=== PATIENT | male | born 1960 | race Caucasian/White ===

== ENCOUNTER 2016-07-15 23:09 | Emergency (ER) | payer MEDICAID, MEDICARE ==
[2016-07-16] MEDS ORDERED: KETOROLAC TROMETHAMINE INJ/PF 30 MG/1 ML SDV IM ONE (00:53)
--- NOTE | 2016-07-16 00:59 | ER Document Report ---
ED General - General Chief Complaint: Rib Pain Stated Complaint: RIB PAIN Time Seen by Provider: 07/16/16 00:42 Notes: Patient is a pleasant 56-year-old male who presents with complaints of having some lumps over his left rib cage for 2 years. Patient saw surgeon shortly after he developed. His blood to go back to a surgeon but his insurance changed from Medicaid to Medicare. He was told they would have to be referred from his primary care doctor. Patient says he is scheduled to go back to his primary care doctor on Sunday to get a repeat referral to the surgeon. He says the lumps are painful and therefore he has come to the ER. Patient has no other complaints at this time. He otherwise feels well. He admits that he has Percocet some half milligram tablets at home which he takes for his back pain. He wants to know if there is some different he can take for his chest wall pain. TRAVEL OUTSIDE OF THE [place] IN LAST 30 DAYS: No - Related Data Allergies/Adverse Reactions: naproxen [Naproxen] Allergy (Verified 09/17/15 13:16) morphine [Morphine] Adverse Reaction (Verified 09/17/15 13:16) Migraine Past Medical History - Social History Smoking Status: Unknown if Ever Smoked Frequency of alcohol use: None Drug Abuse: None Family History: Reviewed & Not Pertinent - Past Medical History Cardiac Medical History: Reports: Hx Coronary Artery Disease, Hx Heart Attack - x4, Hx Hypertension Endocrine Medical History: Reports: Hx Diabetes Mellitus Type 2 Renal/ Medical History: Reports: Hx Kidney Stones. Denies: Hx Peritoneal Dialysis Past Surgical History: Reports: Hx Abdominal Surgery - gastric bypass, Hx Cardiac Catheterization - stents x2, Hx Cholecystectomy, Hx Coronary Stent - x9 , Hx Gastric Bypass Surgery - Immunizations Hx Diphtheria, Pertussis, Tetanus Vaccination: Yes Hx Pneumococcal Vaccination: 11/19/12 Physical Exam - Vital signs Vitals: Temp Pulse Resp BP Pulse Ox 98.2 F 88 16 155/86 H 99 07/15/16 23:17 07/15/16 23:17 07/15/16 23:17 07/15/16 23:17 07/15/16 23:17 Course - Vital Signs Vital signs: Temp Pulse Resp BP Pulse Ox 98.2 F 81 20 142/80 H 100 07/15/16 23:17 07/16/16 01:55 07/16/16 01:55 07/16/16 01:55 07/16/16 01:55 - Transfer of Care Notes: 07/16/16 00:53 Patient has Naprosyn in his allergy list. Patient says many years ago he took naproxen for gout along with a few other medications. He developed a rash therefore was told him to take nap again. Patient says he actually takes Aleve on a regular basis as well as sometimes Motrin or ibuprofen. He actually gets no reaction or rash or itching after taking his medications. Patient agrees to try a shot of Toradol. Patient is already on Percocet 7.5 mg at home. He says he will call Dr. España's office to get the repeat referral to the general surgeon to have the areas reevaluated and potentially biopsy. Discharge - Discharge Clinical Impression: Lump in chest Condition: Good Disposition: HOME, SELF-CARE Additional Instructions: Please follow back up with the surgeon for reevaluation and potential biopsy of the lumps on your chest wall. Return to the ER if you have redness of the skin over your chest wall, fevers, difficulty breathing, or feel unwell. Take benadryl and have somebody drive you to the ER immediately if you develop rash or itching after tonight. Referrals: TAYLOR SUTTON MD [Primary Care Provider] - Follow up as needed
[2016-07-16 01:56] VITALS: BP 142/80
== END 2016-07-16 01:37 | disposition home or self-care (01) ==
LOC: ER 23:09
DX: R22.2 Localized swelling, mass and lump, trunk (principal); R07.81 Pleurodynia; I25.10 Atherosclerotic heart disease of native coronary artery without angina pectoris; I10 Essential (primary) hypertension; E11.9 Type 2 diabetes mellitus without complications; Z87.442 Personal history of urinary calculi; Z88.6 Allergy status to analgesic agent; Z98.84 Bariatric surgery status; Z90.49 Acquired absence of other specified parts of digestive tract; I25.2 Old myocardial infarction
CPT/HCPCS: 99283; 96372; J1885

== ENCOUNTER 2016-08-14 19:46 | Observation (INO) | payer MEDICARE ==
[2016-08-14] MEDS ORDERED: ASPIRIN 81 MG TABLET, CHEWABLE PO ONE (20:33)
--- NOTE | 2016-08-14 20:34 | ER Document Report ---
ED Medical Screen (RME) - General Chief Complaint: Chest Pain Stated Complaint: CHEST PAIN Time Seen by Provider: 08/14/16 20:32 Mode of Arrival: Wheelchair Information source: Patient TRAVEL OUTSIDE OF THE [place] 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 Denies: Hx Peritoneal Dialysis Past Surgical History: Reports: Hx Abdominal Surgery - gastric bypass, Hx Cardiac Catheterization - stents x2, Hx Cholecystectomy, Hx Coronary Stent - x9 , Hx Gastric Bypass Surgery - Immunizations Hx Diphtheria, Pertussis, Tetanus Vaccination: Yes
[2016-08-14] MEDS ORDERED: NITROGLYCERIN 0.4 MG/TAB 25 TAB/BOTTLE SL PRN (20:35)
[2016-08-14] MEDS ORDERED: ASPIRIN 81 MG TABLET, CHEWABLE ONE (20:40)
[2016-08-14 21:15] LABS: ABSOLUTE BASOPHILS # (AUTO) 0.1 10^3/uL (0.0-0.2); ABSOLUTE EOSINOPHILS # (AUTO) 0.2 10^3/uL (0.0-0.6); ABSOLUTE LYMPHOCYTES (AUTO) 1.4 10^3/uL (0.5-4.7); ABSOLUTE MONOCYTES (AUTO) 0.9 10^3/uL (0.1-1.4); ABSOLUTE NEUT (AUTO) 8.2 10^3/uL (1.7-8.2); EOSINOPHILS % (AUTO) 1.6 % (0-6); HEMATOCRIT 37.4 % (37.9-51.0); HEMOGLOBIN 11.7 g/dL (13.5-17.0); HGB HCT DIFFERENCE -2.3; LYMPHOCYTES % (AUTO) 13.1 % (13-45); MEAN CORPUSCULAR HEMOGLOBIN 23.5 pg (27.0-33.4); MEAN CORPUSCULAR HGB CONC 31.3 g/dL (32.0-36.0); MEAN CORPUSCULAR VOLUME 75 fl (80-97); MONOCYTES % (AUTO) 8.5 % (3-13); RED BLOOD COUNT 4.98 10^6/uL (4.35-5.55); RED CELL DISTRIBUTION WIDTH 15.4 % (11.5-14.0); SEGMENTED NEUTROPHILS % (AUTO) 75.8 % (42-78); WHITE BLOOD COUNT 10.8 10^3/uL (4.0-10.5)
--- NOTE | 2016-08-14 21:16 | RADIOLOGY REPORT (SQ) ---
EXAM DESCRIPTION: CHEST PA/LAT COMPLETED DATE/TIME: 08/14/2016 9:00 pm REASON FOR STUDY: cp COMPARISON: 04/19/2015. EXAM PARAMETERS: NUMBER OF VIEWS: two views TECHNIQUE: Digital Frontal and Lateral radiographic views of the chest acquired. RADIATION DOSE: NA LIMITATIONS: none FINDINGS: LUNGS AND PLEURA: No opacities, masses or pneumothorax. No pleural effusion. MEDIASTINUM AND HILAR STRUCTURES: No masses or contour abnormalities. HEART AND VASCULAR STRUCTURES: Heart normal size. No evidence for failure. BONES: No acute findings. HARDWARE: None in the chest. OTHER: No other significant finding. IMPRESSION: NO SIGNIFICANT RADIOGRAPHIC FINDING IN THE CHEST. TECHNICAL DOCUMENTATION: JOB ID: [id number] [employer]- All Rights Reserved
[2016-08-14 21:21] LABS: PARTIAL THROMBOPLASTIN TIME 31.5 SEC (23.5-35.8); PROTHROMBIN TIME 12.8 SEC (11.4-15.4)
[2016-08-14] MEDS ORDERED: NORMAL SALINE 1000 ML 1,000 ML IV PRN (21:26)
[2016-08-14 21:37] LABS: ALANINE AMINOTRANSFERASE 26 U/L (21-72); ALKALINE PHOSPHATASE 120 U/L (38-126); ANION GAP 13 (5-19); ASPARTATE AMINO TRANSFERASE 15 U/L (17-59); BILIRUBIN,DIRECT 0.4 mg/dL (0.0-0.4); BILIRUBIN,TOTAL 0.4 mg/dL (0.2-1.3); BLOOD UREA NITROGEN 20 mg/dL (7-20); CALCIUM 9.3 mg/dL (8.4-10.2); CARBON DIOXIDE 21 mmol/L (22-30); CHLORIDE 102 mmol/L (98-107); CREATINE KINASE 63 U/L (55-170); SODIUM 136.3 mmol/L (137-145); TOTAL PROTEIN 7.2 g/dL (6.3-8.2)
[2016-08-14 21:49] LABS: CREATINE KINASE MB < 0.22 ng/mL (<4.55); GLUCOSE 452 mg/dL (75-110); TROPONIN I < 0.012 ng/mL
--- NOTE | 2016-08-14 22:40 | EKG REPORT ---
SEVERITY:- OTHERWISE NORMAL ECG - SINUS TACHYCARDIA : Confirmed by: Khushboo Peres 14-Aug-2016 22:39:11
[2016-08-14] MEDS ORDERED: INSULIN REG, HUMAN 100 UNIT/ML 3 ML VIAL (PYX) SUBCUT ONE (22:52)
[2016-08-15] MEDS ORDERED: NITROGLYCERIN 2% OINTMENT 1 GM PACKET TP ONE (00:05)
--- NOTE | 2016-08-15 00:09 | ER Document Report ---
ED General - General Chief Complaint: Chest Pain Stated Complaint: CHEST PAIN Time Seen by Provider: 08/14/16 20:32 Mode of Arrival: Wheelchair Notes: Patient is a 56-year-old male with a history of coronary disease who presents with complaint of pressure in his chest. Into the left arm and shoulder. Some shortness of breath. He did take nitro. Pain is now improved. He has had aspirin. No fevers. No vomiting. No diarrhea. No other complaints at this time. He does have history of coronary disease. His last cardiac cath was April of last year. At that time he had 3 stents placed. TRAVEL OUTSIDE OF THE [place] IN LAST 30 DAYS: No - Related Data Allergies/Adverse Reactions: morphine [Morphine] Adverse Reaction (Verified 08/14/16 20:10) Migraine Past Medical History - General Information source: Patient - Social History Smoking Status: Never Smoker Frequency of alcohol use: None Drug Abuse: None Lives with: Spouse/Significant other Family History: Reviewed & Not Pertinent - Past Medical History Cardiac Medical History: Reports: Hx Coronary Artery Disease, Hx Heart Attack - x4, Hx Hypertension Endocrine Medical History: Reports: Hx Diabetes Mellitus Type 2 Renal/ Medical History: Reports: Hx Kidney Stones. Denies: Hx Peritoneal Dialysis Past Surgical History: Reports: Hx Abdominal Surgery - gastric bypass, Hx Cardiac Catheterization - stents x2, Hx Cholecystectomy, Hx Coronary Stent - x9 , Hx Gastric Bypass Surgery - Immunizations Hx Diphtheria, Pertussis, Tetanus Vaccination: Yes Hx Pneumococcal Vaccination: 11/19/12 Review of Systems - Review of Systems Notes: My Normal Review Basic REVIEW OF SYSTEMS: CONSTITUTIONAL : Denies fever, chills, or sweats. Denies recent illness. EENT: Denies eye, ear, throat, or mouth pain or symptoms. Denies nasal or sinus congestion. CARDIOVASCULAR: Chest Pain RESPIRATORY: Denies cough, cold, or chest congestion. Denies shortness of breath, difficulty breathing, or wheezing. GASTROINTESTINAL: Denies abdominal pain. Denies nausea, vomiting, or diarrhea. Denies constipation. Last BM: MUSCULOSKELETAL: Denies neck or back pain or joint pain or swelling. SKIN: Denies rash or skin lesions. NEUROLOGICAL: Denies altered mental status or loss of consciousness. Denies headache. Denies weakness or paralysis or loss of use of either side. Denies problems with gait or speech. Denies sensory or motor loss. ALL OTHER SYSTEMS REVIEWED AND NEGATIVE. Physical Exam - Vital signs Vitals: Temp Pulse Resp BP Pulse Ox 98.3 F 118 H 20 128/78 H 98 08/14/16 20:12 08/14/16 20:12 08/14/16 20:12 08/14/16 20:12 08/14/16 20:12 - Notes Notes: General Appearance: Well nourished, alert, cooperative, no acute distress, no obvious discomfort. Pain. Vitals: reviewed, See vital signs table. Head: no swelling or tenderness to the head Eyes: PERRL, EOMI, Conjuctiva clear Mouth: No decreasd moisture Neck: Supple, no neck tenderness, Lungs: No wheezing, No rales, No rhonci, No accessory muscle use, good air exchange bilaterally. Heart: Normal rate, Regular rythm, No murmur, no rub Chest Wall: No reproducible pain to palpation of anterior chest wall. Abdomen: Normal BS, soft, No rigidity, No abdominal tenderness, No guarding, no rebound, no abdominal masses, no organomegaly Extremities: strength 5/5 in all extremities, good pulses in all extremities, no swelling or tenderness in the extremities, no edema. Skin: warm, dry, appropriate color, no rash Neuro: speech clear, oriented x 3, normal affect, responds appropriately to questions. Course - Vital Signs Vital signs: Temp Pulse Resp BP Pulse Ox 97.4 F 74 18 131/91 H 100 08/15/16 03:33 08/15/16 03:33 08/15/16 03:33 08/15/16 03:33 08/15/16 03:33 - Laboratory Result Diagrams: 08/14/16 21:04 08/14/16 21:04 Laboratory results interpreted by me: 08/14/16 08/14/16 21:04 21:04 WBC 10.8 H Hgb 11.7 L Hct 37.4 L MCV 75 L MCH 23.5 L MCHC 31.3 L RDW 15.4 H Sodium 136.3 L Carbon Dioxide 21 L Creatinine 1.50 H Est GFR ( Amer) 59 L Est GFR (Non-Af Amer) 49 L Glucose 452 H* AST 15 L - EKG Interpretation by Me Additional EKG results interpreted by me: 08/15/16 00:08 EKG is reviewed and interpreted by me. EKG shows sinus tachycardia with a rate of [address] segment elevation or depression. No ischemic T-wave inversions. WV interval, QRS duration, QTc intervals are within normal range. No old EKG available for comparison. - Transfer of Care Notes: 08/15/16 06:28 Patient did have some elevated blood sugar. I did give him a dose of insulin. Patient was initially tachycardic but that has since resolved. Patient's chest pain is gone. His initial cardiac enzymes are negative. His initial EKG is negative. I did speak with the hospitalist who agrees to admit the patient for further workup of his chest pain. Dictation of this chart was performed using voice recognition software; therefore, there may be some unintended grammatical errors. Discharge - Discharge Clinical Impression: Chest pain Qualifiers: Chest pain type: unspecified Qualified Code(s): R07.9 - Chest pain, unspecified Disposition: ADMITTED OBSERVATION Admitting Provider: Hospitalist Unit Admitted: Telemetry
[2016-08-15] MEDS ORDERED: METOPROLOL TARTRATE 50 MG TABLET PO ONE (00:30)
[2016-08-15] MEDS ORDERED: LACTULOSE SYRUP 20 GM/30 ML UDCUP PO ONE (00:30)
--- NOTE | 2016-08-15 01:03 | RADIOLOGY REPORT (SQ) ---
EXAM DESCRIPTION: ABDOMEN 2 VIEWS COMPLETED DATE/TIME: 08/15/2016 12:35 am REASON FOR STUDY: aabd pain COMPARISON: 09/17/2015. NUMBER OF VIEWS: Two views. 3 images. TECHNIQUE: Supine and erect/decubitus radiographic images of the abdomen acquired. LIMITATIONS: None. FINDINGS: FREE AIR: None. No abnormal gas collections. LUNG BASES: Clear. BOWEL GAS PATTERN: Nonobstructive pattern. No dilated loops or air fluid levels. Minimal gaseous dis tension of a nonspecific jejunal loop measures 3.0 cm in diameter in the left paracentral abdomen. CALCIFICATIONS: No suspicious calcifications. SOFT TISSUES: No gross mass or suggestion of organomegaly. HARDWARE: None in the abdomen. BONES: No acute fracture. No worrisome bone lesions. OTHER: No other significant finding. IMPRESSION: NO RADIOGRAPHIC EVIDENCE FOR ACUTE ABDOMINAL DISEASE. TECHNICAL DOCUMENTATION: JOB ID: [id number] [employer]- All Rights Reserved
[2016-08-15] MEDS: OXYCODONE-ACETAMINOPHEN 5-325 MG TABLET PO PRN ×2 (03:28→09:27)
[2016-08-15 03:40] LABS: CREATINE KINASE MB < 0.22 ng/mL (<4.55); TROPONIN I < 0.012 ng/mL
[2016-08-15] MEDS ORDERED: GABAPENTIN 300 MG CAPSULE PO ONE (03:45)
[2016-08-15] MEDS ORDERED: CYCLOBENZAPRINE HCL 10 MG TABLET PO ONE (03:45)
--- NOTE | 2016-08-15 04:04 | PDOC H&P ---
History of Present Illness Admission Date/PCP: 08/15/16 00:21 TAYLOR SUTTON MD Patient complains of: Chest pain History of Present Illness: STEPHANIE MONTEMAYOR is a 56 year old male with a past medical history of coronary artery disease status post stents 3, diabetes, hypertension and dyslipidemia who had been in his usual state of health until approximately 8 hours prior to presentation with left-sided aching 3 out of 5 intensity chest pain which radiated to the left jaw associated with shortness of breath and numbness of the left arm. This occurred while at rest pain was somewhat alleviated by sublingual nitro no clear exacerbating factors. He denies recent changes in medication. He states having a negative cardiac stress test 6 months ago. He also states this is identical to the pain he had with prior myocardial infarct. In the emergency room he has an unremarkable workup is referred to the hospital for admission Past Medical History Cardiac Medical History: Reports: Coronary Artery Disease, Myocardial Infarction - x4, Hypertension Endocrine Medical History: Reports: Diabetes Mellitus Type 2, Obesity Past Surgical History Past Surgical History: Reports: Cardiac Catheterization - stents x9, Cholecystectomy, Coronary Stent - x9, Gastric Bypass Surgery Social History Information Source: Patient Smoking Status: Never Smoker Frequency of Alcohol Use: None Drugs: None - Advance Directive Resuscitation Status: Full Code Family History Family History: CAD, DM Parental Family History Reviewed: Yes Children Family History Reviewed: Yes Sibling(s) Family History Reviewed.: Yes Medication/Allergy Home Medications: Lisinopril [Prinivil 30 mg Tablet] 30 mg PO DAILY 07/31/13 Metoprolol Tartrate [Lopressor 50 mg Tablet] 50 mg PO Q12H 07/31/13 Oxycodone HCl/Acetaminophen [Percocet 5-325 mg Tablet] 1 - 2 tab PO ASDIR PRN # 15 tablet 08/05/13 Amlodipine Besylate 5 mg PO DAILY 04/20/15 Cyclobenzaprine HCl [Flexeril 5 mg Tablet] 10 mg PO BID 04/20/15 Gabapentin 300 mg PO BID 04/20/15 Metformin HCl 500 mg PO BID 04/20/15 Ticagrelor [Brilinta 90 mg Tablet] 1 tab PO BID 04/20/15 Ondansetron [Zofran Odt 4 mg Tablet] 1 - 2 tab PO Q4H PRN #15 tab.rapdis Oxycodone HCl/Acetaminophen [Percocet 7.5-325 Mg Tablet] 1 each PO QID #16 tablet 09/17/15 Allergies/Adverse Reactions: morphine [Morphine] Adverse Reaction (Verified 08/14/16 20:10) Migraine Review of Systems Constitutional: ABSENT: chills, fever(s), headache(s), weight gain, weight loss Eyes: ABSENT: visual disturbances Ears: ABSENT: hearing changes Cardiovascular: ABSENT: chest pain, dyspnea on exertion, edema, orthropnea, palpitations Respiratory: ABSENT: cough, hemoptysis Gastrointestinal: ABSENT: abdominal pain, constipation, diarrhea, hematemesis, hematochezia, nausea, vomiting Genitourinary: ABSENT: dysuria, hematuria Musculoskeletal: ABSENT: joint swelling Integumentary: ABSENT: rash, wounds Neurological: ABSENT: abnormal gait, abnormal speech, confusion, dizziness, focal weakness, syncope Psychiatric: ABSENT: anxiety, depression, homidical ideation, suicidal ideation Endocrine: ABSENT: cold intolerance, heat intolerance, polydipsia, polyuria Hematologic/Lymphatic: ABSENT: easy bleeding, easy bruising Physical Exam Vital Signs: Temp Pulse Resp BP Pulse Ox 97.4 F 74 18 131/91 H 100 08/15/16 03:33 08/15/16 03:33 08/15/16 03:33 08/15/16 03:33 08/15/16 03:33 Intake & Output 08/13/16 08/14/16 08/15/16 11:59 11:59 11:59 Weight 113.5 kg General appearance: PRESENT: no acute distress, well-developed, well-nourished Head exam: PRESENT: atraumatic, normocephalic Eye exam: PRESENT: conjunctiva pink, EOMI, PERRLA. ABSENT: scleral icterus Ear exam: PRESENT: normal external ear exam Mouth exam: PRESENT: moist, tongue midline Neck exam: ABSENT: carotid bruit, JVD, lymphadenopathy, thyromegaly Respiratory exam: PRESENT: clear to auscultation rashmi. ABSENT: rales, rhonchi, wheezes Cardiovascular exam: PRESENT: RRR. ABSENT: diastolic murmur, rubs, systolic murmur Pulses: PRESENT: normal dorsalis pedis pul Vascular exam: PRESENT: normal capillary refill GI/Abdominal exam: PRESENT: normal bowel sounds, soft. ABSENT: distended, guarding, mass, organolmegaly, rebound, tenderness Rectal exam: PRESENT: deferred Extremities exam: PRESENT: full ROM. ABSENT: calf tenderness, clubbing, pedal edema Neurological exam: PRESENT: alert, awake, oriented to person, oriented to place , oriented to time, oriented to situation, CN II-XII grossly intact. ABSENT: motor sensory deficit Psychiatric exam: PRESENT: appropriate affect, normal mood. ABSENT: homicidal ideation, suicidal ideation Skin exam: PRESENT: dry, intact, warm. ABSENT: cyanosis, rash Results Laboratory Results: 08/15/16 03:05 CK-MB (CK-2) < 0.22 Troponin I < 0.012 Impressions: Chest X-Ray 08/14/16 20:33 IMPRESSION: NO SIGNIFICANT RADIOGRAPHIC FINDING IN THE CHEST. Abdomen X-Ray 08/15/16 00:09 IMPRESSION: NO RADIOGRAPHIC EVIDENCE FOR ACUTE ABDOMINAL DISEASE. Assessment & Plan - Diagnosis (1) Coronary artery disease Is this a current diagnosis for this admission?: YesPlan: Atypical chest pain though the patient's pain is atypical there are multiple risk factors for coronary artery disease and subsequently will observe and evaluation of acute coronary syndrome versus coronary artery disease with anginal equivalents. Cardiac monitoring blood pressure Q6 hours ,TSH, lipid profile, serial cardiac enzymes and transfer to tertiary care for cardiac catheterization if cardiac enzymes positive. (2) Diabetes Is this a current diagnosis for this admission?: YesPlan: Hold metformin, check A1c and sliding insulin (3) Chest pain Qualifiers: Chest pain type: unspecified Qualified Code(s): R07.9 - Chest pain, unspecified Is this a current diagnosis for this admission?: YesPlan: Please see #1 in addition to symptomatic management - Time Time Spent: 30 to 50 Minutes - Inpatient Certification Medical Necessity: Need Close Monitoring Due to Risk of Patient Decompensation
[2016-08-15] MEDS ORDERED: HEPARIN SOD (PORCINE) 5,000 UNIT/ML 1 ML SYRINGE SUBCUT SCH (06:00)
[2016-08-15 09:49] LABS: CREATINE KINASE MB < 0.22 ng/mL (<4.55); TROPONIN I < 0.012 ng/mL
[2016-08-15] MEDS ORDERED: AMLODIPINE BESYLATE 5 MG TABLET PO SCH (10:00)
[2016-08-15] MEDS ORDERED: GABAPENTIN 300 MG CAPSULE PO SCH (10:00)
[2016-08-15] MEDS ORDERED: METOPROLOL TARTRATE 50 MG TABLET PO SCH (10:00)
[2016-08-15] MEDS ORDERED: CYCLOBENZAPRINE HCL 10 MG TABLET PO SCH (10:00)
[2016-08-15] MEDS ORDERED: TICAGRELOR 90 MG TABLET PO SCH (10:00)
--- NOTE | 2016-08-15 11:36 | PDOC DISCHARGE SUMMARY ---
General - Admit/Disc Date/PCP Admission Date/Primary Care Provider: 08/15/16 02:33 TAYLOR SUTTON MD Discharge Date: 08/15/16 - Discharge Diagnosis (1) Chest pain Is this a current diagnosis for this admission?: Yes (2) Coronary artery disease Is this a current diagnosis for this admission?: Yes (3) Diabetes Is this a current diagnosis for this admission?: Yes - Additional Information Resuscitation Status: Full Code Discharge Diet: Cardiac, Diabetic Discharge Activity: Activity As Tolerated Home Medications: Amlodipine Besylate [Norvasc 5 mg Tablet] 5 mg PO DAILY 08/15/16 Atorvastatin Calcium [Lipitor 40 mg Tablet] 40 mg PO QHS 08/15/16 Cyclobenzaprine HCl [Flexeril 10 mg Tablet] 10 mg PO BID 08/15/16 Gabapentin [Neurontin 300 mg Capsule] 300 mg PO Q8 08/15/16 Insulin Aspart [Novolog Flexpen] 0 unit SUBCUT .SLD SCALE 08/15/16 Insulin Detemir [Levemir Flextouch] 20 unit SQ QHS 08/15/16 Isosorbide Mononitrate [Imdur 30 mg Tablet.er] 30 mg PO DAILY 08/15/16 Lisinopril [Prinivil 30 mg Tablet] 30 mg PO DAILY 08/15/16 Metoprolol Tartrate [Lopressor 25 mg Tablet] 25 mg PO Q12 08/15/16 Nitroglycerin [Nitrostat 0.4 mg (1/150 Gr) Tabs 25/Bottle] 1 tab SL Q5MP PRN Ondansetron HCl [Zofran] 4 mg PO Q4HP PRN 08/15/16 Oxycodone HCl/Acetaminophen [Percocet 7.5-325 mg Tablet] 1 each PO Q6HP PRN Tamsulosin HCl [Flomax 0.4 mg Cap.sr] 0.4 mg PO DAILY 08/15/16 Ticagrelor [Brilinta 90 mg Tablet] 1 tab PO BID 08/15/16 History of Present Illness Patient complains of: Chest pain History of Present Illness: STEPHANIE MONTEMAYOR is a 56 year old male with a past medical history of coronary artery disease status post stents 3, diabetes, hypertension and dyslipidemia who had been in his usual state of health until approximately 8 hours prior to presentation with left-sided aching 3 out of 5 intensity chest pain which radiated to the left jaw associated with shortness of breath and numbness of the left arm. This occurred while at rest pain was somewhat alleviated by sublingual nitro no clear exacerbating factors. He denies recent changes in medication. He states having a negative cardiac stress test 6 months ago. He also states this is identical to the pain he had with prior myocardial infarct. In the emergency room he has an unremarkable workup is referred to the hospital for admission. Hospital Course Hospital Course: Patient was placed in observation status for chest pain and known coronary artery disease. Serial cardiac enzymes were negative for FL. He had a stress test in March 2016 was negative for ischemia per his report. He is followed by Dr. Singh of [facility]. He is advised to continue all current cardiac medications and follow-up with Dr. Singh as soon as possible. Patient was clinically stable and chest pain-free at time of discharge. Physical Exam Vital Signs: Temp Pulse Resp BP Pulse Ox 97.8 F 71 18 125/76 100 08/15/16 07:23 08/15/16 07:23 08/15/16 07:23 08/15/16 07:23 08/15/16 07:23 Intake & Output 08/14/16 08/15/16 08/16/16 06:59 06:59 06:59 Intake Total 150 Balance 150 Weight 113.5 kg GENERAL: No acute distress HEENT: Conjunctiva clear, nonicteric, moist mucous membranes, no JVD, midline trachea RESPIRATORY: Clear to auscultation bilaterally, no wheezes, no rhonchi CARDIAC: Regular rate and rhythm, no murmurs/gallops/rubs ABDOMEN: Soft, nondistended, nontender, positive bowel sounds, no rebound, no guarding EXTREMETIES: No edema, cyanosis, clubbing NEUROLOGIC: Alert, oriented to person/place/time, CN's grossly intact, no focal deficits SKIN: No rash, wounds PSYCH: Normal mood, normal affect Results Laboratory Results: 08/15/16 08/15/16 03:05 08:52 CK-MB (CK-2) < 0.22 < 0.22 Troponin I < 0.012 < 0.012 Labs- All tests 24 hr 08/14/16 08/14/16 08/14/16 21:04 21:04 21:04 WBC 10.8 H RBC 4.98 Hgb 11.7 L Hct 37.4 L MCV 75 L MCH 23.5 L MCHC 31.3 L RDW 15.4 H Plt Count 423 Seg Neutrophils % 75.8 Lymphocytes % 13.1 Monocytes % 8.5 Eosinophils % 1.6 Basophils % 1.0 Absolute Neutrophils 8.2 Absolute Lymphocytes 1.4 Absolute Monocytes 0.9 Absolute Eosinophils 0.2 Absolute Basophils 0.1 PT INR APTT Sodium 136.3 L Potassium 5.0 Chloride 102 Carbon Dioxide 21 L Anion Gap 13 BUN 20 Creatinine 1.50 H Est GFR ( Amer) 59 L Est GFR (Non-Af Amer) 49 L Glucose 452 H* POC Glucose Calcium 9.3 Total Bilirubin 0.4 Direct Bilirubin 0.4 Indirect Bilirubin Not Reportable Neonat Total Bilirubin Not Reportable AST 15 L ALT 26 Alkaline Phosphatase 120 Creatine Kinase 63 CK-MB (CK-2) < 0.22 Troponin I < 0.012 Total Protein 7.2 Albumin 4.0 08/14/16 08/15/16 08/15/16 21:04 03:05 06:12 WBC RBC Hgb Hct MCV MCH MCHC RDW Plt Count Seg Neutrophils % Lymphocytes % Monocytes % Eosinophils % Basophils % Absolute Neutrophils Absolute Lymphocytes Absolute Monocytes Absolute Eosinophils Absolute Basophils PT 12.8 INR 0.90 APTT 31.5 Sodium Potassium Chloride Carbon Dioxide Anion Gap BUN Creatinine Est GFR ( Amer) Est GFR (Non-Af Amer) Glucose POC Glucose 151 H Calcium Total Bilirubin Direct Bilirubin Indirect Bilirubin Neonat Total Bilirubin AST ALT Alkaline Phosphatase Creatine Kinase CK-MB (CK-2) < 0.22 Troponin I < 0.012 Total Protein Albumin 08/15/16 08:52 WBC RBC Hgb Hct MCV MCH MCHC RDW Plt Count Seg Neutrophils % Lymphocytes % Monocytes % Eosinophils % Basophils % Absolute Neutrophils Absolute Lymphocytes Absolute Monocytes Absolute Eosinophils Absolute Basophils PT INR APTT Sodium Potassium Chloride Carbon Dioxide Anion Gap BUN Creatinine Est GFR ( Amer) Est GFR (Non-Af Amer) Glucose POC Glucose Calcium Total Bilirubin Direct Bilirubin Indirect Bilirubin Neonat Total Bilirubin AST ALT Alkaline Phosphatase Creatine Kinase CK-MB (CK-2) < 0.22 Troponin I < 0.012 Total Protein Albumin EKG Comments: Sinus tachycardia Impressions: Chest X-Ray 08/14/16 20:33 IMPRESSION: NO SIGNIFICANT RADIOGRAPHIC FINDING IN THE CHEST. Abdomen X-Ray 08/15/16 00:09 IMPRESSION: NO RADIOGRAPHIC EVIDENCE FOR ACUTE ABDOMINAL DISEASE. Qualifiers PATEINT BEING DISCHARGED WITH ANY OF THE FOLLOWING DIAGNOSIS?: No Plan Time Spent: Less than 30 Minutes
[2016-08-15 12:28] VITALS: BP 131/91
[2016-08-15] MEDS ORDERED: INSULIN LISPRO 100 UNIT/ML 3 ML VIAL SUBCUT ONE (12:30)
== END 2016-08-15 13:38 | disposition home or self-care (01) ==
LOC: ER 19:46 → EH 08-15 00:21 → UNDOADMOB 08-15 00:21 → 4W 08-15 02:33 → EH 08-15 03:15
PROVIDERS: ADMIT Internal Medicine; ATTEND Internal Medicine
DX: R07.9 Chest pain, unspecified (principal); I25.10 Atherosclerotic heart disease of native coronary artery without angina pectoris; E11.9 Type 2 diabetes mellitus without complications; I10 Essential (primary) hypertension; R06.02 Shortness of breath; R20.0 Anesthesia of skin; R00.0 Tachycardia, unspecified; R51 Headache; Z79.4 Long term (current) use of insulin; Z79.899 Other long term (current) drug therapy; Z79.02 Long term (current) use of antithrombotics/antiplatelets; Z95.5 Presence of coronary angioplasty implant and graft; I25.2 Old myocardial infarction; Z98.84 Bariatric surgery status; Z90.49 Acquired absence of other specified parts of digestive tract; Z82.49 Family history of ischemic heart disease and other diseases of the circulatory system
CPT/HCPCS: 93005; 99285; 96360; 36415 ×2; 82553 ×2; 82962; 82550; 85025; 85610; 85730; 80053; 84484 ×2; 74020; 71020; 93010; G0378; A9270 ×10; J1644; J3490; J7030; J1815

== ENCOUNTER 2016-11-02 21:21 | Emergency (ER) | payer MEDICARE ==
[2016-11-02 21:41] VITALS: BP 98/72
[2016-11-02 23:04] LABS: APPEARANCE,URINE CLEAR; BILIRUBIN,URINE NEGATIVE (NEGATIVE); GLUCOSE, URINE >=500 mg/dL (NEGATIVE); KETONES,URINE NEGATIVE (NEGATIVE); LEUKOCYTE ESTERASE,URINE NEGATIVE (NEGATIVE); NITRITE,URINE NEGATIVE (NEGATIVE); PROTEIN,URINE NEGATIVE (NEGATIVE); URINE SPECIFIC GRAVITY 1.023; UROBILINOGEN,URINE NEGATIVE mg/dL (<2.0)
== END 2016-11-03 00:37 | disposition left against medical advice (07) ==
LOC: ER 21:21
DX: Z53.21 Procedure and treatment not carried out due to patient leaving prior to being seen by health care provider (principal)
CPT/HCPCS: 81001; 82962

== ENCOUNTER 2016-11-04 21:15 | Emergency (ER) | payer MEDICARE ==
[2016-11-04 21:24] VITALS: BP 149/110
[2016-11-04 22:49] LABS: APPEARANCE,URINE CLEAR; BILIRUBIN,URINE NEGATIVE (NEGATIVE); GLUCOSE, URINE >=500 mg/dL (NEGATIVE); KETONES,URINE NEGATIVE (NEGATIVE); LEUKOCYTE ESTERASE,URINE NEGATIVE (NEGATIVE); NITRITE,URINE NEGATIVE (NEGATIVE); PROTEIN,URINE NEGATIVE (NEGATIVE); UROBILINOGEN,URINE NEGATIVE mg/dL (<2.0)
--- NOTE | 2016-11-04 22:50 | ER Document Report ---
ED GI/ - General Mode of Arrival: Ambulatory Information source: Patient TRAVEL OUTSIDE OF THE [place] IN LAST 30 DAYS: No - HPI Similar symptoms previously: Yes Recently seen / treated by doctor: No <BENNIE MURRAY - Last Filed: 11/05/16 00:26> <ANABEL ZHOU - Last Filed: 11/05/16 00:44> - General Chief Complaint: Urinary Retention Stated Complaint: PELVIC PAIN Time Seen by Provider: 11/04/16 22:44 Notes: Patient is a 56 year old male presenting to the emergency department for urinary retention. Patient states he has been out of Flowmax since Sunday. Patient states he feels like he is unable to fully empty his bladder. Patient states he has lots of pressure and he has a very slow flow. Patient states he has been on Flowmax for an enlarged prostate for about 14 months. Patient states this has only happened 1 other time about 8 months ago and he had similar symptoms. Patient also states he had some flank pain and thought he may have a kidney stone. Patient does not have a urologist but does have a PCP, Dr. Sutton. Patient has a history of type II diabetes mellitus, CAD, hypertension, FL x5, stents x9, stroke x1, kidney stones, gastric bypass surgery, and a cholecystectomy. Patient is allergic to morphine. (BENNIE MURRAY) A review of the [place] controlled substance reporting system shows the patient receives #90 Percocet 10 mg tablets on a monthly basis. (ANABEL ZHOU) - Related Data Allergies/Adverse Reactions: morphine [Morphine] Adverse Reaction (Verified 11/04/16 21:20) Migraine Past Medical History - General Information source: Patient - Social History Smoking Status: Never Smoker Cigarette use (# per day): No Chew tobacco use (# tins/day): No Smoking Education Provided: No Frequency of alcohol use: None Drug Abuse: None Family History: None Patient has suicidal ideation: No Patient has homicidal ideation: No - Past Medical History Cardiac Medical History: Reports: Hx Coronary Artery Disease, Hx Heart Attack - x5, Hx Hypertension Neurological Medical History: Reports: Hx Cerebrovascular Accident - x1 Endocrine Medical History: Reports: Hx Diabetes Mellitus Type 2 Renal/ Medical History: Reports: Hx Kidney Stones Past Surgical History: Reports: Hx Cardiac Catheterization - stents x9, Hx Cholecystectomy, Hx Gastric Bypass Surgery - Immunizations Hx Diphtheria, Pertussis, Tetanus Vaccination: Yes Hx Pneumococcal Vaccination: 11/19/12 <BENNIE MURRAY - Last Filed: 11/05/16 00:26> Review of Systems - Review of Systems Constitutional: No symptoms reported EENT: No symptoms reported Cardiovascular: No symptoms reported Respiratory: No symptoms reported Gastrointestinal: See HPI, Abdominal pain Genitourinary: See HPI, Flank pain, Retention Male Genitourinary: No symptoms reported Musculoskeletal: No symptoms reported Skin: No symptoms reported Hematologic/Lymphatic: No symptoms reported Neurological/Psychological: No symptoms reported -: Yes All other systems reviewed and negative <BENNIE MURRAY - Last Filed: 11/05/16 00:26> Physical Exam - Vital signs Interpretation: Normal <BENNIE MURRAY - Last Filed: 11/05/16 00:26> <ANABEL ZHOU - Last Filed: 11/05/16 00:44> - Vital signs Vitals: Temp Pulse Resp BP Pulse Ox 97.5 F 91 20 149/110 H 98 11/04/16 21:22 11/04/16 21:22 11/04/16 21:22 11/04/16 21:22 11/04/16 21:22 - Notes Notes: GENERAL: Alert, interacts well. No acute distress. HEAD: Normocephalic, atraumatic. EYES: Appear normal. Pupils equal, round, and reactive to light. ENT: Moist mucus membranes, tongue midline. NECK: Full range of motion. Supple. Trachea midline. LUNGS: Clear to auscultation bilaterally, no wheezes, rales, or rhonchi. No respiratory distress. HEART: Regular rate and rhythm. No murmurs, gallops, or rubs. ABDOMEN: Obese. Soft, lower abdominal tenderness with palpation. Non-distended. Normal bowel sounds. EXTREMITIES: Moves all 4 extremities spontaneously. Normal strength. No edema. NEUROLOGICAL: Alert and oriented x3. Normal speech. No focal neurological deficits. GCS 15. PSYCH: Normal affect, normal mood. SKIN: Warm, dry, normal turgor. No rashes or lesions noted. (BENNIE MURRAY) Course - Laboratory Result Diagrams: 11/04/16 23:03 11/04/16 23:03 <BENNIE MURRAY - Last Filed: 11/05/16 00:26> - Laboratory Result Diagrams: 11/04/16 23:03 11/04/16 23:03 <ANABEL ZHOU - Last Filed: 11/05/16 00:44> - Re-evaluation Re-evalutation: 11/05/16 00:04 Sadler catheter was placed in about 250 mL's of clear yellow urine came out. Patient describes the continuing sensation of some pressure despite being drained. 11/05/16 00:43 Patient's blood pressure was recorded as elevated when he checked in. Review of recent and distant visits shows his blood pressure has been normal before. I suspect elevated pressure was due to his discomfort from the urine retention. (ANABEL ZHOU) - Vital Signs Vital signs: Temp Pulse Resp BP Pulse Ox 97.5 F 91 20 149/110 H 98 11/04/16 21:22 11/04/16 21:22 11/04/16 21:22 11/04/16 21:22 11/04/16 21:22 - Laboratory Laboratory results interpreted by me: 11/04/16 11/04/16 11/04/16 22:32 23:03 23:03 Hgb 12.0 L Hct 36.0 L MCV 72 L MCH 24.2 L RDW 16.6 H Sodium 136.0 L Glucose 330 H Urine Glucose (UA) >=500 H Discharge <BENNIE MURRAY - Last Filed: 11/05/16 00:26> <ANABEL ZHOU - Last Filed: 11/05/16 00:44> - Discharge Clinical Impression: Urinary retention due to benign prostatic hyperplasia, Has run out of medications Hyperglycemia due to type 2 diabetes mellitus Qualifiers: Diabetes mellitus mcfp insulin use: unspecified mcfp insulin use status Qualified Code(s): E11.65 - Type 2 diabetes mellitus with hyperglycemia Condition: Stable Disposition: HOME, SELF-CARE Additional Instructions: Your blood sugar was 330 this evening. The urine did not show signs of infection. Start taking the Flomax tomorrow. Take your regular pain medications when you return home. Drink plenty of fluids. Follow-up with your urologist this week. Follow-up with your primary care provider to review your diabetes management. RETURN TO THE EMERGENCY ROOM IF ANY NEW OR WORSENING SYMPTOMS. Prescriptions: Tamsulosin HCl [Flomax 0.4 mg Cap.sr] 0.4 mg PO DAILY #15 cap.sr.24h Referrals: TAYLOR SUTTON MD [Primary Care Provider] - Follow up in 1 week Scribe Attestation: 11/05/16 00:41 I personally performed the services described in the documentation, reviewed and edited the documentation which was dictated to the scribe in my presence, and it accurately records my words and actions. (ANABEL ZHOU) Scribe Documentation - Scribe Written by Jerardo:: Jerardo Rivera 11/05/2016 00:17 acting as scribe for :: Cherie <BENNIE MURRAY - Last Filed: 11/05/16 00:26>
[2016-11-04] MEDS ORDERED: LIDOCAINE 2% URO-JET 5 ML KIT MM ONE (22:59)
[2016-11-04 23:39] LABS: ALANINE AMINOTRANSFERASE 35 U/L (21-72); ALBUMIN 4.1 g/dL (3.5-5.0); ALKALINE PHOSPHATASE 108 U/L (38-126); ANION GAP 11 (5-19); ASPARTATE AMINO TRANSFERASE 17 U/L (17-59); BILIRUBIN,DIRECT 0.4 mg/dL (0.0-0.4); BILIRUBIN,TOTAL 0.4 mg/dL (0.2-1.3); BLOOD UREA NITROGEN 13 mg/dL (7-20); CALCIUM 9.9 mg/dL (8.4-10.2); CARBON DIOXIDE 22 mmol/L (22-30); CHLORIDE 103 mmol/L (98-107); CREATININE RESULT 1.12 mg/dL (0.52-1.25); GLUCOSE 330 mg/dL (75-110); LIPASE 147.1 U/L (23-300)
[2016-11-04 23:43] LABS: ABSOLUTE BASOPHILS # (AUTO) 0.1 10^3/uL (0.0-0.2); ABSOLUTE EOSINOPHILS # (AUTO) 0.2 10^3/uL (0.0-0.6); ABSOLUTE LYMPHOCYTES (AUTO) 1.9 10^3/uL (0.5-4.7); ABSOLUTE MONOCYTES (AUTO) 0.8 10^3/uL (0.1-1.4); BASOPHILS % (AUTO) 1.1 % (0-2); EOSINOPHILS % (AUTO) 2.3 % (0-6); MEAN CORPUSCULAR HEMOGLOBIN 24.2 pg (27.0-33.4); MEAN CORPUSCULAR HGB CONC 33.4 g/dL (32.0-36.0); MEAN CORPUSCULAR VOLUME 72 fl (80-97); RED BLOOD COUNT 4.98 10^6/uL (4.35-5.55); RED CELL DISTRIBUTION WIDTH 16.6 % (11.5-14.0); SEGMENTED NEUTROPHILS % (AUTO) 62.6 % (42-78); WHITE BLOOD COUNT 8.1 10^3/uL (4.0-10.5)
[2016-11-05] MEDS ORDERED: TAMSULOSIN HCL 0.4 MG CAP.SR.24H PO ONE (00:44)
== END 2016-11-05 01:08 | disposition home or self-care (01) ==
LOC: ER 21:15
DX: N40.1 Benign prostatic hyperplasia with lower urinary tract symptoms (principal); R33.8 Other retention of urine; E11.65 Type 2 diabetes mellitus with hyperglycemia; E66.9 Obesity, unspecified; I25.10 Atherosclerotic heart disease of native coronary artery without angina pectoris; I10 Essential (primary) hypertension; Z86.73 Personal history of transient ischemic attack (TIA), and cerebral infarction without residual deficits; Z87.442 Personal history of urinary calculi; Z90.49 Acquired absence of other specified parts of digestive tract; Z98.84 Bariatric surgery status; I25.2 Old myocardial infarction
CPT/HCPCS: 99283; 51702; 36415; 83690; 85025; 80053; 81001; A9270 ×2; J3490

== ENCOUNTER 2016-11-07 14:15 | Emergency (ER) | payer MEDICARE ==
[2016-11-07 14:45] VITALS: BP 107/76
--- NOTE | 2016-11-07 15:07 | ER Document Report ---
ED GI/ - General Chief Complaint: Problem with Urinary Catheter Stated Complaint: CATHETER REMOVAL Time Seen by Provider: 11/07/16 14:54 TRAVEL OUTSIDE OF THE [place] IN LAST 30 DAYS: No - HPI Notes: 11/07/16 15:05 56-year-old with prostate enlargement presents for Sadler removal as staff at the PCP were not comfortable doing this. He has no complications. Initially had it placed as he had run out of his Flomax. He is having no difficulties at all, no fever and wishes to have the Sadler removed. - Related Data Allergies/Adverse Reactions: morphine [Morphine] Adverse Reaction (Verified 11/07/16 14:40) Migraine Past Medical History - Social History Smoking Status: Never Smoker Family History: None Patient has suicidal ideation: No Patient has homicidal ideation: No - Past Medical History Cardiac Medical History: Reports: Hx Coronary Artery Disease, Hx Heart Attack - x5, Hx Hypertension Neurological Medical History: Reports: Hx Cerebrovascular Accident - x1 Endocrine Medical History: Reports: Hx Diabetes Mellitus Type 2 Renal/ Medical History: Reports: Hx Kidney Stones. Denies: Hx Peritoneal Dialysis Past Surgical History: Reports: Hx Abdominal Surgery - gastric bypass, Hx Cardiac Catheterization - stents x9, Hx Cholecystectomy, Hx Coronary Stent - x9 , Hx Gastric Bypass Surgery - Immunizations Hx Diphtheria, Pertussis, Tetanus Vaccination: Yes Hx Pneumococcal Vaccination: 11/19/12 Review of Systems - Review of Systems Constitutional: denies: Fever Gastrointestinal: denies: Abdominal pain, Vomiting Genitourinary: See HPI. denies: Flank pain Male Genitourinary: denies: Penile discharge Hematologic/Lymphatic: denies: Blood clots Physical Exam - Vital signs Vitals: Temp Pulse Resp BP Pulse Ox 98.3 F 106 H 14 107/76 98 11/07/16 14:40 11/07/16 14:40 11/07/16 14:40 11/07/16 14:40 11/07/16 14:40 - Notes Notes: PHYSICAL EXAMINATION: GENERAL: VS as per nursing doc. Well-appearing, well-nourished no acute distress. HEAD: Atraumatic, normocephalic. EYES: Anicteric without conjunctival injection. ENT: Normal to inspection, moist mucous membranes. NECK: Supple with grossly normal range of motion. LUNGS: Normal respiratory excursion without distress. HEART: Cap refill < 3 seconds. ABDOMEN: Normal to inspection. : Sadler in place draining clear yellow urine. No discharge or blood at the meatus. EXTREMITIES: No edema. NEUROLOGICAL: Grossly normal with symmetrical movements. PSYCH: Normal mood, normal affect. SKIN: Warm, dry. Course - Re-evaluation Re-evalutation: 11/07/16 15:07 I personally removed Sadler. Syringe was used to withdrawal all the saline and Sadler was easily removed. There were no complications or bleeding noted. - Vital Signs Vital signs: Temp Pulse Resp BP Pulse Ox 98.3 F 106 H 14 107/76 98 11/07/16 14:40 11/07/16 14:40 11/07/16 14:40 11/07/16 14:40 11/07/16 14:40 Discharge - Discharge Clinical Impression: Encounter for Sadler catheter removal Condition: Good Disposition: HOME, SELF-CARE Additional Instructions: Follow-up with your doctor. Return for any worsening concern or recurrence of urinary retention.
== END 2016-11-07 15:05 | disposition home or self-care (01) ==
LOC: ER 14:15
DX: Z46.6 Encounter for fitting and adjustment of urinary device (principal)
CPT/HCPCS: 99283

== ENCOUNTER 2017-06-01 19:02 | Observation (INO) | payer MEDICARE ==
[2017-06-01] MEDS ORDERED: NORMAL SALINE 1000 ML 1,000 ML IV ONE (19:49)
[2017-06-01] MEDS ORDERED: ASPIRIN 81 MG TABLET, CHEWABLE PO ONE (19:50)
--- NOTE | 2017-06-01 19:53 | ER Document Report ---
ED Cardiac - General Chief Complaint: Chest Pain Stated Complaint: CHEST PAIN Time Seen by Provider: 06/01/17 19:36 Mode of Arrival: Wheelchair Information source: Patient Notes: Patient states that he was watching TV around 6 PM today and developed midsternal chest pain that he describes as a pressure. Patient states that he took nitro and it resolved his pain. Patient states that around 630 the pain returned and he took a second nitro and decided to come to the hospital. Patient presently describes his pain as a 4-1/2 out of 5 scale. Patient denies any shortness of breath, cough, nausea or vomiting. Patient does report a previous history of FL 5 with cardiac stents 9. Patient's last cardiac cath was in April 2015 and last stress test was March 2016. TRAVEL OUTSIDE OF THE [place] IN LAST 30 DAYS: No - HPI Patient complains to provider of: Chest pain. denies: Shortness of breath Was the onset of pain: Sudden Chest pain location: Substernal Quality of pain: Pressure Pain level currently: 4 Chest pain precipitating factors: At Rest Cardiac risk factors: Diabetes, Hypertension, Dyslipidemia, Hx FL Positive cardiac history: Yes Associated symptoms: denies: Abdominal pain, Anxiety, Back pain, Dizziness, Headache, Nausea/vomiting, Neck pain, Shortness of breath Exacerbated by: Denies Relieved by: NTG Similar symptoms previously: Yes Recently seen / treated by doctor: No - Related Data Allergies/Adverse Reactions: morphine [Morphine] Adverse Reaction (Verified 11/07/16 14:40) Migraine Past Medical History - General Information source: Patient - Social History Smoking Status: Never Smoker Frequency of alcohol use: None Drug Abuse: None Occupation: none Family History: None - Past Medical History Cardiac Medical History: Reports: Hx Coronary Artery Disease, Hx Heart Attack - x5, Hx Hypertension Neurological Medical History: Reports: Hx Cerebrovascular Accident - x1 Endocrine Medical History: Reports: Hx Diabetes Mellitus Type 2 Renal/ Medical History: Reports: Hx Kidney Stones. Denies: Hx Peritoneal Dialysis Past Surgical History: Reports: Hx Abdominal Surgery - gastric bypass, Hx Cardiac Catheterization - stents x9, Hx Cholecystectomy, Hx Coronary Stent - x9 , Hx Gastric Bypass Surgery - Immunizations Hx Diphtheria, Pertussis, Tetanus Vaccination: Yes Hx Pneumococcal Vaccination: 11/19/12 Review of Systems - Review of Systems Constitutional: No symptoms reported. denies: Fever, Recent illness EENT: No symptoms reported Cardiovascular: Chest pain Respiratory: No symptoms reported. denies: Cough, Short of breath Gastrointestinal: No symptoms reported. denies: Abdominal pain, Nausea, Vomiting Genitourinary: No symptoms reported Male Genitourinary: No symptoms reported Musculoskeletal: No symptoms reported. denies: Back pain Skin: No symptoms reported Hematologic/Lymphatic: No symptoms reported Neurological/Psychological: No symptoms reported. denies: Headaches Physical Exam - Vital signs Vitals: Temp Pulse Resp BP Pulse Ox 98.7 F 116 H 16 155/89 H 98 06/01/17 19:02 06/01/17 19:02 06/01/17 19:02 06/01/17 19:02 06/01/17 19:02 - General General appearance: Appears well, Alert In distress: None - HEENT Head: Normocephalic, Atraumatic Eyes: Normal Conjunctiva: Normal Nasal: Normal Mouth/Lips: Normal Pharynx: Normal Neck: Normal, Supple. No: Lymphadenopathy - Respiratory Respiratory status: No respiratory distress Chest status: Nontender Breath sounds: Normal Chest palpation: Normal - Cardiovascular Rhythm: Tachycardia Heart sounds: S1 appreciated, S2 appreciated Murmur: No - Abdominal Inspection: Obese Distension: No distension Bowel sounds: Normal Tenderness: Nontender Organomegaly: No organomegaly - Back Back: Normal, Nontender. No: CVA tenderness - Extremities General upper extremity: Normal inspection, Normal ROM General lower extremity: Normal inspection, Normal ROM - Neurological Neuro grossly intact: Yes Cognition: Normal [place] Coma Scale Eye Opening: Spontaneous [place] Coma Scale Verbal: Oriented [place] Coma Scale Motor: Obeys Commands Gamal Coma Scale Total: 15 - Psychological Associated symptoms: Normal affect, Normal mood - Skin Skin Temperature: Warm Skin Moisture: Dry Skin Color: Normal Course - Re-evaluation Re-evalutation: 06/01/17 21:09 Patient reports that chest pain has come down to 2 out of 5 scale after his second nitroglycerin. Patient's tachycardia improved at this time. Consulted with Dr. Mills regarding patient presentation, recommends adding on d-dimer and if positive will need a CTA and recycling his troponin. 06/01/17 21:59 Patient denies any chest pain at this time, patient no longer tachycardic. Order for Nitropaste initiated. Patient updated regarding plan of care. D- dimer test elevated, CTA test will be ordered at this time. 06/02/17 00:29 Patient continues to be pain-free. Vital signs stable. Discussed plan of care with patient, patient is agreeable with admission at this time. Consulted with Dr. Ross who agrees to accept patient as a telemetry observation admission. - Vital Signs Vital signs: Temp Pulse Resp BP Pulse Ox 97.9 F 87 15 122/92 H 99 06/02/17 02:47 06/02/17 07:00 06/02/17 02:47 06/02/17 02:47 06/02/17 02:47 - Laboratory Result Diagrams: 06/01/17 20:09 06/02/17 07:04 Laboratory results interpreted by me: 06/01/17 06/01/17 06/01/17 20:09 20:09 20:09 Hgb 10.8 L Hct 34.4 L MCV 71 L MCH 22.3 L MCHC 31.5 L RDW 15.7 H Plt Count 459 H D-Dimer 0.59 H Sodium 136.4 L Glucose 367 H Alkaline Phosphatase 128 H Creatine Kinase 36 L Labs- Entire Visit 06/01/17 06/01/17 06/01/17 20:09 20:09 20:09 WBC 7.1 RBC 4.85 Hgb 10.8 L Hct 34.4 L MCV 71 L MCH 22.3 L MCHC 31.5 L RDW 15.7 H Plt Count 459 H Seg Neutrophils % 68.5 Lymphocytes % 19.3 Monocytes % 8.5 Eosinophils % 2.5 Basophils % 1.2 Absolute Neutrophils 4.9 Absolute Lymphocytes 1.4 Absolute Monocytes 0.6 Absolute Eosinophils 0.2 Absolute Basophils 0.1 PT 13.0 INR 0.94 APTT 33.2 D-Dimer Sodium 136.4 L Potassium 4.9 Chloride 101 Carbon Dioxide 25 Anion Gap 10 BUN 12 Creatinine 1.06 Est GFR ( Amer) > 60 Est GFR (Non-Af Amer) > 60 Glucose 367 H Calcium 9.2 Magnesium 1.7 Total Bilirubin 0.2 Direct Bilirubin 0.2 Neonat Total Bilirubin Not Reportable Neonat Direct Bilirubin Not Reportable Neonat Indirect Bili Not Reportable AST 17 ALT 25 Alkaline Phosphatase 128 H Creatine Kinase 36 L CK-MB (CK-2) Troponin I NT-Pro-B Natriuret Pep Total Protein 6.6 Albumin 3.7 06/01/17 06/01/17 06/01/17 20:09 20:09 23:02 WBC RBC Hgb Hct MCV MCH MCHC RDW Plt Count Seg Neutrophils % Lymphocytes % Monocytes % Eosinophils % Basophils % Absolute Neutrophils Absolute Lymphocytes Absolute Monocytes Absolute Eosinophils Absolute Basophils PT INR APTT D-Dimer 0.59 H Sodium Potassium Chloride Carbon Dioxide Anion Gap BUN Creatinine Est GFR ( Amer) Est GFR (Non-Af Amer) Glucose Calcium Magnesium Total Bilirubin Direct Bilirubin Neonat Total Bilirubin Neonat Direct Bilirubin Neonat Indirect Bili AST ALT Alkaline Phosphatase Creatine Kinase CK-MB (CK-2) < 0.22 Troponin I < 0.012 0.016 NT-Pro-B Natriuret Pep 74 Total Protein Albumin - Diagnostic Test Radiology reviewed: Reports reviewed Discharge - Discharge Clinical Impression: Chest pain Qualifiers: Chest pain type: unspecified Qualified Code(s): R07.9 - Chest pain, unspecified Diabetes Qualifiers: Diabetes mellitus type: type 1 Diabetes mellitus complication status: with hyperglycemia Qualified Code(s): E10.65 - Type 1 diabetes mellitus with hyperglycemia Condition: Fair Disposition: ADMITTED OBSERVATION Admitting Provider: Hospitalist Unit Admitted: Telemetry
[2017-06-01] MEDS: NITROGLYCERIN 0.4 MG/TAB 25 TAB/BOTTLE SL PRN ×3 (20:01→21:25)
[2017-06-01 20:22] LABS: ABSOLUTE BASOPHILS # (AUTO) 0.1 10^3/uL (0.0-0.2); ABSOLUTE EOSINOPHILS # (AUTO) 0.2 10^3/uL (0.0-0.6); ABSOLUTE LYMPHOCYTES (AUTO) 1.4 10^3/uL (0.5-4.7); ABSOLUTE MONOCYTES (AUTO) 0.6 10^3/uL (0.1-1.4); ABSOLUTE NEUT (AUTO) 4.9 10^3/uL (1.7-8.2); BASOPHILS % (AUTO) 1.2 % (0-2); EOSINOPHILS % (AUTO) 2.5 % (0-6); HEMATOCRIT 34.4 % (37.9-51.0); HEMOGLOBIN 10.8 g/dL (13.5-17.0); LYMPHOCYTES % (AUTO) 19.3 % (13-45); MEAN CORPUSCULAR HEMOGLOBIN 22.3 pg (27.0-33.4); MEAN CORPUSCULAR HGB CONC 31.5 g/dL (32.0-36.0); MEAN CORPUSCULAR VOLUME 71 fl (80-97); MONOCYTES % (AUTO) 8.5 % (3-13); PLATELET COUNT 459 10^3/uL (150-450); RED BLOOD COUNT 4.85 10^6/uL (4.35-5.55); RED CELL DISTRIBUTION WIDTH 15.7 % (11.5-14.0); SEGMENTED NEUTROPHILS % (AUTO) 68.5 % (42-78); TOTAL CELLS COUNTED % (AUTO) 100 %; WHITE BLOOD COUNT 7.1 10^3/uL (4.0-10.5)
[2017-06-01 20:30] LABS: INTERNATIONAL RATION (INR) 0.94; PARTIAL THROMBOPLASTIN TIME 33.2 SEC (23.5-35.8)
--- NOTE | 2017-06-01 20:37 | RADIOLOGY REPORT (SQ) ---
EXAM DESCRIPTION: CHEST 2 VIEWS COMPLETED DATE/TIME: 06/01/2017 8:28 pm REASON FOR STUDY: cp COMPARISON: 08/14/2016 EXAM PARAMETERS: NUMBER OF VIEWS: two views TECHNIQUE: Digital Frontal and Lateral radiographic views of the chest acquired. RADIATION DOSE: NA LIMITATIONS: none FINDINGS: LUNGS AND PLEURA: No opacities, masses or pneumothorax. No pleural effusion. MEDIASTINUM AND HILAR STRUCTURES: No masses or contour abnormalities. HEART AND VASCULAR STRUCTURES: Heart normal size. No evidence for failure. BONES: No acute findings. HARDWARE: None in the chest. OTHER: No other significant finding. IMPRESSION: NO ACUTE RADIOGRAPHIC FINDING IN THE CHEST. TECHNICAL DOCUMENTATION: JOB ID: [id number] [employer]- All Rights Reserved Reading location - IP/workstation name: [email or web address]
[2017-06-01 20:40] LABS: ALANINE AMINOTRANSFERASE 25 U/L (21-72); ALBUMIN 3.7 g/dL (3.5-5.0); ALKALINE PHOSPHATASE 128 U/L (38-126); ANION GAP 10 (5-19); ASPARTATE AMINO TRANSFERASE 17 U/L (17-59); BILIRUBIN,DIRECT 0.2 mg/dL (0.0-0.4); BILIRUBIN,TOTAL 0.2 mg/dL (0.2-1.3); BLOOD UREA NITROGEN 12 mg/dL (7-20); CALCIUM 9.2 mg/dL (8.4-10.2); CARBON DIOXIDE 25 mmol/L (22-30); CHLORIDE 101 mmol/L (98-107); CREATINE KINASE 36 U/L (55-170); GLUCOSE 367 mg/dL (75-110); POTASSIUM 4.9 mmol/L (3.6-5.0); SODIUM 136.4 mmol/L (137-145); TOTAL PROTEIN 6.6 g/dL (6.3-8.2)
[2017-06-01 20:52] LABS: NT PRO BNP 74 pg/mL (5-900)
[2017-06-01] MEDS ORDERED: INSULIN REG, HUMAN 100 UNIT/ML 3 ML VIAL (PYX) SUBCUT ONE (20:58)
[2017-06-01 20:59] LABS: CREATINE KINASE MB < 0.22 ng/mL (<4.55); TROPONIN I < 0.012 ng/mL
[2017-06-01] MEDS ORDERED: NITROGLYCERIN 2% OINTMENT 1 GM PACKET TP ONE (21:59)
--- NOTE | 2017-06-01 23:43 | RADIOLOGY REPORT (SQ) ---
EXAM DESCRIPTION: CTA CHEST CLINICAL HISTORY: 57 years Male, cp, tachycardia COMPARISON: None. TECHNIQUE: IV contrast. Multiplanar reformat. This exam was performed according to our departmental dose-optimization program, which includes automated exposure control, adjustment of the mA and/or kV according to patient size and/or use of iterative reconstruction technique. FINDINGS: No pulmonary embolus. No right ventricular strain. Small hiatal hernia. Moderate coronary artery calcification-stenting. 1.5 cm likely benign left renal cyst not definitively characterized. Suture material at the gastroesophageal junction. Inferior neck, axillae, mediastinum, lungs, airway, lymphatics, heart, vasculature, upper abdomen, and musculoskeleton appear otherwise unremarkable. Impression: No acute cardiopulmonary findings. No pulmonary embolus. Small hiatal hernia.
[2017-06-02] MEDS ORDERED: GLUCAGON,HUMAN RECOMB 1 MG INJ SUBCUT PRN (01:39)
[2017-06-02] MEDS ORDERED: DEXTROSE 50%-WATER 25 GM/50 ML DISP.SYRIN IV PRN ×4 (01:39→01:44)
[2017-06-02] MEDS ORDERED: MAG HYDROX/AL HYDROX/SIMETH SUSP 30 ML UDCUP PO PRN (01:39)
[2017-06-02] MEDS ORDERED: LACTULOSE SYRUP 20 GM/30 ML UDCUP PO ONE (01:39)
[2017-06-02] MEDS ORDERED: NITROGLYCERIN 0.4 MG/TAB 25 TAB/BOTTLE SL PRN (01:39)
[2017-06-02] MEDS ORDERED: DEXTROSE 40% GEL 15 GM TUBE PO PRN ×4 (01:39→01:44)
[2017-06-02] MEDS ORDERED: GLUCAGON,HUMAN RECOMB 1 MG INJ IM PRN (01:44)
[2017-06-02] MEDS ORDERED: INSULIN DETEMIR 100 UNIT/ML 3 ML PEN SUBCUT ONE ×2 (02:15→02:50)
--- NOTE | 2017-06-02 05:11 | PDOC H&P ---
History of Present Illness Admission Date/PCP: 06/02/17 01:17 TAYLOR SUTTON MD Patient complains of: Chest pain History of Present Illness: STEPHANIE MONTEMAYOR is a 57 year old male with a past medical history of coronary artery disease status post stent placement 3, diabetes, hypertension, dyslipidemia and obesity. Patient presents with 90 minutes of aching, 3 out of 5 retrosternal chest pain alleviated by nitroglycerin, not associated with nausea vomiting palpitations or diaphoresis. Patient is unable to identify exacerbating factors. He this pain reminds him of his last heart attack. Patient denies recent change in medications, abdominal pain or constipation. In the emergency room he has an unremarkable workup including CTA chest. He is referred to the hospitalist for observation despite having a negative Cardiolite stress test only 2 months ago. Past Medical History Cardiac Medical History: Reports: Coronary Artery Disease, Myocardial Infarction - x5, Hypertension Pulmonary Medical History: Reports: None EENT Medical History: Reports: None Neurological Medical History: Reports: None Endocrine Medical History: Reports: Diabetes Mellitus Type 2 Renal/ Medical History: Reports: None Malignancy Medical History: Reports: None GI Medical History: Reports: None Musculoskeltal Medical History: Reports: None Skin Medical History: Reports: None Psychiatric Medical History: Denies: Depression Past Surgical History Past Surgical History: Reports: Cardiac Catheterization - stents x9, Cholecystectomy, Coronary Stent - x9, Gastric Bypass Surgery Social History Information Source: Patient Smoking Status: Never Smoker Frequency of Alcohol Use: Rare Hx Recreational Drug Use: No Drugs: None Hx Prescription Drug Abuse: No - Advance Directive Resuscitation Status: Full Code Family History Family History: DM Parental Family History Reviewed: Yes Children Family History Reviewed: Yes Sibling(s) Family History Reviewed.: Yes Medication/Allergy Home Medications: Amlodipine Besylate [Norvasc 5 mg Tablet] 5 mg PO DAILY 08/15/16 Atorvastatin Calcium [Lipitor 40 mg Tablet] 40 mg PO QHS 08/15/16 Cyclobenzaprine HCl [Flexeril 10 mg Tablet] 10 mg PO BID 08/15/16 Gabapentin [Neurontin 300 mg Capsule] 300 mg PO Q8 08/15/16 Insulin Aspart [Novolog Flexpen] 0 unit SUBCUT .SLD SCALE 08/15/16 Insulin Detemir [Levemir Flextouch] 20 unit SQ QHS 08/15/16 Isosorbide Mononitrate [Imdur 30 mg Tablet.er] 30 mg PO DAILY 08/15/16 Lisinopril [Prinivil 30 mg Tablet] 30 mg PO DAILY 08/15/16 Metoprolol Tartrate [Lopressor 25 mg Tablet] 25 mg PO Q12 08/15/16 Nitroglycerin [Nitrostat 0.4 mg (1/150 Gr) Tabs 25/Bottle] 1 tab SL Q5MP PRN Ondansetron HCl [Zofran] 4 mg PO Q4HP PRN 08/15/16 Oxycodone HCl/Acetaminophen [Percocet 7.5-325 mg Tablet] 1 each PO Q6HP PRN Tamsulosin HCl [Flomax 0.4 mg Cap.sr] 0.4 mg PO DAILY 08/15/16 Ticagrelor [Brilinta 90 mg Tablet] 1 tab PO BID 08/15/16 Tamsulosin HCl [Flomax 0.4 mg Cap.sr] 0.4 mg PO DAILY #15 cap.sr.24h 11/05/16 Allergies/Adverse Reactions: morphine [Morphine] Adverse Reaction (Verified 11/07/16 14:40) Migraine Review of Systems Constitutional: ABSENT: chills, fever(s), headache(s), weight gain, weight loss Eyes: ABSENT: visual disturbances Ears: ABSENT: hearing changes Cardiovascular: ABSENT: chest pain, dyspnea on exertion, edema, orthropnea, palpitations Respiratory: ABSENT: cough, hemoptysis Gastrointestinal: ABSENT: abdominal pain, constipation, diarrhea, hematemesis, hematochezia, nausea, vomiting Genitourinary: ABSENT: dysuria, hematuria Musculoskeletal: ABSENT: joint swelling Integumentary: ABSENT: rash, wounds Neurological: ABSENT: abnormal gait, abnormal speech, confusion, dizziness, focal weakness, syncope Psychiatric: ABSENT: anxiety, depression, homidical ideation, suicidal ideation Endocrine: ABSENT: cold intolerance, heat intolerance, polydipsia, polyuria Hematologic/Lymphatic: ABSENT: easy bleeding, easy bruising Physical Exam Vital Signs: Temp Pulse Resp BP Pulse Ox 97.9 F 75 15 122/92 H 99 06/02/17 02:47 06/02/17 02:47 06/02/17 02:47 06/02/17 02:47 06/02/17 02:47 Intake & Output 05/31/17 06/01/17 06/02/17 11:59 11:59 11:59 Weight 101.9 kg General appearance: PRESENT: no acute distress, well-developed, well-nourished Head exam: PRESENT: atraumatic, normocephalic Eye exam: PRESENT: conjunctiva pink, EOMI, PERRLA. ABSENT: scleral icterus Ear exam: PRESENT: normal external ear exam Mouth exam: PRESENT: moist, tongue midline Neck exam: ABSENT: carotid bruit, JVD, lymphadenopathy, thyromegaly Respiratory exam: PRESENT: clear to auscultation rashmi. ABSENT: rales, rhonchi, wheezes Cardiovascular exam: PRESENT: RRR. ABSENT: diastolic murmur, rubs, systolic murmur Pulses: PRESENT: normal dorsalis pedis pul Vascular exam: PRESENT: normal capillary refill GI/Abdominal exam: PRESENT: normal bowel sounds, soft. ABSENT: distended, guarding, mass, organolmegaly, rebound, tenderness Rectal exam: PRESENT: deferred Extremities exam: PRESENT: full ROM. ABSENT: calf tenderness, clubbing, pedal edema Neurological exam: PRESENT: alert, awake, oriented to person, oriented to place , oriented to time, oriented to situation, CN II-XII grossly intact. ABSENT: motor sensory deficit Psychiatric exam: PRESENT: appropriate affect, normal mood. ABSENT: homicidal ideation, suicidal ideation Skin exam: PRESENT: dry, intact, warm. ABSENT: cyanosis, rash Results Impressions: Chest X-Ray 06/01/17 19:49 IMPRESSION: NO ACUTE RADIOGRAPHIC FINDING IN THE CHEST. Assessment & Plan - Diagnosis (1) Chest pain Qualifiers: Chest pain type: unspecified Qualified Code(s): R07.9 - Chest pain, unspecified Is this a current diagnosis for this admission?: Yes Plan: Atypical chest pain though the patient's pain is atypical he has known coronary disease and diabetes, differential diagnosis of angina. There are multiple risk factors for coronary artery disease and subsequently will observe and evaluation of acute coronary syndrome versus coronary artery disease with anginal equivalents. Cardiac monitoring blood pressure Q6 hours ,TSH, lipid profile, serial cardiac enzymes and cardiology consult and consideration of catheterization given recent cardiac stress test (2) Diabetes Qualifiers: Diabetes mellitus type: type 1 Diabetes mellitus complication status: with hyperglycemia Qualified Code(s): E10.65 - Type 1 diabetes mellitus with hyperglycemia Is this a current diagnosis for this admission?: Yes Plan: Patient describes random blood sugars in the 250s. Obtain A1c, optimize regiment as needed. (3) Coronary artery disease Is this a current diagnosis for this admission?: Yes Plan: Cardiology consult - Time Time Spent: 30 to 50 Minutes
[2017-06-02] MEDS: GABAPENTIN 300 MG CAPSULE PO SCH ×3 (05:51→22:13)
[2017-06-02 07:26] LABS: ANION GAP 9 (5-19); BLOOD UREA NITROGEN 10 mg/dL (7-20); CALCIUM 9.1 mg/dL (8.4-10.2); CARBON DIOXIDE 24 mmol/L (22-30); CHLORIDE 109 mmol/L (98-107); GLUCOSE 185 mg/dL (75-110); POTASSIUM 4.1 mmol/L (3.6-5.0); SODIUM 141.6 mmol/L (137-145)
--- NOTE | 2017-06-02 09:43 | EKG REPORT ---
SEVERITY:- OTHERWISE NORMAL ECG - SINUS TACHYCARDIA : Confirmed by: Karson Kingsley MD 02-Jun-2017 09:42:48
[2017-06-02 10:06] LABS: CHOLESTEROL 153.49 mg/dL (0-200); TRIGLYCERIDES 191 mg/dL (<150)
[2017-06-02 10:17] LABS: DIRECT LDL 86 mg/dL (<100); VLDL CHOLESTEROL 38.2 mg/dL (10-31)
[2017-06-02] MEDS: LISINOPRIL 10 MG TABLET PO SCH (11:50)
[2017-06-02] MEDS: ISOSORBIDE MONONITRATE 30 MG TAB.ER.24H PO SCH (11:51)
[2017-06-02] MEDS: TICAGRELOR 90 MG TABLET PO SCH ×2 (11:51→17:21)
[2017-06-02] MEDS: AMLODIPINE BESYLATE 5 MG TABLET PO SCH (11:51)
[2017-06-02] MEDS: METOPROLOL TARTRATE 25 MG TABLET PO SCH ×2 (11:51→22:14)
[2017-06-02] MEDS: TAMSULOSIN HCL 0.4 MG CAP.SR.24H PO SCH (11:52)
[2017-06-02] MEDS: INSULIN LISPRO 100 UNIT/ML 3 ML VIAL SUBCUT PRN ×3 (14:09→22:22)
[2017-06-02] MEDS ORDERED: (PENDING PHARMACY ID) (Oxycodone Hcl/Acetaminophen [Percocet 10-325 Mg Tablet] 1 TAB) PO PRN (14:23)
[2017-06-02] MEDS ORDERED: AMITRIPTYLINE HCL 25 MG TABLET PO PRN (14:23)
[2017-06-02] MEDS: OXYCODONE-ACETAMINOPHEN 5-325 MG TABLET PO PRN ×2 (14:55→23:22)
[2017-06-02] MEDS: OXYCODONE HCL IR 5 MG TABLET PO PRN ×2 (14:59→23:22)
--- NOTE | 2017-06-02 15:04 | PDOC PROGRESS REPORT ---
Subjective Progress Note for:: 06/02/17 Subjective:: The patient is a 57-year-old male with past medical history of coronary artery disease status post stent placement 3, diabetes, hypertension, hyperlipidemia and obesity who was admitted last night for chest pain relieved by SL nitrostat. The patient is seen on morning rounds. He is found resting in bed comfortably on room air. He is sleeping when I enter the room, but wakes easily. He denies chest pain overnight. He further denies orthopnea, dyspnea, palpitations , abdominal pain, nausea and vomiting. He reports that he had both a cardiac stress test and echocardiogram completed at [facility], affiliate of [facility] [place], approximately 2 months ago. The patient believes that both tests were reassuring. He requests to eat, but otherwise has no questions or concerns. Reason For Visit: CHEST PAIN Physical Exam Vital Signs: Temp Pulse Resp BP Pulse Ox 98.1 F 78 20 124/76 100 06/02/17 12:56 06/02/17 12:56 06/02/17 12:56 06/02/17 12:56 06/02/17 12:56 Intake & Output 06/01/17 06/02/17 06/03/17 06:59 06:59 06:59 Intake Total 0 Balance 0 Weight 101.9 kg General appearance: PRESENT: no acute distress, well-developed, well-nourished, other - Overweight Head exam: PRESENT: atraumatic, normocephalic Eye exam: PRESENT: conjunctiva pink, EOMI, PERRLA. ABSENT: scleral icterus Ear exam: PRESENT: normal external ear exam Mouth exam: PRESENT: moist, tongue midline Neck exam: ABSENT: carotid bruit, JVD, lymphadenopathy, thyromegaly Respiratory exam: PRESENT: clear to auscultation rashmi, symmetrical, unlabored. ABSENT: rales, rhonchi, wheezes Cardiovascular exam: PRESENT: RRR, +S1, +S2. ABSENT: diastolic murmur, rubs, systolic murmur Pulses: PRESENT: normal dorsalis pedis pul Vascular exam: PRESENT: normal capillary refill GI/Abdominal exam: PRESENT: normal bowel sounds, soft. ABSENT: distended, guarding, mass, organolmegaly, rebound, tenderness Rectal exam: PRESENT: deferred Extremities exam: PRESENT: full ROM. ABSENT: calf tenderness, clubbing, pedal edema Neurological exam: PRESENT: alert, awake, oriented to person, oriented to place , oriented to time, oriented to situation, CN II-XII grossly intact. ABSENT: motor sensory deficit Psychiatric exam: PRESENT: appropriate affect, normal mood. ABSENT: homicidal ideation, suicidal ideation Skin exam: PRESENT: dry, intact, warm. ABSENT: cyanosis, rash Results Laboratory Results: 06/02/17 07:04 06/02/17 06/02/17 06/02/17 05:18 07:04 07:04 Sodium Cancelled 141.6 Potassium Cancelled 4.1 Chloride Cancelled 109 H Carbon Dioxide Cancelled 24 Anion Gap Cancelled 9 BUN Cancelled 10 Creatinine Cancelled 0.92 Est GFR ( Amer) Cancelled > 60 Est GFR (Non-Af Amer) Cancelled > 60 Glucose Cancelled 185 H Calcium Cancelled 9.1 Triglycerides 191 H Cholesterol 153.49 LDL Cholesterol Direct 86 VLDL Cholesterol 38.2 H HDL Cholesterol 35 L 06/02/17 06/02/17 05:18 10:46 Troponin I 0.014 < 0.012 Impressions: Chest X-Ray 06/01/17 19:49 IMPRESSION: NO ACUTE RADIOGRAPHIC FINDING IN THE CHEST. Assessment & Plan - Diagnosis (1) Chest pain Qualifiers: Chest pain type: unspecified Qualified Code(s): R07.9 - Chest pain, unspecified Is this a current diagnosis for this admission?: Yes Plan: The patient was admitted to the medical floor on continuous cardiac telemetry. EKG shows normal sinus rhythm; no evidence of ST segment elevation or depression. Serial troponins are negative. Lipid panel reviewed: LDL 86, HDL 35, Trig 191, TChol 153 A1c 13.1% The patients home medications are continued: Brilinta, Atorvastatin, Imdur. Cardiology has been consulted. Will attempt to obtain outpatient records to verify recent echo/stress testing (as patient alternatively told forestry engineer that these were done greater than 6 months ago). Anticipate echo and stress testing this admission. (2) Diabetes Qualifiers: Diabetes mellitus type: type 1 Diabetes mellitus complication status: with hyperglycemia Qualified Code(s): E10.65 - Type 1 diabetes mellitus with hyperglycemia Is this a current diagnosis for this admission?: Yes Plan: The patient is placed on a consistent carb diet. Accu-Cheks before meals and at bedtime with Humalog for sliding scale coverage. Levemir 20 units nightly. A1c is 13.1%; will ask the drop hammer setter up to meet with the patient. (3) Hypertension Is this a current diagnosis for this admission?: Yes Plan: Adequate blood pressure control with continuation of the patient's medication regimen: Amlodipine, isosorbide, lisinopril, metoprolol (4) Dyslipidemia Is this a current diagnosis for this admission?: Yes Plan: continue statin therapy. (5) Coronary artery disease Is this a current diagnosis for this admission?: Yes Plan: Plan as above. (6) Chronic pain Is this a current diagnosis for this admission?: Yes Plan: We will resume the patient's home dose medications: Amitriptyline and oxycodone - Time Time Spent with patient: 15-24 minutes Medications reviewed and adjusted accordingly: Yes Anticipated discharge: Home Within: within 24 hours
--- NOTE | 2017-06-02 15:35 | PDOC CONSULTATION ---
Consultation Consult Date: 06/02/17 Attending physician:: TALIA BONILLA Consult reason:: Chest pain History of Present Illness Admission Date/PCP: 06/02/17 01:17 TAYLOR SUTTON MD Patient complains of: Chest pain History of Present Illness: STEPHANIE MONTEMAYOR is a 57 year old male with a past medical history of coronary artery disease status post stent placement 3, diabetes, hypertension, dyslipidemia and obesity. Patient presents with 90 minutes of aching, 3 out of 5 retrosternal chest pain alleviated by nitroglycerin, not associated with nausea vomiting palpitations or diaphoresis. Patient is unable to identify exacerbating factors. He this pain reminds him of his last heart attack. Patient denies recent change in medications, abdominal pain or constipation. In the emergency room he has an unremarkable workup including CTA chest. He is referred to the hospitalist for observation despite having a negative Cardiolite stress test only 2 months ago. However when they are asked him when his last stress test was, he claims it was more like over 6 months ago. 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 Currently he is chest pain-free. Patient however has not exerted much. Patient does have problem with sleep. He has difficulty falling asleep and staying asleep. He describes history of insomnia. He denied ever being checked for sleep apnea syndrome. Past Medical History Cardiac Medical History: Reports: Coronary Artery Disease, Myocardial Infarction - x5, Hypertension Pulmonary Medical History: Reports: None EENT Medical History: Reports: None Neurological Medical History: Reports: None Endocrine Medical History: Reports: Diabetes Mellitus Type 2 Renal/ Medical History: Reports: None Malignancy Medical History: Reports: None GI Medical History: Reports: None Musculoskeltal Medical History: Reports: None Skin Medical History: Reports: None Psychiatric Medical History: Denies: Depression Past Surgical History Past Surgical History: Reports: Cardiac Catheterization - stents x9, Cholecystectomy, Coronary Stent - x9, Gastric Bypass Surgery Social History Information Source: Patient Smoking Status: Never Smoker Frequency of Alcohol Use: Rare Hx Recreational Drug Use: No Drugs: None Hx Prescription Drug Abuse: No - Advance Directive Resuscitation Status: Full Code Surrogate healthcare decision maker:: Patient's is the surrogate decision-maker Family History Family History: CAD Parental Family History Reviewed: Yes Children Family History Reviewed: Yes Sibling(s) Family History Reviewed.: Yes Medication/Allergy Home Medications: Amitriptyline HCl [Elavil 25 mg Tablet] 25 mg PO HSP PRN 06/02/17 Amlodipine Besylate [Norvasc 5 mg Tablet] 5 mg PO DAILY 06/02/17 Atorvastatin Calcium [Lipitor 40 mg Tablet] 40 mg PO QPM 06/02/17 Cyclobenzaprine HCl [Flexeril 10 mg Tablet] 10 mg PO TIDP PRN 06/02/17 Gabapentin [Neurontin 300 mg Capsule] 300 mg PO Q8 06/02/17 Isosorbide Mononitrate [Imdur 30 mg Tablet.er] 30 mg PO DAILY 06/02/17 Metoprolol Tartrate [Lopressor 25 mg Tablet] 25 mg PO BID 06/02/17 Oxycodone HCl/Acetaminophen [Percocet 10-325 mg Tablet] 1 tab PO TIDP PRN Tamsulosin HCl [Flomax 0.4 mg Cap.sr] 0.4 mg PO DAILY 06/02/17 Ticagrelor [Brilinta 90 mg Tablet] 90 mg PO BID 06/02/17 Allergies/Adverse Reactions: morphine [Morphine] Adverse Reaction (Verified 11/07/16 14:40) Migraine Review of Systems Review of Systems: Please see history of present illness and past medical history as wall. Constitutional: No fever or chills reported. Head : No recent chronic headaches, recent head injury. Eyes: No recent eye pain, diplopia, redness, discharge, acute visual changes. Ears: No recent chronic ear pain, acute hearing loss, ear discharge. Oral cavity: No recent ulcerations, bleeding, oral cavity discomfort. Neck: No recent acute neck pain reported. Hematologic: No recent easy bruising or bleeding or hematologic malignancy reported. Lymphatic: No recent lymphatic malignancy, chronic lymphadenopathy reported yet Cardiovascular system review: See history of present illness. Chest pain as noted above. Patient denied any sustained palpitations, syncope, near syncope. Respiratory system review: No recent chronic cough, hemoptysis, blood clots in the lungs reported. Mild Shortness of breath on exertion Gastrointestinal system review: Negative for any recent acute or chronic abdominal pain, hematemesis, melena, recent change in bowel habits. Genitourinary system review: No recent acute or chronic hematuria, flank pain, UTI etc. reported. Skin system review: Negative for any recent abnormal bruising, no rash, no pruritus reported. Neurologic: No prior history of strokes, mini strokes, seizure disorder. Psychologic: No history of major psychosis or major depression reported. Musculoskeletal: Minor aches and pains reported. No acute joint swelling reported. Endocrine: No recent polyuria, polydipsia, recent heat or cold intolerance. Physical Exam Vital Signs: Temp Pulse Resp BP Pulse Ox 98.1 F 78 20 124/76 100 06/02/17 12:56 06/02/17 12:56 06/02/17 12:56 06/02/17 12:56 06/02/17 12:56 Intake & Output 06/01/17 06/02/17 06/03/17 06:59 06:59 06:59 Intake Total 0 Balance 0 Weight 101.9 kg Exam: GENERAL: well-nourished and in no acute distress. Alert and oriented x3 HEAD: Atraumatic, normocephalic. EYES: Pupils equal round and reactive to light, extraocular movements intact, sclera anicteric, conjunctiva are normal. ENT: TMs normal, nares patent, oropharynx clear without exudates. Moist mucous membranes. No oral ulcerations or bleeding gums noted NECK: supple without lymphadenopathy. Trachea is central. No cervical or axillary lymphadenopathy noted. Carotids are 2+, JVD WNL LUNGS: Respiration seems nonlabored, no significant accessory muscle action noted. Breath sounds clear to auscultation bilaterally and equal noted. No wheezes rales or rhonchi noted. No significant dullness noted on percussion. CHEST: Palpation of the chest wall shows no significant chest wall tenderness. No other significant abnormalities noted. HEART: Ramona APPLICATIONS CONSULTANT, No PSH, 1/6 TERESA aortic area, 1/6 le systolic murmur mitral area, no rubs, no gallops. ABDOMEN: Soft, no significant tenderness appreciated, normoactive bowel sounds. No guarding, no rebound. No rigidity noted . No masses appreciated. EXTREMITIES: Pedal pulses are 1-2+, no calf tenderness noted. No clubbing or cyanosis. negative pedal edema noted NEUROLOGICAL: Focused neurological exam showed no significant neurologic deficit. Normal speech, no focal weakness appreciated. PSYCH: Normal mood, normal affect. Judgment and insight within normal limits. SKIN: No significant ecchymosis, skin is noted to be warm. MUSCULOSKELETAL EXAM: No significant acute joint swelling noted. Results Laboratory Results: 06/02/17 07:04 06/02/17 06/02/17 06/02/17 05:18 07:04 07:04 Sodium Cancelled 141.6 Potassium Cancelled 4.1 Chloride Cancelled 109 H Carbon Dioxide Cancelled 24 Anion Gap Cancelled 9 BUN Cancelled 10 Creatinine Cancelled 0.92 Est GFR ( Amer) Cancelled > 60 Est GFR (Non-Af Amer) Cancelled > 60 Glucose Cancelled 185 H Calcium Cancelled 9.1 Triglycerides 191 H Cholesterol 153.49 LDL Cholesterol Direct 86 VLDL Cholesterol 38.2 H HDL Cholesterol 35 L 06/02/17 06/02/17 05:18 10:46 Troponin I 0.014 < 0.012 EKG Comments: Twelve-lead EKG shows sinus tachycardia without any significant ST-T wave changes. Impressions: Chest X-Ray 06/01/17 19:49 IMPRESSION: NO ACUTE RADIOGRAPHIC FINDING IN THE CHEST. Assessment & Plan - Diagnosis (1) Chest pain Qualifiers: Chest pain type: unspecified Qualified Code(s): R07.9 - Chest pain, unspecified Is this a current diagnosis for this admission?: Yes (2) Diabetes Qualifiers: Diabetes mellitus type: type 1 Diabetes mellitus complication status: with hyperglycemia Qualified Code(s): E10.65 - Type 1 diabetes mellitus with hyperglycemia Is this a current diagnosis for this admission?: Yes (3) Dyslipidemia Is this a current diagnosis for this admission?: Yes (4) Hypertension Qualifiers: Hypertension type: essential hypertension Qualified Code(s): I10 - Essential (primary) hypertension Is this a current diagnosis for this admission?: Yes (5) Coronary artery disease Qualifiers: Coronary Disease-Associated Artery/Lesion type: [place] artery [place] vs. transplanted heart: [place] heart Associated angina: angina presence unspecified Qualified Code(s): I25.10 - Atherosclerotic heart disease of [place] coronary artery without angina pectoris Is this a current diagnosis for this admission?: Yes (6) Obesity Qualifiers: Obesity type: unspecified obesity type Obesity classification: unspecified obesity classification Is this a current diagnosis for this admission?: Yes (7) Sleep disorder Is this a current diagnosis for this admission?: Yes - Notes Notes: Chest pain: Patient has known coronary artery disease with history of multiple stents being placed. At this point best option would be to schedule patient for a nuclear stress test. Agree with the NC rule out protocol. CTA chest was negative for any other acute causes of chest pain. Diabetes: Recommend good control of hyperglycemia but avoid any hypoglycemia. Dyslipidemia recommend high potency statin therapy. Coronary artery disease: Medical management will be optimized. Obesity: Patient is status post gastric bypass surgery. Patient has been encouraged in weight loss. Sleep disorder: Patient has symptoms indicative of underlying sleep apnea syndrome or other sleep disorder. Patient has been advised to undergo a sleep study. Have scheduled patient for a 2D echocardiogram and a nuclear stress test pending review of his prior study at this point. Whether able to get the same time is another question - Time Time Spent: 30 to 50 Minutes - CODE STATUS was discussed, patient remains full code. Surrogate decision-maker unchanged. Multiple medical problems were addressed. More than 50% of the time spent coordinating care, discussing management plans with involved caregivers. Management plans discussed with involved personnels. Medical decision making was of moderate to high complexity , patient's has multiple comorbidities. Medications reviewed and adjusted accordingly: Yes
[2017-06-02] MEDS ORDERED: LANSOPRAZOLE 30 MG TAB.RAP.DR PO ONE (17:00)
[2017-06-02] MEDS ORDERED: GABAPENTIN 300 MG CAPSULE PO SCH (22:00)
[2017-06-02] MEDS ORDERED: INSULIN DETEMIR 100 UNIT/ML 3 ML PEN SUBCUT SCH (22:00)
[2017-06-02] MEDS ORDERED: ATORVASTATIN CALCIUM 40 MG TABLET PO SCH (22:00)
[2017-06-02] MEDS: RANOLAZINE 500 MG TAB.SR.12H PO SCH (22:13)
[2017-06-03] MEDS ORDERED: LANSOPRAZOLE 30 MG TAB.RAP.DR PO SCH (06:00)
[2017-06-03] MEDS: GABAPENTIN 300 MG CAPSULE PO SCH ×2 (06:19→14:05)
[2017-06-03] MEDS: OXYCODONE-ACETAMINOPHEN 5-325 MG TABLET PO PRN ×2 (06:19→14:05)
[2017-06-03] MEDS: OXYCODONE HCL IR 5 MG TABLET PO PRN ×2 (06:19→14:06)
[2017-06-03 07:31] LABS: ANION GAP 11 (5-19); BLOOD UREA NITROGEN 13 mg/dL (7-20); CALCIUM 9.1 mg/dL (8.4-10.2); CARBON DIOXIDE 25 mmol/L (22-30); CHLORIDE 104 mmol/L (98-107); CREATINE KINASE 35 U/L (55-170); GLUCOSE 154 mg/dL (75-110); POTASSIUM 4.6 mmol/L (3.6-5.0)
[2017-06-03] MEDS: METOPROLOL TARTRATE 25 MG TABLET PO SCH (11:25)
[2017-06-03] MEDS: LISINOPRIL 10 MG TABLET PO SCH (11:25)
[2017-06-03] MEDS: TAMSULOSIN HCL 0.4 MG CAP.SR.24H PO SCH (11:26)
[2017-06-03] MEDS: TICAGRELOR 90 MG TABLET PO SCH (11:26)
[2017-06-03] MEDS: AMLODIPINE BESYLATE 5 MG TABLET PO SCH (11:26)
[2017-06-03] MEDS: ISOSORBIDE MONONITRATE 30 MG TAB.ER.24H PO SCH (11:26)
[2017-06-03] MEDS: RANOLAZINE 500 MG TAB.SR.12H PO SCH (11:26)
[2017-06-03] MEDS: INSULIN LISPRO 100 UNIT/ML 3 ML VIAL SUBCUT PRN (11:30)
[2017-06-03] MEDS ORDERED: REGADENOSON INJ 0.4 MG/5 ML DISP.SYRIN IV ONE (11:46)
[2017-06-03] MEDS ORDERED: AMINOPHYLLINE INJ/PF 250 MG/10 ML SDV IV ONE (11:46)
--- NOTE | 2017-06-03 13:45 | DRAGON STRESS TEST REPORT ---
INTRAVENOUS LEXISCAN CARDIOLITE STRESS TEST USING SINGLE PHOTON EMMISION COMPUTERIZED TOMOGRAPHIC. DATE OF PROCEDURE: June 03, 2017, INDICATION : Chest pain CARDIAC RISK FACTORS: Diabetes, hypertension, dyslipidemia, history of coronary stent placement RESTING EKG: Sinus rhythm, no baseline ST-T wave changes noted STRESS EKG: No significant ST segment changes noted with LexiScan bolus REASON FOR TERMINATION: Protocol. PROCEDURE REPORT: Baseline heart rate 85 beats per minute with blood pressure of 107/62. Patient had no significant complaints. Patient was bolused with Lexiscan 0.4 mg intravenously followed by saline bolus. Heart rate at 2 minutes post bolus 100 with a blood pressure of 110/66. 3 minutes post bolus heart rate 91 with blood pressure of 106/65. No significant EKG changes were noted. Patient had no significant complaints during the procedure or postprocedure. Patient injected with Aminophyllin 75 mg at 3 minutes or later after Lexiscan bolus. CONCLUSIONS: Normal EKG and hemodynamic response to IV LexiScan. NUCLEAR DATA: At rest the patient was given 14.76 millicuries of technetium 99 sestamibi injected intravenously. As per protocol rest gated SPECT images were obtained. On day of stress test, the patient was given intravenous LexiScan at a dose of 0.4 mg in 5 mL intravenously, followed by flush with normal saline. Subsequently the stress dose of 45.3 millicuries of technetium 99 sestamibi was injected intravenously. As per protocol stress gated images were obtained. NUCLEAR INTERPRETATION: Both raw and processed data were used for interpretation. Visual, qualitative, computer-generated quantitative data was used. There was good myocardial uptake of technetium compound. Motion artifact and soft tissue attenuations were noted. Increased visceral uptake was noted. No definitive areas of transient perfusion defect noted, No definitive areas of fixed perfusion defect or scars noted. EKG gated imaging showed LV EF at 50 %, rest and stress gated EF similar visually. T. I D. ratio was 1.49. Lung heart ratio noted to be within normal limits 0.36. No significant extracardiac and abnormal radiotracer activities were noted. RV free wall uptake was noted to be WNL. LV wall thickness seems increased. IMPRESSION: Also refer to comments under nuclear interpretation. Also test results needs to be interpreted in the context of pretest probability. 1. No definitive areas of transient perfusion defect noted. 2. There is no definitive scintigraphic evidence of myocardial infarction/scar. 3. EKG gated imaging shows left ventricular ejection fraction of approx. 50 %. 4. Transient ischemic dilatation noted however could be related to LVH. Most recent literature review, journal of nuclear medicine May 2013 shows that it does not necessarily indicate increased cardiovascular event risk. Clinical correlation requested as occasionally single vessel disease or balanced ischemia could be missed. In approximately 10% of the cases Lexiscan may not cause adequate vasodilatory stress. RECOMMENDATIONS: Aggressive risk factor modification and medical management. Further evaluation may be needed if continued symptoms or other high risk indicators are noted on clinical evaluation. Close cardiology follow-up is also recommended. Clinical correlation with echocardiogram derived ejection fraction. Inability to exercise by itself can lead to increased cardiovascular event risks. Consider cardiology consultation and or follow-up if clinically indicated. I am available for cardiology evaluation and consultation if requested by the industrial technician, unless patient already has a irrigator. MORALES
[2017-06-03 14:20] VITALS: BP 121/75
--- NOTE | 2017-06-03 16:00 | PDOC PROGRESS REPORT ---
Subjective Progress Note for:: 06/03/17 Subjective:: Patient seems to be doing better. Patient seen multiple times today. Pt is denying any chest arm or neck discomfort. Patient denying any PND, orthopnea. Patient denied any sustained palpitations, dizziness, syncope, near syncope. Patient denying any fever chills. Patient denying any other significant discomfort. Patient is maintaining sinus rhythm. Nuclear stress test procedure, risk benefits were discussed with the patient in detail. Informed consent was obtained. Review of systems: Rest review of systems negative. Medications: Medications have been reviewed. Reason For Visit: CHEST PAIN Physical Exam Vital Signs: Temp Pulse Resp BP Pulse Ox 98.1 F 74 21 H 121/75 99 06/03/17 14:18 06/03/17 14:18 06/03/17 14:18 06/03/17 14:18 06/03/17 14:18 Intake & Output 06/02/17 06/03/17 06/04/17 06:59 06:59 06:59 Intake Total 250 Output Total 350 Balance -100 Weight 101.9 kg 101.9 kg Exam: GENERAL: well-nourished and in no acute distress. Alert and oriented x3 HEAD: Atraumatic, normocephalic. EYES: Pupils equal round and reactive to light, extraocular movements intact, sclera anicteric, conjunctiva are normal. ENT: TMs normal, nares patent, oropharynx clear without exudates. Moist mucous membranes. No oral ulcerations or bleeding gums noted NECK: supple without lymphadenopathy. Trachea is central. No cervical or axillary lymphadenopathy noted. Carotids are 2+, JVD WNL LUNGS: Respiration seems nonlabored, no significant accessory muscle action noted. Breath sounds clear to auscultation bilaterally and equal noted. No wheezes rales or rhonchi noted. No significant dullness noted on percussion. CHEST: Palpation of the chest wall shows no significant chest wall tenderness. No other significant abnormalities noted. 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 ABDOMEN: Soft, no significant tenderness appreciated, normoactive bowel sounds. No guarding, no rebound. No rigidity noted . No masses appreciated. EXTREMITIES: Pedal pulses are 1-2+, no calf tenderness noted. No clubbing or cyanosis. negative pedal edema noted NEUROLOGICAL: Focused neurological exam showed no significant neurologic deficit. Normal speech, no focal weakness appreciated. PSYCH: Normal mood, normal affect. Judgment and insight within normal limits. SKIN: No significant ecchymosis, skin is noted to be warm. MUSCULOSKELETAL EXAM: No significant acute joint swelling noted. Results Laboratory Results: 06/03/17 06:30 06/03/17 06:30 Sodium 140.0 Potassium 4.6 Chloride 104 Carbon Dioxide 25 Anion Gap 11 BUN 13 Creatinine 1.18 Est GFR ( Amer) > 60 Est GFR (Non-Af Amer) > 60 Glucose 154 H Calcium 9.1 06/02/17 06/02/17 06/02/17 05:18 10:46 16:50 Creatine Kinase CK-MB (CK-2) Troponin I 0.014 < 0.012 < 0.012 06/03/17 06/03/17 06:30 06:30 Creatine Kinase 35 L CK-MB (CK-2) < 0.22 Troponin I EKG Comments: Telemetry strips shows sinus rhythm. No sustained tachycardia or bradycardia was noted. Impressions: Chest X-Ray 06/01/17 19:49 IMPRESSION: NO ACUTE RADIOGRAPHIC FINDING IN THE CHEST. Assessment & Plan - Diagnosis (1) Chest pain Qualifiers: Chest pain type: unspecified Qualified Code(s): R07.9 - Chest pain, unspecified Is this a current diagnosis for this admission?: Yes (2) Diabetes Qualifiers: Diabetes mellitus type: type 1 Diabetes mellitus complication status: with hyperglycemia Qualified Code(s): E10.65 - Type 1 diabetes mellitus with hyperglycemia Is this a current diagnosis for this admission?: Yes (3) Dyslipidemia Is this a current diagnosis for this admission?: Yes (4) Hypertension Qualifiers: Hypertension type: essential hypertension Qualified Code(s): I10 - Essential (primary) hypertension Is this a current diagnosis for this admission?: Yes (5) Coronary artery disease Qualifiers: Coronary Disease-Associated Artery/Lesion type: [place] artery [place] vs. transplanted heart: [place] heart Associated angina: angina presence unspecified Qualified Code(s): I25.10 - Atherosclerotic heart disease of [place] coronary artery without angina pectoris Is this a current diagnosis for this admission?: Yes (6) Obesity Qualifiers: Obesity type: unspecified obesity type Obesity classification: unspecified obesity classification Is this a current diagnosis for this admission?: Yes (7) Sleep disorder Is this a current diagnosis for this admission?: Yes - Notes Notes: Chest pain: Patient has known coronary artery disease with history of multiple stents being placed. This was evaluated with a nuclear stress test which did not show definitive areas of transient or fixed perfusion defect noted. Results were discussed with the patient. Limitations of the nuclear stress test discussed. Patient was encouraged to ambulate. He did well on ambulation , he could be discharged with aggressive risk factor modification and medical management. Diabetes: Recommend good control of hyperglycemia but avoid any hypoglycemia. Dyslipidemia recommend high potency statin therapy. Coronary artery disease: Medical management will be optimized. Obesity: Patient is status post gastric bypass surgery. Patient has been encouraged in weight loss. Sleep disorder: Patient has symptoms indicative of underlying sleep apnea syndrome or other sleep disorder. Patient has been advised to undergo a sleep study. Recommend patient for a 2D echocardiogram. This can be done as an outpatient - Time Time with patient: Greater than 35 minutes - Patient was seen multiple times. Total time exceeds 40 minutes. In the morning nuclear stress test procedure, risks benefits, alternatives were discussed. Patient seen during the stress test. Patient also seen after stress test when results were discussed with the patient in detail. Patient's questions were answered. Nuclear stress test results were discussed with the patient. Patient was informed that no definitive evidence of pharmacologic stress-induced ischemia noted. No definite fixed defects were noted. Patient informed that occasionally significant single vessel disease or balanced ischemia could be missed. However based on the current study results, would recommend aggressive risk factor modification and medical therapy. It may also be worthwhile to consider evaluation or empiric management of other causes of chest pain. Should no other cause be found and if persistent in having chest pain, then cardiac catheterization should be considered. Right now, recommendations are for aggressive risk factor modification and medical management. More than 50% of the time spent coordinating care, discussing management plans with involved caregivers. Management plans discussed with involved personnels. Medical decision making was of moderate to high complexity, patient's has multiple comorbidities. Medications reviewed and adjusted accordingly: Yes
--- NOTE | 2017-06-03 16:46 | PDOC DISCHARGE SUMMARY ---
General - Admit/Disc Date/PCP Admission Date/Primary Care Provider: 06/02/17 01:17 TAYLOR SUTTON MD Discharge Date: 06/03/17 - Discharge Diagnosis (1) Chest pain Is this a current diagnosis for this admission?: Yes Summary: The patient was admitted for chest pain rule out secondary to report of chest pain that resolved following 2 sublingual nitroglycerin tabs. EKG demonstrated normal sinus rhythm without evidence of ST segment elevation or depression. Serial troponins were negative. Lipid panel was acceptable. A1c was found to be 13.1%. The patient's home medications Brilinta, atorvastatin, Imdur were all continued. Cardiology was consulted. The patient completed nuclear stress testing today. Stress test did not reveal definitive areas of transient perfusion defects. There was no evidence of myocardial infarction/scar. LVEF is estimated to be 50 %. Transient ischemic dilatation was noted and could be related to LVH. The patient remained asymptomatic throughout his admission. (2) Diabetes Is this a current diagnosis for this admission?: Yes Summary: The patient's hemoglobin A1c was found to be 13.1%. He declined need for refill of his prescriptions, glucometer, test strips, lancets. In any case, he was provided prescriptions for Lantus and Humalog. He is encouraged to resume a consistent carb diet and to pay special attention to portion size. He is encouraged to follow-up with his primary care provider to discuss this result at his follow-up appointment. (3) Hypertension Is this a current diagnosis for this admission?: Yes Summary: The patient's blood pressure was adequately controlled with his home medication regiment of amlodipine, isosorbide, lisinopril, and metoprolol. (4) Dyslipidemia Is this a current diagnosis for this admission?: Yes Summary: The patient's lipid panel was reviewed: LDL 86, HDL 35, triglycerides 191, total cholesterol 153. He is recommended to continue statin therapy. (5) Coronary artery disease Is this a current diagnosis for this admission?: Yes Summary: Recommended the patient continue daily aspirin and statin therapy. Follow-up with his primary care provider within the next week and with his process safety engineer as scheduled. (6) Chronic pain Is this a current diagnosis for this admission?: Yes - Additional Information Resuscitation Status: Full Code Discharge Diet: Diabetic Discharge Activity: Activity As Tolerated, Balance Activity w/Rest Prescriptions: Insulin Detemir [Levemir Insulin 100 units/mL] 20 unit SUBCUT QHS #2 insuln.pen Insulin Lispro [Humalog Kwikpen U-100] 100 unit SQ ACP PRN #1 insuln.pen PRN Reason: Home Medications: Amitriptyline HCl [Elavil 25 mg Tablet] 25 mg PO HSP PRN 06/02/17 Amlodipine Besylate [Norvasc 5 mg Tablet] 5 mg PO DAILY 06/02/17 Atorvastatin Calcium [Lipitor 40 mg Tablet] 40 mg PO QPM 06/02/17 Cyclobenzaprine HCl [Flexeril 10 mg Tablet] 10 mg PO TIDP PRN 06/02/17 Gabapentin [Neurontin 300 mg Capsule] 300 mg PO Q8 06/02/17 Isosorbide Mononitrate [Imdur 30 mg Tablet.er] 30 mg PO DAILY 06/02/17 Metoprolol Tartrate [Lopressor 25 mg Tablet] 25 mg PO BID 06/02/17 Oxycodone HCl/Acetaminophen [Percocet 10-325 mg Tablet] 1 tab PO TIDP PRN Tamsulosin HCl [Flomax 0.4 mg Cap.sr] 0.4 mg PO DAILY 06/02/17 Ticagrelor [Brilinta 90 mg Tablet] 90 mg PO BID 06/02/17 Insulin Detemir [Levemir Insulin 100 units/mL] 20 unit SUBCUT QHS #2 insuln.pen 06/03/17 Insulin Lispro [Humalog Kwikpen U-100] 100 unit SQ ACP PRN #1 insuln.pen History of Present Illness History of Present Illness: Per H&P by Dr. Ross: STEPHANIE MONTEMAYOR is a 57 year old male with a past medical history of coronary artery disease status post stent placement 3, diabetes, hypertension, dyslipidemia and obesity. Patient presents with 90 minutes of aching, 3 out of 5 retrosternal chest pain alleviated by nitroglycerin, not associated with nausea vomiting palpitations or diaphoresis. Patient is unable to identify exacerbating factors. He this pain reminds him of his last heart attack. Patient denies recent change in medications, abdominal pain or constipation. In the emergency room he has an unremarkable workup including CTA chest. He is referred to the hospitalist for observation despite having a negative Cardiolite stress test only 2 months ago. Physical Exam Vital Signs: Temp Pulse Resp BP Pulse Ox 98.1 F 74 21 H 121/75 99 06/03/17 14:18 06/03/17 14:18 06/03/17 14:18 06/03/17 14:18 06/03/17 14:18 Intake & Output 06/02/17 06/03/17 06/04/17 06:59 06:59 06:59 Intake Total 250 Output Total 350 Balance -100 Weight 101.9 kg 101.9 kg General appearance: PRESENT: no acute distress, obese, well-developed, well- nourished Head exam: PRESENT: atraumatic, normocephalic Eye exam: PRESENT: conjunctiva pink, EOMI, PERRLA. ABSENT: scleral icterus Ear exam: PRESENT: normal external ear exam Mouth exam: PRESENT: moist, tongue midline Neck exam: ABSENT: carotid bruit, JVD, lymphadenopathy, thyromegaly Respiratory exam: PRESENT: clear to auscultation rashmi, symmetrical, unlabored. ABSENT: rales, rhonchi, wheezes Cardiovascular exam: PRESENT: RRR, +S1, +S2. ABSENT: diastolic murmur, rubs, systolic murmur Pulses: PRESENT: normal dorsalis pedis pul Vascular exam: PRESENT: normal capillary refill GI/Abdominal exam: PRESENT: normal bowel sounds, soft. ABSENT: distended, guarding, mass, organolmegaly, rebound, tenderness Rectal exam: PRESENT: deferred Extremities exam: PRESENT: full ROM. ABSENT: calf tenderness, clubbing, pedal edema Neurological exam: PRESENT: alert, awake, oriented to person, oriented to place , oriented to time, oriented to situation, CN II-XII grossly intact. ABSENT: motor sensory deficit Psychiatric exam: PRESENT: appropriate affect, normal mood. ABSENT: homicidal ideation, suicidal ideation Skin exam: PRESENT: dry, intact, warm. ABSENT: cyanosis, rash Results Laboratory Results: 06/03/17 06:30 06/03/17 06:30 Sodium 140.0 Potassium 4.6 Chloride 104 Carbon Dioxide 25 Anion Gap 11 BUN 13 Creatinine 1.18 Est GFR ( Amer) > 60 Est GFR (Non-Af Amer) > 60 Glucose 154 H Calcium 9.1 06/02/17 06/02/17 06/02/17 05:18 10:46 16:50 Creatine Kinase CK-MB (CK-2) Troponin I 0.014 < 0.012 < 0.012 06/03/17 06/03/17 06:30 06:30 Creatine Kinase 35 L CK-MB (CK-2) < 0.22 Troponin I Impressions: Chest X-Ray 06/01/17 19:49 IMPRESSION: NO ACUTE RADIOGRAPHIC FINDING IN THE CHEST. Qualifiers - * PATEINT BEING DISCHARGED WITH ANY OF THE FOLLOWING DIAGNOSIS?: No Plan Discharge Plan: Discharge to home with self-care. Follow-up with your primary care provider within 1 week. Follow-up with your process safety engineer as scheduled. Time Spent: Less than 30 Minutes
== END 2017-06-03 15:30 | disposition home or self-care (01) ==
LOC: ER 19:02 → EH 06-02 01:17 → 4N 06-02 02:15
PROVIDERS: ADMIT Internal Medicine; ATTEND Internal Medicine
DX: R07.89 Other chest pain (principal); E10.65 Type 1 diabetes mellitus with hyperglycemia; I10 Essential (primary) hypertension; E78.5 Hyperlipidemia, unspecified; I25.10 Atherosclerotic heart disease of native coronary artery without angina pectoris; G89.29 Other chronic pain; G47.00 Insomnia, unspecified; E66.9 Obesity, unspecified; G47.9 Sleep disorder, unspecified; Z68.30 Body mass index [BMI] 30.0-30.9, adult; I25.2 Old myocardial infarction; Z79.899 Other long term (current) drug therapy; Z95.5 Presence of coronary angioplasty implant and graft; Z98.84 Bariatric surgery status; Z82.49 Family history of ischemic heart disease and other diseases of the circulatory system; Z83.3 Family history of diabetes mellitus; Z79.4 Long term (current) use of insulin; Z79.891 Long term (current) use of opiate analgesic; Z86.73 Personal history of transient ischemic attack (TIA), and cerebral infarction without residual deficits; Z90.49 Acquired absence of other specified parts of digestive tract; R00.0 Tachycardia, unspecified
CPT/HCPCS: 93005; 99285; 96360; 36415 ×3; 82553 ×2; 82962 ×2; 82550 ×2; 83735; 85025; 85610; 85730; 80048 ×2; 80053; 84484 ×2; 83036; 85379; 80061; 83880; 93017; 71046; 78452; 71275; 93010; G0378 ×2; A9500; J2785; A9270 ×26; J3490 ×2; J7030; J0280; Q9969; J1815

== ENCOUNTER 2017-07-26 21:17 | Emergency (ER) | payer MEDICARE ==
--- NOTE | 2017-07-26 22:59 | EKG REPORT ---
SEVERITY:- NORMAL ECG - SINUS RHYTHM : Confirmed by: Nguyen Dougherty MD 26-Jul-2017 22:59:14
[2017-07-26] MEDS ORDERED: FAMOTIDINE INJ/PF 20 MG/2 ML SDV IV ONE (23:27)
[2017-07-26] MEDS ORDERED: METOCLOPRAMIDE HCL ORAL SOLN 10 MG/10 ML UDCUP PO ONE (23:27)
[2017-07-26] MEDS ORDERED: LIDOCAINE 2% VISCOUS SOLN 20 ML UDCUP PO ONE (23:27)
[2017-07-26] MEDS ORDERED: MAG HYDROX/AL HYDROX/SIMETH SUSP 30 ML UDCUP PO ONE (23:27)
--- NOTE | 2017-07-26 23:39 | ER Document Report ---
ED General - General Chief Complaint: Abdominal Pain Stated Complaint: CHEST PAIN Time Seen by Provider: 07/26/17 23:16 Mode of Arrival: Ambulatory Information source: Patient Notes: Patient presents to the ED with complaints of epigastric abdominal pain. Symptoms started 3 hours prior to arrival. Pain is located in the epigastric area. Aching sensation. No radiation of the pain. No alleviating or exacerbating factors. Patient did not take medication prior to arrival. Hx of hiatal hernia. Patient thinks that is what is causing the pain. Patient does have a history of CAD, DM, hyperlipidemia, HTN. Had a stress test done 06/03/17 that did not show a fixed deficit. Dr. Peres recommended medical management and risk factor modification. TRAVEL OUTSIDE OF THE [place] IN LAST 30 DAYS: No - HPI Patient complains to provider of: epigastric abdomina pain Onset: Other - 3 hours prior to arrival Onset/Duration: Sudden Quality of pain: Achy Severity: Mild Associated symptoms: None Exacerbated by: Denies Relieved by: Denies Similar symptoms previously: Yes Recently seen / treated by doctor: No - Related Data Allergies/Adverse Reactions: morphine [Morphine] Adverse Reaction (Verified 11/07/16 14:40) Migraine Past Medical History - General Information source: Patient - Social History Smoking Status: Never Smoker Family History: CAD, DM, Hyperlipidemia, Hypertension - Past Medical History Cardiac Medical History: Reports: Hx Coronary Artery Disease, Hx Heart Attack - x5, Hx Hypertension Neurological Medical History: Reports: Hx Cerebrovascular Accident - x1 Endocrine Medical History: Reports: Hx Diabetes Mellitus Type 2 Renal/ Medical History: Reports: Hx Kidney Stones. Denies: Hx Peritoneal Dialysis Psychiatric Medical History: Denies: Hx Depression Past Surgical History: Reports: Hx Abdominal Surgery - gastric bypass, Hx Cardiac Catheterization - stents x9, Hx Cholecystectomy, Hx Coronary Stent - x9 , Hx Gastric Bypass Surgery - Immunizations Hx Diphtheria, Pertussis, Tetanus Vaccination: Yes Hx Pneumococcal Vaccination: 11/19/12 Review of Systems - Review of Systems Constitutional: No symptoms reported EENT: No symptoms reported Cardiovascular: No symptoms reported Respiratory: No symptoms reported Gastrointestinal: Abdominal pain Genitourinary: No symptoms reported Musculoskeletal: No symptoms reported Skin: No symptoms reported Hematologic/Lymphatic: No symptoms reported Neurological/Psychological: No symptoms reported -: Yes All other systems reviewed and negative Physical Exam - Vital signs Vitals: Temp Pulse Resp BP Pulse Ox 98.8 F 80 18 148/86 H 99 07/26/17 22:00 07/26/17 22:00 07/26/17 22:00 07/26/17 22:00 07/26/17 22:00 Interpretation: Normal - Notes Notes: PHYSICAL EXAMINATION: GENERAL: Well-appearing, well-nourished and in no acute distress. HEAD: Atraumatic, normocephalic. EYES: Pupils equal round and reactive to light, extraocular movements intact, sclera anicteric, conjunctiva are normal. ENT: Nares patent, oropharynx clear without exudates. Moist mucous membranes. NECK: Normal range of motion, supple without lymphadenopathy LUNGS: Breath sounds clear to auscultation bilaterally and equal. No wheezes rales or rhonchi. HEART: Regular rate and rhythm without murmurs ABDOMEN: Soft, epigastric tenderness to palpation, nondistended abdomen. No guarding, no rebound. No masses appreciated. Musculoskeletal: Normal range of motion, no pitting or edema. No cyanosis. NEUROLOGICAL: Cranial nerves grossly intact. Normal speech, normal gait. Normal sensory, motor exams PSYCH: Normal mood, normal affect. SKIN: Warm, Dry, normal turgor, no rashes or lesions noted. Course - Re-evaluation Re-evalutation: On re-evaluation, patient says his pain has completely resolved. Patient was given a GI cocktail and pepcid in the ED. Labs and imaging obtained. Labs are WNL. Troponin is negative. EKG does not show ischemic changes. Abd XR is WNL. I will repeat troponin and EKG. 07/27/17 01:32 07/27/17 03:20 Patient's second troponin and EKG are WNL. Patient continues to be asymptomatic. I will discharge the patient home. Patient instructed to follow up with his PCP this week, to take OTC medication as needed for symptom relief, and to return to the ED for worsening symptoms. Patient is agreeable with the plan of care. - Vital Signs Vital signs: Temp Pulse Resp BP Pulse Ox 98.8 F 80 18 148/86 H 99 07/26/17 22:00 07/26/17 22:00 07/26/17 22:00 07/26/17 22:00 07/26/17 22:00 - Laboratory Result Diagrams: 07/27/17 00:30 07/27/17 00:30 Laboratory results interpreted by me: 07/27/17 07/27/17 00:30 00:30 Hgb 10.5 L Hct 33.8 L MCV 68 L MCH 21.3 L MCHC 31.2 L RDW 16.6 H Potassium 5.1 H Glucose 163 H AST 16 L - EKG Interpretation by Me EKG shows normal: Sinus rhythm Rate: Normal Rhythm: NSR When compared to previous EKG there are: No significant change Additional EKG results interpreted by me: 07/27/17 02:18 Second EKG done at 02: 13 Rate 74, NE interval 148, QRS 76, QTc 400, normal sinus rhythm, no ischemic changes. Discharge - Discharge Clinical Impression: Epigastric abdominal pain Condition: Stable Disposition: HOME, SELF-CARE Instructions: Abdominal Pain ([facility]) Additional Instructions: Take medication as directed. Follow up with your primary care physician this week. Return to the emergency department for worsening symptoms. Referrals: TAYLOR SUTTON MD [Primary Care Provider] - Follow up as needed
--- NOTE | 2017-07-27 00:29 | RADIOLOGY REPORT (SQ) ---
EXAM DESCRIPTION: US ABDOMEN ANEURYSM SCREENING COMPLETED DATE/TME: 07/26/2017 23:26 CLINICAL HISTORY: 57 years Male, abdominal pain COMPARISON: None. NUMBER OF VIEWS/TECHNIQUE: 3 LIMITATIONS: None. FINDINGS: Intestinal gas pattern is within normal limits. Suture of the left upper abdominal quadrant. No suspicious calcification. Likely bone island of the right acetabulum. Grossly intact skeletal structures. No acute cardiopulmonary findings. IMPRESSION: No acute findings.
[2017-07-27 00:42] LABS: ABSOLUTE BASOPHILS # (AUTO) 0.1 10^3/uL (0.0-0.2); ABSOLUTE EOSINOPHILS # (AUTO) 0.2 10^3/uL (0.0-0.6); ABSOLUTE LYMPHOCYTES (AUTO) 2.1 10^3/uL (0.5-4.7); ABSOLUTE MONOCYTES (AUTO) 0.9 10^3/uL (0.1-1.4); ABSOLUTE NEUT (AUTO) 5.4 10^3/uL (1.7-8.2); BASOPHILS % (AUTO) 1.1 % (0-2); EOSINOPHILS % (AUTO) 2.4 % (0-6); HEMATOCRIT 33.8 % (37.9-51.0); HEMOGLOBIN 10.5 g/dL (13.5-17.0); LYMPHOCYTES % (AUTO) 24.2 % (13-45); MEAN CORPUSCULAR HEMOGLOBIN 21.3 pg (27.0-33.4); MEAN CORPUSCULAR HGB CONC 31.2 g/dL (32.0-36.0); MEAN CORPUSCULAR VOLUME 68 fl (80-97); MONOCYTES % (AUTO) 10.6 % (3-13); PLATELET COUNT 423 10^3/uL (150-450); RED BLOOD COUNT 4.94 10^6/uL (4.35-5.55); RED CELL DISTRIBUTION WIDTH 16.6 % (11.5-14.0); SEGMENTED NEUTROPHILS % (AUTO) 61.7 % (42-78); TOTAL CELLS COUNTED % (AUTO) 100 %; WHITE BLOOD COUNT 8.7 10^3/uL (4.0-10.5)
[2017-07-27 00:59] LABS: ALANINE AMINOTRANSFERASE 21 U/L (21-72); ALKALINE PHOSPHATASE 102 U/L (38-126); ANION GAP 12 (5-19); ASPARTATE AMINO TRANSFERASE 16 U/L (17-59); BILIRUBIN,DIRECT 0.3 mg/dL (0.0-0.4); BILIRUBIN,TOTAL 0.3 mg/dL (0.2-1.3); BLOOD UREA NITROGEN 10 mg/dL (7-20); CALCIUM 9.7 mg/dL (8.4-10.2); CARBON DIOXIDE 27 mmol/L (22-30); CHLORIDE 105 mmol/L (98-107); GLUCOSE 163 mg/dL (75-110); LIPASE 84.6 U/L (23-300); POTASSIUM 5.1 mmol/L (3.6-5.0); SODIUM 144.1 mmol/L (137-145)
[2017-07-27 04:31] VITALS: BP 137/100
--- NOTE | 2017-07-27 21:51 | EKG REPORT ---
SEVERITY:- NORMAL ECG - SINUS RHYTHM : Confirmed by: Nguyen Dougherty MD 27-Jul-2017 21:49:51
== END 2017-07-27 04:34 | disposition home or self-care (01) ==
LOC: ER 21:17
DX: R10.13 Epigastric pain (principal); I25.10 Atherosclerotic heart disease of native coronary artery without angina pectoris; E11.9 Type 2 diabetes mellitus without complications; E78.5 Hyperlipidemia, unspecified; I10 Essential (primary) hypertension
CPT/HCPCS: 93005 ×2; 99285; 96374; 36415; 83690; 85025; 80053; 84484; 74022; 93010 ×2; A9270; J3490; S0028

== ENCOUNTER 2017-08-08 18:03 | Emergency (ER) | payer MEDICARE ==
[2017-08-08] MEDS ORDERED: MAG HYDROX/AL HYDROX/SIMETH SUSP 30 ML UDCUP PO ONE (18:23)
[2017-08-08] MEDS ORDERED: METOCLOPRAMIDE HCL ORAL SOLN 10 MG/10 ML UDCUP PO ONE (18:23)
[2017-08-08] MEDS ORDERED: LIDOCAINE 2% VISCOUS SOLN 20 ML UDCUP PO ONE (18:23)
--- NOTE | 2017-08-08 18:27 | ER Document Report ---
ED GI/ - General Chief Complaint: Epigastric Pain Stated Complaint: EPIGASTRIC PAIN Time Seen by Provider: 08/08/17 18:13 Notes: The patient is a 57-year-old male, past medical history gastric bypass surgery, small hiatal hernia, gastritis, CAD, presents with epigastric pain over the past few days that worsened after he had soup tonight. His surgeon that completed his cholecystectomy is on vacation returning in 4 days, which is when he will follow-up for pain. He was seen in the ER last week for chest pain and had a negative workup. He said that a GI cocktail helped him for about 3 days. Usually 2 Tums will help his pain. He denies fevers, chest pain, shortness of breath, back pain, nausea, vomiting, diarrhea, constipation or headache. TRAVEL OUTSIDE OF THE [place] IN LAST 30 DAYS: No - Related Data Allergies/Adverse Reactions: morphine [Morphine] Adverse Reaction (Verified 08/08/17 18:22) Migraine Past Medical History - General Information source: Patient - Social History Smoking Status: Never Smoker Chew tobacco use (# tins/day): No Frequency of alcohol use: None Drug Abuse: None Family History: CAD, DM, Hyperlipidemia, Hypertension Patient has suicidal ideation: No Patient has homicidal ideation: No - Past Medical History Cardiac Medical History: Reports: Hx Coronary Artery Disease, Hx Heart Attack - x5, Hx Hypertension Neurological Medical History: Reports: Hx Cerebrovascular Accident - x1 Endocrine Medical History: Reports: Hx Diabetes Mellitus Type 2 Renal/ Medical History: Reports: Hx Kidney Stones. Denies: Hx Peritoneal Dialysis Psychiatric Medical History: Denies: Hx Depression Past Surgical History: Reports: Hx Abdominal Surgery - gastric bypass, Hx Cardiac Catheterization - stents x9, Hx Cholecystectomy, Hx Coronary Stent - x9 , Hx Gastric Bypass Surgery - Immunizations Hx Diphtheria, Pertussis, Tetanus Vaccination: Yes Hx Pneumococcal Vaccination: 11/19/12 Review of Systems - Review of Systems Notes: REVIEW OF SYSTEMS: CONSTITUTIONAL: -fevers, -chills EENT: -eye pain, -difficulty swallowing, -nasal congestion CARDIOVASCULAR: -chest pain, -syncope. RESPIRATORY: -cough, -SOB GASTROINTESTINAL: +epigastric abdominal pain, -nausea, -vomiting, -diarrhea GENITOURINARY: -dysuria, -hematuria MUSCULOSKELETAL: -back pain, -neck pain SKIN: -rash or skin lesions. HEMATOLOGIC: -easy bruising or bleeding. LYMPHATIC: -swollen, enlarged glands. NEUROLOGICAL: -altered mental status or loss of consciousness, -headache, - neurologic symptoms PSYCHIATRIC: -anxiety, -depression. ALL OTHER SYSTEMS REVIEWED AND NEGATIVE. Physical Exam - Vital signs Vitals: Temp Pulse Resp BP Pulse Ox 98.5 F 108 H 16 133/96 H 97 08/08/17 18:08 18 18:08 08/08/17 18:08 08/08/17 18:08 08/08/17 18:08 - Notes Notes: PHYSICAL EXAMINATION: GENERAL: Mildly uncomfortable. HEAD: Atraumatic, normocephalic. EYES: Pupils equal round and reactive to light, extraocular movements intact, sclera anicteric, conjunctiva are normal. ENT: nares patent, oropharynx clear without exudates. Moist mucous membranes. NECK: Normal range of motion, supple without lymphadenopathy LUNGS: Breath sounds clear to auscultation bilaterally and equal. No wheezes rales or rhonchi. HEART: Mild tachycardia ABDOMEN: Soft, moderate epigastric tenderness, normoactive bowel sounds. No guarding, no rebound. No masses appreciated. EXTREMITIES: Normal range of motion, no pitting or edema. No cyanosis. NEUROLOGICAL: Cranial nerves grossly intact. Normal speech, normal gait. Normal sensory and motor exams. PSYCH: Normal mood, normal affect. SKIN: Warm, Dry, normal turgor, no rashes or lesions noted. Course - Re-evaluation Re-evalutation: Patient appears well. Blood work is unremarkable, other than slight hyperglycemia. Lipase is normal troponin is also normal. After GI cocktail, he feels much better. He has had this pain multiple times in the past and instructed him to follow-up with his bariatric surgeon and GI doctor for suspected gastritis. Given strict return precautions and he understands - Vital Signs Vital signs: Temp Pulse Resp BP Pulse Ox 98.5 F 108 H 16 133/96 H 97 08/08/17 18:08 08/08/17 18:08 08/08/17 18:08 08/08/17 18:08 08/08/17 18:08 - Laboratory Result Diagrams: 08/08/17 18:45 08/08/17 18:45 Laboratory results interpreted by me: 08/08/17 08/08/17 18:45 18:45 Hgb 10.3 L Hct 32.6 L MCV 69 L MCH 21.7 L MCHC 31.7 L RDW 16.4 H Plt Count 482 H Seg Neutrophils % 79.5 H Lymphocytes % 11.8 L Absolute Neutrophils 8.3 H Chloride 111 H Glucose 245 H AST 12 L ALT 13 L Discharge - Discharge Clinical Impression: Epigastric abdominal pain Condition: Stable Disposition: HOME, SELF-CARE Additional Instructions: You may take 2 Tums to help with any of your symptoms. Follow-up with your surgeon and GI doctor. Gastritis You have an inflammation of the stomach called gastritis. This commonly causes upper abdominal pain, nausea, and vomiting. In severe cases, bleeding of the stomach lining can occur. Gastritis can be caused by bacteria or viruses , alcohol, or stomach-irritating drugs. Begin with sips of clear liquids. Take increasing amounts of fluid over the first 24 hours. Then start small amounts of bland foods (such as dry toast , applesauce, mashed potato). Gradually resume your usual diet. You should take antacids every two hours until the pain has subsided. Acid -suppressing drugs may be prescribed as well. Avoid aspirin, caffeine, tobacco , and alcohol. If the abdominal pain worsens, or there is evidence of major bleeding in the stomach (such as black, tarry stool, bloody or black vomit, or lightheadedness), you should return immediately. Call the doctor if you aren't improved in 24 to 36 hours. Forms: Elevated Blood Pressure Referrals: TAYLOR SUTTON MD [Primary Care Provider] - Follow up as needed ERIKA FINLEY MD [ACTIVE STAFF] - Follow up as needed
[2017-08-08 18:57] LABS: ABSOLUTE BASOPHILS # (AUTO) 0.1 10^3/uL (0.0-0.2); ABSOLUTE EOSINOPHILS # (AUTO) 0.2 10^3/uL (0.0-0.6); ABSOLUTE LYMPHOCYTES (AUTO) 1.2 10^3/uL (0.5-4.7); ABSOLUTE MONOCYTES (AUTO) 0.6 10^3/uL (0.1-1.4); ABSOLUTE NEUT (AUTO) 8.3 10^3/uL (1.7-8.2); EOSINOPHILS % (AUTO) 1.6 % (0-6); HEMATOCRIT 32.6 % (37.9-51.0); HEMOGLOBIN 10.3 g/dL (13.5-17.0); LYMPHOCYTES % (AUTO) 11.8 % (13-45); MEAN CORPUSCULAR HEMOGLOBIN 21.7 pg (27.0-33.4); MEAN CORPUSCULAR HGB CONC 31.7 g/dL (32.0-36.0); MEAN CORPUSCULAR VOLUME 69 fl (80-97); MONOCYTES % (AUTO) 6.1 % (3-13); PLATELET COUNT 482 10^3/uL (150-450); RED BLOOD COUNT 4.75 10^6/uL (4.35-5.55); RED CELL DISTRIBUTION WIDTH 16.4 % (11.5-14.0); SEGMENTED NEUTROPHILS % (AUTO) 79.5 % (42-78); TOTAL CELLS COUNTED % (AUTO) 100 %; WHITE BLOOD COUNT 10.5 10^3/uL (4.0-10.5)
[2017-08-08 19:13] LABS: ALANINE AMINOTRANSFERASE 13 U/L (21-72); ALBUMIN 3.8 g/dL (3.5-5.0); ALKALINE PHOSPHATASE 103 U/L (38-126); ANION GAP 12 (5-19); ASPARTATE AMINO TRANSFERASE 12 U/L (17-59); BILIRUBIN,DIRECT 0.3 mg/dL (0.0-0.4); BILIRUBIN,TOTAL 0.3 mg/dL (0.2-1.3); BLOOD UREA NITROGEN 13 mg/dL (7-20); CARBON DIOXIDE 22 mmol/L (22-30); CHLORIDE 111 mmol/L (98-107); GLUCOSE 245 mg/dL (75-110); LIPASE 78.2 U/L (23-300); POTASSIUM 4.3 mmol/L (3.6-5.0); SODIUM 144.5 mmol/L (137-145); TOTAL PROTEIN 6.5 g/dL (6.3-8.2)
[2017-08-08 19:37] VITALS: BP 139/88
== END 2017-08-08 19:40 | disposition home or self-care (01) ==
LOC: ER 18:03
DX: R10.13 Epigastric pain (principal); Z98.84 Bariatric surgery status; E11.65 Type 2 diabetes mellitus with hyperglycemia; I10 Essential (primary) hypertension; I25.10 Atherosclerotic heart disease of native coronary artery without angina pectoris; I25.2 Old myocardial infarction; Z87.19 Personal history of other diseases of the digestive system; Z90.49 Acquired absence of other specified parts of digestive tract; Z95.5 Presence of coronary angioplasty implant and graft; Z87.442 Personal history of urinary calculi
CPT/HCPCS: 99284; 36415; 83690; 85025; 80053; 84484; J3490; A9270

== ENCOUNTER 2017-09-26 15:07 | Emergency (ER) | payer MEDICARE ==
[2017-09-26 15:17] VITALS: BP 143/92
[2017-09-26] MEDS ORDERED: ONDANSETRON ODT 4 MG TAB (6 TAB/ER DISP) PO PRN (16:06)
[2017-09-26] MEDS ORDERED: KETOROLAC TROMETHAMINE 60 MG/2 ML SDV IM ONE (16:06)
--- NOTE | 2017-09-26 16:10 | ER Document Report ---
ED General - General Chief Complaint: Chest Pain Stated Complaint: CHEST PAIN Time Seen by Provider: 09/26/17 16:06 Mode of Arrival: Ambulatory Information source: Patient Notes: Chief complaint: Ran out of pain medications History of complain:( obtained from----patient) 57 years old male chronically taking oxycodone for chronic pain syndrome, claims that he ran out of his oxycodone yesterday. Therefore presented to the ED. When asked upon how he ran out of his medication before time he claims that somebody stealing his medication. He has not called the pain clinic for refill. Knowing that they will not refill it. Feeling nauseous. Otherwise no constitutional symptoms Onset: As above Duration: As above Severity: As above Quality: Sharp Context: Chronic pain Exacerbating factor and relieving factors: Change of both REVIEW OF SYSTEMS: CONSTITUTIONAL : Denies fever, chills, or sweats. Denies recent illness. EENT: Denies eye, ear, throat, or mouth pain or symptoms. Denies nasal or sinus congestion or discharge. Denies throat, tongue, or mouth swelling or difficulty swallowing. CARDIOVASCULAR: Denies chest pain. Denies palpitations or racing or irregular heart beat. Denies ankle edema. RESPIRATORY: Denies cough, cold, or chest congestion. Denies shortness of breath, difficulty breathing, or wheezing. GASTROINTESTINAL: Denies distention. Denies nausea, vomiting, or diarrhea. Denies blood in vomitus, stools, or per rectum. Denies black, tarry stools. Denies constipation. GENITOURINARY: Denies difficulty urinating, painful urination, burning, frequency, blood in urine, or discharge. FEMALE GENITOURINARY: Denies vaginal bleeding, heavy or abnormal periods, irregular periods. Denies vaginal discharge or odor. MUSCULOSKELETAL: Denies back or neck pain or stiffness. Denies joint pain or swelling. SKIN: Denies rash, lesions or sores. HEMATOLOGIC : Denies easy bruising or bleeding. LYMPHATIC: Denies swollen, enlarged glands. NEUROLOGICAL: Denies confusion or altered mental status. Denies passing out or loss of consciousness. Denies dizziness or lightheadedness. Denies headache. Denies weakness or paralysis or loss of use of either side. Denies problems with gait or speech. Denies sensory loss, numbness, or tingling. Denies seizures. PSYCHIATRIC: Denies anxiety or stress. Denies depression, suicidal ideation, or homicidal ideation. ALL OTHER SYSTEMS REVIEWED AND NEGATIVE. PHYSICAL EXAMINATION: GENERAL: Well-appearing, well-nourished and in no acute distress. Not appear to be in any distress HEAD: Atraumatic, normocephalic. EYES: Pupils equal round and reactive to light, extraocular movements intact, conjunctiva are normal. ENT: Nares patent, oropharynx clear without exudates. Moist mucous membranes. NECK: Normal range of motion, supple without lymphadenopathy LUNGS: Breath sounds clear to auscultation bilaterally and equal. No wheezes rales or rhonchi. HEART: Regular rate and rhythm without murmurs ABDOMEN: Soft, nontender, nondistended abdomen. No guarding, no rebound. No masses appreciated. Examination of genitals-deferred Musculoskeletal: Normal range of motion, no pitting or edema. No cyanosis. NEUROLOGICAL: Cranial nerves grossly intact. Normal speech, normal gait. Normal sensory, motor exams PSYCH: Normal mood, normal affect. SKIN: Warm, Dry, normal turgor, no rashes or lesions noted. Dictation was performed using [employer] voice recognition software TRAVEL OUTSIDE OF THE [place] IN LAST 30 DAYS: No - HPI Notes: Dictated - Related Data Allergies/Adverse Reactions: morphine [Morphine] Adverse Reaction (Verified 09/26/17 15:07) Migraine Past Medical History - Social History Smoking Status: Never Smoker Chew tobacco use (# tins/day): No Frequency of alcohol use: None Drug Abuse: None Family History: Reviewed & Not Pertinent, CAD, DM, Hyperlipidemia, Hypertension Patient has suicidal ideation: No Patient has homicidal ideation: No - Past Medical History Cardiac Medical History: Reports: Hx Coronary Artery Disease, Hx Heart Attack - x5, Hx Hypertension Neurological Medical History: Reports: Hx Cerebrovascular Accident - x1 Endocrine Medical History: Reports: Hx Diabetes Mellitus Type 2 Renal/ Medical History: Reports: Hx Kidney Stones. Denies: Hx Peritoneal Dialysis Psychiatric Medical History: Denies: Hx Depression Past Surgical History: Reports: Hx Abdominal Surgery - gastric bypass, Hx Cardiac Catheterization - stents x9, Hx Cholecystectomy, Hx Coronary Stent - x9 , Hx Gastric Bypass Surgery - Immunizations Hx Diphtheria, Pertussis, Tetanus Vaccination: Yes Hx Pneumococcal Vaccination: 11/19/12 Review of Systems - Review of Systems Notes: Dictated Physical Exam - Vital signs Vitals: Temp Pulse Resp BP Pulse Ox 99 F 100 18 143/92 H 99 09/26/17 15:16 09/26/17 15:16 09/26/17 15:16 09/26/17 15:16 09/26/17 15:16 - Notes Notes: Dictated Course - Re-evaluation Re-evalutation: 09/26/17 16:09 He was told very clearly that if somebody stealing his medication that is his problem, we are not the solution for that. He has to deal with it and protect his medications. And asked to follow-up with pain clinic. - Vital Signs Vital signs: Temp Pulse Resp BP Pulse Ox 99 F 100 18 143/92 H 99 09/26/17 15:16 09/26/17 15:16 09/26/17 15:16 09/26/17 15:16 09/26/17 15:16 Discharge - Discharge Clinical Impression: Chronic pain syndrome Condition: Fair Disposition: HOME, SELF-CARE Instructions: [facility] ([facility]) Referrals: TAYLOR SUTTON MD [Primary Care Provider] - Follow up as needed
--- NOTE | 2017-09-26 21:29 | EKG REPORT ---
SEVERITY:- NORMAL ECG - SINUS RHYTHM : Confirmed by: Nguyen Dougherty MD 26-Sep-2017 21:29:12
== END 2017-09-26 16:29 | disposition home or self-care (01) ==
LOC: ER 15:07
DX: G89.4 Chronic pain syndrome (principal); Z79.891 Long term (current) use of opiate analgesic; I25.10 Atherosclerotic heart disease of native coronary artery without angina pectoris; I10 Essential (primary) hypertension; I25.2 Old myocardial infarction; E11.9 Type 2 diabetes mellitus without complications; Z98.84 Bariatric surgery status; Z95.5 Presence of coronary angioplasty implant and graft
CPT/HCPCS: 93005; 99285; 96372; 93010; J1885; A9270

== ENCOUNTER 2017-10-27 22:54 | Emergency (ER) | payer MEDICARE ==
[2017-10-27 23:59] LABS: ABSOLUTE BASOPHILS # (AUTO) 0.1 10^3/uL (0.0-0.2); ABSOLUTE EOSINOPHILS # (AUTO) 0.2 10^3/uL (0.0-0.6); ABSOLUTE LYMPHOCYTES (AUTO) 1.5 10^3/uL (0.5-4.7); ABSOLUTE MONOCYTES (AUTO) 0.6 10^3/uL (0.1-1.4); ABSOLUTE NEUT (AUTO) 4.2 10^3/uL (1.7-8.2); BASOPHILS % (AUTO) 1.3 % (0-2); EOSINOPHILS % (AUTO) 2.4 % (0-6); HEMATOCRIT 34.3 % (37.9-51.0); HEMOGLOBIN 10.8 g/dL (13.5-17.0); LYMPHOCYTES % (AUTO) 23.5 % (13-45); MEAN CORPUSCULAR HEMOGLOBIN 21.5 pg (27.0-33.4); MEAN CORPUSCULAR HGB CONC 31.5 g/dL (32.0-36.0); MEAN CORPUSCULAR VOLUME 68 fl (80-97); MONOCYTES % (AUTO) 8.6 % (3-13); PLATELET COUNT 415 10^3/uL (150-450); RED BLOOD COUNT 5.03 10^6/uL (4.35-5.55); RED CELL DISTRIBUTION WIDTH 18.6 % (11.5-14.0); SEGMENTED NEUTROPHILS % (AUTO) 64.2 % (42-78); TOTAL CELLS COUNTED % (AUTO) 100 %; WHITE BLOOD COUNT 6.6 10^3/uL (4.0-10.5)
--- NOTE | 2017-10-28 | ER Document Report ---
ED General - General Information source: Patient TRAVEL OUTSIDE OF THE [place] IN LAST 30 DAYS: No <JASON MIRANDA - Last Filed: 10/28/17 00:04> <ANABEL ZHOU - Last Filed: 10/29/17 03:03> - General Chief Complaint: Chest Pain Stated Complaint: CHEST PAIN Time Seen by Provider: 10/27/17 23:36 Notes: 57-year-old male who presents to the emergency department today with complaints of chest pain and upper abdominal pain that began this morning at 1000 this morning. Patient states that he has been having these symptoms "for a while" but today they started 10:00 this morning. Patient has a hiatal hernia which he saw a surgeon for yesterday who plans on performing surgery to repair it according to the patient. Patient states the surgeon prescribed him Nexium which has done "nothing". Patient states his pain has been relieved with GI cocktails in the past but it only works "for a little while". Patient takes 10 mg Percocets 4 times a day and he states it "does not help". Patient is nauseated but denies any vomiting. (JASON MIRANDA) Further history from the patient shows that he stopped taking Brilinta 2 months ago due to the cost of the medication. He last saw his ice rink attendant in [place], [place] one year ago. The patient did receive a GI cocktail here, he states that helped his pain about 10 minutes. When I went back to see him he stated the pain had returned was worse and now he is indicating it is substernal. His heart rate had increased to just over 130 and he is quite anxious. His troponin came back at 0.73, so a non-STEMI treatment approach was started with aspirin, Plavix, heparin bolus and drip, Lopressor IV. He was given Dilaudid for pain, and Protonix IV. (ANABEL ZHOU) - Related Data Allergies/Adverse Reactions: morphine [Morphine] Adverse Reaction (Verified 09/26/17 15:07) Migraine Past Medical History - General Information source: Patient, [facility] Records - Social History Smoking Status: Never Smoker Cigarette use (# per day): No Chew tobacco use (# tins/day): No Frequency of alcohol use: None Drug Abuse: None Lives with: Family Family History: Reviewed & Not Pertinent, CAD, DM, Hyperlipidemia, Hypertension Patient has suicidal ideation: No Patient has homicidal ideation: No - Past Medical History Cardiac Medical History: Reports: Hx Coronary Artery Disease, Hx Heart Attack - x5, Hx Hypertension Neurological Medical History: Reports: Hx Cerebrovascular Accident - x1 Endocrine Medical History: Reports: Hx Diabetes Mellitus Type 2 Renal/ Medical History: Reports: Hx Benign Prostatic Hyperplasia, Hx Kidney Stones GI Medical History: Reports: Hx Gastroesophageal Reflux Disease Past Surgical History: Reports: Hx Abdominal Surgery - gastric bypass, Hx Cardiac Catheterization, Hx Cholecystectomy, Hx Coronary Stent - x9, Hx Gastric Bypass Surgery - Immunizations Hx Diphtheria, Pertussis, Tetanus Vaccination: Yes Hx Pneumococcal Vaccination: 11/19/12 <JASON MIRANDA - Last Filed: 10/28/17 00:04> Review of Systems - Review of Systems Constitutional: No symptoms reported EENT: No symptoms reported Cardiovascular: See HPI, Chest pain Respiratory: No symptoms reported Gastrointestinal: See HPI, Abdominal pain, Nausea. denies: Vomiting Genitourinary: No symptoms reported Male Genitourinary: No symptoms reported Musculoskeletal: No symptoms reported Skin: No symptoms reported Hematologic/Lymphatic: No symptoms reported Neurological/Psychological: No symptoms reported -: Yes All other systems reviewed and negative <JASON MIRANDA - Last Filed: 10/28/17 00:04> Physical Exam <JASON MIRANDA - Last Filed: 10/28/17 00:04> <ANABEL ZHOU - Last Filed: 10/29/17 03:03> - Vital signs Vitals: Temp Pulse Resp BP Pulse Ox 98.4 F 144 H 20 150/92 H 100 10/27/17 23:16 10/27/17 23:16 10/27/17 23:16 10/27/17 23:16 10/27/17 23:16 - Notes Notes: Physical Exam: General: Alert, appears well. HEENT: Normocephalic. Atraumatic. PERRL. Extraocular movements intact. Oropharynx clear. Neck: Supple. Non-tender. Respiratory: No respiratory distress. Clear and equal breath sounds bilaterally. Right sided chest wall tenderness with palpation. Cardiovascular: Tachycardic, regular rhythm. Abdominal: Epigastric tenderness with palpation. No distension. Normal Bowel Sounds. Back: Non-tender. No deformity or step off. Extremities: Moves all four extremities. Upper extremities: Normal inspection. Normal ROM. Lower extremities: Normal inspection. No edema. Normal ROM. Neurological: Normal cognition. AAOx4. Normal speech. Psychological: Normal affect. Normal Mood. Skin: Warm. Dry. Normal color. (JASON MIRANDA) Course - Laboratory Result Diagrams: 10/27/17 23:37 10/27/17 23:37 <JASON MIRANDA - Last Filed: 10/28/17 00:04> - Laboratory Result Diagrams: 10/27/17 23:37 10/27/17 23:37 - Diagnostic Test Radiology reviewed: Image reviewed - Chest x-ray is unremarkable. - EKG Interpretation by Me EKG shows normal: Sinus rhythm, Scroggins, Intervals, QRS Complexes. abnormal: ST-T Waves - Diffuse ST depression, with ST elevation in aVR Rate: Tachycardia - 144 When compared to previous EKG there are: Changes noted - Transfer of Care Care transferred to following provider: DR. Ryan <ANABEL ZHOU - Last Filed: 10/29/17 03:03> - Re-evaluation Re-evalutation: 10/28/17 01:15 The patient reports a GI cocktail helped his pain for about 10 minutes and then it came back. He is now indicating his pain is in the substernal region, on initial exam he indicated it was in the right anterior chest where he was tender to palpate. He continues to be hypertensive and tachycardic. I gave him one sublingual nitroglycerin at 0110 and ordered Lopressor 5 mg IV and notified the nurse. His initial troponin is 0.72, review of multiple previous emergency room visits shows his troponins are generally undetectable, and have never been above the 0.12 cut off. 10/28/17 02:03 The patient was discussed with ice rink attendant at [facility] who concurred with the current treatment, except he recommended holding the Plavix and checking a urine drug screen to be sure cocaine was not involved. Stop order was put on the Plavix, however when I went to discuss with the nurse , he has just been given the Plavix. At this time the patient is much more comfortable and relaxed, which she attributes to the Dilaudid he received. [facility] is full and patient is placed on a waiting list at this time. 10/28/17 06:14 The patient states he is pain-free at this time. He appears to be quite comfortable. His most recent Accu-Chek is 101. 10/28/17 06:29 I spoke with the cardiac connection again, and the patient is first on the list when beds become available this morning after discharges. They expect that he will have a bed sometime this morning. 10/29/17 02:[address] Peres about 1:30 in the morning to ask what he thought about the EKG. He told me that Dr. Kingsley was reading EKGs. Dr. Peres was spa consultant for cardiology patients in the emergency room, so I described the patient's history , clinical findings, response to treatment, the EKG and laboratory studies up to that point. He told me the patient should be transferred and was not a candidate to stay at this facility. For this reason I did not call the hospitalist about admitting this non-STEMI patient. (ANABEL ZHOU) - Vital Signs Vital signs: Temp Pulse Resp BP Pulse Ox 97.9 F 144 H 19 135/109 H 100 10/28/17 17:18 10/27/17 23:16 10/28/17 17:18 10/28/17 17:18 10/28/17 17:18 - Laboratory Laboratory results interpreted by me: 10/27/17 10/27/17 10/28/17 23:37 23:37 00:25 Hgb 10.8 L Hct 34.3 L MCV 68 L MCH 21.5 L MCHC 31.5 L RDW 18.6 H APTT Sodium 135.7 L Glucose 434 H* POC Glucose ALT 18 L Creatine Kinase 52 L Urine Glucose (UA) >=500 H Ur Leukocyte Esterase TRACE H 10/28/17 10/28/17 10/28/17 06:44 08:25 13:36 Hgb Hct MCV MCH MCHC RDW APTT 54.5 H Sodium Glucose POC Glucose 167 H 145 H ALT Creatine Kinase Urine Glucose (UA) Ur Leukocyte Esterase 10/28/17 10/28/17 15:05 17:22 Hgb Hct MCV MCH MCHC RDW APTT 63.9 H Sodium Glucose POC Glucose 123 H ALT Creatine Kinase Urine Glucose (UA) Ur Leukocyte Esterase - Transfer of Care Notes: 10/28/17 07:08 Patient is pending transfer to [facility]. He is presently pain-free with stable vital signs. (ANABEL ZHOU) Critical Care Note - Critical Care Note Total time excluding time spent on procedures (mins): 50 <ANABEL ZHOU - Last Filed: 10/29/17 03:03> Discharge <JASON MIRANDA - Last Filed: 10/28/17 00:04> <ANABEL ZHOU - Last Filed: 10/29/17 03:03> - Discharge Clinical Impression: Non-ST elevation myocardial infarction (NSTEMI) Gastroesophageal reflux disease Qualifiers: Esophagitis presence: esophagitis presence not specified Qualified Code(s): K21.9 - Gastro-esophageal reflux disease without esophagitis Condition: Stable Disposition: [facility] Referrals: TAYLOR SUTTON MD [Primary Care Provider] - Follow up as needed Scribe Attestation: 10/28/17 00:02 I personally performed the services described in the documentation, reviewed and edited the documentation which was dictated to the scribe in my presence, and it accurately records my words and actions. (ANABEL ZHOU) Scribe Documentation - Scribe Written by Jerardo:: Jerardo Baez, 10/28/2017 [id number] acting as scribe for :: Cherie <JASON MIRANDA - Last Filed: 10/28/17 00:04>
[2017-10-28] MEDS ORDERED: LIDOCAINE 2% VISCOUS SOLN 20 ML UDCUP PO ONE (00:01)
[2017-10-28] MEDS ORDERED: MAG HYDROX/AL HYDROX/SIMETH SUSP 30 ML UDCUP PO ONE (00:01)
[2017-10-28 00:42] LABS: ALANINE AMINOTRANSFERASE 18 U/L (21-72); ALBUMIN 3.7 g/dL (3.5-5.0); ALKALINE PHOSPHATASE 105 U/L (38-126); ANION GAP 12 (5-19); ASPARTATE AMINO TRANSFERASE 18 U/L (17-59); BILIRUBIN,DIRECT 0.3 mg/dL (0.0-0.4); BILIRUBIN,TOTAL 0.3 mg/dL (0.2-1.3); BLOOD UREA NITROGEN 11 mg/dL (7-20); CALCIUM 9.8 mg/dL (8.4-10.2); CARBON DIOXIDE 22 mmol/L (22-30); CHLORIDE 102 mmol/L (98-107); CREATINE KINASE 52 U/L (55-170); POTASSIUM 4.6 mmol/L (3.6-5.0); SODIUM 135.7 mmol/L (137-145); TOTAL PROTEIN 6.8 g/dL (6.3-8.2)
[2017-10-28 00:51] LABS: CREATINE KINASE MB 1.59 ng/mL (<4.55)
[2017-10-28 00:55] LABS: GLUCOSE 434 mg/dL (75-110)
[2017-10-28 01:00] LABS: TROPONIN I 0.73 ng/mL
[2017-10-28] MEDS ORDERED: METOPROLOL TARTRATE PF/INJ 5 MG/5 ML SDV IV ONE ×3 (01:12→02:54)
[2017-10-28 01:17] LABS: APPEARANCE,URINE CLEAR; BILIRUBIN,URINE NEGATIVE (NEGATIVE); COLOR,URINE YELLOW; GLUCOSE, URINE >=500 mg/dL (NEGATIVE); KETONES,URINE NEGATIVE (NEGATIVE); LEUKOCYTE ESTERASE,URINE TRACE (NEGATIVE); NITRITE,URINE NEGATIVE (NEGATIVE); PROTEIN,URINE NEGATIVE (NEGATIVE); URINE SPECIFIC GRAVITY 1.015; UROBILINOGEN,URINE NEGATIVE mg/dL (<2.0)
[2017-10-28] MEDS ORDERED: ASPIRIN 81 MG TABLET, CHEWABLE PO ONE (01:26)
[2017-10-28] MEDS ORDERED: ONDANSETRON HCL INJ/PF 4 MG/2 ML SDV IV ONE (01:28)
[2017-10-28] MEDS ORDERED: HYDROMORPHONE HCL INJ/PF 2 MG/ML AMPULE IV ONE (01:28)
[2017-10-28] MEDS ORDERED: HEPARIN SOD (PORCINE) 1,000 UNIT/ML 10 ML VIAL IV ONE (01:29)
[2017-10-28] MEDS ORDERED: HEPARIN SODIUM,PORCINE/D5W 25,000 UNIT/250 ML RTUINJ IV PRN (01:29)
[2017-10-28] MEDS ORDERED: INSULIN REG, HUMAN 100 UNIT/ML 3 ML VIAL (PYX) IV ONE (01:32)
[2017-10-28] MEDS ORDERED: PANTOPRAZOLE SODIUM 40 MG VIAL IV ONE (01:33)
[2017-10-28] MEDS ORDERED: CLOPIDOGREL BISULFATE 300 MG TABLET PO ONE (01:44)
[2017-10-28 01:51] LABS: INTERNATIONAL RATION (INR) 0.91; PARTIAL THROMBOPLASTIN TIME 30.7 SEC (23.5-35.8); PROTHROMBIN TIME 12.7 SEC (11.4-15.4)
[2017-10-28 02:49] LABS: URINE AMPHETAMINES SCREEN NEGATIVE; URINE BARBITURATES SCREEN NEGATIVE; URINE BENZODIAZEPINES SCREEN NEGATIVE; URINE COCAINE SCREEN NEGATIVE; URINE MARIJUANA (THC) SCREEN NEGATIVE; URINE METHADONE SCREEN NEGATIVE; URINE PHENCYCLIDINE SCREEN NEGATIVE
[2017-10-28] MEDS ORDERED: NORMAL SALINE 1000 ML 1,000 ML IV ONE (02:54)
[2017-10-28] MEDS ORDERED: NORMAL SALINE 1000 ML 500 ML IV ONE (02:56)
[2017-10-28 03:00] LABS: CREATINE KINASE MB 2.08 ng/mL (<4.55)
[2017-10-28 03:02] LABS: TROPONIN I 0.74 ng/mL
--- NOTE | 2017-10-28 03:02 | RADIOLOGY REPORT (SQ) ---
EXAM DESCRIPTION: X-ray single view chest CLINICAL HISTORY: 57 years Male, Chest pain COMPARISON: Prior chest x-ray performed on 06/01/2017. TECHNIQUE: Single portable view of the chest performed on 10/28/2017 at 2:50 AM. FINDINGS: The lungs are well expanded and are clear. There is no evidence of a pneumothorax. The cardiac silhouette is normal in size and configuration. The mediastinal contours are normal. No acute osseous abnormality is identified. No focal soft tissue abnormalities are seen. IMPRESSION: No evidence of acute intrathoracic disease. No significant change when compared to the prior study.
[2017-10-28] MEDS ORDERED: METOPROLOL TARTRATE 25 MG TABLET PO ONE (03:44)
[2017-10-28] MEDS ORDERED: NITROGLYCERIN 2% OINTMENT 1 GM PACKET TP ONE (03:45)
[2017-10-28] MEDS ORDERED: HEPARIN SOD (PORCINE) 1,000 UNIT/ML 10 ML VIAL IV PRN (04:30)
--- NOTE | 2017-10-28 08:32 | EKG REPORT ---
SEVERITY:- OTHERWISE NORMAL ECG - SINUS TACHYCARDIA : Confirmed by: Karson Kingsley MD 28-Oct-2017 08:31:28
--- NOTE | 2017-10-28 08:34 | EKG REPORT ---
SEVERITY:- ABNORMAL ECG - SINUS TACHYCARDIA NEW ST CHANGES IN ANTEROLATERAL LEADS COMPARED TO 07/27/17 AND 09/26/18EKGS. CLINICAL CORRELATION IS RISSA ATORY. PROBABLE POSTERIOR INFARCT : Confirmed by: Karson Kingsley MD 28-Oct-2017 08:33:39
[2017-10-28 16:04] LABS: INTERNATIONAL RATION (INR) 0.94
[2017-10-28 17:32] VITALS: BP 135/109
--- NOTE | 2017-10-28 17:36 | ER Document Report ---
Doctor's Note Notes: 10/28/17 17:27 Patient seen and examined just prior to transfer [facility], he was in stable condition, agreeable to transfer, transfer care made to the EMS team.
== END 2017-10-28 17:32 | disposition short-term general hospital (02) ==
LOC: ER 22:54
DX: I21.4 Non-ST elevation (NSTEMI) myocardial infarction (principal); K44.9 Diaphragmatic hernia without obstruction or gangrene; T45.526A Underdosing of antithrombotic drugs, initial encounter; Z91.120 Patient's intentional underdosing of medication regimen due to financial hardship; Z91.14 Patient's other noncompliance with medication regimen; I25.10 Atherosclerotic heart disease of native coronary artery without angina pectoris; K21.9 Gastro-esophageal reflux disease without esophagitis; R11.0 Nausea; I25.2 Old myocardial infarction; I10 Essential (primary) hypertension; E11.9 Type 2 diabetes mellitus without complications; Z98.84 Bariatric surgery status; Z95.5 Presence of coronary angioplasty implant and graft; Z79.891 Long term (current) use of opiate analgesic
CPT/HCPCS: 93005 ×2; 96376; 99291; 96375; 96365; 96366; 36415; 82553; 82962; 82550; 85025; 85610; 85730; 80053; 81001; 84484; 80307; 71045; 93010 ×2; A9270 ×5; J1644 ×2; J3490 ×2; J1170; C9113; J2405; J7030; J1815; S0164

== ENCOUNTER 2017-11-17 08:35 | Emergency (ER) | payer MEDICARE ==
[2017-11-17 08:55] LABS: ABSOLUTE BASOPHILS # (AUTO) 0.1 10^3/uL (0.0-0.2); ABSOLUTE EOSINOPHILS # (AUTO) 0.1 10^3/uL (0.0-0.6); ABSOLUTE LYMPHOCYTES (AUTO) 1.7 10^3/uL (0.5-4.7); ABSOLUTE MONOCYTES (AUTO) 0.7 10^3/uL (0.1-1.4); BASOPHILS % (AUTO) 1.3 % (0-2); EOSINOPHILS % (AUTO) 0.6 % (0-6); HEMATOCRIT 35.5 % (37.9-51.0); HEMOGLOBIN 11.1 g/dL (13.5-17.0); LYMPHOCYTES % (AUTO) 17.9 % (13-45); MEAN CORPUSCULAR HEMOGLOBIN 22.9 pg (27.0-33.4); MEAN CORPUSCULAR HGB CONC 31.3 g/dL (32.0-36.0); MONOCYTES % (AUTO) 7.4 % (3-13); PLATELET COUNT 895 10^3/uL (150-450); RED BLOOD COUNT 4.85 10^6/uL (4.35-5.55); RED CELL DISTRIBUTION WIDTH 21.8 % (11.5-14.0); SEGMENTED NEUTROPHILS % (AUTO) 72.8 % (42-78); TOTAL CELLS COUNTED % (AUTO) 100 %; WHITE BLOOD COUNT 9.6 10^3/uL (4.0-10.5)
[2017-11-17 09:02] LABS: MEAN CORPUSCULAR VOLUME 73 fl (80-97)
[2017-11-17] MEDS ORDERED: NITROGLYCERIN/D5W 50 MG/250 ML RTUINJ IV PRN (09:03)
[2017-11-17] MEDS ORDERED: FENTANYL CITRATE INJ/PF 100 MCG/2 ML AMPUL IV ONE ×2 (09:07→10:26)
[2017-11-17 09:09] LABS: ALANINE AMINOTRANSFERASE 19 U/L (21-72); ALBUMIN 3.9 g/dL (3.5-5.0); ALKALINE PHOSPHATASE 135 U/L (38-126); ANION GAP 13 (5-19); ASPARTATE AMINO TRANSFERASE 19 U/L (17-59); BILIRUBIN,DIRECT 0.5 mg/dL (0.0-0.4); BILIRUBIN,TOTAL 0.6 mg/dL (0.2-1.3); BLOOD UREA NITROGEN 11 mg/dL (7-20); CALCIUM 9.5 mg/dL (8.4-10.2); CARBON DIOXIDE 23 mmol/L (22-30); CHLORIDE 102 mmol/L (98-107); CREATINE KINASE 22 U/L (55-170); GLUCOSE 212 mg/dL (75-110); POTASSIUM 5.2 mmol/L (3.6-5.0); SODIUM 137.5 mmol/L (137-145); TOTAL PROTEIN 6.8 g/dL (6.3-8.2)
--- NOTE | 2017-11-17 09:13 | ER Document Report ---
ED Cardiac - General Chief Complaint: Chest Pain Stated Complaint: CHEST PAIN Time Seen by Provider: 11/17/17 08:51 TRAVEL OUTSIDE OF THE [place] IN LAST 30 DAYS: No - HPI Notes: Patient is a 57-year-old male that presents to the emergency department for chief complaint of chest pain. Patient has history of severe cardiac disease including 9 stents and triple bypass surgery performed on 10/30/17 at [facility] by Dr. Lee. Patient states he started having substernal and left parasternal chest heaviness yesterday evening. The pain has been constant since around 11 PM. It has gotten worse this morning. He received 4 sublingual nitro by EMS and 4 baby aspirin which has improved his pain. He states he had no associated nausea but did feel sweaty. He denies any current shortness of breath. The pain is nonradiating. There is no aggravating factors to his pain. He does state this feels similar to his previous heart attacks Past Medical History: Diabetes, CAD, hypertension, hyperlipidemia Past Surgical History: Cardiac stent x9, cardiac bypass x3 Social History: Denies drugs alcohol and tobacco Family History: Reviewed and noncontributory for presenting illness Allergies: Reviewed, see documented allergy list. REVIEW OF SYSTEMS: CONSTITUTIONAL : No fever No chills No diaphoresis No recent illness EENT: No vision changes No congestion No sore throat CARDIOVASCULAR: chest pain No palpitations RESPIRATORY: No shortness of breath No cough No difficulty breathing GASTROINTESTINAL: No abdominal pain No nausea No vomiting No diarrhea GENITOURINARY: No dysuria No hematuria No difficulty urinating MUSCULOSKELETAL: No back pain No leg pain No arm pain SKIN: No rashes No lesions LYMPHATIC: No swollen, enlarged glands. NEUROLOGICAL: No lightheadedness No headache No weakness No paresthesias PSYCHIATRIC: No anxiety No depression PHYSICAL EXAMINATION: Vital signs reviewed, nursing noted reviewed. GENERAL: Well-appearing, well-nourished and in no acute distress. HEAD: Atraumatic, normocephalic. EYES: Eyes appear normal, extraocular movements intact, sclera anicteric, conjunctiva are normal. ENT: nares patent, oropharynx clear without exudates. Moist mucous membranes. NECK: Normal range of motion, supple without lymphadenopathy LUNGS: Breath sounds clear to auscultation bilaterally and equal. No wheezes rales or rhonchi. HEART: Regular rate and rhythm without murmurs. +2/4 right radial pulse. Left radial pulse difficult to palpate because of overlying scar tissue and scab. ABDOMEN: Soft, nontender, normoactive bowel sounds. No rebound, guarding, or rigidity. No masses appreciated. EXTREMITIES: Nontender, good range of motion, no pitting or edema. Normal capillary refill in bilateral extremities. Left hand is warm NEUROLOGICAL: No focal neurological deficits. Moves all extremities spontaneously Motor and sensory grossly intact on exam. PSYCH: Normal mood, normal affect. SKIN: Warm, Dry, normal turgor, no rashes or lesions noted on exposed skin - Related Data Allergies/Adverse Reactions: morphine [Morphine] Adverse Reaction (Verified 09/26/17 15:07) Migraine Past Medical History - Social History Smoking Status: Never Smoker Chew tobacco use (# tins/day): No Frequency of alcohol use: Rare Drug Abuse: None Family History: Reviewed & Not Pertinent, CAD, DM, Hyperlipidemia, Hypertension Patient has suicidal ideation: No Patient has homicidal ideation: No - Past Medical History Cardiac Medical History: Reports: Hx Coronary Artery Disease, Hx Heart Attack - x6, Hx Hypertension Neurological Medical History: Reports: Hx Cerebrovascular Accident - x1 Endocrine Medical History: Reports: Hx Diabetes Mellitus Type 2 Renal/ Medical History: Reports: Hx Benign Prostatic Hyperplasia, Hx Kidney Stones. Denies: Hx Peritoneal Dialysis GI Medical History: Reports: Hx Gastroesophageal Reflux Disease Psychiatric Medical History: Denies: Hx Depression Past Surgical History: Reports: Hx Abdominal Surgery - gastric bypass, Hx Cardiac Catheterization, Hx Cardiac Surgery, Hx Cholecystectomy, Hx Coronary Stent - x9, Hx Gastric Bypass Surgery - Immunizations Hx Diphtheria, Pertussis, Tetanus Vaccination: Yes Hx Pneumococcal Vaccination: 11/19/12 Review of Systems - Review of Systems Notes: Dictated Physical Exam - Vital signs Vitals: Pulse Ox 99 11/17/17 08:38 - Notes Notes: Dictated Course - Re-evaluation Re-evalutation: 11/17/17 09:10 Vitals reviewed. Nursing notes reviewed. Patient has severe CAD. His pain was improved after 4 sublingual nitro and he was placed on nitroglycerin infusion. Patient received aspirin prior to arrival in the ER. He was given fentanyl for further pain control. EKG shows T wave flattening and small biphasic T waves in precordial and lateral leads. This is new compared to prior EKG however my previous EKG was before his recent bypass. Because of patient's severe cardiac history and recent surgery he will be transferred to [facility] for admission and further cardiac care. 11/17/17 09:42 Patient reevaluated and is having improvement of chest pain but is not pain- free. Nitroglycerin drip was titrated up from 5 to 40. Repeat EKG shows improving T wave morphology. Patient's lab work is unremarkable. Case discussed with [facility] who has accepted transfer. Emitting physician Dr. Claus Horn. Laboratory 11/17/17 11/17/17 11/17/17 08:15 08:15 08:15 WBC 9.6 RBC 4.85 Hgb 11.1 L Hct 35.5 L MCV 73 L D MCH 22.9 L MCHC 31.3 L RDW 21.8 H Plt Count 895 H Seg Neutrophils % 72.8 Lymphocytes % 17.9 Monocytes % 7.4 Eosinophils % 0.6 Basophils % 1.3 Absolute Neutrophils 7.0 Absolute Lymphocytes 1.7 Absolute Monocytes 0.7 Absolute Eosinophils 0.1 Absolute Basophils 0.1 Sodium 137.5 Potassium 5.2 H Chloride 102 Carbon Dioxide 23 Anion Gap 13 BUN 11 Creatinine 1.20 Est GFR ( Amer) > 60 Est GFR (Non-Af Amer) > 60 Glucose 212 H Calcium 9.5 Total Bilirubin 0.6 Direct Bilirubin 0.5 H Neonat Total Bilirubin Not Reportable Neonat Direct Bilirubin Not Reportable Neonat Indirect Bili Not Reportable AST 19 ALT 19 L Alkaline Phosphatase 135 H Creatine Kinase 22 L CK-MB (CK-2) 0.54 Troponin I 0.030 Total Protein 6.8 Albumin 3.9 Chest X-Ray 11/17/17 08:38 IMPRESSION: Other than inter current surgery, stable chest. No acute cardiopulmonary disease. - Vital Signs Vital signs: Temp Pulse Resp BP Pulse Ox 98.9 F 18 138/88 H 99 11/17/17 08:43 11/17/17 08:43 11/17/17 08:43 11/17/17 08:43 - Laboratory Result Diagrams: 11/17/17 08:15 11/17/17 08:15 Laboratory results interpreted by me: 11/17/17 11/17/17 08:15 08:15 Hgb 11.1 L Hct 35.5 L MCV 73 L D MCH 22.9 L MCHC 31.3 L RDW 21.8 H Plt Count 895 H Potassium 5.2 H Glucose 212 H Direct Bilirubin 0.5 H ALT 19 L Alkaline Phosphatase 135 H Creatine Kinase 22 L - EKG Interpretation by Me Additional EKG results interpreted by me: 11/17/17 09:11 0838: Normal sinus rhythm, rate 89, no ectopy, normal axis, diffuse T wave flattening with low voltage biphasic T waves V3 through V6. No ST elevation 11/17/17 09:41 0926: Normal sinus rhythm, rate 81, normal axis, no ectopy, improvement of T wave morphology V3 through V6, no ST elevation Discharge - Discharge Clinical Impression: Abnormal EKG Chest pain Qualifiers: Chest pain type: other chest pain Qualified Code(s): R07.89 - Other chest pain Condition: Stable Disposition: [facility]
[2017-11-17 09:21] LABS: CREATINE KINASE MB 0.54 ng/mL (<4.55); TROPONIN I 0.03 ng/mL
--- NOTE | 2017-11-17 09:23 | RADIOLOGY REPORT (SQ) ---
EXAM DESCRIPTION: CHEST SINGLE VIEW COMPLETED DATE/TIME: 11/17/2017 9:10 am REASON FOR STUDY: cp COMPARISON: 09/27/2017. NUMBER OF VIEWS: One view. TECHNIQUE: Single frontal radiographic view of the chest acquired. LIMITATIONS: None. FINDINGS: LUNGS AND PLEURA: Relatively low lung volumes but no opacities. No congestive failure or pneumonia. No pneumothorax. MEDIASTINUM AND HILAR STRUCTURES: Postoperative changes now noted. Sternal wires look intact. No tucker spicious contour abnormalities. HEART AND VASCULAR STRUCTURES: Heart normal in size. Normal vasculature. BONES: No acute findings. HARDWARE: None in the chest. OTHER: No other significant finding. IMPRESSION: Other than inter current surgery, stable chest. No acute cardiopulmonary disease. TECHNICAL DOCUMENTATION: JOB ID: [id number] [employer]- All Rights Reserved Reading location - IP/workstation name: [email or web address]
[2017-11-17] MEDS ORDERED: LORAZEPAM INJ 2 MG/1 ML VIAL IV ONE (11:10)
[2017-11-17 11:13] VITALS: BP 133/70
--- NOTE | 2017-11-17 20:22 | EKG REPORT ---
SEVERITY:- ABNORMAL ECG - SINUS RHYTHM NONSPECIFIC T ABNORMALITIES, ANT-LAT LEADS : Confirmed by: Nguyen Dougherty MD 17-Nov-2017 20:21:58
--- NOTE | 2017-11-17 20:22 | EKG REPORT ---
SEVERITY:- ABNORMAL ECG - SINUS RHYTHM NONSPECIFIC T ABNORMALITIES, LATERAL LEADS BORDERLINE PROLONGED QT INTERVAL : Confirmed by: Nguyen Dougherty MD 17-Nov-2017 20:22:02
== END 2017-11-17 11:33 | disposition short-term general hospital (02) ==
LOC: ER 08:35
DX: R07.9 Chest pain, unspecified (principal); R94.31 Abnormal electrocardiogram [ECG] [EKG]; R61 Generalized hyperhidrosis; I25.10 Atherosclerotic heart disease of native coronary artery without angina pectoris; I10 Essential (primary) hypertension; I25.2 Old myocardial infarction; E11.9 Type 2 diabetes mellitus without complications; Z95.1 Presence of aortocoronary bypass graft; Z95.5 Presence of coronary angioplasty implant and graft; Z82.49 Family history of ischemic heart disease and other diseases of the circulatory system; Z98.84 Bariatric surgery status
CPT/HCPCS: 93005; 96376; 99285; 96375; 96365; 96366; 36415; 82553; 82550; 85025; 80053; 84484; 71045; 93010; J3010; J2060; J3490

== ENCOUNTER 2017-11-30 16:08 | Emergency (ER) | payer MEDICARE ==
--- NOTE | 2017-11-30 17:20 | ER Document Report ---
ED Medical Screen (RME) - General Chief Complaint: Incision Problem Stated Complaint: OPEN WOUND ON CHEST Time Seen by Provider: 11/30/17 17:18 Mode of Arrival: Ambulatory Information source: Patient TRAVEL OUTSIDE OF THE [place] IN LAST 30 DAYS: No - HPI Patient complains to provider of: open chest wound Onset: This morning - pt had CABG last month at [facility]. -- home health nurse came to his house to check on open wound in chest. Told to go to ED for further evaluation - Related Data Allergies/Adverse Reactions: morphine [Morphine] Adverse Reaction (Verified 09/26/17 15:07) Migraine Past Medical History - Social History Chew tobacco use (# tins/day): No Frequency of alcohol use: Rare Drug Abuse: None - Past Medical History Cardiac Medical History: Reports: Hx Coronary Artery Disease, Hx Heart Attack - x6, Hx Hypertension Neurological Medical History: Reports: Hx Cerebrovascular Accident - x1 Endocrine Medical History: Reports: Hx Diabetes Mellitus Type 2 Renal/ Medical History: Reports: Hx Benign Prostatic Hyperplasia, Hx Kidney Stones. Denies: Hx Peritoneal Dialysis GI Medical History: Reports: Hx Gastroesophageal Reflux Disease Psychiatric Medical History: Denies: Hx Depression Past Surgical History: Reports: Hx Abdominal Surgery - gastric bypass, Hx Cardiac Catheterization, Hx Cardiac Surgery - triple bipass, Hx Cholecystectomy , Hx Coronary Stent - x9, Hx Gastric Bypass Surgery - Immunizations Hx Diphtheria, Pertussis, Tetanus Vaccination: Yes Physical Exam - Vital signs Vitals: Temp Pulse Resp BP Pulse Ox 98.6 F 97 20 85/60 L 98 11/30/17 16:28 11/30/17 16:28 11/30/17 16:28 11/30/17 16:28 11/30/17 16:28 Course - Vital Signs Vital signs: Temp Pulse Resp BP Pulse Ox 98.6 F 97 20 85/60 L 98 11/30/17 16:28 11/30/17 16:28 11/30/17 16:28 11/30/17 16:28 11/30/17 16:28 Doctor's Discharge - Discharge Referrals: TAYLOR SUTTON MD [Primary Care Provider] - Follow up as needed
[2017-11-30 17:32] LABS: ABSOLUTE BASOPHILS # (AUTO) 0.1 10^3/uL (0.0-0.2); ABSOLUTE EOSINOPHILS # (AUTO) 0.3 10^3/uL (0.0-0.6); ABSOLUTE MONOCYTES (AUTO) 0.8 10^3/uL (0.1-1.4); ABSOLUTE NEUT (AUTO) 3.1 10^3/uL (1.7-8.2); BASOPHILS % (AUTO) 1.4 % (0-2); EOSINOPHILS % (AUTO) 4.8 % (0-6); HEMATOCRIT 29.3 % (37.9-51.0); HEMOGLOBIN 9.2 g/dL (13.5-17.0); LYMPHOCYTES % (AUTO) 31.8 % (13-45); MEAN CORPUSCULAR HEMOGLOBIN 22.8 pg (27.0-33.4); MEAN CORPUSCULAR HGB CONC 31.4 g/dL (32.0-36.0); MEAN CORPUSCULAR VOLUME 73 fl (80-97); MONOCYTES % (AUTO) 12.1 % (3-13); PLATELET COUNT 490 10^3/uL (150-450); RED BLOOD COUNT 4.04 10^6/uL (4.35-5.55); RED CELL DISTRIBUTION WIDTH 20.4 % (11.5-14.0); SEGMENTED NEUTROPHILS % (AUTO) 49.9 % (42-78); TOTAL CELLS COUNTED % (AUTO) 100 %; WHITE BLOOD COUNT 6.2 10^3/uL (4.0-10.5)
[2017-11-30 17:46] LABS: ALANINE AMINOTRANSFERASE 21 U/L (21-72); ALBUMIN 3.2 g/dL (3.5-5.0); ALKALINE PHOSPHATASE 114 U/L (38-126); ANION GAP 7 (5-19); ASPARTATE AMINO TRANSFERASE 22 U/L (17-59); BILIRUBIN,DIRECT 0.2 mg/dL (0.0-0.4); BILIRUBIN,TOTAL 0.4 mg/dL (0.2-1.3); BLOOD UREA NITROGEN 9 mg/dL (7-20); CALCIUM 9.1 mg/dL (8.4-10.2); CARBON DIOXIDE 26 mmol/L (22-30); CHLORIDE 108 mmol/L (98-107); GLUCOSE 88 mg/dL (75-110); POTASSIUM 4.6 mmol/L (3.6-5.0); SODIUM 141.1 mmol/L (137-145)
[2017-11-30] MEDS ORDERED: CEPHALEXIN 500 MG CAPSULE PO ONE (19:11)
--- NOTE | 2017-11-30 19:11 | ER Document Report ---
ED Wound - General Chief Complaint: Incision Problem Stated Complaint: OPEN WOUND ON CHEST Time Seen by Provider: 11/30/17 19:05 Mode of Arrival: Ambulatory Notes: 57-year-old male presented to ED for complaint of open wounds to the chest from CABG about a month ago at [facility]. His home health nurse came today to check out his wounds and told him to come to the emergency room for further evaluation. Patient is alert and oriented respirations regular and unlabored no signs or symptoms of any infection. There is a surgical skin incision that has scabs with a small amount of drainage to 1 of the wounds. There are no signs or symptoms of any infection at this time. There is no signs or symptoms of a imminent dehiscence. TRAVEL OUTSIDE OF THE [place] IN LAST 30 DAYS: No - HPI Patient complains to provider of: Post surgical problem Occurred: Other - Patient states the wound has looked like this for several days but the home health nurse sent him to the emergency room because she was concerned Onset/Duration: Gradual Severity: Mild Pain Level: 1 Context: Other - Declines cessation from a CABG Skin Color: Normal Associated Symptoms: Other - Scabs to his chest incision - Related Data Allergies/Adverse Reactions: morphine [Morphine] Adverse Reaction (Verified 09/26/17 15:07) Migraine Past Medical History - General Information source: Patient - Social History Smoking Status: Never Smoker Cigarette use (# per day): No Chew tobacco use (# tins/day): No Smoking Education Provided: No Frequency of alcohol use: Rare Drug Abuse: None Lives with: Family Family History: Reviewed & Not Pertinent, CAD, DM, Hyperlipidemia, Hypertension Patient has suicidal ideation: No Patient has homicidal ideation: No - Past Medical History Cardiac Medical History: Reports: Hx Coronary Artery Disease, Hx Heart Attack - x6, Hx Hypertension Pulmonary Medical History: Reports: None EENT Medical History: Reports: None Neurological Medical History: Reports: Hx Cerebrovascular Accident - x1 Endocrine Medical History: Reports: Hx Diabetes Mellitus Type 2 Renal/ Medical History: Reports: Hx Benign Prostatic Hyperplasia, Hx Kidney Stones Malignancy Medical History: Reports None GI Medical History: Reports: Hx Gastroesophageal Reflux Disease Musculoskeletal Medical History: Reports None Skin Medical History: Reports None Psychiatric Medical History: Reports: None Traumatic Medical History: Reports: None Infectious Medical History: Reports: None Past Surgical History: Reports: Hx Abdominal Surgery - gastric bypass, Hx Cardiac Catheterization, Hx Cardiac Surgery - triple bipass, Hx Cholecystectomy , Hx Coronary Stent - x9, Hx Gastric Bypass Surgery - Immunizations Hx Diphtheria, Pertussis, Tetanus Vaccination: Yes Hx Pneumococcal Vaccination: 11/19/12 Review of Systems - Review of Systems Constitutional: No symptoms reported EENT: No symptoms reported Cardiovascular: No symptoms reported Respiratory: No symptoms reported Gastrointestinal: No symptoms reported Genitourinary: No symptoms reported Male Genitourinary: No symptoms reported Musculoskeletal: No symptoms reported Skin: Other - Scabbed areas to his chest incision. No signs or symptoms of infection no redness minimal drainage to one area the rest of them are clean and dry Hematologic/Lymphatic: No symptoms reported Neurological/Psychological: No symptoms reported Physical Exam - Vital signs Vitals: Temp Pulse Resp BP Pulse Ox 98.6 F 97 20 85/60 L 98 11/30/17 16:28 11/30/17 16:28 11/30/17 16:28 11/30/17 16:28 11/30/17 16:28 Interpretation: Normal - General General appearance: Appears well, Alert - HEENT Head: Normocephalic, Atraumatic Eyes: Normal Pupils: PERRL - Respiratory Respiratory status: No respiratory distress Chest status: Nontender Breath sounds: Normal Chest palpation: Normal - Cardiovascular Rhythm: Regular Heart sounds: Normal auscultation Murmur: No - Abdominal Inspection: Normal Distension: No distension Bowel sounds: Normal Tenderness: Nontender Organomegaly: No organomegaly - Back Back: Normal, Nontender - Extremities General upper extremity: Normal inspection, Nontender, Normal color, Normal ROM , Normal temperature General lower extremity: Normal inspection, Nontender, Normal color, Normal ROM , Normal temperature, Normal weight bearing. No: Porfirio's sign - Neurological Neuro grossly intact: Yes Cognition: Normal Orientation: AAOx4 [place] Coma Scale Eye Opening: Spontaneous [place] Coma Scale Verbal: Oriented [place] Coma Scale Motor: Obeys Commands [place] Coma Scale Total: 15 Speech: Normal Motor strength normal: LUE, RUE, LLE, RLE Sensory: Normal - Psychological Associated symptoms: Normal affect, Normal mood - Skin Skin Temperature: Warm Skin Moisture: Dry Skin Color: Normal Location of irregularity: Chest - Scabbed incision to his chest from his previous CABG about a month ago. One small area is a little opened and is not a dehiscence but a scabbed area that is healing. There is no redness no inflammation no signs or symptoms of infection. Irregularity with: Tenderness - Minimal tenderness to the chest incision Course - Re-evaluation Re-evalutation: 12/01/17 00:58 Chest was cleaned well with surgical scrub rinsed with saline and bacitracin applied. Patient was started on Keflex to ensure that there is no infection developing. Patient was instructed to follow-up with his primary care doctor as instructed. Patient instructed to clean the area and redressed the area until he follows up with his primary care doctor and his cardiac surgeon. Patient verbalized understanding and agreement with treatment plan. - Vital Signs Vital signs: Temp Pulse Resp BP Pulse Ox 97.6 F 76 18 123/74 98 11/30/17 19:14 11/30/17 19:14 11/30/17 19:14 11/30/17 19:14 11/30/17 19:14 - Laboratory Result Diagrams: 11/30/17 17:20 11/30/17 17:20 Laboratory results interpreted by me: 11/30/17 11/30/17 17:20 17:20 RBC 4.04 L Hgb 9.2 L Hct 29.3 L MCV 73 L MCH 22.8 L MCHC 31.4 L RDW 20.4 H Plt Count 490 H Chloride 108 H Creatinine 1.46 H Est GFR (Non-Af Amer) 50 L Total Protein 6.0 L Albumin 3.2 L Discharge - Discharge Clinical Impression: open wound to chest incision Condition: Stable Disposition: HOME, SELF-CARE Additional Instructions: He was seen today for small open area to your chest incision. No signs of infection at this time. Your wound has been cleaned with soap and gated with saline bacitracin was applied as well as a clean sterile dressing. Please clean this wound 2-3 times a day in the shower and then clean with the soap and saline that I provided you with. Place a clean dressing and tape until you follow-up with your primary doctor and your surgeon. Soap Cleansing Gently wash the wound daily using a mild soap (like Ivory, Phisoderm, Neutrogena). Use warm water, rubbing gently until all debris, ooze, and crusting have been washed from the wound. Allow to dry briefly (about 10 minutes) after cleaning. Repeat this cleansing at least three times a day for the first two days and then once or twice a day. Cephalexin The antibiotic you've been prescribed is a member of the cephalosporin class. This type of antibiotic covers a wide variety of infections, including those of the skin, lungs, and urinary tract. It's useful for staph infections. This antibiotic is slightly similar to the penicillin family. In rare cases , a person who is allergic to penicillin will also be allergic to this medication. If you have had a severe allergic reaction to penicillin, and have not taken this antibiotic since that time, notify your doctor. Antibiotics which cover many germs ("broad spectrum" antibiotics) are more likely to cause diarrhea or "yeast" infections. Women prone to vaginal yeast problems may suffer an attack after taking this antibiotic. In infants, oral thrush (white spots "stuck" on the cheek) or yeast diaper rash may result. See your doctor if these problems occur. Call at once if you develop itching, hives , shortness of breath, or lightheadedness. FOLLOW-UP CARE: If you have been referred to a physician for follow-up care, call the physician s office for an appointment as you were instructed or within the next two days. If you experience worsening or a significant change in your symptoms, notify the physician immediately or return to the Emergency Department at any time for re-evaluation. Prescriptions: Cephalexin Monohydrate [Keflex 500 mg Capsule] 500 mg PO Q6H 5 Days capsule Referrals: TAYLOR SUTTON MD [Primary Care Provider] - Follow up as needed
[2017-11-30 19:16] VITALS: BP 123/74
== END 2017-11-30 19:22 | disposition home or self-care (01) ==
LOC: ER 16:08
DX: S21.109A Unspecified open wound of unspecified front wall of thorax without penetration into thoracic cavity, initial encounter (principal); X58.XXXA Exposure to other specified factors, initial encounter; Z95.1 Presence of aortocoronary bypass graft; I25.10 Atherosclerotic heart disease of native coronary artery without angina pectoris; I10 Essential (primary) hypertension; I25.2 Old myocardial infarction; E11.9 Type 2 diabetes mellitus without complications; Z98.84 Bariatric surgery status; Z95.5 Presence of coronary angioplasty implant and graft
CPT/HCPCS: 99283; 36415; 85025; 80053; A9270

== ENCOUNTER 2018-03-04 21:50 | Inpatient (IN) | payer MEDICARE ==
[2018-03-04] MEDS ORDERED: ONDANSETRON HCL INJ/PF 4 MG/2 ML SDV IV ONE (23:17)
[2018-03-04] MEDS ORDERED: NORMAL SALINE 1000 ML 1,000 ML IV ONE (23:17)
[2018-03-04] MEDS ORDERED: METOCLOPRAMIDE HCL INJ/PF 10 MG/2 ML SDV IV ONE (23:30)
[2018-03-04 23:33] LABS: ALANINE AMINOTRANSFERASE 26 U/L (21-72); ALBUMIN 4.1 g/dL (3.5-5.0); ALKALINE PHOSPHATASE 84 U/L (38-126); ANION GAP 8 (5-19); ASPARTATE AMINO TRANSFERASE 15 U/L (17-59); BILIRUBIN,DIRECT 0.2 mg/dL (0.0-0.4); BILIRUBIN,TOTAL 0.4 mg/dL (0.2-1.3); BLOOD UREA NITROGEN 21 mg/dL (7-20); CALCIUM 9.3 mg/dL (8.4-10.2); CARBON DIOXIDE 23 mmol/L (22-30); CHLORIDE 108 mmol/L (98-107); GLUCOSE 108 mg/dL (75-110); LIPASE 85.5 U/L (23-300); POTASSIUM 5.4 mmol/L (3.6-5.0); SODIUM 139.3 mmol/L (137-145); TOTAL PROTEIN 6.9 g/dL (6.3-8.2)
--- NOTE | 2018-03-04 23:43 | ER Document Report ---
ED General - General Chief Complaint: Headache Stated Complaint: HEADACHE Time Seen by Provider: 03/04/18 23:16 Notes: Patient is a 58-year-old male with a past medical history of hypertension, hyperlipidemia, insulin-dependent type 2 diabetes, gastric bypass, presents with complaints of 4 days of nausea, vomiting, diarrhea, as well as positional lightheadedness, and episode of syncope approximately 24 hours ago secondary to positional change with associated lightheadedness. Patient comes to the emergency department tonight stating that his symptoms are not getting better and he is worried that he is getting increasingly ill. Denies a history of similar symptoms in the past. No known sick contacts. Nothing improves or worsens his symptoms. Denies any associated abdominal pain. No chest pain, shortness of breath, focal weakness or numbness. He has not seen his primary care doctor regarding today's concerns. TRAVEL OUTSIDE OF THE [place] IN LAST 30 DAYS: No - Related Data Allergies/Adverse Reactions: morphine [Morphine] Adverse Reaction (Verified 09/26/17 15:07) Migraine Past Medical History - General Information source: Patient - Social History Smoking Status: Never Smoker Frequency of alcohol use: None Drug Abuse: None Lives with: Alone Family History: Reviewed & Not Pertinent, CAD, DM, Hyperlipidemia, Hypertension Patient has suicidal ideation: No Patient has homicidal ideation: No - Past Medical History Cardiac Medical History: Reports: Hx Coronary Artery Disease, Hx Heart Attack - x6, Hx Hypertension Neurological Medical History: Reports: Hx Cerebrovascular Accident - x1 Endocrine Medical History: Reports: Hx Diabetes Mellitus Type 2 Renal/ Medical History: Reports: Hx Benign Prostatic Hyperplasia, Hx Kidney Stones. Denies: Hx Peritoneal Dialysis GI Medical History: Reports: Hx Gastroesophageal Reflux Disease Psychiatric Medical History: Denies: Hx Depression Past Surgical History: Reports: Hx Abdominal Surgery - gastric bypass, Hx Cardiac Catheterization, Hx Cardiac Surgery - triple bipass, Hx Cholecystectomy, Hx Coronary Stent - x9, Hx Gastric Bypass Surgery - Immunizations Hx Diphtheria, Pertussis, Tetanus Vaccination: Yes Hx Pneumococcal Vaccination: 11/19/12 Review of Systems - Review of Systems Notes: Constitutional: Negative for fever. HENT: Negative for sore throat. Eyes: Negative for visual changes. Cardiovascular: Negative for chest pain. Positive for lightheadedness, episode of syncope yesterday Respiratory: Negative for shortness of breath. Gastrointestinal: Positive for vomiting and diarrhea Genitourinary: Negative for dysuria. Musculoskeletal: Negative for back pain. Skin: Negative for rash. Neurological: Negative for headaches, weakness or numbness. 10 point ROS negative except as marked above and in HPI. Physical Exam - Vital signs Vitals: Temp Pulse Resp BP Pulse Ox 98.0 F 74 16 115/64 100 03/04/18 21:56 03/04/18 21:56 03/04/18 21:56 03/04/18 21:56 03/04/18 21:56 Interpretation: Normal Notes: PHYSICAL EXAMINATION: GENERAL: Appears moderately unwell, in no acute distress HEAD: Atraumatic, normocephalic. EYES: Pupils equal round and reactive to light, extraocular movements intact, sclera anicteric, conjunctiva are normal. ENT: nares patent, oropharynx clear without exudates. Dry mucous membranes. NECK: Normal range of motion, supple without lymphadenopathy LUNGS: Breath sounds clear to auscultation bilaterally and equal. No wheezes rales or rhonchi. HEART: Regular rate and rhythm without murmurs ABDOMEN: Soft, nontender, normoactive bowel sounds. No guarding, no rebound. No masses appreciated. EXTREMITIES: Normal range of motion, no pitting or edema. No cyanosis. NEUROLOGICAL: No focal neurological deficits. Moves all extremities spontaneo usly and on command. PSYCH: Normal mood, normal affect. SKIN: Warm, Dry, normal turgor, no rashes or lesions noted. Course - Re-evaluation Re-evalutation: 03/04/18 23:42 Patient presents with 4 days of diarrhea, 9 days of nausea and vomiting, orthostatic positional lightheadedness and near syncope. Patient appears somewhat pale, was noted to be mildly hypotensive in the field per EMS in the 90 systolic. The patient also also complaining of a global, throbbing, diffuse headache similar to headaches that he has had in the past in the context of being ill. Headache was not maximal in onset, patient has no focal neurologic deficits, no nuchal rigidity, vital signs within normal limits, no papilledema. Based on clinical history and examination I do not suspect an acute subarachnoid hemorrhage, dural venous sinus thrombosis, acute meningitis, or intercranial mass. Given my low clinical suspicion for any acute life-threatening etiology, I do not feel advanced neuro imaging is indicated. Will obtain labs, provide metoclopramide IV, IV fluids, reassess. Suspect probable infectious etiology of the patient's vomiting and diarrhea. He has no focal abdominal tenderness on exam. Low clinical suspicion for an acute surgical pathology. 03/05/18 03:16 Patient has been able to tolerate ice chips, has not had any further diarrhea. His labs are however notable for a kidney injury, creatinine of 2.05 when he had normal renal function back in October 2017. Given these abnormal findings in the context of persistent vomiting, diarrhea and difficulty tolerating oral intake I discussed the patient with the hospitalist who has accepted the patient for admission. - Vital Signs Vital signs: Temp Pulse Resp BP Pulse Ox 98.0 F 74 16 115/64 100 03/04/18 21:56 03/04/18 21:56 03/04/18 21:56 03/04/18 21:56 03/04/18 21:56 - Laboratory Result Diagrams: 03/05/18 00:12 03/04/18 22:44 Laboratory results interpreted by me: 03/04/18 03/05/18 22:44 00:12 Hgb 9.3 L Hct 31.5 L MCV 63 L MCH 18.8 L MCHC 29.7 L RDW 17.1 H Potassium 5.4 H Chloride 108 H BUN 21 H Creatinine 2.05 H Est GFR ( Amer) 41 L Est GFR (Non-Af Amer) 34 L AST 15 L - EKG Interpretation by Me Additional EKG results interpreted by me: 03/05/18 03:17 Sinus rhythm, rate 78. No ST elevations or depressions. QTC is 456. Discharge - Discharge Clinical Impression: Acute kidney injury, Vomiting and diarrhea Headache Qualifiers: Headache type: unspecified Headache chronicity pattern: acute headache Intractability: not intractable Qualified Code(s): R51 - Headache Condition: Fair Disposition: ADMITTED INPATIENT Referrals: TAYLOR SUTTON MD [NO LOCAL MD] - Follow up as needed
--- NOTE | 2018-03-05 00:15 | EKG REPORT ---
SEVERITY:- BORDERLINE ECG - SINUS RHYTHM BORDERLINE T WAVE ABNORMALITIES : Confirmed by: Khushboo Peres 05-Mar-2018 00:14:28
[2018-03-05 00:33] LABS: HEMATOCRIT 31.5 % (37.9-51.0); HEMOGLOBIN 9.3 g/dL (13.5-17.0); MEAN CORPUSCULAR HEMOGLOBIN 18.8 pg (27.0-33.4); MEAN CORPUSCULAR HGB CONC 29.7 g/dL (32.0-36.0); PLATELET COUNT 403 10^3/uL (150-450); RED BLOOD COUNT 4.97 10^6/uL (4.35-5.55); RED CELL DISTRIBUTION WIDTH 17.1 % (11.5-14.0); WHITE BLOOD COUNT 7.7 10^3/uL (4.0-10.5)
[2018-03-05 00:36] LABS: MEAN CORPUSCULAR VOLUME 63 fl (80-97)
[2018-03-05 00:57] LABS: ABSOLUTE MONOCYTES # (MANUAL) 0.7 10^3/uL (0.1-1.4); ABSOLUTE NEUTROPHILS# (MANUAL) 4.8 10^3/uL (1.7-8.2); BASOPHILS % (MANUAL) 1 % (0-2); EOSINOPHILS % (MANUAL) 2 % (0-6); LYMPHOCYTES % (MANUAL) 26 % (13-45); MONOCYTES % (MANUAL) 9 % (3-13); SEGMENTED NEUTROPHILS % (MAN) 62 % (42-78); TOTAL CELLS COUNTED 100
[2018-03-05 00:58] LABS: ANISOCYTOSIS 2+; BURR CELLS 1+; OVALOCYTES 1+; POIKILOCYTOSIS 1+; SCHISTOCYTES 2+; TOXIC GRANULATION 1+
[2018-03-05 00:59] LABS: PLATELET CLUMPS PRESENT; PLATELET COMMENT ADEQUATE; PLATELET GIANT PRESENT; PLATELET LARGE PRESENT
[2018-03-05] MEDS ORDERED: MAG HYDROX/AL HYDROX/SIMETH SUSP 30 ML UDCUP PO PRN (03:06)
[2018-03-05] MEDS ORDERED: ONDANSETRON HCL INJ/PF 4 MG/2 ML SDV IV PRN (03:06)
[2018-03-05] MEDS ORDERED: MAGNESIUM HYDROXIDE SUSP 30 ML UDCUP PO PRN (03:06)
[2018-03-05] MEDS ORDERED: ONDANSETRON 4 MG TAB.RAPDIS PO PRN (03:06)
[2018-03-05] MEDS ORDERED: NICOTINE 21 MG/24 HR PATCH.TD24 TD PRN (03:14)
[2018-03-05] MEDS ORDERED: ACETAMINOPHEN 650 MG SUPP.RECT PR PRN (03:14)
[2018-03-05] MEDS ORDERED: GLUCAGON,HUMAN RECOMB 1 MG INJ IM PRN (03:19)
[2018-03-05] MEDS ORDERED: INSULIN LISPRO 100 UNIT/ML 3 ML VIAL SUBCUT PRN (03:19)
[2018-03-05] MEDS ORDERED: DEXTROSE 50%-WATER 25 GM/50 ML DISP.SYRIN IV PRN ×2 (03:19)
[2018-03-05] MEDS ORDERED: DEXTROSE 40% GEL 15 GM TUBE PO PRN ×2 (03:19)
[2018-03-05] MEDS: NORMAL SALINE 1000 ML 1,000 ML IV PRN ×4 (03:46→13:12)
[2018-03-05] MEDS: ACETAMINOPHEN 325 MG TABLET PO PRN (03:53)
[2018-03-05 04:35] LABS: APPEARANCE,URINE SLIGHTLY-CLOUDY; BILIRUBIN,URINE NEGATIVE (NEGATIVE); COLOR,URINE YELLOW; GLUCOSE, URINE NEGATIVE (NEGATIVE); KETONES,URINE NEGATIVE (NEGATIVE); LEUKOCYTE ESTERASE,URINE TRACE (NEGATIVE); NITRITE,URINE NEGATIVE (NEGATIVE); PROTEIN,URINE NEGATIVE (NEGATIVE); URINE SPECIFIC GRAVITY 1.015; UROBILINOGEN,URINE NEGATIVE mg/dL (<2.0)
[2018-03-05 04:40] LABS: URINE AMPHETAMINES SCREEN NEGATIVE; URINE BARBITURATES SCREEN NEGATIVE; URINE BENZODIAZEPINES SCREEN UNCONFIRMED POSITIVE; URINE COCAINE SCREEN NEGATIVE; URINE MARIJUANA (THC) SCREEN UNCONFIRMED POSITIVE; URINE METHADONE SCREEN NEGATIVE; URINE PHENCYCLIDINE SCREEN NEGATIVE
[2018-03-05 05:20] LABS: CREATINE KINASE MB 0.48 ng/mL (<4.55)
[2018-03-05 05:23] LABS: TROPONIN I < 0.012 ng/mL
[2018-03-05] MEDS: HEPARIN SOD (PORCINE) 5,000 UNIT/ML 1 ML SYRINGE SUBCUT SCH ×3 (06:27→22:04)
--- NOTE | 2018-03-05 06:38 | PDOC H&P ---
History of Present Illness Admission Date/PCP: 03/05/2018 Patient complains of: Nausea vomiting and diarrhea History of Present Illness: STEPHANIE TELLEZ is a 58 year old male who presents the emergency room with a 4-day history of nausea vomiting and diarrhea. He admits to having severe watery d iarrhea and nausea with multiple episodes of severe vomiting over the last 4 days. His gastrointestinal symptoms of been associated with developing postural lightheadedness and an episode of syncope (with postural change) occurring one day prior to his emergency room visit. Other lesser related symptoms are also admitted including fatigue, generalized weakness, and malaise. He further admitted that his symptoms have not been improving and he has been unable to keep fluids or solids on his stomach for the last 4 days. He has had similar symptoms in the past but never of this severity or duration. He has not identified any aggravating or ameliorating factors for his gastrointestinal distress. In the emergency room he was noted to have postural hypotension that improved with IV fluid boluses. Additionally he was found to have a microcytic anemia, elevation of his renal function studies and hyperkalemia. He is noted to have a history of gastric bypass and insulin-dependent type 2 diabetes mellitus. With these risk factors it was felt the patient should be hospitalized for further evaluation and treatment. Past Medical History Cardiac Medical History: Reports: Coronary Artery Disease, Myocardial Infarction - x6, Hyperlipidema, Hypertension Pulmonary Medical History: Denies: Asthma, Chronic Obstructive Pulmonary Disease (COPD), Respiratory Failure EENT Medical History: Reports: None Neurological Medical History: Denies: Hemorrhagic CVA, Ischemic CVA, Seizures Endocrine Medical History: Reports: Diabetes Mellitus Type 2 Denies: Diabetes Mellitus Type 1, Hyperthyroidism, Hypothyroidism Renal/ Medical History: Denies: Chronic Kidney Disease, Nephrolithiasis Malignancy Medical History: Reports: None GI Medical History: Reports: Gastroesophageal Reflux Disease Denies: Cirrhosis, Hepatitis Musculoskeltal Medical History: Denies: Arthritis, Gout Skin Medical History: Denies: Eczema, Psoriasis Psychiatric Medical History: Denies: Alcohol Dependency, Substance Abuse, Tobacco Dependency Traumatic Medical History: Reports: None Hematology: Denies: Anemia, Bleeding Tendencies Infectious Medical History: Reports: None Past Surgical History Past Surgical History: Reports: Cardiac Catheterization, Cholecystectomy, Coronary Stent - x9, Gastric Bypass Surgery Social History Information Source: Patient Lives with: Alone Smoking Status: Never Smoker Frequency of Alcohol Use: Rare Hx Recreational Drug Use: No Drugs: None Hx Prescription Drug Abuse: No - Advance Directive Resuscitation Status: Full Code Surrogate healthcare decision maker:: Brenda Tellez Family History Family History: CAD, DM, Hyperlipidemia, Hypertension Parental Family History Reviewed: Yes Children Family History Reviewed: No Sibling(s) Family History Reviewed.: Yes Medication/Allergy Home Medications: Amitriptyline HCl [Elavil 25 mg Tablet] 1 - 2 tab PO QHS PRN 06/02/17 Atorvastatin Calcium [Lipitor 40 mg Tablet] 40 mg PO QPM 06/02/17 Cyclobenzaprine HCl [Flexeril 10 mg Tablet] 10 mg PO TIDP PRN 06/02/17 Gabapentin [Neurontin 300 mg Capsule] 300 mg PO Q8 06/02/17 Metoprolol Tartrate [Lopressor 25 mg Tablet] 25 mg PO BID 06/02/17 Oxycodone HCl/Acetaminophen [Percocet 10-325 mg Tablet] 1 tab PO TIDP PRN 06/02/17 Tamsulosin HCl [Flomax 0.4 mg Cap.sr] 0.4 mg PO DAILY 06/02/17 Aspirin [Aspirin 81 mg Chewable Tablet] 81 mg PO DAILY 08/08/17 Insulin Detemir [Levemir Insulin 100 units/mL] 35 unit SUBCUT QAM 08/08/17 Insulin Aspart Protam & Aspart [Novolog Mix 70-30 Vial] 1 dose SQ ACHS 10/28/17 Lisinopril 1 tab PO BID 10/28/17 Cephalexin Monohydrate [Keflex 500 mg Capsule] 500 mg PO Q6H 5 Days capsule 11/30/17 Allergies/Adverse Reactions: morphine [Morphine] Adverse Reaction (Verified 09/26/17 15:07) Migraine Review of Systems Constitutional: PRESENT: as per HPI, fatigue, headache(s), weakness. ABSENT: chills, fever(s) Eyes: ABSENT: visual disturbances, other - Ocular pain Ears: ABSENT: hearing changes, other - Ear pain Nose, Mouth, and Throat: ABSENT: mouth pain, sore throat Cardiovascular: PRESENT: other - Lightheadedness with change of position. ABSEN T: chest pain, dyspnea on exertion, edema, orthropnea, palpitations Respiratory: ABSENT: cough, dyspnea Gastrointestinal: PRESENT: diarrhea, nausea, vomiting. ABSENT: abdominal pain, constipation Genitourinary: ABSENT: dysuria, hematuria Musculoskeletal: ABSENT: back pain, joint swelling Integumentary: ABSENT: pruritus, rash Neurological: PRESENT: syncope. ABSENT: confusion, convulsions, memory loss Physical Exam Vital Signs: Temp Pulse Resp BP Pulse Ox 98.0 F 74 16 115/64 100 03/04/18 21:56 03/04/18 21:56 03/04/18 21:56 03/04/18 21:56 03/04/18 21:56 Intake & Output 03/03/18 03/04/18 03/05/18 23:59 23:59 23:59 Intake Total 1000 Balance 1000 Weight 103.419 kg General appearance: PRESENT: no acute distress, cooperative Head exam: PRESENT: atraumatic, normocephalic Eye exam: PRESENT: conjunctiva pink, EOMI. ABSENT: scleral icterus Ear exam: PRESENT: normal external ear exam. ABSENT: bleeding, drainage Mouth exam: PRESENT: dry mucosa, neck supple Neck exam: ABSENT: thyromegaly, tracheal deviation Respiratory exam: PRESENT: clear to auscultation rashmi, symmetrical, unlabored Cardiovascular exam: PRESENT: RRR. ABSENT: clicks, gallop, rubs Pulses: PRESENT: normal radial pulses, normal dorsalis pedis pul Vascular exam: ABSENT: normal capillary refill - Sluggish capillary refill 2-3 seconds, pallor GI/Abdominal exam: ABSENT: normal bowel sounds, soft, tenderness Rectal exam: PRESENT: deferred Extremities exam: ABSENT: joint swelling, pedal edema Musculoskeletal exam: ABSENT: deformity, dislocation Neurological exam: PRESENT: alert, oriented to person, oriented to place, oriented to time, oriented to situation, CN II-XII grossly intact. ABSENT: motor sensory deficit Psychiatric exam: PRESENT: appropriate affect, normal mood Skin exam: PRESENT: dry, intact, warm. ABSENT: jaundice, rash, urticaria Results Laboratory Results: 03/05/18 00:12 03/04/18 22:44 03/04/18 03/04/18 03/05/18 22:44 22:44 00:12 WBC Cancelled 7.7 RBC Cancelled 4.97 Hgb Cancelled 9.3 L Hct Cancelled 31.5 L MCV Cancelled 63 L MCH Cancelled 18.8 L MCHC Cancelled 29.7 L RDW Cancelled 17.1 H Plt Count Cancelled 403 Seg Neutrophils % Cancelled Not Reportable Lymphocytes % Cancelled Not Reportable Monocytes % Cancelled Not Reportable Eosinophils % Cancelled Not Reportable Basophils % Cancelled Not Reportable Absolute Neutrophils Cancelled Not Reportable Absolute Lymphocytes Cancelled Not Reportable Absolute Monocytes Cancelled Not Reportable Absolute Eosinophils Cancelled Not Reportable Absolute Basophils Cancelled Not Reportable Sodium 139.3 Potassium 5.4 H Chloride 108 H Carbon Dioxide 23 Anion Gap 8 BUN 21 H Creatinine 2.05 H Est GFR ( Amer) 41 L Est GFR (Non-Af Amer) 34 L Glucose 108 Calcium 9.3 Total Bilirubin 0.4 AST 15 L ALT 26 Alkaline Phosphatase 84 Total Protein 6.9 Albumin 4.1 Lipase 85.5 03/04/18 22:44 Troponin I < 0.012 Assessment & Plan - Diagnosis (1) Syncope due to orthostatic hypotension Is this a current diagnosis for this admission?: Yes Plan: Patient will be treated with IV fluids and monitor closely for improvement and r esolution of his orthostatic symptoms. (2) Hypovolemia associated with vomiting Is this a current diagnosis for this admission?: Yes Plan: Patient be treated with high volume IV fluids to replace his intravascular volume. His nausea will be controlled with Zofran. (3) Acute gastroenteritis Is this a current diagnosis for this admission?: Yes Plan: Patient will be given symptomatic cares utilizing Zofran for nausea. He will also receive supportive care with IV fluids and initiation of a diet when he is able to tolerate oral intake. (4) Elevated serum creatinine Is this a current diagnosis for this admission?: Yes Plan: Patient will be hydrated to replace intravascular volume and his creatinine will be followed. Due to the BUN/creatinine ratio of 10 it is more likely that this is a chronic problem related to medications such as nonsteroidal anti- inflammatory agents, lisinopril and metformin. He will be taken off all medications of a nephrotoxic nature. (5) Chronic pain Qualifiers: Chronic pain type: other chronic pain Qualified Code(s): G89.29 - Other chronic pain Is this a current diagnosis for this admission?: Yes Plan: Patient will be continued on his chronic pain medication as soon as he is able to tolerate it as prescribed. On an interim basis the patient will use Nubain 10 mg IV every 3 hours as needed pain. (6) Headache Qualifiers: Headache type: unspecified Headache chronicity pattern: acute headache Intractability: not intractable Qualified Code(s): R51 - Headache Is this a current diagnosis for this admission?: Yes Plan: Patient's headache as most likely related to his hypovolemia and acute gastroenteritis. This will be treated symptomatically with Tylenol and if required IV Nubain. - Time Time Spent: 30 to 50 Minutes Critical Time spent with patient: Less than 15 minutes Medications reviewed and adjusted accordingly: Yes Anticipated discharge: Home - Inpatient Certification Based on my medical assessment, after consideration of the patient's comorbidities, presenting symptoms, or acuity I expect that the services needed warrant INPATIENT care.: Yes I certify that my determination is in accordance with my understanding of Medicare's requirements for reasonable and necessary INPATIENT services [42 CFR 412.3e].: Yes Medical Necessity: Significant Comorbidiites Make Outpatient Treatment Too Risky, Need Close Monitoring Due to Risk of Patient Decompensation, Need For IV Fluids, Risk of Complication if Not Cared For in Hospital
[2018-03-05] MEDS ORDERED: INSULIN DETEMIR 100 UNIT/ML 3 ML PEN SUBCUT SCH (08:00)
[2018-03-05] MEDS: INSULIN DETEMIR 100 UNIT/ML 3 ML PEN SUBCUT SCH (08:24)
[2018-03-05] MEDS: ASPIRIN 81 MG TABLET, CHEWABLE PO SCH (09:54)
[2018-03-05] MEDS: TAMSULOSIN HCL 0.4 MG CAP.SR.24H PO SCH (09:54)
[2018-03-05] MEDS: DOCUSATE SODIUM 100 MG CAPSULE PO SCH ×3 (09:54→18:26)
[2018-03-05] MEDS: PANTOPRAZOLE SODIUM 40 MG VIAL IV SCH ×2 (09:54→22:01)
[2018-03-05] MEDS ORDERED: FAMOTIDINE 20 MG TABLET PO SCH (10:00)
[2018-03-05] MEDS: NALBUPHINE HCL INJ 10 MG/1 ML AMPULE IV PRN ×5 (10:12→23:34)
[2018-03-05 11:45] LABS: CREATINE KINASE MB 0.48 ng/mL (<4.55)
[2018-03-05 11:59] LABS: TROPONIN I < 0.012 ng/mL
[2018-03-05 16:16] LABS: PATH REVIEW PATHOLOGIST REVIEWED
[2018-03-05 17:29] LABS: CREATINE KINASE MB 0.67 ng/mL (<4.55)
[2018-03-05 17:31] LABS: TROPONIN I < 0.012 ng/mL
[2018-03-05] MEDS: ATORVASTATIN CALCIUM 40 MG TABLET PO SCH (18:25)
[2018-03-06] MEDS: NALBUPHINE HCL INJ 10 MG/1 ML AMPULE IV PRN ×6 (03:21→22:29)
[2018-03-06] MEDS: HEPARIN SOD (PORCINE) 5,000 UNIT/ML 1 ML SYRINGE SUBCUT SCH ×3 (06:21→22:29)
[2018-03-06 06:49] LABS: ABSOLUTE EOSINOPHILS # (AUTO) 0.2 10^3/uL (0.0-0.6); ABSOLUTE LYMPHOCYTES (AUTO) 2.3 10^3/uL (0.5-4.7); ABSOLUTE MONOCYTES (AUTO) 0.7 10^3/uL (0.1-1.4); ABSOLUTE NEUT (AUTO) 3.1 10^3/uL (1.7-8.2); BASOPHILS % (AUTO) 0.5 % (0-2); EOSINOPHILS % (AUTO) 3.6 % (0-6); HEMATOCRIT 29.1 % (37.9-51.0); HEMOGLOBIN 8.8 g/dL (13.5-17.0); LYMPHOCYTES % (AUTO) 35.7 % (13-45); MEAN CORPUSCULAR HEMOGLOBIN 19.4 pg (27.0-33.4); MEAN CORPUSCULAR HGB CONC 30.4 g/dL (32.0-36.0); MEAN CORPUSCULAR VOLUME 64 fl (80-97); MONOCYTES % (AUTO) 11.4 % (3-13); PLATELET COUNT 307 10^3/uL (150-450); RED BLOOD COUNT 4.57 10^6/uL (4.35-5.55); RED CELL DISTRIBUTION WIDTH 17.4 % (11.5-14.0); SEGMENTED NEUTROPHILS % (AUTO) 48.8 % (42-78); TOTAL CELLS COUNTED % (AUTO) 100 %; WHITE BLOOD COUNT 6.4 10^3/uL (4.0-10.5)
[2018-03-06 07:08] LABS: ANION GAP 6 (5-19); BLOOD UREA NITROGEN 14 mg/dL (7-20); CALCIUM 9.2 mg/dL (8.4-10.2); CARBON DIOXIDE 25 mmol/L (22-30); CHLORIDE 109 mmol/L (98-107); CHOLESTEROL 174.04 mg/dL (0-200); GLUCOSE 123 mg/dL (75-110); POTASSIUM 5.2 mmol/L (3.6-5.0); SODIUM 140.1 mmol/L (137-145); TRIGLYCERIDES 140 mg/dL (<150)
[2018-03-06 07:11] LABS: OVALOCYTES 1+
[2018-03-06 07:12] LABS: ANISOCYTOSIS 1+; BURR CELLS 1+; HYPOCHROMASIA SLIGHT; PLATELET COMMENT ADEQUATE; POIKILOCYTOSIS 1+; SCHISTOCYTES SLIGHT; TEAR DROP CELLS SLIGHT
[2018-03-06 07:19] LABS: DIRECT LDL 112 mg/dL (<100)
[2018-03-06 07:23] LABS: FREE T3 3.07 pg/mL (2.77-5.27); FREE T4 (FREE THYROXINE) 1.38 ng/dL (0.78-2.19)
[2018-03-06 07:37] LABS: THYROID STIMULATING HORMONE 2.69 uIU/mL (0.47-4.68)
[2018-03-06] MEDS: ACETAMINOPHEN 325 MG TABLET PO PRN (08:43)
[2018-03-06] MEDS: INSULIN DETEMIR 100 UNIT/ML 3 ML PEN SUBCUT SCH (08:44)
[2018-03-06] MEDS: DOCUSATE SODIUM 100 MG CAPSULE PO SCH ×2 (10:21→18:35)
[2018-03-06] MEDS: PANTOPRAZOLE SODIUM 40 MG VIAL IV SCH ×2 (10:24→22:29)
[2018-03-06] MEDS: TAMSULOSIN HCL 0.4 MG CAP.SR.24H PO SCH (10:24)
[2018-03-06] MEDS: ASPIRIN 81 MG TABLET, CHEWABLE PO SCH (10:24)
[2018-03-06] MEDS: OXYCODONE-ACETAMINOPHEN 5-325 MG TABLET PO PRN ×2 (15:15→19:57)
--- NOTE | 2018-03-06 16:34 | PDOC PROGRESS REPORT ---
Subjective Progress Note for:: 03/06/18 Subjective:: Mr. Tellez is a very pleasant 58 years old male patient with multiple medical comorbidities including coronary artery disease status post stent 9 times and coronary artery bypass graft, hypertension, diabetes mellitus, hyperlipidemia and history of CVA presents with 4-day history of nausea, vomiting and diarrhea. At admission patient also found to have acute kidney injury due to dehydration and hyperkalemia. I seen patient resting in bed. He is awake alert oriented. He is not in pain or distress. He reports this is diarrhea and nausea and vomiting her improving. Reason For Visit: ACUTE GASTROENTERITIS WITH VOLUME DEPLETION Physical Exam Vital Signs: Temp Pulse Resp BP Pulse Ox 97.3 F 74 15 120/67 100 03/06/18 11:45 03/06/18 11:45 03/06/18 11:45 03/06/18 11:45 03/06/18 11:45 Intake & Output 03/05/18 03/06/18 03/07/18 06:59 06:59 06:59 Intake Total 2240 3436 354 Output Total 225 1450 Balance 2014 Weight 103.419 kg 101.6 kg General appearance: PRESENT: no acute distress Eye exam: PRESENT: conjunctiva pink Mouth exam: PRESENT: moist Neck exam: ABSENT: carotid bruit, JVD, lymphadenopathy, thyromegaly Respiratory exam: PRESENT: clear to auscultation rashmi. ABSENT: rales, rhonchi, wheezes Cardiovascular exam: PRESENT: RRR. ABSENT: diastolic murmur, rubs, systolic murmur Neurological exam: PRESENT: alert, awake, oriented to time, oriented to situation Results Laboratory Results: 03/06/18 06:18 03/06/18 06:18 03/06/18 03/06/18 03/06/18 06:18 06:18 06:18 WBC 6.4 RBC 4.57 Hgb 8.8 L Hct 29.1 L MCV 64 L MCH 19.4 L MCHC 30.4 L RDW 17.4 H Plt Count 307 Seg Neutrophils % 48.8 Lymphocytes % 35.7 Monocytes % 11.4 Eosinophils % 3.6 Basophils % 0.5 Absolute Neutrophils 3.1 Absolute Lymphocytes 2.3 Absolute Monocytes 0.7 Absolute Eosinophils 0.2 Absolute Basophils 0.0 Sodium 140.1 Potassium 5.2 H Chloride 109 H Carbon Dioxide 25 Anion Gap 6 BUN 14 Creatinine 1.37 H Est GFR ( Amer) > 60 Est GFR (Non-Af Amer) 54 L Glucose 123 H Calcium 9.2 Magnesium 1.7 Triglycerides 140 Cholesterol 174.04 LDL Cholesterol Direct 112 H VLDL Cholesterol 28.0 HDL Cholesterol 42 TSH 2.69 Free T4 1.38 Free T3 pg/mL 3.07 03/04/18 03/05/18 03/05/18 22:44 04:35 04:35 Creatine Kinase 40 L CK-MB (CK-2) 0.48 Troponin I < 0.012 < 0.012 03/05/18 03/05/18 03/05/18 10:26 10:26 16:45 Creatine Kinase 42 L 49 L CK-MB (CK-2) 0.48 Troponin I < 0.012 03/05/18 16:45 Creatine Kinase CK-MB (CK-2) 0.67 Troponin I < 0.012 Assessment & Plan - Diagnosis (1) Acute kidney injury Is this a current diagnosis for this admission?: Yes Plan: Patient has been hydrated adequately and his creatinine is trending down from 2.05-1.37. (2) Hyperkalemia Is this a current diagnosis for this admission?: Yes Plan: Improving (3) Intractable N,V and diarrhea Is this a current diagnosis for this admission?: Yes Plan: Subsiding. (4) Coronary disease sp stenting CABG Is this a current diagnosis for this admission?: Yes Plan: Stable no angina. (5) Hypertension Qualifiers: Hypertension type: essential hypertension Qualified Code(s): I10 - Essential (primary) hypertension Is this a current diagnosis for this admission?: Yes Plan: Continue home medication (6) Type 2 diabetes mellitus Is this a current diagnosis for this admission?: Yes Plan: Continue metformin (7) Hyperlipidemia Is this a current diagnosis for this admission?: Yes Plan: Continue home medication
[2018-03-06] MEDS: ATORVASTATIN CALCIUM 40 MG TABLET PO SCH (18:29)
[2018-03-07] MEDS: OXYCODONE-ACETAMINOPHEN 5-325 MG TABLET PO PRN ×4 (00:19→14:48)
[2018-03-07] MEDS: NALBUPHINE HCL INJ 10 MG/1 ML AMPULE IV PRN ×3 (04:10→15:19)
[2018-03-07 04:35] LABS: HEMATOCRIT 31.1 % (37.9-51.0); HEMOGLOBIN 9.2 g/dL (13.5-17.0); MEAN CORPUSCULAR HGB CONC 29.8 g/dL (32.0-36.0); MEAN CORPUSCULAR VOLUME 64 fl (80-97); PLATELET COUNT 332 10^3/uL (150-450); RED BLOOD COUNT 4.88 10^6/uL (4.35-5.55); RED CELL DISTRIBUTION WIDTH 17.2 % (11.5-14.0); WHITE BLOOD COUNT 5.9 10^3/uL (4.0-10.5)
[2018-03-07 05:00] LABS: ANION GAP 9 (5-19); BLOOD UREA NITROGEN 10 mg/dL (7-20); CALCIUM 9.5 mg/dL (8.4-10.2); CARBON DIOXIDE 23 mmol/L (22-30); CHLORIDE 106 mmol/L (98-107); GLUCOSE 107 mg/dL (75-110); POTASSIUM 5.4 mmol/L (3.6-5.0)
[2018-03-07 05:18] LABS: ABSOLUTE LYMPHOCYTES# (MANUAL) 2.1 10^3/uL (0.5-4.7); ABSOLUTE MONOCYTES # (MANUAL) 0.7 10^3/uL (0.1-1.4); ABSOLUTE NEUTROPHILS# (MANUAL) 2.7 10^3/uL (1.7-8.2); BASOPHILS % (MANUAL) 2 % (0-2); EOSINOPHILS % (MANUAL) 5 % (0-6); LYMPHOCYTES % (MANUAL) 36 % (13-45); MONOCYTES % (MANUAL) 12 % (3-13); SEGMENTED NEUTROPHILS % (MAN) 45 % (42-78); TOTAL CELLS COUNTED 100
[2018-03-07 05:19] LABS: ANISOCYTOSIS 1+; BURR CELLS 1+; OVALOCYTES 1+; PLATELET CLUMPS PRESENT; PLATELET COMMENT ADEQUATE; PLATELET LARGE PRESENT; POIKILOCYTOSIS 1+; SCHISTOCYTES SLIGHT
[2018-03-07] MEDS: HEPARIN SOD (PORCINE) 5,000 UNIT/ML 1 ML SYRINGE SUBCUT SCH ×2 (05:39→15:19)
[2018-03-07] MEDS: INSULIN DETEMIR 100 UNIT/ML 3 ML PEN SUBCUT SCH (08:46)
[2018-03-07] MEDS: TAMSULOSIN HCL 0.4 MG CAP.SR.24H PO SCH (10:03)
[2018-03-07] MEDS: ASPIRIN 81 MG TABLET, CHEWABLE PO SCH (10:03)
[2018-03-07] MEDS: DOCUSATE SODIUM 100 MG CAPSULE PO SCH ×2 (10:05→17:51)
[2018-03-07] MEDS: PANTOPRAZOLE SODIUM 40 MG VIAL IV SCH (10:24)
--- NOTE | 2018-03-07 13:33 | PDOC DISCHARGE SUMMARY ---
General - Admit/Disc Date/PCP Admission Date/Primary Care Provider: 03/05/18 03:57 Discharge Date: 03/07/18 - Discharge Diagnosis (1) Acute kidney injury Is this a current diagnosis for this admission?: Yes (2) Hyperkalemia Is this a current diagnosis for this admission?: Yes (3) Intractable N,V and diarrhea Is this a current diagnosis for this admission?: Yes (4) Coronary disease sp stenting CABG Is this a current diagnosis for this admission?: Yes (5) Hypertension Is this a current diagnosis for this admission?: Yes (6) Type 2 diabetes mellitus Is this a current diagnosis for this admission?: Yes (7) Hyperlipidemia Is this a current diagnosis for this admission?: Yes - Additional Information Resuscitation Status: Full Code Home Medications: Aspirin [Ecotrin 81 mg EC Tablet] 81 mg PO DAILY 03/05/18 Cholecalciferol (Vitamin D3) [Vitamin D3 1000 Unit Tablet] 1,000 unit PO DAILY 03/05/18 Clopidogrel Bisulfate [Plavix 75 mg Tablet] 75 mg PO DAILY 03/05/18 Cyclobenzaprine HCl [Flexeril 10 mg Tablet] 10 mg PO DAILYP PRN 03/05/18 Famotidine [Pepcid 20 mg Tablet] 20 mg PO DAILY 03/05/18 Gabapentin [Neurontin 300 mg Capsule] 300 mg PO Q8 03/05/18 Metformin HCl [Glucophage] 1,000 mg PO BID 03/05/18 Metoprolol Tartrate [Lopressor 25 mg Tablet] 12.5 mg PO Q12 03/05/18 Oxycodone HCl/Acetaminophen [Percocet 10-325 mg Tablet] 1 tab PO Q6HP PRN 03/05/18 Tamsulosin HCl [Flomax 0.4 mg Cap.sr] 0.4 mg PO DAILY 03/05/18 Vitamin A 10,000 unit PO DAILY 03/05/18 History of Present Illness History of Present Illness: STEPHANIE TELLEZ is a 58 year old male who presents the emergency room with a 4-day history of nausea vomiting and diarrhea. He admits to having severe watery diarrhea and nausea with multiple episodes of severe vomiting over the last 4 days. His gastrointestinal symptoms of been associated with developing postural lightheadedness and an episode of syncope (with postural change) occurring one day prior to his emergency room visit. Other lesser related symptoms are also admitted including fatigue, generalized weakness, and malaise. He further admitted that his symptoms have not been improving and he has been unable to keep fluids or solids on his stomach for the last 4 days. He has had similar symptoms in the past but never of this severity or duration. He has not identified any aggravating or ameliorating factors for his gastrointestinal distress. In the emergency room he was noted to have postural hypotension that improved with IV fluid boluses. Additionally he was found to have a microcytic anemia, elevation of his renal function studies and hyperkalemia. He is noted to have a history of gastric bypass and insulin-dependent type 2 diabetes mellitus. With these risk factors it was felt the patient should be hospitalized for further evaluation and treatment. Hospital Course Hospital Course: Mr. Tellez is a very pleasant 58 years old male patient with multiple medical comorbidities including coronary artery disease status post stent 9 times and coronary artery bypass graft, hypertension, diabetes mellitus, hyperlipidemia and history of CVA presents with 4-day history of nausea, vomiting and diarrhea. At admission patient also found to have acute kidney injury due to dehydration and hyperkalemia. I seen patient resting in bed. He is awake alert oriented. He is not in pain or distress. He reports his diarrhea and vomiting has subsided. He eats well and tolerates well. Vital signs and blood works are within normal limits and patient stable enough to be discharged today. Physical Exam Vital Signs: Temp Pulse Resp BP Pulse Ox 98.0 F 62 18 125/88 H 100 03/07/18 11:00 03/07/18 11:00 03/07/18 11:00 03/07/18 11:00 03/07/18 11:00 Intake & Output 03/06/18 03/07/18 03/08/18 06:59 06:59 06:59 Intake Total 3436 1449 Output Total 1450 Balance 1986 1449 Weight 101.6 kg 101.6 kg General appearance: PRESENT: no acute distress, well-developed, well-nourished Head exam: PRESENT: atraumatic, normocephalic Eye exam: PRESENT: conjunctiva pink, EOMI, PERRLA. ABSENT: scleral icterus Ear exam: PRESENT: normal external ear exam Mouth exam: PRESENT: moist, tongue midline Neck exam: ABSENT: carotid bruit, JVD, lymphadenopathy, thyromegaly Respiratory exam: PRESENT: clear to auscultation rashmi. ABSENT: rales, rhonchi, wheezes Cardiovascular exam: PRESENT: RRR. ABSENT: diastolic murmur, rubs, systolic murmur Pulses: PRESENT: normal dorsalis pedis pul Vascular exam: PRESENT: normal capillary refill GI/Abdominal exam: PRESENT: normal bowel sounds, soft. ABSENT: distended, guarding, mass, organolmegaly, rebound, tenderness Rectal exam: PRESENT: deferred Extremities exam: PRESENT: full ROM. ABSENT: calf tenderness, clubbing, pedal edema Neurological exam: PRESENT: alert, awake, oriented to person, oriented to place, oriented to time, oriented to situation, CN II-XII grossly intact. ABSENT: motor sensory deficit Psychiatric exam: PRESENT: appropriate affect, normal mood. ABSENT: homicidal ideation, suicidal ideation Skin exam: PRESENT: dry, intact, warm. ABSENT: cyanosis, rash Results Laboratory Results: 03/07/18 03:56 03/07/18 03:56 03/07/18 03/07/18 03:56 03:56 WBC 5.9 RBC 4.88 Hgb 9.2 L Hct 31.1 L MCV 64 L MCH 19.0 L MCHC 29.8 L RDW 17.2 H Plt Count 332 Seg Neutrophils % Not Reportable Lymphocytes % Not Reportable Monocytes % Not Reportable Eosinophils % Not Reportable Basophils % Not Reportable Absolute Neutrophils Not Reportable Absolute Lymphocytes Not Reportable Absolute Monocytes Not Reportable Absolute Eosinophils Not Reportable Absolute Basophils Not Reportable Sodium 138.0 Potassium 5.4 H Chloride 106 Carbon Dioxide 23 Anion Gap 9 BUN 10 Creatinine 1.32 H Est GFR ( Amer) > 60 Est GFR (Non-Af Amer) 56 L Glucose 107 Calcium 9.5 Magnesium 1.4 L 03/04/18 03/05/18 03/05/18 22:44 04:35 04:35 Creatine Kinase 40 L CK-MB (CK-2) 0.48 Troponin I < 0.012 < 0.012 03/05/18 03/05/18 03/05/18 10:26 10:26 16:45 Creatine Kinase 42 L 49 L CK-MB (CK-2) 0.48 Troponin I < 0.012 03/05/18 16:45 Creatine Kinase CK-MB (CK-2) 0.67 Troponin I < 0.012 Qualifiers - * PATIENT BEING DISCHARGED WITH ANY OF THE FOLLOWING DIAGNOSIS: No
[2018-03-07] MEDS ORDERED: ONDANSETRON 4 MG TAB.RAPDIS PO PRN (14:00)
[2018-03-07] MEDS ORDERED: ONDANSETRON HCL INJ/PF 4 MG/2 ML SDV IV PRN (14:00)
[2018-03-07] MEDS: MAGNESIUM SULFATE/D5W 1 GM/100 ML RTUPB IV SCH ×2 (14:48→16:25)
[2018-03-07 16:00] VITALS: BP 119/58
[2018-03-07] MEDS ORDERED: LANSOPRAZOLE 30 MG TAB.RAP.DR PO SCH (16:00)
[2018-03-07] MEDS ORDERED: PATIROMER 8.4 GM SUSP PACKET PO SCH (17:00)
[2018-03-07] MEDS: ATORVASTATIN CALCIUM 40 MG TABLET PO SCH (17:53)
== END 2018-03-07 18:38 | disposition home or self-care (01) | DRG 392 ==
LOC: ER 21:50 → EH 03-05 03:57 → 5 03-05 17:10
PROVIDERS: ADMIT Emergency Medicine; ATTEND Emergency Medicine
DX: K52.9 Noninfective gastroenteritis and colitis, unspecified (principal); N17.9 Acute kidney failure, unspecified; E87.5 Hyperkalemia; I25.10 Atherosclerotic heart disease of native coronary artery without angina pectoris; I10 Essential (primary) hypertension; E11.9 Type 2 diabetes mellitus without complications; E78.00 Pure hypercholesterolemia, unspecified; E86.0 Dehydration; K21.9 Gastro-esophageal reflux disease without esophagitis; I95.1 Orthostatic hypotension; E86.1 Hypovolemia; G89.29 Other chronic pain; D50.9 Iron deficiency anemia, unspecified; Z60.2 Problems related to living alone; I25.2 Old myocardial infarction; Z23 Encounter for immunization; Z95.1 Presence of aortocoronary bypass graft; Z95.5 Presence of coronary angioplasty implant and graft; Z79.899 Other long term (current) drug therapy; Z79.4 Long term (current) use of insulin; Z98.84 Bariatric surgery status; Z86.73 Personal history of transient ischemic attack (TIA), and cerebral infarction without residual deficits; Z90.49 Acquired absence of other specified parts of digestive tract; Z83.3 Family history of diabetes mellitus; Z82.49 Family history of ischemic heart disease and other diseases of the circulatory system; Z79.82 Long term (current) use of aspirin; Z88.6 Allergy status to analgesic agent
CPT/HCPCS: 36415; 80048; 80053; 80061; 80307; 81001; 82550; 82553; 82962; 83036; 83690; 83735; 84439; 84443; 84481; 84484; 85025; 90471; 90686; 93005; 93010; 96361; 96374; 96375; 99285; G0008; J1644; J1815; J2300; J2405; J2765; J3475; J3490; J7030; S0119; S0164

== ENCOUNTER 2018-04-17 13:10 | Observation (INO) | payer MEDICARE ==
[2018-04-17] MEDS ORDERED: ASPIRIN 81 MG TABLET, CHEWABLE PO ONE (13:56)
[2018-04-17 14:06] LABS: ABSOLUTE BASOPHILS # (AUTO) 0.1 10^3/uL (0.0-0.2); ABSOLUTE EOSINOPHILS # (AUTO) 0.1 10^3/uL (0.0-0.6); ABSOLUTE LYMPHOCYTES (AUTO) 1.5 10^3/uL (0.5-4.7); ABSOLUTE MONOCYTES (AUTO) 0.7 10^3/uL (0.1-1.4); ABSOLUTE NEUT (AUTO) 4.2 10^3/uL (1.7-8.2); BASOPHILS % (AUTO) 1.6 % (0-2); EOSINOPHILS % (AUTO) 1.8 % (0-6); HEMATOCRIT 29.7 % (37.9-51.0); LYMPHOCYTES % (AUTO) 22.2 % (13-45); MEAN CORPUSCULAR HEMOGLOBIN 19.8 pg (27.0-33.4); MEAN CORPUSCULAR HGB CONC 30.4 g/dL (32.0-36.0); MEAN CORPUSCULAR VOLUME 65 fl (80-97); MONOCYTES % (AUTO) 11.3 % (3-13); PLATELET COUNT 400 10^3/uL (150-450); RED BLOOD COUNT 4.58 10^6/uL (4.35-5.55); RED CELL DISTRIBUTION WIDTH 19.4 % (11.5-14.0); SEGMENTED NEUTROPHILS % (AUTO) 63.1 % (42-78); TOTAL CELLS COUNTED % (AUTO) 100 %; WHITE BLOOD COUNT 6.6 10^3/uL (4.0-10.5)
[2018-04-17 14:24] LABS: ALANINE AMINOTRANSFERASE 19 U/L (21-72); ALKALINE PHOSPHATASE 100 U/L (38-126); ANION GAP 11 (5-19); ASPARTATE AMINO TRANSFERASE 14 U/L (17-59); BILIRUBIN,DIRECT 0.1 mg/dL (0.0-0.4); BILIRUBIN,TOTAL 0.5 mg/dL (0.2-1.3); BLOOD UREA NITROGEN 10 mg/dL (7-20); CALCIUM 9.3 mg/dL (8.4-10.2); CARBON DIOXIDE 23 mmol/L (22-30); CHLORIDE 107 mmol/L (98-107); CREATINE KINASE 64 U/L (55-170); GLUCOSE 124 mg/dL (75-110); POTASSIUM 4.6 mmol/L (3.6-5.0); SODIUM 141.1 mmol/L (137-145); TOTAL PROTEIN 6.8 g/dL (6.3-8.2)
--- NOTE | 2018-04-17 14:25 | RADIOLOGY REPORT (SQ) ---
EXAM DESCRIPTION: CHEST SINGLE VIEW COMPLETED DATE/TIME: 04/17/2018 2:12 pm REASON FOR STUDY: chest pain with history COMPARISON: 06/01/2017 EXAM PARAMETERS: NUMBER OF VIEWS: One view. TECHNIQUE: Single frontal radiographic view of the chest acquired. RADIATION DOSE: NA LIMITATIONS: None. FINDINGS: LUNGS AND PLEURA: No opacities, masses or pneumothorax. No pleural effusion. MEDIASTINUM AND HILAR STRUCTURES: No masses. Contour normal. HEART AND VASCULAR STRUCTURES: Heart normal in size. Normal vasculature. BONES: No acute findings. HARDWARE: Median sternotomy changes with evidence of prior CABG. OTHER: No other significant finding. IMPRESSION: No evidence of acute cardiopulmonary process. TECHNICAL DOCUMENTATION: JOB ID: [id number] [employer] website- All Rights Reserved Reading location - IP/workstation name: [email or web address]
[2018-04-17 14:33] LABS: CREATINE KINASE MB 0.46 ng/mL (<4.55); TROPONIN I < 0.012 ng/mL
[2018-04-17] MEDS ORDERED: PANTOPRAZOLE SODIUM 40 MG VIAL IV ONE (15:01)
[2018-04-17] MEDS ORDERED: SUCRALFATE 1 GM TABLET PO ONE (15:01)
[2018-04-17] MEDS ORDERED: DICYCLOMINE HCL 20 MG TABLET PO ONE (15:01)
[2018-04-17] MEDS ORDERED: MAG HYDROX/AL HYDROX/SIMETH SUSP 30 ML UDCUP PO PRN (20:39)
[2018-04-17] MEDS ORDERED: NITROGLYCERIN 0.4 MG/TAB 25 TAB/BOTTLE SL PRN (20:39)
[2018-04-17] MEDS ORDERED: DEXTROSE 40% GEL 15 GM TUBE PO PRN ×2 (20:39)
[2018-04-17] MEDS ORDERED: GLUCAGON,HUMAN RECOMB 1 MG INJ IM PRN (20:39)
[2018-04-17] MEDS ORDERED: DEXTROSE 50%-WATER 25 GM/50 ML DISP.SYRIN IV PRN ×2 (20:39)
[2018-04-17 21:42] LABS: ABSOLUTE RETICS # 0.055 10^6/uL (0.028-0.122)
[2018-04-17] MEDS: ATORVASTATIN CALCIUM 80 MG TABLET PO SCH (21:44)
[2018-04-17] MEDS: METOPROLOL TARTRATE 25 MG TABLET PO SCH (21:44)
[2018-04-17] MEDS: GABAPENTIN 300 MG CAPSULE PO SCH (21:45)
[2018-04-17] MEDS ORDERED: IRON SUCROSE COMPLEX INJ/PF 100 MG/5 ML SDV IV ONE (21:59)
[2018-04-17 22:00] LABS: IRON(TIBC) 15.4 ug/dL (49-181)
[2018-04-17 22:39] LABS: CREATINE KINASE MB 0.43 ng/mL (<4.55)
[2018-04-17 22:39] LABS: FERRITIN 5.37 ng/mL (17.9-464.0)
[2018-04-17 22:40] LABS: TROPONIN I < 0.012 ng/mL
--- NOTE | 2018-04-17 23:05 | ER Document Report ---
Entered by JASON MIRANDA SCRIBE 04/17/18 1538 Acting as scribe for:DONNA ALMANZA DO ED General - General Chief Complaint: Chest Pain Stated Complaint: CHEST PAIN Time Seen by Provider: 04/17/18 14:29 Mode of Arrival: Ambulatory Information source: Patient Notes: 58-year-old male who presents to the emergency department today with complaints of chest pain. Patient has a history of multiple MIs with previous CABG. Patient states that his chest pain today is the same as it has been with his previous MIs but that today it is "not as severe". Patient states he has not had this pain before when he was not having an ND. Patient states he has been having this pain for x3 days but he does also have a history of a hiatal hernia so he is unsure if it could be this. Patient states when he was trying to walk today his pain became worse. Patient denies abdominal pain, nausea, vomiting, diarrhea, fevers, or cough. TRAVEL OUTSIDE OF THE [place] IN LAST 30 DAYS: No - Related Data Allergies/Adverse Reactions: morphine [Morphine] Adverse Reaction (Verified 04/17/18 13:12) Migraine Past Medical History - General Information source: Patient, [facility] Records - Social History Smoking Status: Never Smoker Cigarette use (# per day): No Chew tobacco use (# tins/day): No Frequency of alcohol use: None Drug Abuse: None Lives with: Family Family History: Reviewed & Not Pertinent, CAD, DM, Hyperlipidemia, Hypertension Patient has suicidal ideation: No Patient has homicidal ideation: No - Past Medical History Cardiac Medical History: Reports: Hx Coronary Artery Disease, Hx Heart Attack - x6, Hx Hypercholesterolemia, Hx Hypertension Neurological Medical History: Reports: Hx Cerebrovascular Accident - x1 Endocrine Medical History: Reports: Hx Diabetes Mellitus Type 2 Renal/ Medical History: Reports: Hx Benign Prostatic Hyperplasia, Hx Kidney Stones GI Medical History: Reports: Hx Gastroesophageal Reflux Disease Past Surgical History: Reports: Hx Abdominal Surgery, Hx Cardiac Catheterization, Hx Cholecystectomy, Hx Coronary Stent - x9, Hx Gastric Bypass Surgery - Immunizations Hx Diphtheria, Pertussis, Tetanus Vaccination: Yes Hx Pneumococcal Vaccination: 11/19/14 Review of Systems - Review of Systems Constitutional: denies: Fever EENT: No symptoms reported Cardiovascular: See HPI, Chest pain Respiratory: denies: Cough Gastrointestinal: denies: Abdominal pain, Diarrhea, Nausea, Vomiting Genitourinary: No symptoms reported Male Genitourinary: No symptoms reported Musculoskeletal: No symptoms reported Skin: No symptoms reported Hematologic/Lymphatic: No symptoms reported Neurological/Psychological: No symptoms reported -: Yes All other systems reviewed and negative Physical Exam - Vital signs Vitals: Temp Pulse Resp BP Pulse Ox 98.7 F 70 18 170/82 H 100 04/17/18 13:20 04/17/18 13:20 04/17/18 13:20 04/17/18 13:20 04/17/18 13:20 Interpretation: Normal - General General appearance: Appears well, Alert - HEENT Head: Normocephalic, Atraumatic Eyes: Normal Pupils: PERRL - Respiratory Respiratory status: No respiratory distress Chest status: Nontender Breath sounds: Normal Chest palpation: Normal - Cardiovascular Rhythm: Regular Heart sounds: Normal auscultation Murmur: No Notes: Midsternal chest scar consistent with history of CABG - Abdominal Inspection: Normal Distension: No distension Bowel sounds: Normal Tenderness: Nontender Organomegaly: No organomegaly - Back Back: Normal, Nontender - Extremities General upper extremity: Normal inspection, Nontender, Normal color, Normal ROM, Normal temperature General lower extremity: Normal inspection, Nontender, Normal color, Normal ROM, Normal temperature, Normal weight bearing. No: Porfirio's sign - Neurological Neuro grossly intact: Yes Cognition: Normal Orientation: AAOx4 Gamal Coma Scale Eye Opening: Spontaneous Gamal Coma Scale Verbal: Oriented Newberry Coma Scale Motor: Obeys Commands Newberry Coma Scale Total: 15 Speech: Normal Motor strength normal: LUE, RUE, LLE, RLE Sensory: Normal - Psychological Associated symptoms: Normal affect, Normal mood - Skin Skin Temperature: Warm Skin Moisture: Dry Skin Color: Normal Course - Re-evaluation Re-evalutation: 04/17/18 23:04 Patient with significant coronary artery history including CABG last October who presents with intermittent chest pain. EKG with no acute changes. Troponin negative x2. Discussed with cardiology at [facility] [place]. Patient will be kept for telemetry observation. He is agreeable to this plan. Chest pain-free in the emergency department. Hospitalist will admit the patient to telemetry. - Vital Signs Vital signs: Temp Pulse Resp BP Pulse Ox 98.7 F 70 14 160/95 H 100 04/17/18 13:20 04/17/18 13:20 04/17/18 22:00 04/17/18 21:48 04/17/18 22:00 - Laboratory Result Diagrams: 04/17/18 13:50 04/17/18 13:50 Laboratory results interpreted by me: 04/17/18 04/17/18 13:50 13:50 Hgb 9.0 L Hct 29.7 L MCV 65 L MCH 19.8 L MCHC 30.4 L RDW 19.4 H Creatinine 1.27 H Est GFR (Non-Af Amer) 59 L Glucose 124 H AST 14 L ALT 19 L - Diagnostic Test Radiology reviewed: Reports reviewed - EKG Interpretation by Me EKG shows normal: Sinus rhythm Discharge - Discharge Clinical Impression: Chest pain Qualifiers: Chest pain type: unspecified Qualified Code(s): R07.9 - Chest pain, unspecified Condition: Stable Disposition: ADMITTED OBSERVATION Admitting Provider: [place] [facility] Admitted: Telemetry Scribe Attestation: 04/17/18 23:05 I personally performed the services described in the documentation, reviewed and edited the documentation which was dictated to the scribe in my presence, and it accurately records my words and actions. I personally performed the services described in the documentation, reviewed and edited the documentation which was dictated to the scribe in my presence, and it accurately records my words and actions.
[2018-04-18] MEDS ORDERED: IRON SUCROSE COMPLEX INJ/PF 100 MG/5 ML SDV IV ONE (00:16)
[2018-04-18] MEDS: OXYCODONE HCL IR 5 MG TABLET PO PRN ×4 (00:23→20:11)
[2018-04-18] MEDS: OXYCODONE-ACETAMINOPHEN 5-325 MG TABLET PO PRN ×4 (00:23→20:12)
[2018-04-18] MEDS: INSULIN LISPRO 100 UNIT/ML 3 ML VIAL SUBCUT SCH ×5 (00:24→23:06)
--- NOTE | 2018-04-18 00:59 | RADIOLOGY REPORT (SQ) ---
EXAM DESCRIPTION: XR ABDOMEN 2 VIEWS SUPINE ERECT COMPLETED DATE/TME: 04/17/2018 23:09 CLINICAL HISTORY: 58 years, Male, pain COMPARISON: None. FINDINGS: Scattered gas-filled loops of bowel, nonspecific. Postsurgical changes are noted in the left hemiabdomen. No abnormal air-fluid levels. No abnormal calcifications. No acute osseous abnormality. IMPRESSION: Nonspecific bowel gas pattern.
[2018-04-18] MEDS: CYCLOBENZAPRINE HCL 10 MG TABLET PO PRN ×2 (01:28→13:10)
[2018-04-18] MEDS ORDERED: CYANOCOBALAMIN (VITAMIN B-12) INJ 1000 MCG/1 ML VIAL IM ONE (01:45)
--- NOTE | 2018-04-18 05:06 | PDOC H&P ---
History of Present Illness Admission Date/PCP: 04/17/18 20:52 Patient complains of: Chest pain History of Present Illness: STEPHANIE MONTEMAYOR is a 58 year old male with a past medical history of insulin- dependent diabetes, morbid obesity status post gastric bypass, coronary artery disease status post myocardial infarction x6, stenting and coronary artery bypass graft October 2017 at [facility] [place], opiate dependent chronic pain and hiatal hernia. He presents with 8 hours of intermittent chest pain occurring while walking for cardiac rehab. His pain is 3 out of 5 radiating to left shoulder associated with shortness of breath nausea without vomiting. He denies subsequent cardiac stress testing following bypass graft. In the emergency department his workup was notable for a microcytic anemia, cardiac enzymes and EKG are unchanged from baseline he is referred to the hospitalist for admission. He denies recent change in medications and otherwise feels fatigued. Past Medical History Cardiac Medical History: Reports: Coronary Artery Disease, Myocardial Infarction - x6, Hyperlipidema, Hypertension Denies: Congestive Heart Failure Pulmonary Medical History: Denies: Asthma, Bronchitis, Chronic Obstructive Pulmonary Disease (COPD), Pneumonia, Respiratory Failure, Tuberculosis Neurological Medical History: Denies: Seizures Endocrine Medical History: Reports: Diabetes Mellitus Type 2, Obesity Denies: Diabetes Mellitus Type 1, Hyperthyroidism, Hypothyroidism Renal/ Medical History: Denies: End Stage Renal Disease GI Medical History: Reports: Gastroesophageal Reflux Disease Denies: Cirrhosis, Hepatitis Musculoskeltal Medical History: Denies: Arthritis, Gout Skin Medical History: Denies: Eczema, Psoriasis Psychiatric Medical History: Denies: Bipolar Disorder, Depression Hematology: Denies: Anemia, Bleeding Tendencies Past Surgical History Past Surgical History: Reports: Cardiac Catheterization, Cholecystectomy, Coronary Stent - x9, Gastric Bypass Surgery Social History Information Source: Patient Lives with: Family Smoking Status: Never Smoker Frequency of Alcohol Use: Rare Hx Recreational Drug Use: No Drugs: None Hx Prescription Drug Abuse: No - Advance Directive Resuscitation Status: Full Code Family History Family History: CAD, DM, Hyperlipidemia, Hypertension Parental Family History Reviewed: Yes Children Family History Reviewed: Yes Sibling(s) Family History Reviewed.: Yes Medication/Allergy Home Medications: Aspirin [Ecotrin 81 mg EC Tablet] 81 mg PO DAILY 03/05/18 Cholecalciferol (Vitamin D3) [Vitamin D3 1000 Unit Tablet] 1,000 unit PO DAILY 03/05/18 Clopidogrel Bisulfate [Plavix 75 mg Tablet] 75 mg PO DAILY 03/05/18 Cyclobenzaprine HCl [Flexeril 10 mg Tablet] 10 mg PO DAILYP PRN 03/05/18 Famotidine [Pepcid 20 mg Tablet] 20 mg PO DAILY 03/05/18 Gabapentin [Neurontin 300 mg Capsule] 300 mg PO Q8 03/05/18 Metformin HCl [Glucophage] 1,000 mg PO BID 03/05/18 Metoprolol Tartrate [Lopressor 25 mg Tablet] 12.5 mg PO Q12 03/05/18 Oxycodone HCl/Acetaminophen [Percocet 10-325 mg Tablet] 1 tab PO Q6HP PRN 03/05/18 Tamsulosin HCl [Flomax 0.4 mg Cap.sr] 0.4 mg PO DAILY 03/05/18 Vitamin A 10,000 unit PO DAILY 03/05/18 Allergies/Adverse Reactions: morphine [Morphine] Adverse Reaction (Verified 04/17/18 13:12) Migraine Review of Systems Constitutional: PRESENT: fatigue, other - Denies vomiting, black stools, hemorrhoids or discolored urine. ABSENT: chills, fever(s), headache(s), weight gain, weight loss Eyes: ABSENT: visual disturbances Ears: ABSENT: hearing changes Cardiovascular: ABSENT: chest pain, dyspnea on exertion, edema, orthropnea, palpitations Respiratory: ABSENT: cough, hemoptysis Gastrointestinal: ABSENT: abdominal pain, constipation, diarrhea, hematemesis, hematochezia, nausea, vomiting Genitourinary: ABSENT: dysuria, hematuria Musculoskeletal: ABSENT: joint swelling Integumentary: ABSENT: rash, wounds Neurological: ABSENT: abnormal gait, abnormal speech, confusion, dizziness, focal weakness, syncope Psychiatric: ABSENT: anxiety, depression, homidical ideation, suicidal ideation Endocrine: ABSENT: cold intolerance, heat intolerance, polydipsia, polyuria Hematologic/Lymphatic: ABSENT: easy bleeding, easy bruising Physical Exam Vital Signs: Temp Pulse Resp BP Pulse Ox 98.0 F 55 L 16 146/90 H 97 04/17/18 22:57 04/18/18 02:00 04/17/18 22:57 04/17/18 22:57 04/17/18 22:57 Intake & Output 04/16/18 04/17/18 04/18/18 11:59 11:59 11:59 Weight 97.4 kg General appearance: PRESENT: no acute distress, cooperative, morbidly obese, well-developed, well-nourished Head exam: PRESENT: atraumatic, normocephalic Eye exam: PRESENT: conjunctiva pink, EOMI, PERRLA. ABSENT: scleral icterus Ear exam: PRESENT: normal external ear exam Mouth exam: PRESENT: moist, tongue midline Neck exam: ABSENT: carotid bruit, JVD, lymphadenopathy, thyromegaly Respiratory exam: PRESENT: clear to auscultation rashmi. ABSENT: rales, rhonchi, wheezes Cardiovascular exam: PRESENT: RRR. ABSENT: diastolic murmur, rubs, systolic murmur Pulses: PRESENT: normal dorsalis pedis pul Vascular exam: PRESENT: normal capillary refill GI/Abdominal exam: PRESENT: normal bowel sounds, soft. ABSENT: distended, guarding, mass, organolmegaly, rebound, tenderness Rectal exam: PRESENT: deferred Extremities exam: PRESENT: full ROM. ABSENT: calf tenderness, clubbing, pedal edema Neurological exam: PRESENT: alert, awake, oriented to person, oriented to place, oriented to time, oriented to situation, CN II-XII grossly intact. ABSENT: motor sensory deficit Psychiatric exam: PRESENT: appropriate affect, normal mood. ABSENT: homicidal ideation, suicidal ideation Skin exam: PRESENT: dry, intact, warm. ABSENT: cyanosis, rash Results Laboratory Results: 04/17/18 13:50 04/17/18 13:50 04/17/18 04/17/18 04/17/18 13:50 13:50 13:50 WBC 6.6 RBC 4.58 Hgb 9.0 L Hct 29.7 L MCV 65 L MCH 19.8 L MCHC 30.4 L RDW 19.4 H Plt Count 400 Seg Neutrophils % 63.1 Lymphocytes % 22.2 Monocytes % 11.3 Eosinophils % 1.8 Basophils % 1.6 Absolute Neutrophils 4.2 Absolute Lymphocytes 1.5 Absolute Monocytes 0.7 Absolute Eosinophils 0.1 Absolute Basophils 0.1 Retic Count (auto) 1.20 Absolute Retic 0.055 Sodium 141.1 Potassium 4.6 Chloride 107 Carbon Dioxide 23 Anion Gap 11 BUN 10 Creatinine 1.27 H Est GFR ( Amer) > 60 Est GFR (Non-Af Amer) 59 L Glucose 124 H Calcium 9.3 Iron TIBC % Saturation Ferritin Total Bilirubin 0.5 AST 14 L ALT 19 L Alkaline Phosphatase 100 Total Protein 6.8 Albumin 4.0 Vitamin B12 Folate 04/17/18 13:50 WBC RBC Hgb Hct MCV MCH MCHC RDW Plt Count Seg Neutrophils % Lymphocytes % Monocytes % Eosinophils % Basophils % Absolute Neutrophils Absolute Lymphocytes Absolute Monocytes Absolute Eosinophils Absolute Basophils Retic Count (auto) Absolute Retic Sodium Potassium Chloride Carbon Dioxide Anion Gap BUN Creatinine Est GFR ( Amer) Est GFR (Non-Af Amer) Glucose Calcium Iron 15.4 L TIBC 472 H % Saturation 3 Ferritin 5.37 L Total Bilirubin AST ALT Alkaline Phosphatase Total Protein Albumin Vitamin B12 174.0 L Folate 16.40 04/17/18 04/17/18 04/17/18 13:50 13:50 17:42 Creatine Kinase 64 CK-MB (CK-2) 0.46 Troponin I < 0.012 < 0.012 04/17/18 21:56 Creatine Kinase CK-MB (CK-2) 0.43 Troponin I < 0.012 Impressions: Chest X-Ray 04/17/18 13:56 IMPRESSION: No evidence of acute cardiopulmonary process. Abdomen X-Ray 04/17/18 23:09 IMPRESSION: Nonspecific bowel gas pattern. Assessment & Plan - Diagnosis (1) Chest pain Qualifiers: Chest pain type: unspecified Qualified Code(s): R07.9 - Chest pain, unspecified Is this a current diagnosis for this admission?: Yes Plan: Telemetry observation, follow-up TSH, A1c, lipid profile, cardiac enzymes, Cardiolite stress test. (2) Chronic pain Qualifiers: Chronic pain type: other chronic pain Qualified Code(s): G89.29 - Other chronic pain Is this a current diagnosis for this admission?: Yes Plan: Patient of pain management Dr. Hamzah Denton. Continue outpatient regiment of Percocet 10 every 6 hours as needed (3) Coronary disease sp stenting CABG Is this a current diagnosis for this admission?: Yes Plan: Outpatient regiment, Cardiolite stress test, may require cardiac catheterization. (4) Diabetes Qualifiers: Diabetes mellitus type: type 1 Diabetes mellitus complication status: with hyperglycemia Qualified Code(s): E10.65 - Type 1 diabetes mellitus with hyperglycemia Is this a current diagnosis for this admission?: Yes Plan: Hold metformin, insulin sliding scale ordered, follow-up A1c - Time Time Spent: 50 to 70 Minutes
[2018-04-18 05:23] LABS: ABSOLUTE BASOPHILS # (AUTO) 0.1 10^3/uL (0.0-0.2); ABSOLUTE EOSINOPHILS # (AUTO) 0.2 10^3/uL (0.0-0.6); ABSOLUTE LYMPHOCYTES (AUTO) 1.5 10^3/uL (0.5-4.7); ABSOLUTE MONOCYTES (AUTO) 0.9 10^3/uL (0.1-1.4); ABSOLUTE NEUT (AUTO) 4.2 10^3/uL (1.7-8.2); BASOPHILS % (AUTO) 1.3 % (0-2); HEMATOCRIT 26.5 % (37.9-51.0); HEMOGLOBIN 8.1 g/dL (13.5-17.0); MEAN CORPUSCULAR HEMOGLOBIN 19.9 pg (27.0-33.4); MEAN CORPUSCULAR HGB CONC 30.7 g/dL (32.0-36.0); MEAN CORPUSCULAR VOLUME 65 fl (80-97); MONOCYTES % (AUTO) 13.1 % (3-13); PLATELET COUNT 335 10^3/uL (150-450); RED BLOOD COUNT 4.09 10^6/uL (4.35-5.55); RED CELL DISTRIBUTION WIDTH 19.5 % (11.5-14.0); SEGMENTED NEUTROPHILS % (AUTO) 60.6 % (42-78); TOTAL CELLS COUNTED % (AUTO) 100 %; WHITE BLOOD COUNT 6.9 10^3/uL (4.0-10.5)
[2018-04-18 05:43] LABS: CHOLESTEROL 160.85 mg/dL (0-200); CREATINE KINASE 47 U/L (55-170); TRIGLYCERIDES 114 mg/dL (<150)
[2018-04-18 05:54] LABS: DIRECT LDL 115 mg/dL (<100)
[2018-04-18 05:55] LABS: TROPONIN I < 0.012 ng/mL
[2018-04-18 06:01] LABS: ANISOCYTOSIS 2+; HYPOCHROMASIA SLIGHT; POIKILOCYTOSIS 2+; POLYCHROMASIA 1+
[2018-04-18 06:02] LABS: PLATELET COMMENT ADEQUATE; SPHEROCYTES 1+; TARGET CELLS 1+
[2018-04-18] MEDS: GABAPENTIN 300 MG CAPSULE PO SCH ×3 (06:31→21:39)
[2018-04-18] MEDS: LANSOPRAZOLE 30 MG TAB.RAP.DR PO SCH ×2 (06:32→18:39)
[2018-04-18 11:09] LABS: CREATINE KINASE MB 0.41 ng/mL (<4.55)
[2018-04-18 11:14] LABS: TROPONIN I < 0.012 ng/mL
[2018-04-18] MEDS: CYANOCOBALAMIN (VITAMIN B-12) 1,000 MCG TABLET PO SCH (11:18)
[2018-04-18] MEDS: CLOPIDOGREL BISULFATE 75 MG TABLET PO SCH (11:20)
[2018-04-18] MEDS: ASPIRIN 81 MG TABLET, ENT COATED PO SCH (11:20)
[2018-04-18] MEDS: DOCUSATE SODIUM 100 MG CAPSULE PO SCH ×2 (11:21→18:39)
[2018-04-18] MEDS: METOPROLOL TARTRATE 25 MG TABLET PO SCH ×2 (11:21→21:39)
[2018-04-18] MEDS: TAMSULOSIN HCL 0.4 MG CAP.SR.24H PO SCH (11:21)
[2018-04-18] MEDS ORDERED: REGADENOSON INJ 0.4 MG/5 ML DISP.SYRIN IV ONE (14:59)
--- NOTE | 2018-04-18 16:22 | PDOC PROGRESS REPORT ---
Subjective Progress Note for:: 04/18/18 Subjective:: This is a 58 year old male with a past medical history of insulin-dependent diabetes, morbid obesity status post gastric bypass, coronary artery disease status post myocardial infarction x6, stenting and coronary artery bypass graft October 2017 at [facility] [place], GERD, opiate dependent chronic pain and hiatal hernia. He presents with 8 hours of intermittent chest pain occurring while walking for cardiac rehab. No acute event overnight. This morning, he appears comfortable. He has been chest pain-free. Denies SOB. He does complain of chronic low back pain. He just got back from stress test. Reason For Visit: CP, CAD, MORBID, ANEMIA Physical Exam Vital Signs: Temp Pulse Resp BP Pulse Ox 97.4 F 61 20 124/82 100 04/18/18 11:31 04/18/18 11:31 04/18/18 11:31 04/18/18 11:31 04/18/18 11:31 Intake & Output 04/17/18 04/18/18 04/19/18 06:59 06:59 06:59 Intake Total 425 Balance 425 Weight 214 lb 11.684 oz General appearance: PRESENT: no acute distress, well-developed, well-nourished Head exam: PRESENT: atraumatic, normocephalic Eye exam: PRESENT: conjunctiva pink, EOMI, PERRLA. ABSENT: scleral icterus Ear exam: PRESENT: normal external ear exam Mouth exam: PRESENT: moist, tongue midline Neck exam: ABSENT: carotid bruit, JVD, lymphadenopathy, thyromegaly Respiratory exam: PRESENT: clear to auscultation rashmi. ABSENT: rales, rhonchi, wheezes Cardiovascular exam: PRESENT: RRR. ABSENT: diastolic murmur, rubs, systolic murmur Pulses: PRESENT: normal dorsalis pedis pul GI/Abdominal exam: PRESENT: normal bowel sounds, soft. ABSENT: distended, guarding, mass, organolmegaly, rebound, tenderness Rectal exam: PRESENT: deferred Neurological exam: PRESENT: alert, awake, oriented to person, oriented to place, oriented to time, oriented to situation, CN II-XII grossly intact. ABSENT: motor sensory deficit Results Laboratory Results: 04/18/18 04:00 04/17/18 13:50 04/17/18 04/17/18 04/18/18 13:50 13:50 04:00 WBC 6.9 RBC 4.09 L Hgb 8.1 L Hct 26.5 L MCV 65 L MCH 19.9 L MCHC 30.7 L RDW 19.5 H Plt Count 335 Seg Neutrophils % 60.6 Lymphocytes % 22.0 Monocytes % 13.1 H Eosinophils % 3.0 Basophils % 1.3 Absolute Neutrophils 4.2 Absolute Lymphocytes 1.5 Absolute Monocytes 0.9 Absolute Eosinophils 0.2 Absolute Basophils 0.1 Retic Count (auto) 1.20 Absolute Retic 0.055 Iron 15.4 L TIBC 472 H % Saturation 3 Ferritin 5.37 L Triglycerides Cholesterol LDL Cholesterol Direct VLDL Cholesterol HDL Cholesterol Vitamin B12 174.0 L Folate 16.40 04/18/18 04:00 WBC RBC Hgb Hct MCV MCH MCHC RDW Plt Count Seg Neutrophils % Lymphocytes % Monocytes % Eosinophils % Basophils % Absolute Neutrophils Absolute Lymphocytes Absolute Monocytes Absolute Eosinophils Absolute Basophils Retic Count (auto) Absolute Retic Iron TIBC % Saturation Ferritin Triglycerides 114 Cholesterol 160.85 LDL Cholesterol Direct 115 H VLDL Cholesterol 23.0 HDL Cholesterol 37 L Vitamin B12 Folate 04/17/18 04/17/18 04/17/18 13:50 13:50 17:42 Creatine Kinase 64 CK-MB (CK-2) 0.46 Troponin I < 0.012 < 0.012 04/17/18 04/18/18 04/18/18 21:56 04:00 04:00 Creatine Kinase 47 L CK-MB (CK-2) 0.43 0.30 Troponin I < 0.012 < 0.012 04/18/18 10:17 Creatine Kinase CK-MB (CK-2) 0.41 Troponin I < 0.012 Impressions: Chest X-Ray 04/17/18 13:56 IMPRESSION: No evidence of acute cardiopulmonary process. Abdomen X-Ray 04/17/18 23:09 IMPRESSION: Nonspecific bowel gas pattern. Assessment & Plan - Diagnosis (1) Chest pain Qualifiers: Chest pain type: unspecified Qualified Code(s): R07.9 - Chest pain, unspecified Is this a current diagnosis for this admission?: Yes Plan: Troponins have all bee negative. No acute EKG changes. He does have a very significant cardiac history with multiple stenting and recent CABG. He just got back from stress test. (2) Coronary artery disease Qualifiers: Coronary Disease-Associated Artery/Lesion type: [place] artery [place] vs. transplanted heart: [place] heart Associated angina: angina presence unspecif ied Qualified Code(s): I25.10 - Atherosclerotic heart disease of [place] c oronary artery without angina pectoris Is this a current diagnosis for this admission?: Yes Plan: Continue aspirin, statin and clopidogrel. - Time Time Spent with patient: 15-24 minutes
[2018-04-18] MEDS: ATORVASTATIN CALCIUM 80 MG TABLET PO SCH (21:39)
--- NOTE | 2018-04-18 22:18 | EKG REPORT ---
SEVERITY:- NORMAL ECG - SINUS RHYTHM : Confirmed by: Khushboo Peres 18-Apr-2018 22:16:47
[2018-04-19] MEDS: OXYCODONE-ACETAMINOPHEN 5-325 MG TABLET PO PRN ×3 (03:47→16:40)
[2018-04-19] MEDS: CYCLOBENZAPRINE HCL 10 MG TABLET PO PRN (03:48)
[2018-04-19] MEDS: OXYCODONE HCL IR 5 MG TABLET PO PRN ×2 (03:48→16:41)
[2018-04-19] MEDS: INSULIN LISPRO 100 UNIT/ML 3 ML VIAL SUBCUT SCH ×2 (05:09→14:04)
[2018-04-19] MEDS: LANSOPRAZOLE 30 MG TAB.RAP.DR PO SCH (05:12)
[2018-04-19] MEDS: GABAPENTIN 300 MG CAPSULE PO SCH ×2 (05:12→15:47)
[2018-04-19] MEDS ORDERED: CYANOCOBALAMIN (VITAMIN B-12) INJ 1000 MCG/1 ML VIAL IM SCH (10:00)
[2018-04-19] MEDS: DOCUSATE SODIUM 100 MG CAPSULE PO SCH (10:16)
[2018-04-19] MEDS: TAMSULOSIN HCL 0.4 MG CAP.SR.24H PO SCH (10:17)
[2018-04-19] MEDS: CYANOCOBALAMIN (VITAMIN B-12) 1,000 MCG TABLET PO SCH (10:17)
[2018-04-19] MEDS: CLOPIDOGREL BISULFATE 75 MG TABLET PO SCH (10:17)
[2018-04-19] MEDS: ASPIRIN 81 MG TABLET, ENT COATED PO SCH (10:17)
[2018-04-19] MEDS: METOPROLOL TARTRATE 25 MG TABLET PO SCH (10:18)
--- NOTE | 2018-04-19 10:52 | PDOC DISCHARGE SUMMARY ---
General - Admit/Disc Date/PCP Admission Date/Primary Care Provider: 04/17/18 20:52 Discharge Date: 04/19/18 - Discharge Diagnosis (1) Chest pain Is this a current diagnosis for this admission?: Yes (2) Coronary artery disease Is this a current diagnosis for this admission?: Yes - Additional Information Resuscitation Status: Full Code Prescriptions: Atorvastatin Calcium [Lipitor 40 mg Tablet] 40 mg PO QHS #30 tablet Pantoprazole Sodium [Protonix] 40 mg PO QAM #30 tablet. Home Medications: Aspirin [Ecotrin 81 mg EC Tablet] 81 mg PO DAILY 03/05/18 Cholecalciferol (Vitamin D3) [Vitamin D3 1000 Unit Tablet] 1,000 unit PO DAILY 03/05/18 Clopidogrel Bisulfate [Plavix 75 mg Tablet] 75 mg PO DAILY 03/05/18 Cyclobenzaprine HCl [Flexeril 10 mg Tablet] 10 mg PO DAILYP PRN 03/05/18 Gabapentin [Neurontin 300 mg Capsule] 300 mg PO Q8 03/05/18 Metformin HCl [Glucophage] 1,000 mg PO BID 03/05/18 Metoprolol Tartrate [Lopressor 25 mg Tablet] 12.5 mg PO Q12 03/05/18 Oxycodone HCl/Acetaminophen [Percocet 10-325 mg Tablet] 1 tab PO Q6HP PRN 03/05/18 Tamsulosin HCl [Flomax 0.4 mg Cap.sr] 0.4 mg PO DAILY 03/05/18 Vitamin A 10,000 unit PO DAILY 03/05/18 Atorvastatin Calcium [Lipitor 40 mg Tablet] 40 mg PO QHS #30 tablet 04/19/18 Pantoprazole Sodium [Protonix] 40 mg PO QAM #30 tablet. 04/19/18 History of Present Illness History of Present Illness: Admitting hospitalist's H&P: STEPHANIE MONTEMAYOR is a 58 year old male with a past medical history of insulin- dependent diabetes, morbid obesity status post gastric bypass, coronary artery disease status post myocardial infarction x6, stenting and coronary artery bypass graft October 2017 at [facility], opiate dependent chronic pain and hiatal hernia. He presents with 8 hours of intermittent chest pain occurring while walking for cardiac rehab. His pain is 3 out of 5 radiating to left shoulder associated with shortness of breath nausea without vomiting. He denies subsequent cardiac stress testing following bypass graft. In the emergency department his workup was notable for a microcytic anemia, cardiac enzymes and EKG are unchanged from baseline he is referred to the hospitalist for admission. He denies recent change in medications and otherwise feels fatigued. Hospital Course Hospital Course: This is a 58 year old male with a past medical history of insulin-dependent diabetes, morbid obesity status post gastric bypass, coronary artery disease status post myocardial infarction x6, stenting and coronary artery bypass graft October 2017 at [facility], GERD, opiate dependent chronic pain and hiatal hernia. He presents with 8 hours of intermittent chest pain occurring while walking for cardiac rehab. He has been chest pain-free since admission. Troponins have all been negative. No acute EKG changes. He underwent stress testing. Discussed results with cardiology that stress test was unremarkable. He does have GERD and says he takes Nexium from time to time but that it's expensive. This was switched to Protonix on discharge. He was given a ff-up appt with PCP and cardiology Physical Exam Vital Signs: Temp Pulse Resp BP Pulse Ox 97.8 F 56 L 16 109/77 95 04/19/18 03:50 04/19/18 03:50 04/19/18 03:50 04/19/18 03:50 04/19/18 03:50 Intake & Output 04/18/18 04/19/18 04/20/18 06:59 06:59 06:59 Intake Total 425 1587 Balance 425 1587 Weight 214 lb 11.684 oz 214 lb 8.156 oz General appearance: PRESENT: no acute distress, well-developed, well-nourished Head exam: PRESENT: atraumatic, normocephalic Eye exam: PRESENT: conjunctiva pink, EOMI, PERRLA. ABSENT: scleral icterus Ear exam: PRESENT: normal external ear exam Mouth exam: PRESENT: moist, tongue midline Neck exam: ABSENT: carotid bruit, JVD, lymphadenopathy, thyromegaly Respiratory exam: PRESENT: clear to auscultation rashmi. ABSENT: rales, rhonchi, wheezes Cardiovascular exam: PRESENT: RRR. ABSENT: diastolic murmur, rubs, systolic murmur Pulses: PRESENT: normal dorsalis pedis pul GI/Abdominal exam: PRESENT: normal bowel sounds, soft. ABSENT: distended, guarding, mass, organolmegaly, rebound, tenderness Rectal exam: PRESENT: deferred Neurological exam: PRESENT: alert, awake, oriented to person, oriented to place, oriented to time, oriented to situation, CN II-XII grossly intact. ABSENT: motor sensory deficit Results Laboratory Results: 04/18/18 04:00 04/17/18 13:50 04/17/18 04/17/18 04/17/18 13:50 13:50 17:42 Creatine Kinase 64 CK-MB (CK-2) 0.46 Troponin I < 0.012 < 0.012 04/17/18 04/18/18 04/18/18 21:56 04:00 04:00 Creatine Kinase 47 L CK-MB (CK-2) 0.43 0.30 Troponin I < 0.012 < 0.012 04/18/18 10:17 Creatine Kinase CK-MB (CK-2) 0.41 Troponin I < 0.012 Impressions: Chest X-Ray 04/17/18 13:56 IMPRESSION: No evidence of acute cardiopulmonary process. Abdomen X-Ray 04/17/18 23:09 IMPRESSION: Nonspecific bowel gas pattern. Qualifiers - * PATIENT BEING DISCHARGED WITH ANY OF THE FOLLOWING DIAGNOSIS: No
[2018-04-19 13:37] VITALS: BP 118/64
--- NOTE | 2018-04-21 14:11 | DRAGON STRESS TEST REPORT ---
Intravenous Lexiscan Cardiolite stress test using single photon emmision computerized tomography. Date of procedure: 04/18/2018.Ordering Provider: Dr. Bindu Ross. Patient's status: In Patient. Indication: Chest pain. Coronary risk factors: Age, hypertension, dyslipidemia, and family history of coronary artery disease. Resting EKG: Sinus Rhythm. Diffuse nonspecific T T wave changes. Stress EKG::No changes of ischemia. The patient had no chest pain or discomfort, and there were no arrhythmias seen. Reason for termination: Protocol. Conclusions: Normal EKG and hemodynamic response to IV Lexiscan. Nuclear data: At rest the patient was given 14.66 millicuries of technetium 99m sestamibi injected intravenously. As per protocol rest non gated SPECT images were obtained. Subsequently the patient was given intravenous Lexiscan at a dose of 0.4 mg in 5 mL intravenously, followed by flush with normal saline. Subsequently the stress dose of 44.7 millicuries of technetium 99m sestamibi was injected intravenously. As per protocol stress gated images were obtained. Nuclear interpretation: Review of images showed that this is a poor quality study with liver and bowel contamination artifact of the inferior wall compounded by significant motion artifact. Hence difficult study to interpret. In spite of this probably all segments of the myocardium had normal perfusion at rest, and normal perfusion post stress with IV Lexiscan. All segments of the myocardium had normal motion, contraction, and thickening by gated study. T. I D. ratio was normal at 1.09. There is no transient ischemic dilatation of the left ventricle. Computer read rest, and stress left ventricular ejection fraction were 57 %, and 49 %, respectively. Visually both the stress and rest ejection fractions were normal, and greater than 55%. Conclusion: 1. There is probably no scintigraphic evidence of Lexiscan induced myocardial ischemia. 2. There is no scintigraphic evidence of myocardial infarction/scar. Recommendations: 1. Correlate clinically. 2.Aggressive risk factor modification, and treating the underlying co- morbidities. MTDD
== END 2018-04-19 18:05 | disposition home or self-care (01) ==
LOC: ER 13:10 → EH 20:52 → 5 22:46
PROVIDERS: ADMIT Internal Medicine; ATTEND Internal Medicine
DX: R07.89 Other chest pain (principal); I25.10 Atherosclerotic heart disease of native coronary artery without angina pectoris; E10.65 Type 1 diabetes mellitus with hyperglycemia; I25.2 Old myocardial infarction; R06.02 Shortness of breath; D50.9 Iron deficiency anemia, unspecified; K21.9 Gastro-esophageal reflux disease without esophagitis; G89.29 Other chronic pain; M54.5 Low back pain; F11.20 Opioid dependence, uncomplicated; Z79.82 Long term (current) use of aspirin; Z79.899 Other long term (current) drug therapy; Z79.02 Long term (current) use of antithrombotics/antiplatelets; Z98.84 Bariatric surgery status; Z95.1 Presence of aortocoronary bypass graft; Z95.5 Presence of coronary angioplasty implant and graft; Z90.49 Acquired absence of other specified parts of digestive tract; Z82.49 Family history of ischemic heart disease and other diseases of the circulatory system; Z79.4 Long term (current) use of insulin; Z86.73 Personal history of transient ischemic attack (TIA), and cerebral infarction without residual deficits; Z87.19 Personal history of other diseases of the digestive system
CPT/HCPCS: 93005; 99285; 96374; 36415 ×2; 82553 ×2; 82962 ×3; 82607; 82550 ×2; 82728; 82746; 83540; 83550; 85025 ×2; 85045; 80053; 84484 ×2; 80061; 93017; 74019; 71045; 78452; 93010; A9500; J2785; A9270 ×29; J1756; J3420; C9113; J3490 ×2; Q9969; G0378; S0164

== ENCOUNTER 2018-04-26 19:28 | Observation (INO) | payer MEDICARE ==
[2018-04-26] MEDS ORDERED: ASPIRIN 81 MG TABLET, CHEWABLE PO ONE (20:15)
[2018-04-26 20:40] LABS: ABSOLUTE BASOPHILS # (AUTO) 0.1 10^3/uL (0.0-0.2); ABSOLUTE EOSINOPHILS # (AUTO) 0.2 10^3/uL (0.0-0.6); ABSOLUTE LYMPHOCYTES (AUTO) 1.3 10^3/uL (0.5-4.7); ABSOLUTE MONOCYTES (AUTO) 0.8 10^3/uL (0.1-1.4); BASOPHILS % (AUTO) 1.5 % (0-2); EOSINOPHILS % (AUTO) 2.3 % (0-6); HEMATOCRIT 31.5 % (37.9-51.0); HEMOGLOBIN 9.7 g/dL (13.5-17.0); LYMPHOCYTES % (AUTO) 15.7 % (13-45); MEAN CORPUSCULAR HEMOGLOBIN 20.8 pg (27.0-33.4); MEAN CORPUSCULAR HGB CONC 30.7 g/dL (32.0-36.0); MEAN CORPUSCULAR VOLUME 68 fl (80-97); PLATELET COUNT 415 10^3/uL (150-450); RED BLOOD COUNT 4.66 10^6/uL (4.35-5.55); RED CELL DISTRIBUTION WIDTH 20.7 % (11.5-14.0); SEGMENTED NEUTROPHILS % (AUTO) 71.5 % (42-78); TOTAL CELLS COUNTED % (AUTO) 100 %; WHITE BLOOD COUNT 8.4 10^3/uL (4.0-10.5)
--- NOTE | 2018-04-26 20:53 | EKG REPORT ---
SEVERITY:- OTHERWISE NORMAL ECG - SINUS RHYTHM MINIMAL ST DEPRESSION, LATERAL LEADS : Confirmed by: Nguyen Dougherty MD 26-Apr-2018 20:53:02
[2018-04-26 20:54] LABS: ALANINE AMINOTRANSFERASE < 6 U/L (21-72); ALBUMIN 3.9 g/dL (3.5-5.0); ALKALINE PHOSPHATASE 68 U/L (38-126); ANION GAP 9 (5-19); ASPARTATE AMINO TRANSFERASE 15 U/L (17-59); BILIRUBIN,DIRECT 0.2 mg/dL (0.0-0.4); BILIRUBIN,TOTAL 0.3 mg/dL (0.2-1.3); BLOOD UREA NITROGEN 15 mg/dL (7-20); CALCIUM 9.4 mg/dL (8.4-10.2); CARBON DIOXIDE 23 mmol/L (22-30); CHLORIDE 108 mmol/L (98-107); CREATINE KINASE 42 U/L (55-170); GLUCOSE 196 mg/dL (75-110); POTASSIUM 4.6 mmol/L (3.6-5.0); SODIUM 139.6 mmol/L (137-145); TOTAL PROTEIN 6.1 g/dL (6.3-8.2)
[2018-04-26 21:04] LABS: CREATINE KINASE MB 0.26 ng/mL (<4.55)
[2018-04-26 21:06] LABS: TROPONIN I < 0.012 ng/mL
--- NOTE | 2018-04-26 21:27 | RADIOLOGY REPORT (SQ) ---
EXAM DESCRIPTION: XR CHEST 1 VIEW COMPLETED DATE/TME: 04/26/2018 20:16 CLINICAL HISTORY: 58 years, Male, chest pain COMPARISON: None. NUMBER OF VIEWS: TECHNIQUE: LIMITATIONS: Somewhat limited examination due to overexposure of the x-ray. FINDINGS: There is questionable emphysema. There is evidence of prior thoracic surgery. There is evidence of coronary artery disease. No evidence of pulmonary infiltrate or pleural effusion. No evidence of heart failure. IMPRESSION: Questionable emphysema. Coronary artery disease. copyright 2010 [employer]- All Rights Reserved
--- NOTE | 2018-04-26 23:06 | ER Document Report ---
ED General - General Chief Complaint: Chest Pain Stated Complaint: CHEST PAIN Time Seen by Provider: 04/26/18 20:24 Primary Care Provider: JAMES DAWKINS MD [Primary Care Provider] - Follow up as needed Notes: Patient is a 58-year-old male with a past medical history of coronary artery disease history of stenting, recent catheterization approximately 5 months ago, presents complaining of chest pain with associated neck pain and nausea. Symptoms started after he got some bad news from his daughter. States that he thought he was having anxiety but the chest pain persisted prompting him to come the emergency room for assessment. States this feels similar to when he has had issues with his heart in the past. Nothing seems to improve his pain although he notes that the chest pain is resolved at the time of my evaluation. Nothing has worsened the pain since onset. Denies any current nausea, vomiting or shortness of breath. TRAVEL OUTSIDE OF THE [place] IN LAST 30 DAYS: No - Related Data Allergies/Adverse Reactions: morphine [Morphine] Adverse Reaction (Verified 04/17/18 13:12) Migraine Past Medical History - General Information source: Patient - Social History Smoking Status: Never Smoker Chew tobacco use (# tins/day): No Frequency of alcohol use: Occasional Drug Abuse: None Lives with: Family Family History: CAD, DM, Hyperlipidemia, Hypertension Patient has suicidal ideation: No Patient has homicidal ideation: No - Past Medical History Cardiac Medical History: Reports: Hx Coronary Artery Disease, Hx Heart Attack - x6, Hx Hypercholesterolemia, Hx Hypertension Denies: Hx Congestive Heart Failure Pulmonary Medical History: Denies: Hx Asthma, Hx Bronchitis, Hx COPD, Hx Pneumonia, Hx Respiratory Failure, Hx Tuberculosis Neurological Medical History: Reports: Hx Cerebrovascular Accident - x1. Denies: Hx Seizures Endocrine Medical History: Reports: Hx Diabetes Mellitus Type 2. Denies: Hx Diabetes Mellitus Type 1, Hx Hyperthyroidism, Hx Hypothyroidism Renal/ Medical History: Reports: Hx Benign Prostatic Hyperplasia, Hx Kidney Stones. Denies: Hx End Stage Renal Disease, Hx Peritoneal Dialysis GI Medical History: Reports: Hx Gastroesophageal Reflux Disease. Denies: Hx Cirrhosis, Hx Hepatitis, Hx Ulcer Musculoskeletal Medical History: Denies Hx Arthritis, Denies Hx Gout, Denies Hx Multiple Sclerosis Skin Medical History: Denies Hx Eczema, Denies Hx Psoriasis Psychiatric Medical History: Denies: Hx Bipolar Disorder, Hx Depression, Hx Schizophrenia Infectious Medical History: Denies: Hx Hepatitis Past Surgical History: Reports: Hx Abdominal Surgery, Hx Cardiac Catheterization, Hx Cardiac Surgery - triple bipass, Hx Cholecystectomy, Hx Coronary Stent - x9, Hx Gastric Bypass Surgery - Immunizations Hx Diphtheria, Pertussis, Tetanus Vaccination: Yes Hx Pneumococcal Vaccination: 11/19/14 Review of Systems - Review of Systems Notes: Constitutional: Negative for fever. HENT: Negative for sore throat. Eyes: Negative for visual changes. Cardiovascular: Positive for chest pain. Respiratory: Negative for shortness of breath. Gastrointestinal: Negative for abdominal pain, vomiting or diarrhea. Genitourinary: Negative for dysuria. Musculoskeletal: Negative for back pain. Skin: Negative for rash. Neurological: Negative for headaches, weakness or numbness. 10 point ROS negative except as marked above and in HPI. Physical Exam - Vital signs Vitals: Temp Pulse Resp BP Pulse Ox 97.7 F 98 17 146/91 H 100 04/26/18 19:48 04/26/18 19:48 04/26/18 19:48 04/26/18 19:48 04/26/18 19:48 Interpretation: Hypertensive Notes: PHYSICAL EXAMINATION: GENERAL: Well-appearing, well-nourished and in no acute distress. HEAD: Atraumatic, normocephalic. EYES: Pupils equal round and reactive to light, extraocular movements intact, sclera anicteric, conjunctiva are normal. ENT: nares patent, oropharynx clear without exudates. Moist mucous membranes. NECK: Normal range of motion, supple without lymphadenopathy LUNGS: Breath sounds clear to auscultation bilaterally and equal. No wheezes rales or rhonchi. HEART: Regular rate and rhythm without murmurs ABDOMEN: Soft, nontender, normoactive bowel sounds. No guarding, no rebound. No masses appreciated. EXTREMITIES: Normal range of motion, no pitting or edema. No cyanosis. NEUROLOGICAL: No focal neurological deficits. Moves all extremities spontaneously and on command. PSYCH: Normal mood, normal affect. SKIN: Warm, Dry, normal turgor, no rashes or lesions noted. Course - Re-evaluation Re-evalutation: 04/26/18 23:05 Presentation of chest pain in an otherwise well appearing patient. Low clinical suspicion for ACS given clinical history, exam, EKG without ST elevations or depressions, and negative initial troponin. PE also seems unlikely given clinical history, absence of tachycardia or dyspnea. Wells score 0. CXR without evidence of pneumothorax or pneumonia. No widened mediastinum. Aortic dissection also seems unlikely given history, symmetric pulses, CXR, and vitals. Patient had stress test 10 days ago which was noted to be normal. Repeat troponin pending 4 hours after initial. 04/27/18 01:28 Repeat troponin does elevate into the interminate range at 0.037. Patient remains cp free. I discussed with the hospitalist to accept the patient for observation - Vital Signs Vital signs: Temp Pulse Resp BP Pulse Ox 97.7 F 98 17 146/91 H 100 04/26/18 19:48 04/26/18 19:48 04/26/18 19:48 04/26/18 19:48 04/26/18 20:30 - Laboratory Result Diagrams: 04/26/18 20:23 04/26/18 20:23 Laboratory results interpreted by me: 04/26/18 04/26/18 20:23 20:23 Hgb 9.7 L Hct 31.5 L MCV 68 L MCH 20.8 L MCHC 30.7 L RDW 20.7 H Chloride 108 H Creatinine 1.48 H Est GFR ( Amer) 59 L Est GFR (Non-Af Amer) 49 L Glucose 196 H AST 15 L ALT < 6 L Creatine Kinase 42 L Total Protein 6.1 L - Diagnostic Test Radiology reviewed: Image reviewed, Reports reviewed Radiology results interpreted by me: 04/27/18 01:42 Chest x-ray: No acute infiltrate or pneumothorax - EKG Interpretation by Me Additional EKG results interpreted by me: 04/27/18 01:43 Sinus rhythm, rate 93. No ST elevations or depressions. QTC is 458. Discharge - Discharge Clinical Impression: Elevated troponin Chest pain Qualifiers: Chest pain type: unspecified Qualified Code(s): R07.9 - Chest pain, unspecified Condition: Fair Disposition: ADMITTED OBSERVATION Admitting Provider: Hospitalist Unit Admitted: IMCU Referrals: JAMES DAWKINS MD [Primary Care Provider] - Follow up as needed
[2018-04-27] MEDS ORDERED: NITROGLYCERIN 0.4 MG/TAB 25 TAB/BOTTLE SL PRN ×2 (01:28→01:41)
[2018-04-27] MEDS ORDERED: DIAZEPAM 5 MG TABLET PO PRN (01:41)
[2018-04-27] MEDS ORDERED: ACETAMINOPHEN 325 MG TABLET PO PRN (01:51)
[2018-04-27] MEDS ORDERED: NALBUPHINE HCL INJ 10 MG/1 ML AMPULE IV PRN (01:52)
--- NOTE | 2018-04-27 04:14 | PDOC H&P ---
History of Present Illness Admission Date/PCP: 04/27/2018 JAMES DAWKINS MD Patient complains of: Chest pain History of Present Illness: STEPHANIE MONTEMAYOR is a 58 year old male who presented to the emergency room with an acute onset of chest pain. He admits that he was at [employer] when he got a call from his daughter who related some news that was extremely anxiety provoking for him. Shortly after her initial announcement of bad news he began having constant, severe crushing pressure, substernal chest pain with radiation to his left neck as a intense throbbing lasting for 15 minutes and then subsiding while his severe chest pain persisted for more than an hour including pain while in the emergency room. The pain was also associated with a brief period of nausea which resolved spontaneously. He denies other associated symptoms and has not identified any aggravating or ameliorating factors for his chest pain. He acknowledges prior similar episodes with his heart attacks and other severe angina flareups. In the emergency room he was found to have an initial normal troponin but his second troponin increased to 0.037 and though he had no changes on his EKG it was felt that he should be admitted to inpatient observation status for further evaluation and treatment as an acute coronary syndrome protocol patient. Past Medical History Cardiac Medical History: Reports: Coronary Artery Disease, Myocardial Infarction - x6, Hyperlipidema, Hypertension Denies: Congestive Heart Failure Pulmonary Medical History: Denies: Asthma, Bronchitis, Chronic Obstructive Pulmonary Disease (COPD), Pneumonia, Respiratory Failure, Tuberculosis EENT Medical History: Denies: Cataracts Neurological Medical History: Denies: Hemorrhagic CVA, Ischemic CVA, Seizures Endocrine Medical History: Reports: Diabetes Mellitus Type 2, Obesity Denies: Diabetes Mellitus Type 1, Hyperthyroidism, Hypothyroidism Renal/ Medical History: Denies: Chronic Kidney Disease, Nephrolithiasis Malignancy Medical History: Reports: None GI Medical History: Reports: Gastroesophageal Reflux Disease Denies: Cirrhosis, Hepatitis Musculoskeltal Medical History: Denies: Arthritis, Gout Skin Medical History: Denies: Eczema, Psoriasis Psychiatric Medical History: Denies: Alcohol Dependency, Substance Abuse, Tobacco Dependency Traumatic Medical History: Reports: None Hematology: Denies: Anemia, Bleeding Tendencies Infectious Medical History: Reports: None Past Surgical History Past Surgical History: Reports: Cardiac Catheterization, Cholecystectomy, Coronary Artery Bypass Graft, Coronary Stent - x9, Gastric Bypass Surgery Social History Information Source: Patient Lives with: Spouse/Significant other Smoking Status: Never Smoker Frequency of Alcohol Use: Rare Hx Recreational Drug Use: No Drugs: None Hx Prescription Drug Abuse: No - Advance Directive Resuscitation Status: Full Code Surrogate healthcare decision maker:: Brenda, significant other Family History Family History: CAD, DM, Hyperlipidemia, Hypertension Parental Family History Reviewed: Yes Children Family History Reviewed: No Sibling(s) Family History Reviewed.: Yes Medication/Allergy Home Medications: Aspirin [Ecotrin 81 mg EC Tablet] 81 mg PO DAILY 03/05/18 Cholecalciferol (Vitamin D3) [Vitamin D3 1000 Unit Tablet] 1,000 unit PO DAILY 03/05/18 Clopidogrel Bisulfate [Plavix 75 mg Tablet] 75 mg PO DAILY 03/05/18 Cyclobenzaprine HCl [Flexeril 10 mg Tablet] 10 mg PO DAILYP PRN 03/05/18 Gabapentin [Neurontin 300 mg Capsule] 300 mg PO Q8 03/05/18 Metformin HCl [Glucophage] 1,000 mg PO BID 03/05/18 Metoprolol Tartrate [Lopressor 25 mg Tablet] 12.5 mg PO Q12 03/05/18 Oxycodone HCl/Acetaminophen [Percocet 10-325 mg Tablet] 1 tab PO Q6HP PRN 03/05/18 Tamsulosin HCl [Flomax 0.4 mg Cap.sr] 0.4 mg PO DAILY 03/05/18 Vitamin A 10,000 unit PO DAILY 03/05/18 Atorvastatin Calcium [Lipitor 40 mg Tablet] 40 mg PO QHS #30 tablet 04/19/18 Pantoprazole Sodium [Protonix] 40 mg PO QAM #30 tablet. 04/19/18 Allergies/Adverse Reactions: morphine [Morphine] Adverse Reaction (Verified 04/17/18 13:12) Migraine Review of Systems Constitutional: ABSENT: chills, fever(s) Eyes: ABSENT: visual disturbances, other - Ocular pain Ears: ABSENT: hearing changes, other - Ear pain Nose, Mouth, and Throat: PRESENT: as per HPI, other - Pain. ABSENT: mouth pain, sore throat Cardiovascular: PRESENT: as per HPI, chest pain. ABSENT: dyspnea on exertion, edema, orthropnea, palpitations Respiratory: ABSENT: cough, dyspnea Gastrointestinal: PRESENT: nausea. ABSENT: abdominal pain, constipation, diarrhea, vomiting Genitourinary: ABSENT: dysuria, hematuria Musculoskeletal: ABSENT: deformity, joint swelling Integumentary: ABSENT: pruritus, rash Neurological: ABSENT: confusion, convulsions, focal weakness, memory loss Psychiatric: ABSENT: anxiety, depression Endocrine: ABSENT: cold intolerance, heat intolerance Hematologic/Lymphatic: ABSENT: easy bleeding, easy bruising Physical Exam Vital Signs: Temp Pulse Resp BP Pulse Ox 97.7 F 98 17 146/91 H 100 04/26/18 19:48 04/26/18 19:48 04/26/18 19:48 04/26/18 19:48 04/26/18 20:30 Intake & Output 04/25/18 04/26/18 04/27/18 23:59 23:59 23:59 Weight 100.9 kg General appearance: PRESENT: no acute distress, cooperative, obese Head exam: PRESENT: atraumatic, normocephalic Eye exam: ABSENT: conjunctiva pink, scleral icterus Ear exam: PRESENT: normal external ear exam. ABSENT: bleeding Mouth exam: PRESENT: dry mucosa, neck supple Neck exam: ABSENT: thyromegaly, tracheal deviation Respiratory exam: PRESENT: clear to auscultation rashmi, symmetrical, unlabored Cardiovascular exam: PRESENT: RRR. ABSENT: clicks, gallop, rubs Pulses: PRESENT: normal radial pulses, normal dorsalis pedis pul Vascular exam: PRESENT: normal capillary refill. ABSENT: pallor GI/Abdominal exam: PRESENT: normal bowel sounds, soft Rectal exam: PRESENT: deferred Extremities exam: ABSENT: joint swelling, pedal edema Musculoskeletal exam: PRESENT: full ROM, normal inspection Neurological exam: PRESENT: alert, oriented to person, oriented to place, oriented to time, oriented to situation, CN II-XII grossly intact. ABSENT: motor sensory deficit Psychiatric exam: PRESENT: appropriate affect, normal mood Skin exam: PRESENT: dry, intact, warm. ABSENT: jaundice, rash, urticaria Results Laboratory Results: 04/26/18 20:23 04/26/18 20:23 04/26/18 04/26/18 20:23 20:23 WBC 8.4 RBC 4.66 Hgb 9.7 L Hct 31.5 L MCV 68 L MCH 20.8 L MCHC 30.7 L RDW 20.7 H Plt Count 415 Seg Neutrophils % 71.5 Lymphocytes % 15.7 Monocytes % 9.0 Eosinophils % 2.3 Basophils % 1.5 Absolute Neutrophils 6.0 Absolute Lymphocytes 1.3 Absolute Monocytes 0.8 Absolute Eosinophils 0.2 Absolute Basophils 0.1 Sodium 139.6 Potassium 4.6 Chloride 108 H Carbon Dioxide 23 Anion Gap 9 BUN 15 Creatinine 1.48 H Est GFR ( Amer) 59 L Est GFR (Non-Af Amer) 49 L Glucose 196 H Calcium 9.4 Total Bilirubin 0.3 AST 15 L ALT < 6 L Alkaline Phosphatase 68 Total Protein 6.1 L Albumin 3.9 04/26/18 04/26/18 04/27/18 20:23 20:23 00:05 Creatine Kinase 42 L CK-MB (CK-2) 0.26 Troponin I < 0.012 0.037 Impressions: Chest X-Ray 04/26/18 20:16 IMPRESSION: Questionable emphysema. Coronary artery disease. copyright 2010 [employer]- All Rights Reserved Assessment & Plan - Diagnosis (1) Chest pain Qualifiers: Chest pain type: unspecified Qualified Code(s): R07.9 - Chest pain, u nspecified Is this a current diagnosis for this admission?: Yes Plan: Patient is admitted to [facility] on the ACS protocol. His chest pain will be treated with Percocet 11/21/2024 1 p.o. every 6 hours as needed pain as he does not tolerate morphine and Nubain was not effective on a prior visit. He was started on 1 mg/kg q. 12-hour Lovenox treatment as well as being continued on Plavix and aspirin. A cardiology consult with Dr. Dougherty has been submitted. (2) Coronary artery disease Qualifiers: Coronary Disease-Associated Artery/Lesion type: [place] artery [place] vs. transplanted heart: [place] heart Associated angina: angina presence unspe cified Qualified Code(s): I25.10 - Atherosclerotic heart disease of [place] coronary artery without angina pectoris Is this a current diagnosis for this admission?: Yes Plan: Patient will be continued on his usual coronary artery disease medications initially and adjustments will be made as directed by Dr. Dougherty. (3) Diabetes mellitus type 2 in obese Is this a current diagnosis for this admission?: Yes Plan: Patient will be continued on his current diabetic regiment which does not include metformin any longer. Hemoglobin A1c will be obtained to evaluate his prior therapy efficacy. (4) Hypertension Qualifiers: Hypertension type: essential hypertension Qualified Code(s): I10 - Essential (primary) hypertension Is this a current diagnosis for this admission?: Yes Plan: Patient be continued on his usual antihypertensive medications with adjustments made per Dr. Dougherty's input. - Time Time Spent: 30 to 50 Minutes Critical Time spent with patient: Less than 15 minutes Medications reviewed and adjusted accordingly: Yes Anticipated discharge: Home - Inpatient Certification Based on my medical assessment, after consideration of the patient's comorbidities, presenting symptoms, or acuity I expect that the services needed warrant INPATIENT care.: No I certify that my determination is in accordance with my understanding of Medicare's requirements for reasonable and necessary INPATIENT services [42 CFR 412.3e].: No Medical Necessity: Significant Comorbidiites Make Outpatient Treatment Too Risky, Need Close Monitoring Due to Risk of Patient Decompensation, Need For Continuous Telemetry Monitoring, Need for Pain Control, Risk of Complication if Not Cared For in Hospital, Risk of Diagnosis Which Will Require Inpatient Eval/Care/Monitoring
[2018-04-27] MEDS: OXYCODONE HCL IR 5 MG TABLET PO PRN ×4 (05:34→23:58)
[2018-04-27 05:59] LABS: HEMOGLOBIN 9.5 g/dL (13.5-17.0); MEAN CORPUSCULAR HEMOGLOBIN 20.4 pg (27.0-33.4); MEAN CORPUSCULAR HGB CONC 30.6 g/dL (32.0-36.0); MEAN CORPUSCULAR VOLUME 67 fl (80-97); PLATELET COUNT 395 10^3/uL (150-450); RED BLOOD COUNT 4.63 10^6/uL (4.35-5.55); RED CELL DISTRIBUTION WIDTH 21.4 % (11.5-14.0); WHITE BLOOD COUNT 6.8 10^3/uL (4.0-10.5)
[2018-04-27 06:17] LABS: ANION GAP 10 (5-19); BLOOD UREA NITROGEN 15 mg/dL (7-20); CALCIUM 9.2 mg/dL (8.4-10.2); CARBON DIOXIDE 24 mmol/L (22-30); CHLORIDE 106 mmol/L (98-107); CHOLESTEROL 170.74 mg/dL (0-200); CREATINE KINASE 37 U/L (55-170); GLUCOSE 170 mg/dL (75-110); POTASSIUM 4.8 mmol/L (3.6-5.0); SODIUM 139.6 mmol/L (137-145); TRIGLYCERIDES 148 mg/dL (<150)
[2018-04-27 06:27] LABS: DIRECT LDL 106 mg/dL (<100)
[2018-04-27 06:29] LABS: TROPONIN I 0.032 ng/mL
[2018-04-27 06:30] LABS: CREATINE KINASE MB < 0.22 ng/mL (<4.55)
[2018-04-27] MEDS ORDERED: METOPROLOL TARTRATE 25 MG TABLET PO SCH (10:00)
[2018-04-27] MEDS: ASPIRIN 81 MG TABLET, ENT COATED PO SCH (10:35)
[2018-04-27] MEDS: TAMSULOSIN HCL 0.4 MG CAP.SR.24H PO SCH (10:35)
[2018-04-27] MEDS: FAMOTIDINE INJ/PF 20 MG/2 ML SDV IV SCH ×2 (10:35→21:30)
[2018-04-27] MEDS: CHOLECALCIFEROL (D3) 1,000 UNIT TABLET PO SCH (10:36)
[2018-04-27] MEDS: ENOXAPARIN SODIUM INJ 100 MG/1 ML DISP.SYRIN SUBCUT SCH ×2 (10:36→21:31)
[2018-04-27] MEDS: CLOPIDOGREL BISULFATE 75 MG TABLET PO SCH (10:36)
[2018-04-27] MEDS: OXYCODONE-ACETAMINOPHEN 5-325 MG TABLET PO PRN ×3 (11:55→23:59)
[2018-04-27 13:26] LABS: TROPONIN I 0.015 ng/mL
[2018-04-27 13:27] LABS: CREATINE KINASE MB < 0.22 ng/mL (<4.55)
[2018-04-27] MEDS: VITAMIN A 10,000 UNIT CAPSULE PO SCH (15:51)
[2018-04-27] MEDS: ISOSORBIDE MONONITRATE 60 MG TAB.ER.24H PO SCH (15:52)
--- NOTE | 2018-04-27 17:19 | Progress Note ---
Provider Note Provider Note: Admitted overnight. Seen by Dr. Samuel today who felt that patient should be discharged and follow up with his marketing regional consultant, Dr. Louis, in [place]. Patient seen on 3W. Feeling better. No chest pain this afternoon. If feeling OK, will discharge to home on 04/28.
[2018-04-27 19:25] LABS: CREATINE KINASE MB < 0.22 ng/mL (<4.55); TROPONIN I < 0.012 ng/mL
--- NOTE | 2018-04-27 20:54 | PDOC CONSULTATION ---
Consultation-Blank Consultation: CARDIOLOGY CONSULTATION BY Dr.LAKSHMI Lagunas 04/27/2018.Patient seen at 2 PM. REASON FOR CONSULTATION: Chest pain in a patient with CAD. HISTORY OF PRESENT ILLNESS: Patient is a 58-year-old male with known history of coronary artery disease, and multiple MIs, and multiple stents, who states he was wall while shopping in [employer] today, when he an anxiety provoking news from his daughter. The patient became very anxious and shortly after had chest pressure in the left front of the chest with nausea and shortness of breath. This was radiating to the left side of the neck. This lasted for 15 minutes and subsequently had lesser intensity chest pressure even when he came to emergency room, and spontaneously subsided. He states he did not take any nitroglycerin when he had the chest pain/discomfort. He notes although the severity of the pain was high, it was not like when he had his prior myocardial infarctions. Of note he said when he had this onset of this chest pressure walking in [employer] did not increase the pain. There was no palpitations. Note is no dizziness or syncope or near syncope symptoms. At present the patient is pain-free. PAST MEDICAL HISTORY: The patient has a history of hypertension. He states he used to be a diabetic, but after his gastric bypass surgery is need for blood pressure medications and was decreased. He used to be on insulin prior to the gastric bypass surgery, and after he lost weight, he states that he was on metformin, which is a stopped in the March 2018 admission here at [facility], due to blood sugars being normal without the patient being on antidiabetic medication. He has history of hyperlipidemia. He also states that he needed lesser doses of antihypertensives to control his blood pressure. He has no history of thyroid disease. There is no history of TIA CVA. He states he has had several MIs, and he has had multiple stents. He states he is follows up with Dr. MICHAELA Louis, his natural gas engineer in [place]. He last saw him in [place] in the November/December 2017. He states he regularly follows up with him. Of note the patient has had multiple admissions to the ER, and at least 2 admissions to the hospital since 2018. In the end of 2017 he had his IV Lexiscan Cardiolite stress test which was negative for ischemia or IL. He subsequently in March 2018 had a negative repeat IV Lexiscan Cardiolite stress test. This study was a poor quality study and difficult to interpret in view of the patient having motion artifact and also significant bowel contamination artifact of the inferior wall. But probably there was no reversible ischemia, and there was no evidence of my IL. In view of the multiple admissions. I have discussed the need to the patient to have a cardiac catheterization. He wants to have it done at [facility], and wants to be discharged so that he can follow-up with them. Of note he states he does not have nitroglycerin prescribed for him, which we will. He has no history of chronic kidney disease. There is no history of TIA CVA. He has no history of asthma or COPD. He has no history of pulmonary embolism. There is no history of asthma or COPD. He has no history of sleep apnea. PAST MEDICAL HISTORY: His multiple cardiac catheterization, multiple percutaneous intervention procedures. He is also had gastric bypass surgery in the past. FAMILY HISTORY: Is positive for hypertension. His father also had valvular disease, but no coronary artery disease. SOCIAL HISTORY: The patient does not smoke, and states he has never smoked. There is no history of EtOH abuse. ALLERGIES: He is allergic to morphine. DISPOSITION: The patient is a full code. He states his ex- is his surrogate healthcare decision maker. REVIEW OF SYSTEMS:CONSTITUTIONAL: Denies any fever chills or rigors. He has no complains of generalized fatigue weakness. HEAD: Denies headaches or head injury. EYES: No history of amblyopia, diplopia, and no history of amaurosis fugax. EARS: No history of hearing loss. No history of tinnitus. No recurrent ear infections. MOUTH: No history of altered taste sensation. No history of ulcers in the mouth. No bleeding from the gums. NOSE: No history of hayfever, no history of nosebleeds. No history of nasal polyps. THROAT: No history of odynophagia or dysphagia. No history of recurrent sore throats. SKIN: No history of pruritus. No history of yellowish discoloration of the skin. No history of psoriasis. NECK: Denies neck pain. Although she did state that with the chest pain traveled up and shot into her neck and back. No goiter. No swelling in the neck. LUNGS: She has history of asthma and COPD. No history of asthma or wheezing. No history of cough or sputum production. No symptoms of upper or lower respiratory tract infection. No r history of pulmonary embolism. No symptoms suggestive of sleep apnea.. There is no history of hemoptysis. No history of pleuritic chest pain. HEART: She has a history of hypertension. He has history of coronary artery disease, IL . He has had several MIs and several stents as per history. He has had multiple episodes of chest pain. He has had 2- stress tests with the nuclear imaging in 2018 and in March 2018. No history of congestive heart failure. No history of syncope. No history of sudden . No history of PND orthopnea or leg edema. NO HISTORY OF PALPITATIONS. He has no history of cardiac arrhythmia. There is no history of pedal edema. METABOLIC: He has a prior history of morbid obesity, and he is now mildly obese after gastric bypass surgery. He has hyperlipidemia. There is no history of gout.. Muscular skeletal: No history of Arthritis, or rheumatoid arthritis rheumatoid arthritis he has no history of collagen vascular disease.. GI: No history of GERD. There is no history of GI bleed. No history of fatty food intolerance. No history of jaundice. No history of cirrhosis or ascites. No history of altered bowel movements. ENDOCRINE: History of diabetes mellitus in the past, now the patient is not on any antidiabetic medication, after his gastric bypass surgery.. No history of thyroid disease. No history of hirsutism. No history of excessive sweating. No history of heat or cold intolerance. No history of polydipsia polyuria. R ENAL: No history of chronic kidney disease. No history of SYMPTOMS OF UTI. NO HISTORY OF HEMATURIA PYURIA OR DYSURIA. NO HISTORY OF RECURRENT UTIS. No symptoms of enlarged prostate. KENO WRITER / RUNNER: No history of TIA or CVA. No history of headaches migraines or seizures. PSYCHIATRIC: He does have a history of anxiety, but no history depression. No history of suicidal ideation. VASCULAR: Rem. No history of DVT No history of calf or buttock claudication. HEMATOLOGICAL: No history of anemia. No history of bleeding diathesis. No history of clotting disorders. PHYSICAL EXAMINATION: The patient is mildly obese. He is in no acute distress. He has no chest pain or discomfort at present. He is well-groomed. He is in a cheerful mood, and does not appear to be anxious or apprehensive or depressed. Selected Entries 04/27/18 14:00 Temperature 97.9 F Temperature Oral Source Pulse Rate 69 Respiratory 16 Rate Blood Pressure 115/73 Blood Pressure 87 Mean BP Location Right Arm BP Position Supine O2 Sat by Pulse 100 Oximetry Oxygen Delivery Room Air Method HEAD: Is atraumatic normocephalic. EYES: Pupils are equal round regular react to light accommodation. Extraocular movements are normal. There are no clinical pallor. There is no scleral icterus. EARS: Tympanic memories are intact. External auditory canals are clear NOSE: There is no deviated nasal septum. There is no inflammation nasal mucous membrane. MOUTH: Mucous membranes of the mouth are moist. Tongue is moist. There is no ulcers. There is no bleeding from the gums. THROAT: There is no exudates in the throat. There is no redness of the oropharynx. SKIN: There is no skin rashes or skin lesions.. There is no petechia or ecchymosis. NECK: Is supple. There is no JVD. Carotids are equal. There is no carotid bruits. There is no carotid delay. There is no lymphadenopathy. There is no goiter. There is no accessory muscle respiration use.. Trachea central. LUNGS: Lungs are clear to auscultation percussion, without any rhonchi rales or wheezing. On percussion there is hyperresonance. On palpation there is no chest wall tenderness. HEART: S1-S2 is heard. There is no S3 gallop. There is no S4 gallop. There is systolic murmur left sternal border and the apex there is no rub. ABDOMEN: Is soft. Nontender. There is no hepatosplenomegaly. Bowel sounds are well heard. There is no tender areas masses. EXTREMITIES: Femorals are well felt. There is no femoral bruits. Leg pulses are well felt. There is no pedal edema. There is no DVT or cellulitis. There is no calf tenderness. There is no cyanosis or clubbing. Capillary refill is normal. KENO WRITER / RUNNER: The patient is conscious awake alert oriented x3 with no focal deficits. PSYCHIATRIC: The patient judgment insight are intact. His affect is normal. Current Medications Generic Name Dose Route Start Last Admin Trade Name Freq PRN Reason Stop Dose Admin Acetaminophen 650 mg 04/27/18 01:51 04/27/18 03:19 Tylenol 325 Mg Tablet PO 05/27/18 01:50 650 mg Q4HP PRN Administration For headache, pain or fever Aspirin 81 mg 04/27/18 10:00 04/27/18 10:35 Ecotrin 81 Mg Ec Tablet PO 05/27/18 09:59 81 mg DAILY SYLVIA Administration Atorvastatin Calcium 40 mg 04/27/18 22:00 Lipitor 40 Mg Tablet PO 05/27/18 21:59 QHS SYLVIA Cholecalciferol 1,000 unit 04/27/18 10:00 04/27/18 10:36 Vitamin D3 1000 Unit Tablet PO 05/27/18 09:59 1,000 unit DAILY SYLVIA Administration Clopidogrel Bisulfate 75 mg 04/27/18 10:00 04/27/18 10:36 Plavix 75 Mg Tablet PO 05/27/18 09:59 75 mg DAILY SYLVIA Administration Diazepam 10 mg 04/27/18 01:41 Valium 5 Mg Tablet PO 05/04/18 01:40 Q4HP PRN ANXIETY Enoxaparin Sodium 100 mg 04/27/18 10:00 04/27/18 10:36 Lovenox Inj 100 Mg/1 Ml Disp.Syrin SUBCUT 05/27/18 09:59 100 mg Q12 SYLVIA Administration Famotidine 20 mg 04/27/18 10:00 04/27/18 10:35 Pepcid Inj/Pf 20 Mg/2 Ml Sdv IV 05/27/18 09:59 20 mg Q12 SYLVIA Administration Isosorbide Mononitrate 30 mg 04/27/18 14:30 04/27/18 15:52 Imdur 60 Mg Tablet.Er PO 05/27/18 14:29 30 mg DAILY SYLVIA Administration Prescribed by me. Metoprolol Tartrate 25 mg 04/27/18 22:00 Lopressor 25 Mg Tablet PO 05/27/18 21:59 Q12 SYLVIA Nitroglycerin 1 tab 04/27/18 01:28 04/27/18 01:45 Nitrostat 0.4 Mg (1/150 Gr) Tabs 25/Bottle SL 0.4 mg ASDIR PRN Administration chest pain Nitroglycerin 1 tab 04/27/18 01:41 Nitrostat 0.4 Mg (1/150 Gr) Tabs 25/Bottle SL Q5MP PRN FOR CHEST PAIN Oxycodone HCl 5 mg 04/27/18 04:16 04/27/18 17:57 Oxy-Ir 5 Mg Tablet PO 05/04/18 04:15 5 mg Q6HP PRN Administration PAIN Oxycodone/Acetaminophen 1 tab 04/27/18 04:15 04/27/18 17:58 Percocet 5-325 Mg Tablet PO 05/04/18 04:14 1 tab Q6HP PRN Administration PAIN Sodium Chloride 2.5 ml 04/27/18 06:00 04/27/18 15:46 Saline Flush 2.5 Ml Monoject Prefil Syrin IV 05/27/18 05:59 Not Given Q8 SYLVIA Tamsulosin HCl 0.4 mg 04/27/18 10:00 04/27/18 10:35 Flomax 0.4 Mg Cap.Sr PO 05/27/18 09:59 0.4 mg DAILY SYLVIA Administration Vitamin A 10,000 unit 04/27/18 10:00 04/27/18 15:51 Vitamin A 10,000 Unit Capsule PO 05/27/18 09:59 10,000 unit DAILY SYLVIA Administration Discontinued Medications Generic Name Dose Route Start Last Admin Trade Name Freq PRN Reason Stop Dose Admin Aspirin 324 mg 04/26/18 20:15 04/26/18 20:52 Aspirin 81 Mg Chewable Tablet PO 04/26/18 20:16 324 mg NOW ONE Administration Metoprolol Tartrate 12.5 mg 04/27/18 10:00 04/27/18 10:35 Lopressor 25 Mg Tablet PO 05/27/18 09:59 12.5 mg Q12 SYLVIA Administration Prescribed note by Nalbuphine HCl 10 mg 04/27/18 01:52 04/27/18 03:39 Nubain Inj 10 Mg/1 Ml Ampule IV 05/04/18 01:51 10 mg Q3HP PRN Administration FOR PAIN Aspirin [Ecotrin 81 mg EC Tablet] 81 mg PO DAILY 03/05/18 Cholecalciferol (Vitamin D3) [Vitamin D3 1000 Unit Tablet] 1,000 unit PO DAILY 03/05/18 Clopidogrel Bisulfate [Plavix 75 mg Tablet] 75 mg PO DAILY 03/05/18 Cyclobenzaprine HCl [Flexeril 10 mg Tablet] 10 mg PO DAILYP PRN 03/05/18 Gabapentin [Neurontin 300 mg Capsule] 300 mg PO Q8 03/05/18 Metformin HCl [Glucophage] 1,000 mg PO BID 03/05/18 Metoprolol Tartrate [Lopressor 25 mg Tablet] 12.5 mg PO Q12 03/05/18 Oxycodone HCl/Acetaminophen [Percocet 10-325 mg Tablet] 1 tab PO Q6HP PRN 03/05/18 Tamsulosin HCl [Flomax 0.4 mg Cap.sr] 0.4 mg PO DAILY 03/05/18 Vitamin A 10,000 unit PO DAILY 03/05/18 Labs- Entire Visit 04/26/18 04/26/18 04/26/18 20:23 20:23 20:23 WBC 8.4 RBC 4.66 Hgb 9.7 L Hct 31.5 L MCV 68 L MCH 20.8 L MCHC 30.7 L RDW 20.7 H Plt Count 415 Seg Neutrophils % 71.5 Lymphocytes % 15.7 Monocytes % 9.0 Eosinophils % 2.3 Basophils % 1.5 Absolute Neutrophils 6.0 Absolute Lymphocytes 1.3 Absolute Monocytes 0.8 Absolute Eosinophils 0.2 Absolute Basophils 0.1 Sodium 139.6 Potassium 4.6 Chloride 108 H Carbon Dioxide 23 Anion Gap 9 BUN 15 Creatinine 1.48 H Est GFR ( Amer) 59 L Est GFR (Non-Af Amer) 49 L Glucose 196 H POC Glucose Calcium 9.4 Total Bilirubin 0.3 Direct Bilirubin 0.2 Neonat Total Bilirubin Not Reportable Neonat Direct Bilirubin Not Reportable Neonat Indirect Bili Not Reportable AST 15 L ALT < 6 L Alkaline Phosphatase 68 Creatine Kinase 42 L CK-MB (CK-2) 0.26 Troponin I < 0.012 Total Protein 6.1 L Albumin 3.9 Triglycerides Cholesterol LDL Cholesterol Direct VLDL Cholesterol HDL Cholesterol 04/27/18 04/27/18 04/27/18 00:05 05:50 05:50 WBC 6.8 RBC 4.63 Hgb 9.5 L Hct 31.0 L MCV 67 L MCH 20.4 L MCHC 30.6 L RDW 21.4 H Plt Count 395 Seg Neutrophils % Lymphocytes % Monocytes % Eosinophils % Basophils % Absolute Neutrophils Absolute Lymphocytes Absolute Monocytes Absolute Eosinophils Absolute Basophils Sodium Potassium Chloride Carbon Dioxide Anion Gap BUN Creatinine Est GFR ( Amer) Est GFR (Non-Af Amer) Glucose POC Glucose Calcium Total Bilirubin Direct Bilirubin Neonat Total Bilirubin Neonat Direct Bilirubin Neonat Indirect Bili AST ALT Alkaline Phosphatase Creatine Kinase CK-MB (CK-2) < 0.22 Troponin I 0.037 0.032 Total Protein Albumin Triglycerides Cholesterol LDL Cholesterol Direct VLDL Cholesterol HDL Cholesterol 04/27/18 04/27/18 04/27/18 05:50 12:23 12:23 WBC RBC Hgb Hct MCV MCH MCHC RDW Plt Count Seg Neutrophils % Lymphocytes % Monocytes % Eosinophils % Basophils % Absolute Neutrophils Absolute Lymphocytes Absolute Monocytes Absolute Eosinophils Absolute Basophils Sodium 139.6 Potassium 4.8 Chloride 106 Carbon Dioxide 24 Anion Gap 10 BUN 15 Creatinine 1.35 H Est GFR ( Amer) > 60 Est GFR (Non-Af Amer) 55 L Glucose 170 H POC Glucose Calcium 9.2 Total Bilirubin Direct Bilirubin Neonat Total Bilirubin Neonat Direct Bilirubin Neonat Indirect Bili AST ALT Alkaline Phosphatase Creatine Kinase 37 L 35 L CK-MB (CK-2) < 0.22 Troponin I 0.015 Total Protein Albumin Triglycerides 148 Cholesterol 170.74 LDL Cholesterol Direct 106 H VLDL Cholesterol 30.0 HDL Cholesterol 45 04/27/18 04/27/18 04/27/18 16:43 18:35 18:35 WBC RBC Hgb Hct MCV MCH MCHC RDW Plt Count Seg Neutrophils % Lymphocytes % Monocytes % Eosinophils % Basophils % Absolute Neutrophils Absolute Lymphocytes Absolute Monocytes Absolute Eosinophils Absolute Basophils Sodium Potassium Chloride Carbon Dioxide Anion Gap BUN Creatinine Est GFR ( Amer) Est GFR (Non-Af Amer) Glucose POC Glucose 242 H Calcium Total Bilirubin Direct Bilirubin Neonat Total Bilirubin Neonat Direct Bilirubin Neonat Indirect Bili AST ALT Alkaline Phosphatase Creatine Kinase 35 L CK-MB (CK-2) < 0.22 Troponin I < 0.012 Total Protein Albumin Triglycerides Cholesterol LDL Cholesterol Direct VLDL Cholesterol HDL Cholesterol Chest X-Ray 04/26/18 20:16 IMPRESSION: Questionable emphysema. Coronary artery disease. copyright 2010 [employer]- All Rights Reserved EKG: Sinus rhythm. Nondiagnostic minimal ST depression lateral leads, otherwise EKG within normal limits. ST depression may be due to baseline artifact. IMPRESSION/RECOMMENDATION: 1. Chest pain: No evidence of acute EKG changes, and no evidence of IL by enzymes. Hence noncardiac. In view of the patient's multiple MIs in the past by history and history of multiple stents, and 2- stress tests with nuclear im aging, will strongly recommend the patient undergo cardiac catheterization to define patient's coronary anatomy, and relate the symptoms to either cardiac or noncardiac etiology. This has been discussed extensively with the patient. The patient wants to get it done at [place] with his doctor Dr. Heriberto trevizo, who is his natural gas engineer. In the meantime we will increase the patient's metoprolol to 25 mg p.o. twice daily, and also add Imdur 30 mg p.o. daily. Continue his aspirin and Plavix. 2. Coronary artery disease: History of MIs in the several, and history of stent placements. Treatment as mentioned above. 3. Hypertension: Blood pressure well controlled. 4. Hyperlipidemia: Recommend continue statins. 5. Most likely has significant anxiety: Would recommend treating the patient with anti-anxiolytic agents. Medications reviewed. Medications changed and new ones started. Medical decision making is of high complexity. Management plan discussed with the attending physician on the case. Would recommend discharge the patient home to follow-up with his natural gas engineer. 60 minutes spent on this patient with more than 50% time spent in direct patient care. We will sign off.
[2018-04-27] MEDS: METOPROLOL TARTRATE 25 MG TABLET PO SCH (21:30)
[2018-04-27] MEDS ORDERED: ATORVASTATIN CALCIUM 40 MG TABLET PO SCH (22:00)
[2018-04-28 04:42] VITALS: BP 130/87
[2018-04-28 06:48] LABS: HEMATOCRIT 29.4 % (37.9-51.0); HEMOGLOBIN 8.9 g/dL (13.5-17.0); MEAN CORPUSCULAR HEMOGLOBIN 20.3 pg (27.0-33.4); MEAN CORPUSCULAR HGB CONC 30.2 g/dL (32.0-36.0); MEAN CORPUSCULAR VOLUME 67 fl (80-97); PLATELET COUNT 354 10^3/uL (150-450); RED BLOOD COUNT 4.38 10^6/uL (4.35-5.55); RED CELL DISTRIBUTION WIDTH 21.5 % (11.5-14.0); WHITE BLOOD COUNT 6.2 10^3/uL (4.0-10.5)
[2018-04-28] MEDS: OXYCODONE-ACETAMINOPHEN 5-325 MG TABLET PO PRN (07:00)
[2018-04-28] MEDS: OXYCODONE HCL IR 5 MG TABLET PO PRN (07:01)
[2018-04-28 07:23] LABS: ANION GAP 9 (5-19); BLOOD UREA NITROGEN 12 mg/dL (7-20); CALCIUM 8.9 mg/dL (8.4-10.2); CARBON DIOXIDE 23 mmol/L (22-30); CHLORIDE 105 mmol/L (98-107); GLUCOSE 98 mg/dL (75-110); POTASSIUM 4.3 mmol/L (3.6-5.0); SODIUM 137.1 mmol/L (137-145)
[2018-04-28] MEDS: ENOXAPARIN SODIUM INJ 100 MG/1 ML DISP.SYRIN SUBCUT SCH (09:14)
[2018-04-28] MEDS: FAMOTIDINE INJ/PF 20 MG/2 ML SDV IV SCH (09:14)
[2018-04-28] MEDS: ISOSORBIDE MONONITRATE 60 MG TAB.ER.24H PO SCH (09:16)
[2018-04-28] MEDS: TAMSULOSIN HCL 0.4 MG CAP.SR.24H PO SCH (09:16)
[2018-04-28] MEDS: CHOLECALCIFEROL (D3) 1,000 UNIT TABLET PO SCH (09:16)
[2018-04-28] MEDS: ASPIRIN 81 MG TABLET, ENT COATED PO SCH (09:16)
[2018-04-28] MEDS: METOPROLOL TARTRATE 25 MG TABLET PO SCH (09:17)
[2018-04-28] MEDS: VITAMIN A 10,000 UNIT CAPSULE PO SCH (09:17)
[2018-04-28] MEDS: CLOPIDOGREL BISULFATE 75 MG TABLET PO SCH (09:17)
--- NOTE | 2018-04-28 09:33 | PDOC DISCHARGE SUMMARY ---
General - Admit/Disc Date/PCP Admission Date/Primary Care Provider: 04/27/18 01:54 JAMES DAWKINS MD Discharge Date: 04/28/18 - Discharge Diagnosis (1) Chest pain Is this a current diagnosis for this admission?: Yes Summary: Presented to ER on 04/27 with acute chest pain. Was admitted to [facility] on the ACS protocol after being found to have elevated troponins in pt with high risk history. Started on 1 mg/kg q. 12-hour Lovenox in addition to home Plavix and aspirin. Treated with Nubain and morphine for pain. Was seen by cardiology (Dr. Dougherty). - Labs: Initial troponin elevation trended down and was negative at 4th reading - At discharge was not having chest pain - Discharged on home medications + new script for Imbur 60mg ER daily - Patient should call his outpatient associate professor of kinesiology (Dr. Louis) with [facility] to discuss timing of repeat diagnostic cath - Dr. Samuel will contact Dr. Louis as well - Advised to return to the ED or call his doctor if he were to experience new or worsening symptoms (2) Diabetes mellitus type 2 in obese Is this a current diagnosis for this admission?: No Summary: Blood sugars acceptable during admission (3) Coronary disease sp stenting CABG Is this a current diagnosis for this admission?: Yes Summary: Extensive cardiac history; management per above (4) Hypertension Is this a current diagnosis for this admission?: No Summary: Acceptable BP range duringa admission with SBP ranging in 130-140s - Ideally will have tighter control; will defer to outpatient physicians to optomize regimen - Additional Information Resuscitation Status: Full Code Discharge Diet: Cardiac, Diabetic Discharge Activity: Balance Activity w/Rest Prescriptions: Isosorbide Mononitrate [Imdur 60 mg Tablet.er] 30 mg PO DAILY #30 tab.er.24h Home Medications: Aspirin [Ecotrin 81 mg EC Tablet] 81 mg PO DAILY 03/05/18 Cholecalciferol (Vitamin D3) [Vitamin D3 1000 Unit Tablet] 1,000 unit PO DAILY 03/05/18 Clopidogrel Bisulfate [Plavix 75 mg Tablet] 75 mg PO DAILY 03/05/18 Cyclobenzaprine HCl [Flexeril 10 mg Tablet] 10 mg PO DAILYP PRN 03/05/18 Gabapentin [Neurontin 300 mg Capsule] 300 mg PO Q8 03/05/18 Metformin HCl [Glucophage] 1,000 mg PO BID 03/05/18 Metoprolol Tartrate [Lopressor 25 mg Tablet] 12.5 mg PO Q12 03/05/18 Oxycodone HCl/Acetaminophen [Percocet 10-325 mg Tablet] 1 tab PO Q6HP PRN 03/05/18 Tamsulosin HCl [Flomax 0.4 mg Cap.sr] 0.4 mg PO DAILY 03/05/18 Vitamin A 10,000 unit PO DAILY 03/05/18 Atorvastatin Calcium [Lipitor 40 mg Tablet] 40 mg PO QHS #30 tablet 04/19/18 Pantoprazole Sodium [Protonix] 40 mg PO QAM #30 tablet.dr 04/19/18 Isosorbide Mononitrate [Imdur 60 mg Tablet.er] 30 mg PO DAILY #30 tab.er.24h 04/28/18 History of Present Illness History of Present Illness: STEPHANIE MONTEMAYOR is a 58 year old male who presented to the emergency room with an acute onset of chest pain. He admits that he was at [employer] when he got a call from his daughter who related some news that was extremely anxiety provoking for him. Shortly after her initial announcement of bad news he began having constant, severe crushing pressure, substernal chest pain with radiation to his left neck as a intense throbbing lasting for 15 minutes and then subsiding while his severe chest pain persisted for more than an hour including pain while in the emergency room. The pain was also associated with a brief period of nausea which resolved spontaneously. He denies other associated symptoms and has not identified any aggravating or ameliorating factors for his chest pain. He acknowledges prior similar episodes with his heart attacks and other severe angina flareups. In the emergency room he was found to have an initial normal troponin but his second troponin increased to 0.037 and though he had no changes on his EKG it was felt that he should be admitted to inpatient observation status for further evaluation and treatment as an acute coronary syndrome protocol patient. Physical Exam Vital Signs: Temp Pulse Resp BP Pulse Ox 97.4 F 61 16 130/87 H 100 04/28/18 04:07 04/28/18 07:00 04/28/18 04:07 04/28/18 04:07 04/28/18 04:07 Intake & Output 04/27/18 04/28/18 04/29/18 05:59 06:59 06:59 Intake Total Balance Weight General appearance: PRESENT: no acute distress, cooperative, well-developed, well-nourished Head exam: PRESENT: normocephalic Mouth exam: PRESENT: moist Respiratory exam: PRESENT: clear to auscultation rashmi, unlabored. ABSENT: tachypnea Cardiovascular exam: PRESENT: +S1, +S2. ABSENT: tachycardia GI/Abdominal exam: PRESENT: soft. ABSENT: tenderness Extremities exam: PRESENT: full ROM. ABSENT: +1 edema Neurological exam: PRESENT: alert, awake, CN II-XII grossly intact, normal gait Psychiatric exam: PRESENT: appropriate affect, normal mood Skin exam: PRESENT: dry, intact Results Laboratory Results: 04/28/18 05:44 04/28/18 05:44 04/28/18 04/28/18 05:44 05:44 WBC 6.2 RBC 4.38 Hgb 8.9 L Hct 29.4 L MCV 67 L MCH 20.3 L MCHC 30.2 L RDW 21.5 H Plt Count 354 Sodium 137.1 Potassium 4.3 Chloride 105 Carbon Dioxide 23 Anion Gap 9 BUN 12 Creatinine 1.17 Est GFR ( Amer) > 60 Est GFR (Non-Af Amer) > 60 Glucose 98 Calcium 8.9 04/26/18 04/26/18 04/27/18 20:23 20:23 00:05 Creatine Kinase 42 L CK-MB (CK-2) 0.26 Troponin I < 0.012 0.037 04/27/18 04/27/18 04/27/18 05:50 05:50 12:23 Creatine Kinase 37 L 35 L CK-MB (CK-2) < 0.22 Troponin I 0.032 04/27/18 04/27/18 04/27/18 12:23 18:35 18:35 Creatine Kinase 35 L CK-MB (CK-2) < 0.22 < 0.22 Troponin I 0.015 < 0.012 Impressions: Chest X-Ray 04/26/18 20:16 IMPRESSION: Questionable emphysema. Coronary artery disease. copyright 2010 [employer]- All Rights Reserved Qualifiers - * PATIENT BEING DISCHARGED WITH ANY OF THE FOLLOWING DIAGNOSIS: No Plan Time Spent: Greater than 30 Minutes
--- NOTE | 2018-04-28 12:29 | EKG REPORT ---
SEVERITY:- NORMAL ECG - SINUS RHYTHM : Confirmed by: Nguyen Dougherty MD 28-Apr-2018 12:28:50
== END 2018-04-28 11:07 | disposition home or self-care (01) ==
LOC: ER 19:28 → EH 04-27 01:54 → 3W 04-27 14:34
PROVIDERS: ADMIT Internal Medicine; ATTEND Internal Medicine
DX: R07.89 Other chest pain (principal); R79.89 Other specified abnormal findings of blood chemistry; E11.9 Type 2 diabetes mellitus without complications; E66.9 Obesity, unspecified; I25.10 Atherosclerotic heart disease of native coronary artery without angina pectoris; R11.0 Nausea; I10 Essential (primary) hypertension; I25.2 Old myocardial infarction; R06.02 Shortness of breath; E78.5 Hyperlipidemia, unspecified; M54.2 Cervicalgia; Z98.84 Bariatric surgery status; Z95.1 Presence of aortocoronary bypass graft; Z79.84 Long term (current) use of oral hypoglycemic drugs; Z79.899 Other long term (current) drug therapy; Z79.82 Long term (current) use of aspirin; Z95.5 Presence of coronary angioplasty implant and graft; Z82.49 Family history of ischemic heart disease and other diseases of the circulatory system; Z79.02 Long term (current) use of antithrombotics/antiplatelets; Z86.73 Personal history of transient ischemic attack (TIA), and cerebral infarction without residual deficits
CPT/HCPCS: 93005 ×2; 99285; 36415 ×3; 82553 ×2; 82962; 82550 ×2; 85025; 85027 ×2; 80048 ×2; 80053; 84484 ×2; 80061; 71045; 93010 ×2; G0378 ×3; A9270 ×21; J2300; J3490 ×2; J1650; S0028

== ENCOUNTER 2018-05-03 02:09 | Emergency (ER) | payer MEDICARE ==
--- NOTE | 2018-05-03 03:28 | ER Document Report ---
ED Cardiac - General Chief Complaint: Chest Pain > 30 Stated Complaint: CHEST PAIN Time Seen by Provider: 05/03/18 02:58 Primary Care Provider: RENATE LOUIS MD [NO LOCAL MD] - Follow up in 3-5 days Notes: Patient is a 58-year-old male who presents emergency department with a chief complaint of chest pain. His chest pain started at 0045 this morning. He describes his pain as a elephant sitting on his chest. He thought that it may possibly be due to his hiatal hernia and that he needs a 45 minutes prior to his chest pain. Does complain of some shortness of breath. He took a dose of Protonix and 30 minutes later he took a half dose of Protonix and did not relieve his symptoms. 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 His most recent one was October 27 and he had CABG on October 30. He also has been seen here x4 chest pain and has been watched for ACS. His past medical history includes ACS, hiatal hernia, hypertension, diabetes, cholecystectomy, gastric bypass surgery. He is currently on Plavix, aspirin, metoprolol, gabapentin, Protonix, and vitamin D. TRAVEL OUTSIDE OF THE [place] IN LAST 30 DAYS: No - Related Data Allergies/Adverse Reactions: morphine [Morphine] Adverse Reaction (Verified 04/17/18 13:12) Migraine Past Medical History - Social History Smoking Status: Never Smoker Frequency of alcohol use: Occasional Drug Abuse: None Family History: CAD, DM, Hyperlipidemia, Hypertension - Past Medical History Cardiac Medical History: Reports: Hx Coronary Artery Disease, Hx Heart Attack - x6, Hx Hypercholesterolemia, Hx Hypertension Denies: Hx Congestive Heart Failure Pulmonary Medical History: Denies: Hx Asthma, Hx Bronchitis, Hx COPD, Hx Pneumonia, Hx Respiratory Failure, Hx Tuberculosis Neurological Medical History: Reports: Hx Cerebrovascular Accident - x1. Denies: Hx Seizures Endocrine Medical History: Reports: Hx Diabetes Mellitus Type 2. Denies: Hx Diabetes Mellitus Type 1, Hx Hyperthyroidism, Hx Hypothyroidism Renal/ Medical History: Reports: Hx Benign Prostatic Hyperplasia, Hx Kidney Stones. Denies: Hx End Stage Renal Disease, Hx Peritoneal Dialysis GI Medical History: Reports: Hx Gastroesophageal Reflux Disease. Denies: Hx Cirrhosis, Hx Hepatitis, Hx Ulcer Musculoskeletal Medical History: Denies Hx Arthritis, Denies Hx Gout, Denies Hx Multiple Sclerosis Skin Medical History: Denies Hx Eczema, Denies Hx Psoriasis Psychiatric Medical History: Denies: Hx Bipolar Disorder, Hx Depression, Hx Schizophrenia Infectious Medical History: Denies: Hx Hepatitis Past Surgical History: Reports: Hx Abdominal Surgery, Hx Cardiac Catheterization, Hx Cardiac Surgery - triple bipass, Hx Cholecystectomy, Hx Coronary Artery Bypass Graft, Hx Coronary Stent - x9, Hx Gastric Bypass Surgery - Immunizations Hx Diphtheria, Pertussis, Tetanus Vaccination: Yes Hx Pneumococcal Vaccination: 11/19/14 Review of Systems - Review of Systems Notes: REVIEW OF SYSTEMS: CONSTITUTIONAL : Denies recent illness. Denies recent unintentional weight loss. Denies fever, chills, or sweats. EENT: Denies eye, ear, throat, or mouth pain, discharge, or symptoms. Denies nasal or sinus congestion. CARDIOVASCULAR: See HPI RESPIRATORY: Denies shortness of breath, cough, congestion, difficulty breathing, or wheezing. GASTROINTESTINAL: Denies nausea, vomiting, and diarrhea. Denies abdominal pain. Denies constipation. GENITOURINARY: Denies difficulty urinating, burning, blood in urine, urgency or frequency. MUSCULOSKELETAL: Denies neck and back pain. Denies joint pain or swelling. SKIN: Denies rash, itchiness, or lesions HEMATOLOGIC : Denies easy bruising or bleeding. LYMPHATIC: Denies swollen, painful, enlarged glands. NEUROLOGICAL: Denies no numbness or tingling denies weakness. Denies headache. Denies altered mental status. Denies alteration in speech. PSYCHIATRIC: Denies stress, anxiety, alteration in sleep patterns, or depression. All other systems reviewed and negative. Physical Exam - Vital signs Vitals: Temp Pulse Resp BP Pulse Ox 98.1 F 108 H 16 158/113 H 100 05/03/18 02:12 05/03/18 02:12 05/03/18 02:12 05/03/18 02:12 05/03/18 02:12 - Notes Notes: PHYSICAL EXAMINATION: GENERAL: Appears well, healthy, well-nourished, no acute distress. HEAD: Normocephalic, atraumatic. EYES: PERRL, conjunctiva normal, all extraocular movements intact, sclera nonicteric ENT: Moist mucous membranes. NECK: Supple, no noticeable swelling, redness, rash. Normal range of motion. LUNGS: Equal breath sounds bilaterally and clear to auscultation. No wheezes rales or rhonchi. CARDIOVASCULAR: S1-S2, regular rate, regular rhythm. Radial pulses 2+, normal. ABDOMEN: Normoactive bowel sounds. Soft, nontender, no guarding, no rebound tenderness, and no masses palpated. EXTREMITIES: Normal strength and range of motion, no pitting or edema. No cyanosis. NEUROLOGICAL: Moves all extremities upon command. Strength 5/5 in all extremities. PSYCH: Normal mood, normal affect. SKIN: Warm, dry. No rash, lesions, ulcerations noted. Normal skin turgor. Course - Re-evaluation Re-evalutation: 05/03/18 05:00 Patient's initial troponin is negative at this time. His chest x-ray is normal with no acute abnormalities. His chemistries and hematology are unremarkable. At this time he will have a second draw of his troponins and be reevaluated. 05/03/18 06:40 Patient second troponin has roe to 0.092. I will contact the hospitalist service to have the patient admitted for observation for ACS rule out. 05/03/18 08:[address] Flores, the hospitalist doctor and he is recommending that I speak with Dr. Dougherty. I spoke with Dr. Dougherty and he would like me to speak to the patient's job placement counselor, Dr. Louis and see if he would like the patient to be transferred for a cardiac cath or see him in the office. 05/03/18 08:[address] Louis office and was given his pager number I have paged him at this time. Will await callback. 05/03/18 08:[address] Louis and presented the patient's case to him. Dr. Louis would like the patient to have the patient follow up in the office and make an appointment for next week. He will be evaluated in the office and Dr. Louis will develop the plan of care for him there. I have discussed this with the patient and he is in agreement with this plan. He will call Dr. Louis if he has a chest pain. Verbal discharge instructions were given to the patient. They verbalized understanding. They are stable for discharge. - Vital Signs Vital signs: Temp Pulse Resp BP Pulse Ox 98.1 F 108 H 11 L 146/88 H 100 05/03/18 02:12 05/03/18 02:12 05/03/18 09:22 05/03/18 09:22 05/03/18 09:22 - Laboratory Result Diagrams: 05/03/18 02:30 05/03/18 02:30 Laboratory results interpreted by me: 05/03/18 05/03/18 02:30 02:30 Hgb 9.9 L Hct 33.0 L MCV 69 L MCH 20.8 L MCHC 30.1 L RDW 22.0 H Chloride 108 H Creatinine 1.43 H Est GFR (Non-Af Amer) 51 L Glucose 257 H AST 14 L Creatine Kinase 40 L Discharge - Discharge Clinical Impression: Chest pain Condition: Stable Disposition: HOME, SELF-CARE Additional Instructions: You were seen today in the emergency department for chest pain. Your card iologist wants you to follow-up in the office. Please call them as soon as possible to make an appointment. If you develop chest pain, call your job placement counselor. Ask him what you should do about your chest pain. Your previous stress test was normal. If you have worsening symptoms, or have any symptoms that are worrisome to you, please return to the emergency department. Referrals: RENATE LOUIS MD [NO LOCAL MD] - Follow up in 3-5 days
--- NOTE | 2018-05-03 04:28 | RADIOLOGY REPORT (SQ) ---
EXAM DESCRIPTION: XR CHEST 1 VIEW COMPLETED DATE/TME: 05/03/2018 03:24 CLINICAL HISTORY: 58 years, Male, chest pain COMPARISON: 04/26/2018 NUMBER OF VIEWS: One TECHNIQUE: AP view of the chest LIMITATIONS: None. FINDINGS: The lungs are clear. The heart is normal in size. There is no pneumothorax or pleural fusion. Median sternotomy wires are noted. IMPRESSION: No acute cardiopulmonary abnormality copyright 2010 [employer]- All Rights Reserved
[2018-05-03 05:37] LABS: ABSOLUTE BASOPHILS # (AUTO) 0.1 10^3/uL (0.0-0.2); ABSOLUTE EOSINOPHILS # (AUTO) 0.2 10^3/uL (0.0-0.6); ABSOLUTE MONOCYTES (AUTO) 0.7 10^3/uL (0.1-1.4); ABSOLUTE NEUT (AUTO) 4.8 10^3/uL (1.7-8.2); HEMOGLOBIN 9.9 g/dL (13.5-17.0); MEAN CORPUSCULAR HEMOGLOBIN 20.8 pg (27.0-33.4); MEAN CORPUSCULAR HGB CONC 30.1 g/dL (32.0-36.0); MEAN CORPUSCULAR VOLUME 69 fl (80-97); MONOCYTES % (AUTO) 8.7 % (3-13); PLATELET COUNT 413 10^3/uL (150-450); RED BLOOD COUNT 4.77 10^6/uL (4.35-5.55); SEGMENTED NEUTROPHILS % (AUTO) 61.3 % (42-78); TOTAL CELLS COUNTED % (AUTO) 100 %; WHITE BLOOD COUNT 7.8 10^3/uL (4.0-10.5)
[2018-05-03 05:45] LABS: ALANINE AMINOTRANSFERASE 22 U/L (21-72); ALKALINE PHOSPHATASE 83 U/L (38-126); ANION GAP 10 (5-19); ASPARTATE AMINO TRANSFERASE 14 U/L (17-59); BILIRUBIN,DIRECT 0.2 mg/dL (0.0-0.4); BILIRUBIN,TOTAL 0.3 mg/dL (0.2-1.3); BLOOD UREA NITROGEN 15 mg/dL (7-20); CALCIUM 9.3 mg/dL (8.4-10.2); CARBON DIOXIDE 22 mmol/L (22-30); CHLORIDE 108 mmol/L (98-107); CREATINE KINASE 40 U/L (55-170); GLUCOSE 257 mg/dL (75-110); POTASSIUM 4.1 mmol/L (3.6-5.0); SODIUM 140.3 mmol/L (137-145); TOTAL PROTEIN 6.4 g/dL (6.3-8.2)
[2018-05-03 05:57] LABS: CREATINE KINASE MB 0.48 ng/mL (<4.55)
[2018-05-03 06:01] LABS: TROPONIN I < 0.012 ng/mL
--- NOTE | 2018-05-03 07:59 | EKG REPORT ---
SEVERITY:- OTHERWISE NORMAL ECG - SINUS TACHYCARDIA : Confirmed by: Karson Kingsley MD 03-May-2018 07:58:34
[2018-05-03 09:24] VITALS: BP 146/88
== END 2018-05-03 09:27 | disposition home or self-care (01) ==
LOC: ER 02:09
DX: R07.9 Chest pain, unspecified (principal); R06.02 Shortness of breath; I25.10 Atherosclerotic heart disease of native coronary artery without angina pectoris; E78.00 Pure hypercholesterolemia, unspecified; I10 Essential (primary) hypertension; Z86.73 Personal history of transient ischemic attack (TIA), and cerebral infarction without residual deficits; E11.9 Type 2 diabetes mellitus without complications; Z88.6 Allergy status to analgesic agent; Z95.1 Presence of aortocoronary bypass graft; Z90.49 Acquired absence of other specified parts of digestive tract; Z98.84 Bariatric surgery status; I25.2 Old myocardial infarction
CPT/HCPCS: 36415; 71045; 80053; 82550; 82553; 84484; 85025; 93005; 93010; 99285

== ENCOUNTER 2018-05-12 06:34 | Observation (INO) | payer MEDICARE ==
[2018-05-12 07:11] LABS: ABSOLUTE BASOPHILS # (AUTO) 0.1 10^3/uL (0.0-0.2); ABSOLUTE EOSINOPHILS # (AUTO) 0.2 10^3/uL (0.0-0.6); ABSOLUTE LYMPHOCYTES (AUTO) 1.7 10^3/uL (0.5-4.7); ABSOLUTE MONOCYTES (AUTO) 0.7 10^3/uL (0.1-1.4); ABSOLUTE NEUT (AUTO) 4.3 10^3/uL (1.7-8.2); BASOPHILS % (AUTO) 1.3 % (0-2); EOSINOPHILS % (AUTO) 3.6 % (0-6); HEMATOCRIT 33.3 % (37.9-51.0); HEMOGLOBIN 10.1 g/dL (13.5-17.0); LYMPHOCYTES % (AUTO) 24.1 % (13-45); MEAN CORPUSCULAR HGB CONC 30.5 g/dL (32.0-36.0); MEAN CORPUSCULAR VOLUME 69 fl (80-97); MONOCYTES % (AUTO) 9.6 % (3-13); PLATELET COUNT 366 10^3/uL (150-450); RED BLOOD COUNT 4.82 10^6/uL (4.35-5.55); RED CELL DISTRIBUTION WIDTH 22.2 % (11.5-14.0); SEGMENTED NEUTROPHILS % (AUTO) 61.4 % (42-78); TOTAL CELLS COUNTED % (AUTO) 100 %; WHITE BLOOD COUNT 6.9 10^3/uL (4.0-10.5)
[2018-05-12] MEDS ORDERED: ASPIRIN 81 MG TABLET, CHEWABLE PO ONE (07:18)
--- NOTE | 2018-05-12 07:23 | ER Document Report ---
ED Cardiac - General Chief Complaint: Chest Pain > 30 Stated Complaint: CHEST PAIN Time Seen by Provider: 05/12/18 07:00 Primary Care Provider: JAMES DAWKINS MD [Primary Care Provider] - Follow up as needed TRAVEL OUTSIDE OF THE [place] IN LAST 30 DAYS: No - HPI Notes: Patient is a 58-year-old male that presents to the emergency department for chief complaint of chest pain. Patient was woken up from sleep with a left-sided chest pain that he describes as a "elephant sitting on my chest". This occurred at 545 this morning and the pain is been constant since. He did take 1 baby aspirin and Pepto thinking it might be his hiatal hernia. Patient denies relief with either of those medications. He reports some associated shortness of breath and nausea. He denies any diaphoresis or vomiting. He states this feels similar to his previous heart attacks. He has not taken any nitro yet today. Past Medical History: CAD, hypertension, hyperlipidemia, diabetes Past Surgical History: Coronary stenting x9, CABG x3 Social History: Denies tobacco, drug and alcohol use Family History: Reviewed and noncontributory for presenting illness Allergies: Reviewed, see documented allergy list. REVIEW OF SYSTEMS: CONSTITUTIONAL : No fever No chills No diaphoresis No recent illness EENT: No vision changes No congestion No sore throat CARDIOVASCULAR: chest pain No palpitations RESPIRATORY: shortness of breath No cough No difficulty breathing GASTROINTESTINAL: No abdominal pain nausea No vomiting No diarrhea GENITOURINARY: No dysuria No hematuria No difficulty urinating MUSCULOSKELETAL: No back pain No leg pain No arm pain SKIN: No rashes No lesions LYMPHATIC: No swollen, enlarged glands. NEUROLOGICAL: No lightheadedness No headache No weakness No paresthesias PSYCHIATRIC: No anxiety No depression PHYSICAL EXAMINATION: Vital signs reviewed, nursing noted reviewed. GENERAL: Appears uncomfortable, well-nourished and in mild acute distress. HEAD: Atraumatic, normocephalic. EYES: Eyes appear normal, extraocular movements intact, sclera anicteric, conjunctiva are normal. ENT: nares patent, oropharynx clear without exudates. Moist mucous membranes. NECK: Normal range of motion, supple without lymphadenopathy LUNGS: Breath sounds clear to auscultation bilaterally and equal. No wheezes rales or rhonchi. HEART: Regular rate and rhythm without murmurs ABDOMEN: Soft, nontender, normoactive bowel sounds. No rebound, guarding, or rigidity. No masses appreciated. EXTREMITIES: Nontender, good range of motion, no pitting or edema. NEUROLOGICAL: No focal neurological deficits. Moves all extremities spontaneously Motor and sensory grossly intact on exam. PSYCH: Normal mood, normal affect. SKIN: Warm, Dry, normal turgor, no rashes or lesions noted on exposed skin - Related Data Allergies/Adverse Reactions: morphine [Morphine] Adverse Reaction (Verified 05/12/18 07:10) Migraine Past Medical History - Social History Smoking Status: Never Smoker Frequency of alcohol use: Rare Drug Abuse: None Family History: CAD, DM, Hyperlipidemia, Hypertension Patient has suicidal ideation: No Patient has homicidal ideation: No - Past Medical History Cardiac Medical History: Reports: Hx Coronary Artery Disease, Hx Heart Attack - x6, Hx Hypercholesterolemia, Hx Hypertension Denies: Hx Congestive Heart Failure Pulmonary Medical History: Denies: Hx Asthma, Hx Bronchitis, Hx COPD, Hx Pneumonia, Hx Respiratory Failure, Hx Tuberculosis Neurological Medical History: Reports: Hx Cerebrovascular Accident - x1. Denies: Hx Seizures Endocrine Medical History: Reports: Hx Diabetes Mellitus Type 2. Denies: Hx Diabetes Mellitus Type 1, Hx Hyperthyroidism, Hx Hypothyroidism Renal/ Medical History: Reports: Hx Benign Prostatic Hyperplasia, Hx Kidney Stones. Denies: Hx End Stage Renal Disease, Hx Peritoneal Dialysis GI Medical History: Reports: Hx Gastroesophageal Reflux Disease. Denies: Hx Ci rrhosis, Hx Hepatitis, Hx Ulcer Musculoskeletal Medical History: Denies Hx Arthritis, Denies Hx Gout, Denies Hx Multiple Sclerosis Skin Medical History: Denies Hx Eczema, Denies Hx Psoriasis Psychiatric Medical History: Denies: Hx Bipolar Disorder, Hx Depression, Hx Schizophrenia Infectious Medical History: Denies: Hx Hepatitis Past Surgical History: Reports: Hx Abdominal Surgery, Hx Cardiac Catheterization, Hx Cardiac Surgery - triple bipass, Hx Cholecystectomy, Hx Co ronary Artery Bypass Graft, Hx Coronary Stent - x9, Hx Gastric Bypass Surgery - Immunizations Hx Diphtheria, Pertussis, Tetanus Vaccination: Yes Hx Pneumococcal Vaccination: 11/19/14 Physical Exam - Vital signs Vitals: Resp 10 L 05/12/18 06:45 Course - Re-evaluation Re-evalutation: 05/12/18 07:21 Vitals reviewed. Nursing notes reviewed. Patient appears uncomfortable and was given nitro and aspirin for further symptom medic management. His initial EKG is unchanged from previous. Repeat EKG will be obtained given his history and current presentation to evaluate for dynamic changes. 05/12/18 07:32 Repeat EKG unchanged 05/12/18 10:48 Patient had resolution of his chest pain after nitro. All repeat EKGs were unremarkable. His second troponin is negative. Because of his extensive cardiac history he will be admitted to the hospital for observation and telemetry monitoring. Nitropaste was placed on patient's chest. Patient stable at time of admission. Case discussed with Romeo Pollard OPHTHALMIC SURGEON who accepted admission Laboratory 05/12/18 05/12/18 05/12/18 06:48 06:48 06:48 WBC 6.9 RBC 4.82 Hgb 10.1 L Hct 33.3 L MCV 69 L MCH 21.0 L MCHC 30.5 L RDW 22.2 H Plt Count 366 Seg Neutrophils % 61.4 Lymphocytes % 24.1 Monocytes % 9.6 Eosinophils % 3.6 Basophils % 1.3 Absolute Neutrophils 4.3 Absolute Lymphocytes 1.7 Absolute Monocytes 0.7 Absolute Eosinophils 0.2 Absolute Basophils 0.1 Sodium 138.9 Potassium 4.8 Chloride 106 Carbon Dioxide 20 L Anion Gap 13 BUN 12 Creatinine 1.23 Est GFR ( Amer) > 60 Est GFR (Non-Af Amer) > 60 Glucose 342 H Calcium 9.2 Total Bilirubin 0.5 Direct Bilirubin 0.4 Neonat Total Bilirubin Not Reportable Neonat Direct Bilirubin Not Reportable Neonat Indirect Bili Not Reportable AST 23 ALT 17 L Alkaline Phosphatase 60 Troponin I < 0.012 Total Protein 6.6 Albumin 4.0 05/12/18 09:44 WBC RBC Hgb Hct MCV MCH MCHC RDW Plt Count Seg Neutrophils % Lymphocytes % Monocytes % Eosinophils % Basophils % Absolute Neutrophils Absolute Lymphocytes Absolute Monocytes Absolute Eosinophils Absolute Basophils Sodium Potassium Chloride Carbon Dioxide Anion Gap BUN Creatinine Est GFR ( Amer) Est GFR (Non-Af Amer) Glucose Calcium Total Bilirubin Direct Bilirubin Neonat Total Bilirubin Neonat Direct Bilirubin Neonat Indirect Bili AST ALT Alkaline Phosphatase Troponin I < 0.012 Total Protein Albumin Chest X-Ray 05/12/18 07:01 IMPRESSION: No acute cardiopulmonary process copyright 2010 [employer]- All Rights Reserved - Vital Signs Vital signs: Temp Pulse Resp BP Pulse Ox 98.9 F 10 L 134/83 H 100 05/12/18 06:48 05/12/18 09:30 05/12/18 09:30 05/12/18 09:30 - Laboratory Result Diagrams: 05/12/18 06:48 05/12/18 06:48 Laboratory results interpreted by me: 05/12/18 05/12/18 06:48 06:48 Hgb 10.1 L Hct 33.3 L MCV 69 L MCH 21.0 L MCHC 30.5 L RDW 22.2 H Carbon Dioxide 20 L Glucose 342 H ALT 17 L - EKG Interpretation by Me Additional EKG results interpreted by me: 05/12/18 07:22 Interpreted by myself 0641: Normal sinus rhythm, rate 76, normal axis, no ectopy, no ST elevation, unchanged from 05/03/18 05/12/18 07:33 Interpreted by myself 0727: Normal sinus rhythm, rate 61, normal axis, no ectopy, no STEMI, unchanged from initial 05/12/18 09:03 0856: NSR, rate 59, normal axis, no ectopy, unchanged Discharge - Discharge Clinical Impression: Chest pain Qualifiers: Chest pain type: unspecified Qualified Code(s): R07.9 - Chest pain, unspecified Condition: Stable Disposition: ADMITTED OBSERVATION Admitting Provider: Hospitalist Unit Admitted: Telemetry Referrals: JAMES DAWKINS MD [Primary Care Provider] - Follow up as needed
--- NOTE | 2018-05-12 07:30 | RADIOLOGY REPORT (SQ) ---
EXAM DESCRIPTION: XR CHEST 1 VIEW COMPLETED DATE/TME: 05/12/2018 07:01 CLINICAL HISTORY: 58 years, Male, chest pain COMPARISON: 05/03/2018 chest NUMBER OF VIEWS: 1 TECHNIQUE: Portable chest LIMITATIONS: None. FINDINGS: Heart size normal. Median sternotomy wires. Osteopenia. Lungs clear. No pneumothorax IMPRESSION: No acute cardiopulmonary process copyright 2010 [employer]- All Rights Reserved
[2018-05-12 07:38] LABS: ALANINE AMINOTRANSFERASE 17 U/L (21-72); ALKALINE PHOSPHATASE 60 U/L (38-126); ANION GAP 13 (5-19); ASPARTATE AMINO TRANSFERASE 23 U/L (17-59); BILIRUBIN,DIRECT 0.4 mg/dL (0.0-0.4); BILIRUBIN,TOTAL 0.5 mg/dL (0.2-1.3); BLOOD UREA NITROGEN 12 mg/dL (7-20); CALCIUM 9.2 mg/dL (8.4-10.2); CARBON DIOXIDE 20 mmol/L (22-30); CHLORIDE 106 mmol/L (98-107); GLUCOSE 342 mg/dL (75-110); POTASSIUM 4.8 mmol/L (3.6-5.0); SODIUM 138.9 mmol/L (137-145); TOTAL PROTEIN 6.6 g/dL (6.3-8.2)
[2018-05-12] MEDS: NITROGLYCERIN 0.4 MG/TAB 25 TAB/BOTTLE SL PRN ×3 (08:47→09:42)
--- NOTE | 2018-05-12 10:43 | EKG REPORT ---
SEVERITY:- NORMAL ECG - SINUS RHYTHM : Confirmed by: Khushboo Peres 12-May-2018 10:42:21
--- NOTE | 2018-05-12 10:43 | EKG REPORT ---
SEVERITY:- ABNORMAL ECG - SINUS RHYTHM : Confirmed by: Khushboo Peres 12-May-2018 10:43:06
--- NOTE | 2018-05-12 10:43 | EKG REPORT ---
SEVERITY:- NORMAL ECG - SINUS RHYTHM : Confirmed by: Khushboo Peres 12-May-2018 10:42:30
[2018-05-12] MEDS ORDERED: NITROGLYCERIN 2% OINTMENT 1 GM PACKET TP ONE (10:47)
[2018-05-12] MEDS ORDERED: ONDANSETRON 4 MG TAB.RAPDIS PO PRN (18:43)
[2018-05-12] MEDS ORDERED: ACETAMINOPHEN 325 MG TABLET PO PRN (18:43)
[2018-05-12] MEDS ORDERED: TEMAZEPAM 7.5 MG CAPSULE PO PRN (18:43)
[2018-05-12] MEDS ORDERED: ONDANSETRON HCL INJ/PF 4 MG/2 ML SDV IV PRN (18:43)
--- NOTE | 2018-05-12 19:06 | PDOC H&P ---
Addendum entered and electronically signed by PAULA MOTLEY PA-C 05/12/18 19:06: Provider Note Provider Note: While he is here and his blood glucose is high, and has a extensive cardiac history, we will go ahead and check an A1c and lipid panel in the morning. Original Note: History of Present Illness Admission Date/PCP: 05/12/18 11:14 JAMES DAWKINS MD History of Present Illness: STEPHANIE MONTEMAYOR is a 58 year old male with a significant cardiac history, that includes 9 stents, 3 other stents were bypass in October 2017. He is well- known to this facility, and has presented multiple times with chest pain, which has had many different origins. He has a hiatal hernia, anxiety, hypertension, hyperlipidemia. He reports waking up this morning about 6 AM with a chest pain which he describes as an elephant sitting on his chest. He reports having some nausea and sweating during this episode. Denies left sided weakness or numbness. Call 911 and was brought to the emergency room at that time. Much of his pain went away around 11 AM after his third nitro. At time of evaluation his troponins have been negative x2. He has an upcoming appointment with Dr. Singh at [facility] on June 03, 2018. His last stress test was April 22, 2018. He reports taking all medications as prescribed. He denies palpitations or acute changes in breathing. Discussed possibility of being discharged from the emergency room, and the patient did not feel comfortable with this. We agreed to finish cycling the enzymes, and monitor overnight, with hopes of discharge in the morning if noncardiac in origin. Past Medical History Cardiac Medical History: Reports: Coronary Artery Disease, Myocardial Infarction - x6, Hyperlipidema, Hypertension Denies: Congestive Heart Failure Pulmonary Medical History: Denies: Asthma, Bronchitis, Chronic Obstructive Pulmonary Disease (COPD), Pneumonia, Respiratory Failure, Tuberculosis Neurological Medical History: Denies: Seizures Endocrine Medical History: Reports: Diabetes Mellitus Type 2 Denies: Diabetes Mellitus Type 1, Hyperthyroidism, Hypothyroidism Renal/ Medical History: Denies: End Stage Renal Disease GI Medical History: Reports: Gastroesophageal Reflux Disease Denies: Cirrhosis, Hepatitis Musculoskeltal Medical History: Denies: Arthritis, Gout Skin Medical History: Denies: Eczema, Psoriasis Psychiatric Medical History: Denies: Bipolar Disorder, Depression Hematology: Denies: Anemia, Bleeding Tendencies Past Surgical History Past Surgical History: Reports: Cardiac Catheterization, Cholecystectomy, Coronary Artery Bypass Graft, Coronary Stent - x9, Gastric Bypass Surgery Social History Smoking Status: Never Smoker Frequency of Alcohol Use: Rare Hx Recreational Drug Use: No Drugs: None Hx Prescription Drug Abuse: No Family History Family History: CAD, DM, Hyperlipidemia, Hypertension Parental Family History Reviewed: Yes Children Family History Reviewed: Yes Sibling(s) Family History Reviewed.: Yes Medication/Allergy Home Medications: Aspirin [Aspirin 81 mg Chewable Tablet] 81 mg PO DAILY 05/12/18 Atorvastatin Calcium [Lipitor 40 mg Tablet] 40 mg PO QHS 05/12/18 Clopidogrel Bisulfate [Plavix 75 mg Tablet] 75 mg PO DAILY 05/12/18 Cyanocobalamin (Vitamin B-12) [Vitamin B12] 2,500 mcg PO DAILY 05/12/18 Cyclobenzaprine HCl [Flexeril 10 mg Tablet] 10 mg PO BID 05/12/18 Ergocalciferol (Vitamin D2) [Vitamin D] 400 unit PO BID 05/12/18 Ferrous Sulfate [Iron] 325 mg PO DAILY 05/12/18 Gabapentin [Neurontin 300 mg Capsule] 300 mg PO TID 05/12/18 Metoprolol Succinate [Toprol Xl] 12.5 mg PO DAILY 05/12/18 Oxycodone HCl [Oxycodone HCl 10 MG Tablet] 10 mg PO QID 05/12/18 Pantoprazole Sodium [Protonix [address] Tablet] 40 mg PO Q6AM 05/12/18 Allergies/Adverse Reactions: morphine [Morphine] Adverse Reaction (Verified 05/12/18 07:10) Migraine Review of Systems Constitutional: ABSENT: chills, fever(s), headache(s), weight gain, weight loss Eyes: ABSENT: visual disturbances Ears: ABSENT: hearing changes Cardiovascular: PRESENT: other - Ports chest pain. No orthopnea or palpitations or edema Respiratory: ABSENT: cough, hemoptysis Gastrointestinal: ABSENT: abdominal pain, constipation, diarrhea, hematemesis, hematochezia, nausea, vomiting Genitourinary: ABSENT: dysuria, hematuria Musculoskeletal: ABSENT: joint swelling Integumentary: ABSENT: rash, wounds Neurological: ABSENT: abnormal gait, abnormal speech, confusion, dizziness, focal weakness, syncope Psychiatric: PRESENT: other - Anxious possibly depressed Endocrine: ABSENT: cold intolerance, heat intolerance, polydipsia, polyuria Physical Exam Vital Signs: Temp Pulse Resp BP Pulse Ox 98.9 F 53 L 13 137/71 H 100 05/12/18 06:48 05/12/18 17:52 05/12/18 16:31 05/12/18 16:31 05/12/18 16:31 General appearance: PRESENT: no acute distress, cooperative, obese Head exam: PRESENT: atraumatic, normocephalic Eye exam: PRESENT: conjunctiva pink, EOMI, PERRLA. ABSENT: scleral icterus Ear exam: PRESENT: normal external ear exam Mouth exam: PRESENT: moist, tongue midline Respiratory exam: PRESENT: other - No appreciable wheeze, rhonchi, Rales. Cardiovascular exam: PRESENT: RRR, +S1, +S2 GI/Abdominal exam: PRESENT: normal bowel sounds, soft. ABSENT: distended, guarding, mass, organolmegaly, rebound, tenderness Rectal exam: PRESENT: deferred Extremities exam: PRESENT: other - Trace edema bilateral lower extremities Musculoskeletal exam: PRESENT: full ROM, normal inspection Neurological exam: PRESENT: alert, awake, oriented to person, oriented to place, oriented to time, oriented to situation, CN II-XII grossly intact. ABSENT: motor sensory deficit Psychiatric exam: PRESENT: anxious, unusual affect Results Laboratory Results: 05/12/18 06:48 05/12/18 06:48 05/12/18 05/12/18 06:48 06:48 WBC 6.9 RBC 4.82 Hgb 10.1 L Hct 33.3 L MCV 69 L MCH 21.0 L MCHC 30.5 L RDW 22.2 H Plt Count 366 Seg Neutrophils % 61.4 Lymphocytes % 24.1 Monocytes % 9.6 Eosinophils % 3.6 Basophils % 1.3 Absolute Neutrophils 4.3 Absolute Lymphocytes 1.7 Absolute Monocytes 0.7 Absolute Eosinophils 0.2 Absolute Basophils 0.1 Sodium 138.9 Potassium 4.8 Chloride 106 Carbon Dioxide 20 L Anion Gap 13 BUN 12 Creatinine 1.23 Est GFR ( Amer) > 60 Est GFR (Non-Af Amer) > 60 Glucose 342 H Calcium 9.2 Total Bilirubin 0.5 AST 23 ALT 17 L Alkaline Phosphatase 60 Total Protein 6.6 Albumin 4.0 05/12/18 05/12/18 06:48 09:44 Troponin I < 0.012 < 0.012 Impressions: Chest X-Ray 05/12/18 07:01 IMPRESSION: No acute cardiopulmonary process copyright 2010 [employer]- All Rights Reserved Assessment and Plan - Diagnosis (1) History of gastric bypass Is this a current diagnosis for this admission?: Yes (2) Hiatal hernia Is this a current diagnosis for this admission?: Yes (3) Anxiety, generalized Is this a current diagnosis for this admission?: Yes (4) Chest pain Qualifiers: Chest pain type: unspecified Qualified Code(s): R07.9 - Chest pain, unspecified Is this a current diagnosis for this admission?: Yes (5) Coronary disease sp stenting CABG Is this a current diagnosis for this admission?: Yes (6) Diabetes mellitus type 2 in obese Is this a current diagnosis for this admission?: Yes - Time Time Spent with patient: 25-34 minutes Medications reviewed and adjusted accordingly: Yes Anticipated discharge: Home Within: within 24 hours Disposition: Plan to discharge home if troponins and EKGs are negative x3. Continue for monitoring for now. Plan to keep follow-up appointments with his nutrition intern, whom he is well-known to. - Inpatient Certification Based on my medical assessment, after consideration of the patient's comorbidities, presenting symptoms, or acuity I expect that the services needed warrant INPATIENT care.: Yes I certify that my determination is in accordance with my understanding of Medicare's requirements for reasonable and necessary INPATIENT services [42 CFR 412.3e].: Yes - Plan Summary Plan Summary: 1-chest pain: There is an extensive cardiac history, seems the most likely source could be from his hiatal hernia +/-anxiety. -We will complete the cardiac enzyme cycle of 3. Last will be at [address] on a telemetry floor and monitor closely. -Continue home medications for now. 2. Hiatal hernia: Needs to be evaluated by general surgeon and/or cardiothoracic surgeon for possible repair. Reportedly is not allowed to have surgery like this in the first 12 months post cardiac bypass surgery. Cardiac bypass was October 2017. 3. Diabetes mellitus: Continue home medications and cover with sliding scale corrective coverage before meals at bedtime. We will asked nursing to go ahead and check an address given his last known blood sugar was in the 370s. 4. History of gastric bypass: Aware this could affect absorption and/or medication choices. 5 anxiety: Patient would likely benefit from seeing outpatient psychiatry. Recommend making a follow-up appointment on discharge. Could consider something like Julia 6. History of FRANCESCA. MCV 69. He does have [place] descent in his family. Consideration could be given to a thalassemia d/o
[2018-05-12 19:49] LABS: CREATINE KINASE MB 0.22 ng/mL (<4.55)
[2018-05-12 19:50] LABS: TROPONIN I < 0.012 ng/mL
[2018-05-12] MEDS: OXYCODONE HCL IR 5 MG TABLET PO SCH (21:30)
[2018-05-12] MEDS: INSULIN LISPRO 100 UNIT/ML 3 ML VIAL SUBCUT SCH (21:32)
[2018-05-12] MEDS ORDERED: ATORVASTATIN CALCIUM 40 MG TABLET PO SCH (22:00)
[2018-05-12] MEDS ORDERED: DEXTROSE 50%-WATER SYRINGE 12.5 GM/25 ML DOSE IV PRN (23:30)
[2018-05-12] MEDS ORDERED: GLUCAGON,HUMAN RECOMB 1 MG INJ IM PRN (23:30)
[2018-05-12] MEDS ORDERED: DEXTROSE 50%-WATER SYRINGE 25 GM/50 ML DOSE IV PRN (23:30)
[2018-05-12] MEDS ORDERED: DEXTROSE 40% GEL 15 GM TUBE PO PRN (23:30)
[2018-05-12] MEDS ORDERED: DEXTROSE 40% GEL 15 GM TUBE X 2 PO PRN (23:30)
[2018-05-13] MEDS ORDERED: PANTOPRAZOLE SODIUM 40 MG TABLET.DR PO SCH (06:00)
[2018-05-13] MEDS: INSULIN LISPRO 100 UNIT/ML 3 ML VIAL SUBCUT SCH ×2 (07:30→12:10)
[2018-05-13 07:58] LABS: HEMATOCRIT 28.6 % (37.9-51.0); HEMOGLOBIN 8.8 g/dL (13.5-17.0); MEAN CORPUSCULAR HGB CONC 30.8 g/dL (32.0-36.0); MEAN CORPUSCULAR VOLUME 68 fl (80-97); PLATELET COUNT 310 10^3/uL (150-450); RED BLOOD COUNT 4.19 10^6/uL (4.35-5.55); RED CELL DISTRIBUTION WIDTH 21.4 % (11.5-14.0); WHITE BLOOD COUNT 5.8 10^3/uL (4.0-10.5)
[2018-05-13] MEDS ORDERED: FERROUS SULFATE 325 MG TABLET PO SCH (08:00)
[2018-05-13 08:13] LABS: ALANINE AMINOTRANSFERASE 17 U/L (21-72); ALBUMIN 3.1 g/dL (3.5-5.0); ALKALINE PHOSPHATASE 57 U/L (38-126); ANION GAP 7 (5-19); ASPARTATE AMINO TRANSFERASE 12 U/L (17-59); BILIRUBIN,DIRECT 0.2 mg/dL (0.0-0.4); BILIRUBIN,TOTAL 0.4 mg/dL (0.2-1.3); BLOOD UREA NITROGEN 12 mg/dL (7-20); CALCIUM 8.8 mg/dL (8.4-10.2); CARBON DIOXIDE 24 mmol/L (22-30); CHLORIDE 107 mmol/L (98-107); GLUCOSE 86 mg/dL (75-110); POTASSIUM 4.4 mmol/L (3.6-5.0); TOTAL PROTEIN 5.4 g/dL (6.3-8.2); TRIGLYCERIDES 97 mg/dL (<150)
[2018-05-13 08:24] LABS: DIRECT LDL 76 mg/dL (<100)
[2018-05-13] MEDS: OXYCODONE HCL IR 5 MG TABLET PO SCH (09:41)
[2018-05-13] MEDS ORDERED: CYANOCOBALAMIN (VITAMIN B-12) 1,000 MCG TABLET PO SCH (10:00)
[2018-05-13] MEDS ORDERED: GABAPENTIN 300 MG CAPSULE PO SCH (10:00)
[2018-05-13] MEDS ORDERED: ASPIRIN 81 MG TABLET, CHEWABLE PO SCH (10:00)
[2018-05-13] MEDS ORDERED: CLOPIDOGREL BISULFATE 75 MG TABLET PO SCH (10:00)
[2018-05-13] MEDS ORDERED: DOCUSATE SODIUM 100 MG CAPSULE PO SCH (10:00)
[2018-05-13] MEDS ORDERED: ENOXAPARIN SODIUM INJ 40 MG/0.4 ML DISP.SYRIN SUBCUT SCH (10:00)
[2018-05-13] MEDS ORDERED: METOPROLOL SUCCINATE 25 MG TAB.SR.24H PO SCH (10:00)
[2018-05-13] MEDS ORDERED: CYCLOBENZAPRINE HCL 10 MG TABLET PO SCH (10:00)
[2018-05-13] MEDS ORDERED: (PENDING PHARMACY ID) (Ergocalciferol (Vitamin D2) [Vitamin D] 400 UNIT) PO SCH (10:00)
[2018-05-13 12:32] VITALS: BP 138/92
--- NOTE | 2018-05-13 12:48 | PDOC DISCHARGE SUMMARY ---
General - Admit/Disc Date/PCP Admission Date/Primary Care Provider: 05/12/18 11:14 JAMES DAWKINS MD Discharge Date: 05/13/18 - Discharge Diagnosis (1) Chest pain Is this a current diagnosis for this admission?: Yes Summary: His enzymes were negative x3. He had no changes on telemetry. He had a negative stress test less than 3 weeks ago. He has follow-up with cardiology in under 2 weeks. - Additional Information Discharge Diet: Cardiac, Diabetic Discharge Activity: Activity As Tolerated Home Medications: Aspirin [Aspirin 81 mg Chewable Tablet] 81 mg PO DAILY 05/12/18 Atorvastatin Calcium [Lipitor 40 mg Tablet] 40 mg PO QHS 05/12/18 Clopidogrel Bisulfate [Plavix 75 mg Tablet] 75 mg PO DAILY 05/12/18 Cyanocobalamin (Vitamin B-12) [Vitamin B12] 2,500 mcg PO DAILY 05/12/18 Cyclobenzaprine HCl [Flexeril 10 mg Tablet] 10 mg PO BID 05/12/18 Ergocalciferol (Vitamin D2) [Vitamin D] 400 unit PO BID 05/12/18 Ferrous Sulfate [Iron] 325 mg PO DAILY 05/12/18 Gabapentin [Neurontin 300 mg Capsule] 300 mg PO TID 05/12/18 Metoprolol Succinate [Toprol Xl] 12.5 mg PO DAILY 05/12/18 Oxycodone HCl [Oxycodone HCl 10 MG Tablet] 10 mg PO QID 05/12/18 Pantoprazole Sodium [Protonix [address] Tablet] 40 mg PO Q6AM 05/12/18 History of Present Illness History of Present Illness: STEPHANIE MONTEMAYOR is a 58 year old male with a significant cardiac history, that includes 9 stents, 3 other stents were bypass in October 2017. He is well-known to this facility, and has presented multiple times with chest pain, which has had many different origins. He has a hiatal hernia, anxiety, hypertension, hyperlipidemia. He reports waking up this morning about 6 AM with a chest pain which he describes as an elephant sitting on his chest. He reports having some nausea and sweating during this episode. Denies left sided weakness or numbness. Call 911 and was brought to the emergency room at that time. Much of his pain went away around 11 AM after his third nitro. At time of evaluation his troponins have been negative x2. He has an upcoming appointment with Dr. Singh at [facility] on June 03, 2018. His last stress test was April 22, 2018. He reports taking all medications as prescribed. He denies palpitations or acute changes in breathing. Discussed possibility of being discharged from the emergency room, and the patient did not feel comfortable with this. We agreed to finish cycling the enzymes, and monitor overnight, with hopes of discharge in the morning if noncardiac in origin. Hospital Course Hospital Course: His enzymes were negative x3. He is pain-free. As previously noted, he had a negative stress test less than 3 weeks ago and has cardiology follow-up in about a week and a half. He will continue on his usual medications. He was discharged in good condition. Physical Exam Vital Signs: Temp Pulse Resp BP Pulse Ox 97.8 F 55 L 17 138/92 H 100 05/13/18 12:31 05/13/18 12:31 05/13/18 12:31 05/13/18 12:31 05/13/18 12:31 Intake & Output 05/12/18 05/13/18 05/14/18 06:59 06:59 06:59 Intake Total 960 Balance 960 Weight 99.5 kg General appearance: PRESENT: no acute distress, cooperative, obese Respiratory exam: PRESENT: other - No appreciable wheeze, rhonchi, Rales. Cardiovascular exam: PRESENT: RRR, +S1, +S2 GI/Abdominal exam: PRESENT: normal bowel sounds, soft. ABSENT: distended, guarding, mass, organolmegaly, rebound, tenderness Extremities exam: PRESENT: other - Trace edema bilateral lower extremities Musculoskeletal exam: PRESENT: full ROM, normal inspection Neurological exam: PRESENT: alert, awake, oriented to person, oriented to place, oriented to time, oriented to situation Results Laboratory Results: 05/13/18 06:39 05/13/18 06:39 05/13/18 05/13/18 06:39 06:39 WBC 5.8 RBC 4.19 L Hgb 8.8 L Hct 28.6 L MCV 68 L MCH 21.0 L MCHC 30.8 L RDW 21.4 H Plt Count 310 Sodium 138.0 Potassium 4.4 Chloride 107 Carbon Dioxide 24 Anion Gap 7 BUN 12 Creatinine 1.35 H Est GFR ( Amer) > 60 Est GFR (Non-Af Amer) 55 L Glucose 86 Calcium 8.8 Magnesium 1.7 Total Bilirubin 0.4 AST 12 L ALT 17 L Alkaline Phosphatase 57 Total Protein 5.4 L Albumin 3.1 L Triglycerides 97 Cholesterol 120.50 LDL Cholesterol Direct 76 VLDL Cholesterol 19.0 HDL Cholesterol 36 L 05/12/18 05/12/18 05/12/18 06:48 09:44 19:17 Creatine Kinase 53 L CK-MB (CK-2) Troponin I < 0.012 < 0.012 05/12/18 19:17 Creatine Kinase CK-MB (CK-2) 0.22 Troponin I < 0.012 Impressions: Chest X-Ray 05/12/18 07:01 IMPRESSION: No acute cardiopulmonary process copyright 2011 [employer]- All Rights Reserved Qualifiers - * PATIENT BEING DISCHARGED WITH ANY OF THE FOLLOWING DIAGNOSIS: No
== END 2018-05-13 13:00 | disposition home or self-care (01) ==
LOC: ER 06:34 → EH 11:14 → INTOOBSV 11:14 → 4N 17:46
PROVIDERS: ADMIT Internal Medicine; ATTEND Internal Medicine
DX: R07.89 Other chest pain (principal); K44.9 Diaphragmatic hernia without obstruction or gangrene; F41.9 Anxiety disorder, unspecified; I10 Essential (primary) hypertension; E78.5 Hyperlipidemia, unspecified; R11.0 Nausea; R61 Generalized hyperhidrosis; R60.0 Localized edema; F41.1 Generalized anxiety disorder; E11.9 Type 2 diabetes mellitus without complications; E66.9 Obesity, unspecified; R06.02 Shortness of breath; I25.2 Old myocardial infarction; Z79.82 Long term (current) use of aspirin; Z79.02 Long term (current) use of antithrombotics/antiplatelets; Z95.5 Presence of coronary angioplasty implant and graft; Z95.1 Presence of aortocoronary bypass graft; Z82.49 Family history of ischemic heart disease and other diseases of the circulatory system; Z90.49 Acquired absence of other specified parts of digestive tract; Z98.84 Bariatric surgery status; Z86.2 Personal history of diseases of the blood and blood-forming organs and certain disorders involving the immune mechanism; Z86.73 Personal history of transient ischemic attack (TIA), and cerebral infarction without residual deficits
CPT/HCPCS: 93005; 99285; 36415 ×2; 82553; 82962 ×2; 82550; 83735; 85025; 85027; 80053 ×2; 84484; 83036; 80061; 71045; 93010; G0378 ×2; A9270 ×12; J3490 ×2

== ENCOUNTER 2018-07-01 00:42 | Emergency (ER) | payer MEDICARE ==
[2018-07-01] MEDS ORDERED: ASPIRIN 81 MG TABLET, CHEWABLE PO ONE (01:27)
[2018-07-01 01:38] LABS: ABSOLUTE BASOPHILS # (AUTO) 0.1 10^3/uL (0.0-0.2); ABSOLUTE EOSINOPHILS # (AUTO) 0.3 10^3/uL (0.0-0.6); ABSOLUTE LYMPHOCYTES (AUTO) 1.3 10^3/uL (0.5-4.7); ABSOLUTE MONOCYTES (AUTO) 0.7 10^3/uL (0.1-1.4); ABSOLUTE NEUT (AUTO) 5.9 10^3/uL (1.7-8.2); BASOPHILS % (AUTO) 1.5 % (0-2); EOSINOPHILS % (AUTO) 3.7 % (0-6); HEMATOCRIT 33.5 % (37.9-51.0); HEMOGLOBIN 10.2 g/dL (13.5-17.0); LYMPHOCYTES % (AUTO) 16.2 % (13-45); MEAN CORPUSCULAR HEMOGLOBIN 20.7 pg (27.0-33.4); MEAN CORPUSCULAR HGB CONC 30.3 g/dL (32.0-36.0); MEAN CORPUSCULAR VOLUME 68 fl (80-97); PLATELET COUNT 423 10^3/uL (150-450); RED BLOOD COUNT 4.91 10^6/uL (4.35-5.55); RED CELL DISTRIBUTION WIDTH 17.3 % (11.5-14.0); SEGMENTED NEUTROPHILS % (AUTO) 70.6 % (42-78); TOTAL CELLS COUNTED % (AUTO) 100 %; WHITE BLOOD COUNT 8.3 10^3/uL (4.0-10.5)
[2018-07-01 02:00] LABS: ALANINE AMINOTRANSFERASE 23 U/L (21-72); ALBUMIN 3.6 g/dL (3.5-5.0); ALKALINE PHOSPHATASE 85 U/L (38-126); ANION GAP 11 (5-19); ASPARTATE AMINO TRANSFERASE 15 U/L (17-59); BILIRUBIN,DIRECT 0.2 mg/dL (0.0-0.4); BILIRUBIN,TOTAL 0.3 mg/dL (0.2-1.3); BLOOD UREA NITROGEN 12 mg/dL (7-20); CALCIUM 9.1 mg/dL (8.4-10.2); CARBON DIOXIDE 24 mmol/L (22-30); CHLORIDE 105 mmol/L (98-107); CREATINE KINASE 47 U/L (55-170); GLUCOSE 237 mg/dL (75-110); POTASSIUM 4.4 mmol/L (3.6-5.0); SODIUM 139.6 mmol/L (137-145); TOTAL PROTEIN 6.5 g/dL (6.3-8.2)
--- NOTE | 2018-07-01 02:06 | RADIOLOGY REPORT (SQ) ---
EXAM DESCRIPTION: XR CHEST 2 VIEWS COMPLETED DATE/TME: 07/01/2018 00:00 CLINICAL HISTORY: 58 years, Male, CP COMPARISON: None. NUMBER OF VIEWS: TECHNIQUE: LIMITATIONS: None. FINDINGS: No evidence of pulmonary infiltrate or pleural effusion. The heart is normal in size. There is evidence of prior thoracic surgery, possibly coronary artery bypass surgery. Pulmonary vascularity appears normal. IMPRESSION: No acute finding. copyright 2010 [employer]- All Rights Reserved
[2018-07-01 02:12] LABS: CREATINE KINASE MB 0.39 ng/mL (<4.55); TROPONIN I 0.027 ng/mL
--- NOTE | 2018-07-01 02:28 | ER Document Report ---
ED General - General Chief Complaint: Chest Pain Stated Complaint: CHEST PAIN Time Seen by Provider: 07/01/18 02:24 Primary Care Provider: JAMES DAWKINS MD [Primary Care Provider] - Follow up as needed Notes: Patient is a pleasant 58-year-old male who presents with complaint of chest pain. Patient is well-known to ED. Is been there many times in the past and has history of severe coronary disease. His last RI was in October at which point he went to [facility] and had a heart cath and then to the heart cath had coronary bypass surgery performed. Patient has had intermittent chest pain since then. She has been admitted twice in April. Last stress test was in April and was negative. She is followed by [facility] in [place]. He says that today he started having severe chest pain. Initially thought it could be his hiatal hernia however the pain progressed and then turned into a heav iness on his chest. He did receive aspirin in triage. Denies any fevers. No vomiting. No diarrhea. No radiation of the pain. Pain is in the lower left side of the chest. TRAVEL OUTSIDE OF THE [place] IN LAST 30 DAYS: No - Related Data Allergies/Adverse Reactions: morphine [Morphine] Adverse Reaction (Verified 07/01/18 01:13) Migraine Past Medical History - Social History Smoking Status: Never Smoker Frequency of alcohol use: Rare Drug Abuse: None Family History: CAD, DM, Hyperlipidemia, Hypertension Patient has suicidal ideation: No Patient has homicidal ideation: No - Past Medical History Cardiac Medical History: Reports: Hx Coronary Artery Disease, Hx Heart Attack - x6, Hx Hypercholesterolemia, Hx Hypertension Denies: Hx Congestive Heart Failure Pulmonary Medical History: Denies: Hx Asthma, Hx Bronchitis, Hx COPD, Hx Pneumonia, Hx Respiratory Failure, Hx Tuberculosis Neurological Medical History: Reports: Hx Cerebrovascular Accident - x1. Denies: Hx Seizures Endocrine Medical History: Reports: Hx Diabetes Mellitus Type 2. Denies: Hx Diabetes Mellitus Type 1, Hx Hyperthyroidism, Hx Hypothyroidism Renal/ Medical History: Reports: Hx Benign Prostatic Hyperplasia, Hx Kidney Stones. Denies: Hx End Stage Renal Disease, Hx Peritoneal Dialysis GI Medical History: Reports: Hx Gastroesophageal Reflux Disease. Denies: Hx Cirrhosis, Hx Hepatitis, Hx Ulcer Musculoskeletal Medical History: Denies Hx Arthritis, Denies Hx Gout, Denies Hx Multiple Sclerosis Skin Medical History: Denies Hx Eczema, Denies Hx Psoriasis Psychiatric Medical History: Denies: Hx Bipolar Disorder, Hx Depression, Hx Schizophrenia Infectious Medical History: Denies: Hx Hepatitis Past Surgical History: Reports: Hx Abdominal Surgery, Hx Cardiac Cath eterization, Hx Cardiac Surgery - triple bipass, Hx Cholecystectomy, Hx Coronary Artery Bypass Graft, Hx Coronary Stent - x9, Hx Gastric Bypass Surgery - Immunizations Hx Diphtheria, Pertussis, Tetanus Vaccination: Yes Hx Pneumococcal Vaccination: 11/19/14 Review of Systems - Review of Systems Notes: My Normal Review Basic REVIEW OF SYSTEMS: CONSTITUTIONAL : Denies fever, chills, or sweats. Denies recent illness. EENT: Denies eye, ear, throat, or mouth pain or symptoms. Denies nasal or sinus congestion. CARDIOVASCULAR: Has chest pain RESPIRATORY: Denies cough, cold, or chest congestion. Denies shortness of breath, difficulty breathing, or wheezing. GASTROINTESTINAL: Denies abdominal pain. Denies nausea, vomiting, or diarrhea. GENITOURINARY: Denies difficulty urinating, painful urination, burning, frequency, or blood in urine. MUSCULOSKELETAL: Denies neck or back pain or joint pain or swelling. SKIN: Denies rash or skin lesions. NEUROLOGICAL: Denies altered mental status or loss of consciousness. Denies headache. Denies weakness or paralysis or loss of use of either side. Denies problems with gait or speech. Denies sensory or motor loss. ALL OTHER SYSTEMS REVIEWED AND NEGATIVE. Physical Exam - Vital signs Vitals: Temp Pulse Resp BP Pulse Ox 97.9 F 102 H 16 177/102 H 100 07/01/18 00:54 07/01/18 00:54 07/01/18 00:54 07/01/18 00:54 07/01/18 00:54 - Notes Notes: General Appearance: Well nourished, alert, cooperative, no acute distress, no obvious discomfort. Vitals: reviewed, See vital signs table. Head: no swelling or tenderness to the head Eyes: PERRL, EOMI, Conjuctiva clear Mouth: No decreasd moisture Lungs: No wheezing, No rales, No rhonci, No accessory muscle use, good air exchange bilaterally. Heart: Normal rate, Regular rythm, No murmur, no rub Chest wall: No reproducible pain palpation of chest wall. Abdomen: Normal BS, soft, No rigidity, No abdominal tenderness, No guarding, no rebound, no abdominal masses, no organomegaly Extremities: strength 5/5 in all extremities, good pulses in all extremities, no swelling or tenderness in the extremities, no edema. Skin: warm, dry, appropriate color, no rash Neuro: speech clear, oriented x 3, normal affect, responds appropriately to questions. Course - Re-evaluation Re-evalutation: 07/01/18 03:55 The remainder of the patient's pain resolved with the GI cocktail. Were are going to redraw the repeat troponin right now. 07/01/18 05:21 Fortunately patient's troponin has increased more than 10 fold and just 2 hours. Therefore had to be concerned that he potentially is having a non-STEMI. Due to his complicated history requiring open heart surgery just 9 months ago I think is appropriate to send him back to [place] where they have cardiothoracic surgery back-up as well as interventional cardiology. I will give him a dose of Lovenox. Patient is agreeable with plan. I did just speak with [facility] cardiac connections line and they will contact the [facility] to give me a call back. 07/01/18 06:[address] Scarlet Tate, [facility] on-call at [facility], who agrees to accept the patient in transfer. 07/01/18 06:10 He continues to be pain-free. He agrees with plan to be transferred. I have ordered his cardiac medications. [facility] said that currently do not have any beds however they helped open up some bed throughout the day and get him over there. I therefore have ordered a cardiac diet for this morning in case there is some delay in him being transferred. Dictation of this chart was performed using voice recognition software; therefore, there may be some unintended grammatical errors. - Vital Signs Vital signs: Temp Pulse Resp BP Pulse Ox 97.9 F 102 H 17 141/85 H 100 07/01/18 00:54 07/01/18 00:54 07/01/18 05:01 07/01/18 05:01 07/01/18 05:01 - Laboratory Result Diagrams: 07/01/18 01:20 07/01/18 01:20 Laboratory results interpreted by me: 07/01/18 07/01/18 01:20 01:20 Hgb 10.2 L Hct 33.5 L MCV 68 L MCH 20.7 L MCHC 30.3 L RDW 17.3 H Glucose 237 H AST 15 L Creatine Kinase 47 L - EKG Interpretation by Me Additional EKG results interpreted by me: 07/01/18 02:27 EKG is reviewed and interpreted by me. EKG shows sinus tachycardia with rate of [address] segment elevation or depression. No ischemic T wave inversions. UT interval, QRS duration, QT intervals are within normal range. Old EKG for comparison is from May 12, 2018. 07/01/18 05:33 EKG is reviewed and interpreted by me. This is patient's repeat EKG after resolution of pain. EKG shows sinus rhythm with a rate of [address] segment elevation or depression. No ischemic T wave inversions. UT interval, QRS duration, QT intervals are within normal range. Discharge - Discharge Clinical Impression: NSTEMI (non-ST elevated myocardial infarction) Chest pain Qualifiers: Chest pain type: unspecified Qualified Code(s): R07.9 - Chest pain, unspecified Condition: Stable Disposition: [facility] [place] Referrals: JAMES DAWKINS MD [Primary Care Provider] - Follow up as needed
[2018-07-01] MEDS ORDERED: LIDOCAINE 2% VISCOUS SOLN 20 ML UDCUP PO ONE (02:40)
[2018-07-01] MEDS ORDERED: METOCLOPRAMIDE HCL ORAL SOLN 10 MG/10 ML UDCUP PO ONE (02:40)
[2018-07-01] MEDS ORDERED: MAG HYDROX/AL HYDROX/SIMETH SUSP 30 ML UDCUP PO ONE (02:40)
--- NOTE | 2018-07-01 07:55 | EKG REPORT ---
SEVERITY:- ABNORMAL ECG - SINUS TACHYCARDIA NONSPECIFIC INTRAVENTRICULAR CONDUCTION DELAY NONSPECIFIC ST-T CHANGES LATERAL LEADS UNCHANGED : Confirmed by: Karson Kingsley MD 01-Jul-2018 07:55:13
--- NOTE | 2018-07-01 07:55 | EKG REPORT ---
SEVERITY:- BORDERLINE ECG - SINUS BRADYCARDIA NONSPECIFIC ST-T CHANGES LATERAL LEADS UNCHANGED. : Confirmed by: Karson Kingsley MD 01-Jul-2018 07:54:10
[2018-07-01] MEDS ORDERED: OXYCODONE HCL IR 5 MG TABLET PO ONE ×2 (08:48→14:04)
[2018-07-01] MEDS ORDERED: CLOPIDOGREL BISULFATE 75 MG TABLET PO SCH (10:00)
[2018-07-01] MEDS ORDERED: METOPROLOL SUCCINATE 25 MG TAB.SR.24H PO SCH (10:00)
[2018-07-01] MEDS ORDERED: ASPIRIN 81 MG TABLET, ENT COATED PO SCH (10:00)
[2018-07-01] MEDS ORDERED: ENOXAPARIN SODIUM INJ 100 MG/1 ML DISP.SYRIN SUBCUT SCH (10:00)
--- NOTE | 2018-07-01 13:06 | EKG REPORT ---
SEVERITY:- ABNORMAL ECG - SINUS RHYTHM NONSPECIFIC ST-T CHANGES- INFERIOR LEADS : Confirmed by: Kasron Kingsley MD 01-Jul-2018 13:06:16
[2018-07-01 14:20] VITALS: BP 112/99
[2018-07-01] MEDS ORDERED: SIMVASTATIN 40 MG TABLET PO SCH (22:00)
== END 2018-07-01 14:20 | disposition short-term general hospital (02) ==
LOC: ER 00:42
DX: I21.4 Non-ST elevation (NSTEMI) myocardial infarction (principal); I25.10 Atherosclerotic heart disease of native coronary artery without angina pectoris; I10 Essential (primary) hypertension; I25.2 Old myocardial infarction; E11.9 Type 2 diabetes mellitus without complications; Z95.1 Presence of aortocoronary bypass graft; Z95.5 Presence of coronary angioplasty implant and graft; Z82.49 Family history of ischemic heart disease and other diseases of the circulatory system
CPT/HCPCS: 93005; 99285; 96372; 36415; 82553; 82550; 85025; 80053; 84484; 71046; 93010; A9270 ×6; J3490; J1650

== ENCOUNTER 2018-09-02 02:11 | Observation (INO) | payer MEDICARE ==
--- NOTE | 2018-09-02 03:55 | ER Document Report ---
ED Medical Screen (RME) - General Chief Complaint: Chest Pain Stated Complaint: CHEST PAIN Time Seen by Provider: 09/02/18 03:52 Primary Care Provider: JAMES DAWKINS MD [Primary Care Provider] - Follow up as needed Mode of Arrival: Ambulatory Information source: Patient Notes: Patient is a 58-year-old male presented to the emergency department chief complaint of chest pain that started at approximately 1145 last night. He reports associated left arm and neck pain, dizziness, nausea and shortness of breath. He states that the pain felt like a pressure. He does report a history of 7 heart attacks with 9 stent placements and a triple bypass. He did also reports that history of a hiatal hernia and states that sometimes he has a hard time differentiating between cardiac pain and pain from the hiatal hernia. He does report that the time of my evaluation that the chest pain has resolved. Exam: Patient alert, oriented, answering all questions appropriately. Heart sounds S1-S2 present with no ectopy noted. I have greeted and performed a rapid initial assessment of this patient. A comprehensive ED assessment and evaluation of the patient, analysis of test results and completion of the medical decision making process will be conducted by additional ED providers. I have specifically instructed the patient or family members with the patient to immediately return to any nursing staff should anything change in the patient's condition or with their chief complaint. This medical record was dictated with voice recognizing software. There may be grammatical, syntax errors that are unintended. TRAVEL OUTSIDE OF THE [place] IN LAST 30 DAYS: No - Related Data Allergies/Adverse Reactions: morphine [Morphine] Adverse Reaction (Verified 07/01/18 01:13) Migraine Past Medical History - Past Medical History Cardiac Medical History: Reports: Hx Coronary Artery Disease, Hx Heart Attack - x6, Hx Hypercholesterolemia, Hx Hypertension Denies: Hx Congestive Heart Failure Pulmonary Medical History: Denies: Hx Asthma, Hx Bronchitis, Hx COPD, Hx Pneumonia, Hx Respiratory Failure, Hx Tuberculosis Neurological Medical History: Reports: Hx Cerebrovascular Accident - x1. Denies: Hx Seizures Endocrine Medical History: Reports: Hx Diabetes Mellitus Type 2. Denies: Hx Diabetes Mellitus Type 1, Hx Hyperthyroidism, Hx Hypothyroidism Renal/ Medical History: Reports: Hx Benign Prostatic Hyperplasia, Hx Kidney Stones. Denies: Hx End Stage Renal Disease, Hx Peritoneal Dialysis GI Medical History: Reports: Hx Gastroesophageal Reflux Disease. Denies: Hx Cirrhosis, Hx Hepatitis, Hx Ulcer Musculoskeltal Medical History: Denies Hx Arthritis, Denies Hx Gout, Denies Hx Multiple Sclerosis Skin Medical History: Denies Hx Eczema, Denies Hx Psoriasis Psychiatric Medical History: Denies: Hx Bipolar Disorder, Hx Depression, Hx Schizophrenia Infectious Medical History: Denies: Hx Hepatitis Past Surgical History: Reports: Hx Abdominal Surgery, Hx Cardiac Catheterizat ion, Hx Cardiac Surgery - triple bipass, Hx Cholecystectomy, Hx Coronary Artery Bypass Graft, Hx Coronary Stent - x9, Hx Gastric Bypass Surgery - Immunizations Hx Diphtheria, Pertussis, Tetanus Vaccination: Yes History of Influenza Vaccine for 11/2016 - 04/2017 Season: Yes Influenza Administration Date for 11/2016 - 04/2017 Season: 03/05/18 Physical Exam - Vital signs Vitals: Temp Pulse Resp BP Pulse Ox 97.4 F 103 H 17 134/93 H 97 09/02/18 02:57 09/02/18 02:57 09/02/18 02:57 09/02/18 02:57 09/02/18 02:57 Course - Vital Signs Vital signs: Temp Pulse Resp BP Pulse Ox 97.4 F 103 H 17 134/93 H 97 09/02/18 02:57 09/02/18 02:57 09/02/18 02:57 09/02/18 02:57 09/02/18 02:57 Doctor's Discharge - Discharge Referrals: JAMES DAWKINS MD [Primary Care Provider] - Follow up as needed
--- NOTE | 2018-09-02 04:36 | RADIOLOGY REPORT (SQ) ---
CLINICAL HISTORY: chest pain COMPARISON: May 12, 2018. TECHNIQUE: XR CHEST 1 VIEW 09/02/2018 3:53 AM CDT FINDINGS: The heart is normal in size. Sternotomy was performed. Lungs are clear without consolidation, atelectasis, mass or edema. There is no pleural effusion. There is no pneumothorax. There are no acute osseous findings. IMPRESSION: Clear lungs.
[2018-09-02 04:52] LABS: ABSOLUTE BASOPHILS # (AUTO) 0.1 10^3/uL (0.0-0.2); ABSOLUTE EOSINOPHILS # (AUTO) 0.2 10^3/uL (0.0-0.6); ABSOLUTE LYMPHOCYTES (AUTO) 1.6 10^3/uL (0.5-4.7); ABSOLUTE MONOCYTES (AUTO) 0.8 10^3/uL (0.1-1.4); ABSOLUTE NEUT (AUTO) 5.2 10^3/uL (1.7-8.2); BASOPHILS % (AUTO) 1.1 % (0-2); EOSINOPHILS % (AUTO) 2.6 % (0-6); HEMATOCRIT 34.4 % (37.9-51.0); HEMOGLOBIN 10.6 g/dL (13.5-17.0); LYMPHOCYTES % (AUTO) 20.1 % (13-45); MEAN CORPUSCULAR HEMOGLOBIN 21.1 pg (27.0-33.4); MEAN CORPUSCULAR HGB CONC 30.7 g/dL (32.0-36.0); MEAN CORPUSCULAR VOLUME 69 fl (80-97); MONOCYTES % (AUTO) 10.6 % (3-13); PLATELET COUNT 362 10^3/uL (150-450); RED BLOOD COUNT 4.99 10^6/uL (4.35-5.55); RED CELL DISTRIBUTION WIDTH 18.3 % (11.5-14.0); SEGMENTED NEUTROPHILS % (AUTO) 65.6 % (42-78); TOTAL CELLS COUNTED % (AUTO) 100 %; WHITE BLOOD COUNT 7.9 10^3/uL (4.0-10.5)
[2018-09-02 05:14] LABS: ALANINE AMINOTRANSFERASE 21 U/L (21-72); ALBUMIN 4.1 g/dL (3.5-5.0); ALKALINE PHOSPHATASE 74 U/L (38-126); ANION GAP 10 (5-19); ASPARTATE AMINO TRANSFERASE 18 U/L (17-59); BILIRUBIN,DIRECT 0.3 mg/dL (0.0-0.4); BILIRUBIN,TOTAL 0.3 mg/dL (0.2-1.3); BLOOD UREA NITROGEN 15 mg/dL (7-20); CALCIUM 9.2 mg/dL (8.4-10.2); CARBON DIOXIDE 23 mmol/L (22-30); CHLORIDE 105 mmol/L (98-107); GLUCOSE 271 mg/dL (75-110); POTASSIUM 5.3 mmol/L (3.6-5.0)
--- NOTE | 2018-09-02 06:17 | ER Document Report ---
ED General - General Chief Complaint: Chest Pain Stated Complaint: CHEST PAIN Time Seen by Provider: 09/02/18 03:52 Primary Care Provider: JAMSE DAWKINS MD [Primary Care Provider] - Follow up as needed Mode of Arrival: Ambulatory Notes: Patient is a 58-year-old male with history of CAD and status post CABG that presents to the emergency department for chief complaint of chest pain. Patient reports that chest pain started around 1145 history evening, he is watching the news and he went to lay down and felt a heaviness and tightness in his chest, he took Nexium and aspirin to see if it would help, but it continued so he decided come to the emergency department. He had associated pain in his jaw and arm on the left side, and nausea but no vomiting. He also felt somewhat short of breath. His symptoms are much improved from when he presented to the emergency department but still has somewhat of a heaviness in his chest. He has had 9 stents in the past, as well as bypass in October 2017. He also has a history of hypertension. Past Medical History: CAD, hypertension, hyperlipidemia Past Surgical History: PCI with stenting x9, CABG Social History: Denies tobacco use, denies alcohol or illicit drug use. Family History: Reviewed and noncontributory for presenting illness Allergies: Reviewed, see documented allergy list. REVIEW OF SYSTEMS: Other than noted above, the 12 point review of systems was reviewed with the patient and were negative, all pertinent findings are included in the HPI. PHYSICAL EXAMINATION: Vital signs reviewed, nursing noted reviewed. GENERAL: Well-appearing, well-nourished and in no acute distress. HEAD: Atraumatic, normocephalic. EYES: Eyes appear normal, extraocular movements intact, sclera anicteric, conjunctiva are normal. ENT: nares patent, oropharynx clear without exudates. Moist mucous membranes. NECK: Normal range of motion, supple without lymphadenopathy LUNGS: Breath sounds clear to auscultation bilaterally and equal. No wheezes rales or rhonchi. HEART: Regular rate and rhythm without murmurs ABDOMEN: Soft, nontender, normoactive bowel sounds. No rebound, guarding, or rigidity. No masses appreciated. EXTREMITIES: Nontender, good range of motion, no pitting or edema. NEUROLOGICAL: No focal neurological deficits. Moves all extremities spontaneously Motor and sensory grossly intact on exam. PSYCH: Normal mood, normal affect. SKIN: Warm, Dry, normal turgor, no rashes or lesions noted on exposed skin TRAVEL OUTSIDE OF THE [place] IN LAST 30 DAYS: No - Related Data Allergies/Adverse Reactions: morphine [Morphine] Adverse Reaction (Verified 07/01/18 01:13) Migraine Past Medical History - General Information source: Patient - Social History Smoking Status: Never Smoker Frequency of alcohol use: None Drug Abuse: None Family History: CAD, DM, Hyperlipidemia, Hypertension Patient has suicidal ideation: No Patient has homicidal ideation: No - Past Medical History Cardiac Medical History: Reports: Hx Coronary Artery Disease, Hx Heart Attack - x6, Hx Hypercholesterolemia, Hx Hypertension Denies: Hx Congestive Heart Failure Pulmonary Medical History: Denies: Hx Asthma, Hx Bronchitis, Hx COPD, Hx Pneumonia, Hx Respiratory Failu re, Hx Tuberculosis Neurological Medical History: Reports: Hx Cerebrovascular Accident - x1. Denies: Hx Seizures Endocrine Medical History: Reports: Hx Diabetes Mellitus Type 2. Denies: Hx Diabetes Mellitus Type 1, Hx Hyperthyroidism, Hx Hypothyroidism Renal/ Medical History: Reports: Hx Benign Prostatic Hyperplasia, Hx Kidney Stones. Denies: Hx End Stage Renal Disease, Hx Peritoneal Dialysis GI Medical History: Reports: Hx Gastroesophageal Reflux Disease. Denies: Hx Cirrhosis, Hx Hepatitis, Hx Ulcer Musculoskeletal Medical History: Denies Hx Arthritis, Denies Hx Gout, Denies Hx Multiple Sclerosis Skin Medical History: Denies Hx Eczema, Denies Hx Psoriasis Psychiatric Medical History: Denies: Hx Bipolar Disorder, Hx Depression, Hx Schizophrenia Infectious Medical History: Denies: Hx Hepatitis Past Surgical History: Reports: Hx Abdominal Surgery, Hx Cardiac Catheterization, Hx Cardiac Surgery - triple bipass, Hx Cholecystectomy, Hx Coronary Artery Bypass Graft, Hx Coronary Stent - x9, Hx Gastric Bypass Surgery - Immunizations Hx Diphtheria, Pertussis, Tetanus Vaccination: Yes Hx Pneumococcal Vaccination: 11/19/14 Physical Exam - Vital signs Vitals: Temp Pulse Resp BP Pulse Ox 97.4 F 103 H 17 134/93 H 97 09/02/18 02:57 09/02/18 02:57 09/02/18 02:57 09/02/18 02:57 09/02/18 02:57 Course - Re-evaluation Re-evalutation: Patient seen and examined vital signs reviewed. Laboratory data and imaging were ordered as appropriate for the patient's presenting symptoms and complaint, with consideration of any critical or life threatening conditions that may be associated with their obtained history and exam as noted above. Patient had taken 2 baby aspirin prior to ED arrival. Results were reviewed when available and demonstrated negative troponin, chest x-ray negative, EKG did not demonstrate an ischemic pattern, no ST elevation. He was noted to be 2 degree hyperglycemic, states he has a prior history of diabetes mellitus, does not believes on current medication for diabetes. The patient was re-evaluated and was stable Evaluation was most consistent with chest pain in a high risk patient, given history of CABG, multiple stents, hyperlipidemia, and the patient's history is concerning for possible ACS, and would recommend observation for serial troponin testing, will place call to the hospitalist. Patient agreeable. Results were discussed with the patient at this point after careful consideration I feel that that patient should be admitted to the hospital. This was discussed with the patient that it is in the best interest for their care to be admitted for further evaluation and management. Patient agreed with this plan of care. A call was placed to the admitting provider, John Westbrook CNP who graciously accepted the patient onto their service. *Note is created using voice recognition software and may contain spelling, syntax or grammatical errors. Laboratory 09/02/18 09/02/18 09/02/18 04:04 04:04 04:04 WBC 7.9 RBC 4.99 Hgb 10.6 L Hct 34.4 L MCV 69 L MCH 21.1 L MCHC 30.7 L RDW 18.3 H Plt Count 362 Seg Neutrophils % 65.6 Lymphocytes % 20.1 Monocytes % 10.6 Eosinophils % 2.6 Basophils % 1.1 Absolute Neutrophils 5.2 Absolute Lymphocytes 1.6 Absolute Monocytes 0.8 Absolute Eosinophils 0.2 Absolute Basophils 0.1 Sodium 137.6 Potassium 5.3 H Chloride 105 Carbon Dioxide 23 Anion Gap 10 BUN 15 Creatinine 1.21 Est GFR ( Amer) > 60 Est GFR (Non-Af Amer) > 60 Glucose 271 H Calcium 9.2 Total Bilirubin 0.3 Direct Bilirubin 0.3 Neonat Total Bilirubin Not Reportable Neonat Direct Bilirubin Not Reportable Neonat Indirect Bili Not Reportable AST 18 ALT 21 Alkaline Phosphatase 74 Troponin I < 0.012 Total Protein 7.0 Albumin 4.1 Chest X-Ray 09/02/18 03:53 IMPRESSION: Clear lungs. - Vital Signs Vital signs: Temp Pulse Resp BP Pulse Ox 97.4 F 103 H 16 148/78 H 100 09/02/18 02:57 09/02/18 02:57 09/02/18 07:01 09/02/18 07:01 09/02/18 07:01 - Laboratory Result Diagrams: 09/02/18 04:04 09/02/18 04:04 Laboratory results interpreted by me: 09/02/18 09/02/18 04:04 04:04 Hgb 10.6 L Hct 34.4 L MCV 69 L MCH 21.1 L MCHC 30.7 L RDW 18.3 H Potassium 5.3 H Glucose 271 H - EKG Interpretation by Me Additional EKG results interpreted by me: EKG demonstrates sinus tachycardia with a ventricular rate of 108 bpm, normal axis, QTC [address] elevation, no prior for comparison. Discharge - Discharge Clinical Impression: Chest pain Qualifiers: Chest pain type: unspecified Qualified Code(s): R07.9 - Chest pain, unspecified Condition: Stable Disposition: ADMITTED OBSERVATION Admitting Provider: Jordon (Hospitalist) - [facility] Unit Admitted: Telemetry Referrals: JAMES DAWKINS MD [Primary Care Provider] - Follow up as needed
[2018-09-02] MEDS ORDERED: ACETAMINOPHEN 325 MG TABLET PO PRN (08:36)
[2018-09-02] MEDS ORDERED: NORMAL SALINE 1000 ML 1,000 ML IV PRN (08:40)
--- NOTE | 2018-09-02 08:41 | Progress Note Acknowledgement ---
Progress Note Acknowledgement Progess Note Acknowledgement: I, the undersigned member of the medical staff with appropriate privileges and with supervisory authority over John Westbrook, a [facility] practice allied health professional, acknowledge that I have reviewed the progress notes entered on this patient, and in my professional judgment believe that the assessment made and/or any care evidenced was appropriate
--- NOTE | 2018-09-02 08:47 | PDOC H&P ---
History of Present Illness Admission Date/PCP: 09/02/18 08:36 JAMES DAWKINS MD Patient complains of: chest pain History of Present Illness: STEPHANIE MONTEMAYOR is a 58 year old male with a past medical history of coronary artery disease. Patient has had 9 stents 6 which are still active and a triple bypass. Patient presented to the ER this morning with chest pain with radiation to his left arm. Patient taking home medication including aspirin and metoprolol he states no aggravating factors. Past Medical History Cardiac Medical History: Reports: Coronary Artery Disease, Myocardial Infarction - x6, Hyperlipidema, Hypertension Denies: Congestive Heart Failure Pulmonary Medical History: Denies: Asthma, Bronchitis, Chronic Obstructive Pulmonary Disease (COPD), Pneumonia, Respiratory Failure, Tuberculosis Neurological Medical History: Denies: Seizures Endocrine Medical History: Reports: Diabetes Mellitus Type 2 Denies: Diabetes Mellitus Type 1, Hyperthyroidism, Hypothyroidism Renal/ Medical History: Denies: End Stage Renal Disease GI Medical History: Reports: Gastroesophageal Reflux Disease Denies: Cirrhosis, Hepatitis Musculoskeltal Medical History: Denies: Arthritis, Gout Skin Medical History: Denies: Eczema, Psoriasis Psychiatric Medical History: Denies: Bipolar Disorder, Depression Hematology: Denies: Anemia, Bleeding Tendencies Past Surgical History Past Surgical History: Reports: Cardiac Catheterization, Cholecystectomy, Coronary Artery Bypass Graft, Coronary Stent - x9, Gastric Bypass Surgery Social History Information Source: Patient Lives with: Family Smoking Status: Never Smoker Frequency of Alcohol Use: Rare Hx Recreational Drug Use: No Drugs: None Hx Prescription Drug Abuse: No - Advance Directive Resuscitation Status: Full Code Family History Family History: CAD, DM, Hyperlipidemia, Hypertension Parental Family History Reviewed: Yes Children Family History Reviewed: Yes Sibling(s) Family History Reviewed.: Yes Medication/Allergy Home Medications: Aspirin [Aspirin 81 mg Chewable Tablet] 81 mg PO DAILY 05/12/18 Atorvastatin Calcium [Lipitor 40 mg Tablet] 40 mg PO QHS 05/12/18 Clopidogrel Bisulfate [Plavix 75 mg Tablet] 75 mg PO DAILY 05/12/18 Cyanocobalamin (Vitamin B-12) [Vitamin B12] 2,500 mcg PO DAILY 05/12/18 Cyclobenzaprine HCl [Flexeril 10 mg Tablet] 10 mg PO BID 05/12/18 Ergocalciferol (Vitamin D2) [Vitamin D] 400 unit PO BID 05/12/18 Ferrous Sulfate [Iron] 325 mg PO DAILY 05/12/18 Gabapentin [Neurontin 300 mg Capsule] 300 mg PO TID 05/12/18 Metoprolol Succinate [Toprol Xl] 12.5 mg PO DAILY 05/12/18 Oxycodone HCl [Oxycodone HCl 10 MG Tablet] 10 mg PO QID 05/12/18 Pantoprazole Sodium [Protonix [address] Tablet] 40 mg PO Q6AM 05/12/18 Allergies/Adverse Reactions: morphine [Morphine] Adverse Reaction (Verified 07/01/18 01:13) Migraine Review of Systems Constitutional: ABSENT: chills, fever(s), headache(s), weight gain, weight loss Eyes: ABSENT: visual disturbances Ears: ABSENT: hearing changes Cardiovascular: PRESENT: chest pain. ABSENT: dyspnea on exertion, edema, orthropnea, palpitations Respiratory: ABSENT: cough, hemoptysis Gastrointestinal: ABSENT: abdominal pain, constipation, diarrhea, hematemesis, hematochezia, nausea, vomiting Genitourinary: ABSENT: dysuria, hematuria Musculoskeletal: ABSENT: joint swelling Integumentary: ABSENT: rash, wounds Neurological: ABSENT: abnormal gait, abnormal speech, confusion, dizziness, focal weakness, syncope Psychiatric: ABSENT: anxiety, depression, homidical ideation, suicidal ideation Endocrine: ABSENT: cold intolerance, heat intolerance, polydipsia, polyuria Hematologic/Lymphatic: ABSENT: easy bleeding, easy bruising Physical Exam Vital Signs: Temp Pulse Resp BP Pulse Ox 97.4 F 103 H 16 148/78 H 100 09/02/18 02:57 09/02/18 02:57 09/02/18 07:01 09/02/18 07:01 09/02/18 07:01 Intake & Output 09/01/18 09/02/18 09/03/18 06:59 06:59 06:59 Weight 104.8 kg General appearance: PRESENT: no acute distress, well-developed, well-nourished Head exam: PRESENT: atraumatic, normocephalic Eye exam: PRESENT: conjunctiva pink, EOMI, PERRLA. ABSENT: scleral icterus Ear exam: PRESENT: normal external ear exam Mouth exam: PRESENT: moist, tongue midline Neck exam: ABSENT: carotid bruit, JVD, lymphadenopathy, thyromegaly Respiratory exam: PRESENT: clear to auscultation rashmi. ABSENT: rales, rhonchi, wheezes Cardiovascular exam: PRESENT: RRR. ABSENT: diastolic murmur, rubs, systolic murmur Pulses: PRESENT: normal dorsalis pedis pul Vascular exam: PRESENT: normal capillary refill GI/Abdominal exam: PRESENT: normal bowel sounds, soft. ABSENT: distended, guarding, mass, organolmegaly, rebound, tenderness Rectal exam: PRESENT: deferred Extremities exam: PRESENT: full ROM. ABSENT: calf tenderness, clubbing, pedal edema Neurological exam: PRESENT: alert, awake, oriented to person, oriented to place, oriented to time, oriented to situation, CN II-XII grossly intact. ABSENT: motor sensory deficit Psychiatric exam: PRESENT: appropriate affect, normal mood. ABSENT: homicidal ideation, suicidal ideation Skin exam: PRESENT: dry, intact, warm. ABSENT: cyanosis, rash Results Laboratory Results: 09/02/18 04:04 09/02/18 04:04 09/02/18 09/02/18 04:04 04:04 WBC 7.9 RBC 4.99 Hgb 10.6 L Hct 34.4 L MCV 69 L MCH 21.1 L MCHC 30.7 L RDW 18.3 H Plt Count 362 Seg Neutrophils % 65.6 Lymphocytes % 20.1 Monocytes % 10.6 Eosinophils % 2.6 Basophils % 1.1 Absolute Neutrophils 5.2 Absolute Lymphocytes 1.6 Absolute Monocytes 0.8 Absolute Eosinophils 0.2 Absolute Basophils 0.1 Sodium 137.6 Potassium 5.3 H Chloride 105 Carbon Dioxide 23 Anion Gap 10 BUN 15 Creatinine 1.21 Est GFR ( Amer) > 60 Est GFR (Non-Af Amer) > 60 Glucose 271 H Calcium 9.2 Total Bilirubin 0.3 AST 18 ALT 21 Alkaline Phosphatase 74 Total Protein 7.0 Albumin 4.1 09/02/18 09/02/18 04:04 07:52 Troponin I < 0.012 0.065 Impressions: Chest X-Ray 09/02/18 03:53 IMPRESSION: Clear lungs. Assessment and Plan - Diagnosis (1) Chest pain Qualifiers: Chest pain type: unspecified Qualified Code(s): R07.9 - Chest pain, unspecified Is this a current diagnosis for this admission?: Yes Plan: 09/02/2018-admit to [facility] with telemetry. Continue to cycle troponins. Continue aspirin metoprolol. Consult cardiology as needed. (2) Hyperkalemia Is this a current diagnosis for this admission?: Yes Plan: 09/02/2018-potassium 5.3. Will hydrate overnight with normal saline 100 mL an hour this should dilute this potassium level down. (3) Diabetes Qualifiers: Diabetes mellitus complication status: without complication Is this a current diagnosis for this admission?: Yes Plan: 09/02/2018-continue patient's home diabetic medications. (4) Anemia Qualifiers: Anemia type: iron deficiency Is this a current diagnosis for this admission?: Yes Plan: 09/02/2018-continue home ferrous sulfate. - Time Time Spent with patient: 35 or more minutes Anticipated discharge: Home Within: within 24 hours
[2018-09-02] MEDS ORDERED: (PENDING PHARMACY ID) (Zolpidem Tartrate [Ambien] 5 MG) PO PRN (18:41)
[2018-09-02] MEDS ORDERED: MAG HYDROX/AL HYDROX/SIMETH SUSP 30 ML UDCUP PO PRN (18:55)
[2018-09-02] MEDS ORDERED: ZOLPIDEM TARTRATE 5 MG TABLET PO PRN (19:00)
[2018-09-02] MEDS: CYCLOBENZAPRINE HCL 10 MG TABLET PO PRN (19:24)
[2018-09-02] MEDS: PANTOPRAZOLE SODIUM 20 MG TABLET.DR PO SCH (19:24)
[2018-09-02] MEDS: OXYCODONE HCL IR 5 MG TABLET PO PRN (19:24)
[2018-09-02] MEDS: GABAPENTIN 400 MG CAPSULE PO SCH (21:32)
[2018-09-02] MEDS ORDERED: ZOLPIDEM TARTRATE 5 MG TABLET PO SCH (22:00)
[2018-09-03] MEDS: OXYCODONE HCL IR 5 MG TABLET PO PRN ×3 (01:37→15:11)
[2018-09-03] MEDS: CYCLOBENZAPRINE HCL 10 MG TABLET PO PRN ×2 (05:17→15:11)
[2018-09-03] MEDS: PANTOPRAZOLE SODIUM 20 MG TABLET.DR PO SCH (05:17)
[2018-09-03] MEDS: GABAPENTIN 400 MG CAPSULE PO SCH ×2 (05:17→13:48)
[2018-09-03 06:24] LABS: ABSOLUTE EOSINOPHILS # (AUTO) 0.4 10^3/uL (0.0-0.6); ABSOLUTE LYMPHOCYTES (AUTO) 2.5 10^3/uL (0.5-4.7); ABSOLUTE MONOCYTES (AUTO) 0.7 10^3/uL (0.1-1.4); ABSOLUTE NEUT (AUTO) 4.8 10^3/uL (1.7-8.2); BASOPHILS % (AUTO) 0.3 % (0-2); EOSINOPHILS % (AUTO) 4.8 % (0-6); HEMATOCRIT 34.5 % (37.9-51.0); HEMOGLOBIN 10.7 g/dL (13.5-17.0); LYMPHOCYTES % (AUTO) 29.4 % (13-45); MEAN CORPUSCULAR HEMOGLOBIN 21.1 pg (27.0-33.4); MEAN CORPUSCULAR VOLUME 68 fl (80-97); MONOCYTES % (AUTO) 8.8 % (3-13); PLATELET COUNT 329 10^3/uL (150-450); RED BLOOD COUNT 5.07 10^6/uL (4.35-5.55); RED CELL DISTRIBUTION WIDTH 18.6 % (11.5-14.0); SEGMENTED NEUTROPHILS % (AUTO) 56.7 % (42-78); TOTAL CELLS COUNTED % (AUTO) 100 %; WHITE BLOOD COUNT 8.5 10^3/uL (4.0-10.5)
[2018-09-03 07:02] LABS: ANION GAP 10 (5-19); BLOOD UREA NITROGEN 14 mg/dL (7-20); CALCIUM 9.2 mg/dL (8.4-10.2); CARBON DIOXIDE 23 mmol/L (22-30); CHLORIDE 103 mmol/L (98-107); GLUCOSE 257 mg/dL (75-110); POTASSIUM 5.2 mmol/L (3.6-5.0)
[2018-09-03] MEDS ORDERED: ASPIRIN 81 MG TABLET, ENT COATED PO SCH (10:00)
[2018-09-03] MEDS ORDERED: VALSARTAN 40 MG TABLET PO SCH (10:00)
[2018-09-03] MEDS ORDERED: AMLODIPINE BESYLATE 5 MG TABLET PO SCH (10:00)
[2018-09-03] MEDS ORDERED: CLOPIDOGREL BISULFATE 75 MG TABLET PO SCH (10:00)
[2018-09-03] MEDS ORDERED: TAMSULOSIN HCL 0.4 MG CAP.SR.24H PO SCH (10:00)
[2018-09-03 15:33] VITALS: BP 131/71
--- NOTE | 2018-09-03 19:12 | EKG REPORT ---
SEVERITY:- BORDERLINE ECG - SINUS TACHYCARDIA NONSPECIFIC ST-T CHANGES : Confirmed by: Karson Kingsley MD 03-Sep-2018 19:11:44
--- NOTE | 2018-09-03 20:07 | PDOC DISCHARGE SUMMARY ---
General - Admit/Disc Date/PCP Admission Date/Primary Care Provider: 09/02/18 08:36 JAMES DAWKINS MD Discharge Date: 09/03/18 - Discharge Diagnosis (1) Chest pain Is this a current diagnosis for this admission?: Yes (2) Coronary disease sp stenting CABG Is this a current diagnosis for this admission?: Yes (3) Hiatal hernia Is this a current diagnosis for this admission?: Yes (4) History of gastric bypass Is this a current diagnosis for this admission?: Yes - Additional Information Resuscitation Status: Full Code Discharge Diet: Regular Discharge Activity: Activity As Tolerated Prescriptions: Isosorbide Mononitrate [Imdur 30 mg Tablet.er] 30 mg PO DAILY #30 tab.er.24h Home Medications: Amlodipine Besylate [Norvasc 5 mg Tablet] 5 mg PO DAILY 09/02/18 Aspirin [Ecotrin 81 mg EC Tablet] 81 mg PO DAILY 09/02/18 Clopidogrel Bisulfate [Plavix 75 mg Tablet] 75 mg PO DAILY 09/02/18 Cyclobenzaprine HCl [Flexeril 10 mg Tablet] 10 mg PO Q8HP PRN 09/02/18 Gabapentin [Neurontin] 800 mg PO Q8 09/02/18 Oxycodone HCl [Oxycodone HCl 10 MG Tablet] 10 mg PO Q6HP PRN 09/02/18 Tamsulosin HCl [Flomax 0.4 mg Cap.sr] 0.4 mg PO DAILY 09/02/18 Valsartan [Diovan 40 mg Tablet] 40 mg PO DAILY 09/02/18 Zolpidem Tartrate [Ambien] 5 mg PO HSP PRN 09/02/18 Isosorbide Mononitrate [Imdur 30 mg Tablet.er] 30 mg PO DAILY #30 tab.er.24h 09/03/18 History of Present Illness History of Present Illness: Admitting hospitalist's H&P: STEPHANIE MONTEMAYOR is a 58 year old male with a past medical history of coronary artery disease. Patient has had 9 stents 6 which are still active and a triple bypass. Patient presented to the ER this morning with chest pain with radiation to his left arm. Patient taking home medication including aspirin and metoprolol he states no aggravating factors. Hospital Course Hospital Course: This is a 58-year-old with significant past medical history of CAD with prior multiple stenting in the prior CABG who has had multiple admissions due to chest pain. He was admitted to rule out ACS. Patient did say that he does have flareup of his GERD from his abdominal hernia and is unable to distinguish this from his chest pain when he had a cardiac event before as he said that he has the same chest pressure when he has a flareup of his GERD. He has been chest pain-free since admission. Today, he appears very comfortable and cheerful. We discussed his labs and the further plan of care in length. His troponins have normalized and the peak level is indeterminate at 0.06. His EKGs does not show any acute ischemic changes. We discussed in length that as he had already two normal recent stress testing this year 1 done in [place] and one recently done at [facility], he may need a cardiac cath if he continues to have recurrence of chest pain given his significant cardiac history. Patient verbalized to me that he does understand this recommendation but says that he was recently transferred to [facility] but was also told by the hematologist oncologist there that he did not require a cath. He verbalized that he would rather rediscuss the possibility of needing a cath with his hematologist oncologist in [place] as he has an upcoming follow-up with him in the next 2 weeks. He says that he would prefer his own hematologist oncologist to pursue more testing on his upcoming ff-up with him as "he kniows everything about my heart inside out". He will continue to take his Nexium at home. We will also add Imdur to his CAD regimen at home. Physical Exam Vital Signs: Temp Pulse Resp BP Pulse Ox 97.4 F 70 14 131/71 H 98 09/03/18 15:31 09/03/18 15:31 09/03/18 15:31 09/03/18 15:31 09/03/18 15:31 Intake & Output 09/02/18 09/03/18 09/04/18 06:59 06:59 06:59 Intake Total 556 Balance 556 Weight 231 lb 0.711 oz 231 lb 0.711 oz General appearance: PRESENT: no acute distress, well-developed, well-nourished Head exam: PRESENT: atraumatic, normocephalic Eye exam: PRESENT: conjunctiva pink, EOMI, PERRLA. ABSENT: scleral icterus Ear exam: PRESENT: normal external ear exam Mouth exam: PRESENT: moist, tongue midline Neck exam: ABSENT: carotid bruit, JVD, lymphadenopathy, thyromegaly Respiratory exam: PRESENT: clear to auscultation rashmi. ABSENT: rales, rhonchi, wheezes Cardiovascular exam: PRESENT: RRR. ABSENT: diastolic murmur, rubs, systolic murmur Pulses: PRESENT: normal dorsalis pedis pul Vascular exam: PRESENT: normal capillary refill GI/Abdominal exam: PRESENT: normal bowel sounds, soft. ABSENT: distended, guarding, mass, organolmegaly, rebound, tenderness Rectal exam: PRESENT: deferred Neurological exam: PRESENT: alert, awake, oriented to person, oriented to place, oriented to time, oriented to situation, CN II-XII grossly intact. ABSENT: motor sensory deficit Results Laboratory Results: 09/03/18 06:15 09/03/18 06:15 09/03/18 09/03/18 06:15 06:15 WBC 8.5 RBC 5.07 Hgb 10.7 L Hct 34.5 L MCV 68 L MCH 21.1 L MCHC 31.0 L RDW 18.6 H Plt Count 329 Seg Neutrophils % 56.7 Lymphocytes % 29.4 Monocytes % 8.8 Eosinophils % 4.8 Basophils % 0.3 Absolute Neutrophils 4.8 Absolute Lymphocytes 2.5 Absolute Monocytes 0.7 Absolute Eosinophils 0.4 Absolute Basophils 0.0 Sodium 136.0 L Potassium 5.2 H Chloride 103 Carbon Dioxide 23 Anion Gap 10 BUN 14 Creatinine 1.13 Est GFR ( Amer) > 60 Est GFR (Non-Af Amer) > 60 Glucose 257 H Calcium 9.2 09/02/18 09/02/18 09/02/18 04:04 07:52 13:46 Troponin I < 0.012 0.065 0.050 09/03/18 13:29 Troponin I < 0.012 Impressions: Chest X-Ray 09/02/18 03:53 IMPRESSION: Clear lungs. Qualifiers - * PATIENT BEING DISCHARGED WITH ANY OF THE FOLLOWING DIAGNOSIS: No Acute Heart Failure - Is this a Heart Failure Patient?: No LVEF < 40%?: No- if no continue to question #3 3. Anticoagulant therapy for permanect/persistent/paraoxysmal Afib or Aflutter: N/A
== END 2018-09-03 16:09 | disposition home or self-care (01) ==
LOC: ER 02:11 → EH 08:36 → 4S 16:20
PROVIDERS: ADMIT Internal Medicine; ATTEND Internal Medicine
DX: R07.89 Other chest pain (principal); I25.10 Atherosclerotic heart disease of native coronary artery without angina pectoris; R68.84 Jaw pain; M79.602 Pain in left arm; K44.9 Diaphragmatic hernia without obstruction or gangrene; I10 Essential (primary) hypertension; K21.9 Gastro-esophageal reflux disease without esophagitis; E78.5 Hyperlipidemia, unspecified; E87.5 Hyperkalemia; D50.9 Iron deficiency anemia, unspecified; I25.2 Old myocardial infarction; Z95.5 Presence of coronary angioplasty implant and graft; Z95.1 Presence of aortocoronary bypass graft; R11.0 Nausea; M54.2 Cervicalgia; R06.02 Shortness of breath; N40.0 Benign prostatic hyperplasia without lower urinary tract symptoms; Z82.49 Family history of ischemic heart disease and other diseases of the circulatory system; Z86.73 Personal history of transient ischemic attack (TIA), and cerebral infarction without residual deficits; Z90.49 Acquired absence of other specified parts of digestive tract; Z98.84 Bariatric surgery status; Z79.899 Other long term (current) drug therapy; Z79.82 Long term (current) use of aspirin; Z79.02 Long term (current) use of antithrombotics/antiplatelets; Z87.442 Personal history of urinary calculi
CPT/HCPCS: 93005; 99285; 96360; 96361; 36415 ×2; 85025 ×2; 80048; 80053; 84484 ×2; 71045; 93010; G0378 ×3; A9270 ×12; J7030; J3490 ×2

== ENCOUNTER 2018-09-13 23:24 | Emergency (ER) | payer MEDICARE ==
[2018-09-14 02:54] LABS: ABSOLUTE BASOPHILS # (AUTO) 0.2 10^3/uL (0.0-0.2); ABSOLUTE EOSINOPHILS # (AUTO) 0.2 10^3/uL (0.0-0.6); ABSOLUTE LYMPHOCYTES (AUTO) 2.4 10^3/uL (0.5-4.7); ABSOLUTE MONOCYTES (AUTO) 0.9 10^3/uL (0.1-1.4); ABSOLUTE NEUT (AUTO) 7.8 10^3/uL (1.7-8.2); BASOPHILS % (AUTO) 1.9 % (0-2); EOSINOPHILS % (AUTO) 1.9 % (0-6); HEMATOCRIT 37.1 % (37.9-51.0); HEMOGLOBIN 11.6 g/dL (13.5-17.0); LYMPHOCYTES % (AUTO) 20.6 % (13-45); MEAN CORPUSCULAR HEMOGLOBIN 21.3 pg (27.0-33.4); MEAN CORPUSCULAR HGB CONC 31.2 g/dL (32.0-36.0); MEAN CORPUSCULAR VOLUME 68 fl (80-97); MONOCYTES % (AUTO) 7.7 % (3-13); PLATELET COUNT 429 10^3/uL (150-450); RED BLOOD COUNT 5.43 10^6/uL (4.35-5.55); RED CELL DISTRIBUTION WIDTH 19.3 % (11.5-14.0); SEGMENTED NEUTROPHILS % (AUTO) 67.9 % (42-78); TOTAL CELLS COUNTED % (AUTO) 100 %; WHITE BLOOD COUNT 11.5 10^3/uL (4.0-10.5)
[2018-09-14 03:02] LABS: INTERNATIONAL RATION (INR) 0.97; PROTHROMBIN TIME 12.8 SEC (11.4-15.4)
[2018-09-14 03:14] LABS: ALANINE AMINOTRANSFERASE 22 U/L (21-72); ALBUMIN 4.7 g/dL (3.5-5.0); ALKALINE PHOSPHATASE 103 U/L (38-126); ANION GAP 12 (5-19); ASPARTATE AMINO TRANSFERASE 15 U/L (17-59); BILIRUBIN,DIRECT 0.2 mg/dL (0.0-0.4); BILIRUBIN,TOTAL 0.4 mg/dL (0.2-1.3); BLOOD UREA NITROGEN 17 mg/dL (7-20); CALCIUM 9.8 mg/dL (8.4-10.2); CARBON DIOXIDE 23 mmol/L (22-30); CHLORIDE 106 mmol/L (98-107); CREATINE KINASE 63 U/L (55-170); GLUCOSE 259 mg/dL (75-110); POTASSIUM 4.7 mmol/L (3.6-5.0)
[2018-09-14 03:26] LABS: CREATINE KINASE MB 0.45 ng/mL (<4.55)
[2018-09-14 03:27] LABS: TROPONIN I < 0.012 ng/mL
--- NOTE | 2018-09-14 04:04 | RADIOLOGY REPORT (SQ) ---
EXAM DESCRIPTION: X-ray two view chest. CLINICAL HISTORY: 58 years Male, chest pain COMPARISON: 09/02/2018 TECHNIQUE: PA and Lateral views of the chest performed on 09/14/2018 at 3:49 AM FINDINGS: The lungs are well expanded and are clear. The costophrenic sulci are clear. There is no evidence of a pneumothorax. The cardiac silhouette is normal in size. There are remote postsurgical changes of the mediastinum. The mediastinal contours are normal. No acute osseous abnormalities are identified. No focal soft tissue abnormalities are identified. IMPRESSION: 1. No evidence of acute intrathoracic disease. 2. Remote median sternotomy.
[2018-09-14] MEDS ORDERED: FAMOTIDINE 20 MG TABLET PO ONE (04:07)
[2018-09-14] MEDS ORDERED: HYDROMORPHONE HCL INJ/PF 2 MG/ML AMPULE IV ONE (04:07)
[2018-09-14] MEDS ORDERED: ONDANSETRON HCL INJ/PF 4 MG/2 ML SDV IV ONE (04:08)
--- NOTE | 2018-09-14 04:20 | ER Document Report ---
ED Cardiac - General Chief Complaint: Chest Pain Stated Complaint: CHEST PAINS Time Seen by Provider: 09/14/18 03:52 Primary Care Provider: JAMES DAWKINS MD [Primary Care Provider] - Follow up as needed Notes: Patient is a 58-year-old male but comes to the emergency department for chief complaint of chest pain. He states pain started approximately 1500, then worsened later in the evening. He denies nausea or vomiting, difficulty breathing, fever/chills. He states pain is in the center of his chest and the lower part of his chest. He states that he cannot tell if the pain is from his hiatal hernia and reflux or his heart, he states he struggles with this a lot. He has an extensive cardiac history including CABG, 9 stents with 6 currently functional stents, he follows with Dr. Louis in [place], his last cardiac catheterization was last October, his next cardiology appointment is in approximately 1 week on September 23. He takes Plavix, aspirin, Nexium, and he has a history of gastric bypass. TRAVEL OUTSIDE OF THE [place] IN LAST 30 DAYS: No - Related Data Allergies/Adverse Reactions: morphine [Morphine] Adverse Reaction (Verified 07/01/18 01:13) Migraine Past Medical History - General Information source: Patient - Social History Smoking Status: Never Smoker Drug Abuse: None Lives with: Family Family History: CAD, DM, Hyperlipidemia, Hypertension - Past Medical History Cardiac Medical History: Reports: Hx Coronary Artery Disease, Hx Heart Attack - x6, Hx Hypercholesterolemia, Hx Hypertension Denies: Hx Congestive Heart Failure Pulmonary Medical History: Denies: Hx Asthma, Hx Bronchitis, Hx COPD, Hx Pneumonia, Hx Respiratory Failure, Hx Tuberculosis Neurological Medical History: Reports: Hx Cerebrovascular Accident - x1. Denies: Hx Seizures Endocrine Medical History: Reports: Hx Diabetes Mellitus Type 2. Denies: Hx Di abetes Mellitus Type 1, Hx Hyperthyroidism, Hx Hypothyroidism Renal/ Medical History: Reports: Hx Benign Prostatic Hyperplasia, Hx Kidney Stones. Denies: Hx End Stage Renal Disease, Hx Peritoneal Dialysis GI Medical History: Reports: Hx Gastroesophageal Reflux Disease. Denies: Hx Cirrhosis, Hx Hepatitis, Hx Ulcer Musculoskeletal Medical History: Reports Hx Arthritis, Denies Hx Gout, Denies Hx Multiple Sclerosis Skin Medical History: Denies Hx Eczema, Denies Hx Psoriasis Psychiatric Medical History: Reports: Hx Depression Denies: Hx Bipolar Disorder, Hx Schizophrenia Infectious Medical History: Denies: Hx Hepatitis Past Surgical History: Reports: Hx Abdominal Surgery, Hx Cardiac Catheterization, Hx Cardiac Surgery - triple bipass, Hx Cholecystectomy, Hx Coronary Artery Bypass Graft, Hx Coronary Stent - x9, Hx Gastric Bypass Surgery - Immunizations Hx Diphtheria, Pertussis, Tetanus Vaccination: Yes Hx Pneumococcal Vaccination: 11/19/14 Review of Systems - Review of Systems Constitutional: No symptoms reported EENT: No symptoms reported Cardiovascular: See HPI Respiratory: No symptoms reported Gastrointestinal: See HPI Genitourinary: No symptoms reported Male Genitourinary: No symptoms reported Musculoskeletal: No symptoms reported Skin: No symptoms reported Hematologic/Lymphatic: No symptoms reported Neurological/Psychological: No symptoms reported Physical Exam - Vital signs Vitals: Temp Pulse Resp BP Pulse Ox 97.8 F 95 16 143/84 H 98 09/13/18 23:40 09/13/18 23:40 09/13/18 23:40 09/13/18 23:40 09/13/18 23:40 - Notes Notes: GENERAL: Alert, interacts well. No acute distress. HEAD: Normocephalic, atraumatic. EYES: Pupils equal, round, and reactive to light. Extraocular movements intact. ENT: Oral mucosa moist, tongue midline. Oropharynx unremarkable. Airway patent. LUNGS: Clear to auscultation bilaterally, no wheezes, rales, or rhonchi. No respiratory distress. Midline scar consistent with CABG. HEART: Regular rate and rhythm. No murmur ABDOMEN: Soft, non-tender. Non-distended. Bowel sounds present in all 4 quadrants. GENITOURINARY: Deferred EXTREMITIES: Moves all 4 extremities spontaneously. No edema, normal radial and dorsalis pedis pulses bilaterally. No cyanosis. BACK: no cervical, thoracic, lumbar midline tenderness. No saddle anesthesia, normal distal neurovascular exam. Moves all extremities in full range of motion. NEUROLOGICAL: Alert and oriented x3. Normal speech. Cranial nerves II through XII grossly intact. PSYCH: Normal affect, normal mood. SKIN: Warm, dry, normal turgor. No rashes or lesions noted. Course - Re-evaluation Re-evalutation: Patient is well-appearing on exam. Chest x-ray unremarkable, EKG without ischemic changes, CBC, chemistry, coags unremarkable. Troponin is negative. Symptoms started at 1500 per patient. Patient is more comfortable after reevaluation, he states that the famotidine helped the most. Troponin cycled, unfortunately this was drawn slightly before the 3-hour requested time, however this is still negative. Symptoms have been present for over 8 hours. After GI cocktail I reevaluated patient, no current complaints. I discussed with patient. Because of his extensive history I did discuss admission, however he has had 3 stress test in the past year, multiple stents, CABG. Discussed transfer versus follow-up with cardiology. Patient requests to be discharged, he states he has very close follow-up already established, he states he has had this many times and he just wanted to be checked. He states that he will return if he worsens in any way. Patient does have excellent follow-up already scheduled. Stable at time of discharge. - Vital Signs Vital signs: Temp Pulse Resp BP Pulse Ox 98.0 F 95 16 148/100 H 99 09/14/18 06:56 09/13/18 23:40 09/14/18 06:56 09/14/18 06:56 09/14/18 06:56 - Laboratory Result Diagrams: 09/14/18 02:40 09/14/18 02:40 Laboratory results interpreted by me: 09/14/18 09/14/18 02:40 02:40 WBC 11.5 H Hgb 11.6 L Hct 37.1 L MCV 68 L MCH 21.3 L MCHC 31.2 L RDW 19.3 H Creatinine 1.26 H Est GFR (Non-Af Amer) 59 L Glucose 259 H AST 15 L - EKG Interpretation by Me Additional EKG results interpreted by me: EKG shows sinus tachycardia at a rate of 107, no T wave inversions or ST segment changes in consecutive leads. Normal axis. QTC of 433. Discharge - Discharge Clinical Impression: Epigastric pain Chest pain Qualifiers: Chest pain type: unspecified Qualified Code(s): R07.9 - Chest pain, unspecified Condition: Stable Disposition: HOME, SELF-CARE Instructions: Oral Narcotic Medication ([facility]) Additional Instructions: Your work-up is reassuring at this time. I recommend taking the Carafate along with your Nexium. Please call and follow-up very closely with your pillow cleaner as we discussed. Return if you worsen including worsening pain, vomiting, fever/chills, passing out, difficulty breathing, or any other concerning symptoms. Prescriptions: Sucralfate [Carafate 1 gm Tablet] 1 gm PO QID #20 tablet Referrals: JAMES DAWKINS MD [Primary Care Provider] - Follow up as needed
[2018-09-14] MEDS ORDERED: MAG HYDROX/AL HYDROX/SIMETH SUSP 30 ML UDCUP PO ONE (05:48)
[2018-09-14] MEDS ORDERED: LIDOCAINE 2% VISCOUS SOLN 20 ML UDCUP PO ONE (05:48)
[2018-09-14] MEDS ORDERED: METOCLOPRAMIDE HCL ORAL SOLN 10 MG/10 ML UDCUP PO ONE (05:48)
[2018-09-14] MEDS ORDERED: HYDROCODONE/ACETAMINOPHEN 5-325 MG (6 TAB/ER DISP) PO PRN (06:50)
[2018-09-14 07:02] VITALS: BP 148/100
--- NOTE | 2018-09-14 23:23 | EKG REPORT ---
SEVERITY:- OTHERWISE NORMAL ECG - SINUS TACHYCARDIA : Confirmed by: Khushboo Peres 14-Sep-2018 23:22:44
== END 2018-09-14 07:08 | disposition home or self-care (01) ==
LOC: ER 23:24
DX: R07.9 Chest pain, unspecified (principal); R10.13 Epigastric pain; Z79.899 Other long term (current) drug therapy; I25.10 Atherosclerotic heart disease of native coronary artery without angina pectoris; I25.2 Old myocardial infarction; I10 Essential (primary) hypertension; E11.9 Type 2 diabetes mellitus without complications
CPT/HCPCS: 93005; 99285; 96374; 96375; 36415; 82553; 82550; 85025; 85610; 80053; 84484; 71046; 93010; A9270 ×3; J3490; J1170; J2405

== ENCOUNTER 2018-12-20 00:48 | Emergency (ER) | payer MEDICARE ==
[2018-12-20 01:47] LABS: ABSOLUTE BASOPHILS # (AUTO) 0.1 10^3/uL (0.0-0.2); ABSOLUTE EOSINOPHILS # (AUTO) 0.2 10^3/uL (0.0-0.6); ABSOLUTE LYMPHOCYTES (AUTO) 1.3 10^3/uL (0.5-4.7); ABSOLUTE MONOCYTES (AUTO) 0.6 10^3/uL (0.1-1.4); BASOPHILS % (AUTO) 1.2 % (0-2); EOSINOPHILS % (AUTO) 2.9 % (0-6); HEMATOCRIT 32.6 % (37.9-51.0); HEMOGLOBIN 9.9 g/dL (13.5-17.0); LYMPHOCYTES % (AUTO) 18.3 % (13-45); MEAN CORPUSCULAR HEMOGLOBIN 20.5 pg (27.0-33.4); MEAN CORPUSCULAR HGB CONC 30.5 g/dL (32.0-36.0); MEAN CORPUSCULAR VOLUME 67 fl (80-97); MONOCYTES % (AUTO) 8.7 % (3-13); PLATELET COUNT 384 10^3/uL (150-450); RED BLOOD COUNT 4.86 10^6/uL (4.35-5.55); RED CELL DISTRIBUTION WIDTH 16.7 % (11.5-14.0); SEGMENTED NEUTROPHILS % (AUTO) 68.9 % (42-78); TOTAL CELLS COUNTED % (AUTO) 100 %; WHITE BLOOD COUNT 7.2 10^3/uL (4.0-10.5)
[2018-12-20 01:53] LABS: PROTHROMBIN TIME 13.2 SEC (11.4-15.4)
[2018-12-20 02:06] LABS: ALBUMIN 4.3 g/dL (3.5-5.0); ALKALINE PHOSPHATASE 119 U/L (38-126); ANION GAP 11 (5-19); ASPARTATE AMINO TRANSFERASE 15 U/L (17-59); BILIRUBIN,DIRECT 0.2 mg/dL (0.0-0.4); BILIRUBIN,TOTAL 0.4 mg/dL (0.2-1.3); BLOOD UREA NITROGEN 17 mg/dL (7-20); CALCIUM 9.3 mg/dL (8.4-10.2); CARBON DIOXIDE 22 mmol/L (22-30); CHLORIDE 101 mmol/L (98-107); CREATINE KINASE 87 U/L (55-170); POTASSIUM 4.4 mmol/L (3.6-5.0); TOTAL PROTEIN 7.2 g/dL (6.3-8.2)
[2018-12-20 02:17] LABS: CREATINE KINASE MB 0.92 ng/mL (<4.55)
[2018-12-20 02:21] LABS: GLUCOSE 492 mg/dL (75-110)
[2018-12-20 02:23] LABS: TROPONIN I < 0.012 ng/mL
--- NOTE | 2018-12-20 02:26 | RADIOLOGY REPORT (SQ) ---
CLINICAL HISTORY: cp COMPARISON: August 15, 2018. TECHNIQUE: XR CHEST 2 VIEWS 12/20/2018 12:00 AM CDT FINDINGS: The heart is normal in size. Sternotomy was performed. Lungs are clear without consolidation, atelectasis, mass or edema. There is no pleural effusion. There is no pneumothorax. There are no acute osseous findings. IMPRESSION: Clear lungs.
--- NOTE | 2018-12-20 06:34 | EKG REPORT ---
SEVERITY:- OTHERWISE NORMAL ECG - SINUS TACHYCARDIA : Confirmed by: Karson Kingsley MD 20-Dec-2018 06:34:03
[2018-12-20 09:19] VITALS: BP 122/61
--- NOTE | 2018-12-20 09:58 | ER Document Report ---
ED General - General Chief Complaint: Chest Pain > 30 Stated Complaint: CHEST PAIN Time Seen by Provider: 12/20/18 09:46 Primary Care Provider: TAYLOR SUTTON MD [Primary Care Provider] - Follow up as needed TRAVEL OUTSIDE OF THE [place] IN LAST 30 DAYS: No - HPI Notes: Patient is a 58-year-old male with a history of CABG, 9 stents with 6 currently functional stents (on Plavix), he follows with Dr. Louis in [place], hypertension, hiatal hernia, anemia, DM who presents complaining of having lower sternal chest pressure at 1215 this morning that resolved within an hour which he also took nitro during that time for. Patient states that he has not had any recurrence of pain or discomfort. He has been feeling well since then. Patient states that he had 2-3 stress test last year that were all negative. He has no other concerns or complaints. Denies any headache, fever, neck pain, URI, sore throat, palpitations, syncope, cough, shortness of breath, wheeze, dyspnea, abdominal pain, nausea/vomiting/diarrhea, urinary retention, dysuria, hematuria, or rash. - Related Data Allergies/Adverse Reactions: morphine [Morphine] Adverse Reaction (Verified 12/20/18 01:03) Migraine Home Medications: See med rec. Past Medical History - Social History Smoking Status: Never Smoker Chew tobacco use (# tins/day): No Frequency of alcohol use: Rare Drug Abuse: None Family History: CAD, DM, Hyperlipidemia, Hypertension Patient has suicidal ideation: No Patient has homicidal ideation: No - Past Medical History Cardiac Medical History: Reports: Hx Coronary Artery Disease, Hx Heart Attack - x6, Hx Hypercholesterolemia, Hx Hypertension Denies: Hx Congestive Heart Failure Pulmonary Medical History: Denies: Hx Asthma, Hx Bronchitis, Hx COPD, Hx Pneumonia, Hx Respiratory Failure, Hx Tuberculosis Neurological Medical History: Reports: Hx Cerebrovascular Accident - x1. Denies: Hx Seizures, Hx Parkinson's Disease Endocrine Medical History: Reports: Hx Diabetes Mellitus Type 2. Denies: Hx Diabetes Mellitus Type 1, Hx Hyperthyroidism, Hx Hypothyroidism Renal/ Medical History: Reports: Hx Benign Prostatic Hyperplasia, Hx Kidney Stones. Denies: Hx End Stage Renal Disease, Hx Peritoneal Dialysis GI Medical History: Reports: Hx Gastroesophageal Reflux Disease. Denies: Hx Cirrhosis, Hx Hepatitis, Hx Ulcer Musculoskeletal Medical History: Reports Hx Arthritis, Denies Hx Gout, Denies Hx Multiple Sclerosis Skin Medical History: Denies Hx Eczema, Denies Hx Psoriasis Psychiatric Medical History: Reports: Hx Depression Denies: Hx Bipolar Disorder, Hx Schizophrenia Infectious Medical History: Denies: Hx Hepatitis Past Surgical History: Reports: Hx Abdominal Surgery, Hx Cardiac Catheterization, Hx Cardiac Surgery - triple bipass, Hx Cholecystectomy, Hx Coronary Artery Bypass Graft, Hx Coronary Stent - x9, Hx Gastric Bypass Surgery - Immunizations Hx Diphtheria, Pertussis, Tetanus Vaccination: Yes Hx Pneumococcal Vaccination: 11/19/14 Review of Systems - Review of Systems -: Yes All other systems reviewed and negative Physical Exam - Vital signs Vitals: Temp Pulse Resp BP Pulse Ox 97.9 F 99 16 166/91 H 100 12/20/18 01:02 12/20/18 01:02 12/20/18 01:02 12/20/18 01:02 12/20/18 01:02 - Notes Notes: PHYSICAL EXAMINATION: GENERAL: Well-appearing, well-nourished and in no acute distress. HEAD: Atraumatic, normocephalic. EYES: Pupils equal round and reactive to light, extraocular movements intact, sclera anicteric, conjunctiva are normal. ENT: Nares patent and without discharge. oropharynx clear without exudates. No tonsilar hypertrophy or erythema. Moist mucous membranes. NECK: Normal range of motion, supple without lymphadenopathy LUNGS: Breath sounds clear to auscultation bilaterally and equal. No wheezes rales or rhonchi. HEART: Regular rate and rhythm without murmurs, rubs, gallops. ABDOMEN: Soft, nontender, nondistended abdomen. No guarding, no rebound. Normal bowel sounds present. No CVA tenderness bilaterally. Musculoskeletal: FROM to passive/active. Strength 5+/5. Porfirio neg. No asymmetry to LE's. Extremities: No cyanosis, clubbing, or edema b/l. Peripheral pulses 2+. Capillary refill less than 3 seconds. NEUROLOGICAL: Normal speech, normal gait. PSYCH: Normal mood, normal affect. SKIN: Warm, Dry, normal turgor, no rashes or lesions noted. Course - Re-evaluation Re-evalutation: 12/20/18 13:30 Patient is an afebrile, well-hydrated, 58-year-old male presents with atypical chest pain. Vitals are acceptable without significant tachycardia, tachypnea, or hypoxia. PE is otherwise unremarkable. Patient is nontoxic-appearing and is tolerating p.o. without difficulty. See lab results. Troponin shows very smal l increase, but still below threshold of 0.12. Patient has been asymptomatic throughout his stay. He does have a heart score of 4. I did review with Dr. Ramsya who does recommend chest pain observation. I did review with hospitalist, Avel HAYES, who will come evaluate the patient. 12/20/18 14:28 Pt was eval'd by Avel Mills PA-C who called his filter bed placer and is okay with discharge. See his note. - Vital Signs Vital signs: Temp Pulse Resp BP Pulse Ox 97.9 F 99 11 L 122/61 100 12/20/18 01:02 12/20/18 01:02 12/20/18 09:01 12/20/18 09:00 12/20/18 09:01 - Laboratory Result Diagrams: 12/20/18 01:32 12/20/18 01:32 Laboratory results interpreted by me: 12/20/18 12/20/18 12/20/18 01:32 01:32 05:20 Hgb 9.9 L Hct 32.6 L MCV 67 L MCH 20.5 L MCHC 30.5 L RDW 16.7 H Sodium 134.3 L Glucose 492 H* POC Glucose 268 H AST 15 L Discharge - Discharge Clinical Impression: Atypical chest pain Condition: Stable Disposition: HOME, SELF-CARE Additional Instructions: Maintain adequate fluid and food intake Take home medications as directed Healthy diet Monitor blood pressure daily and keep a log Monitor symptoms for any acute changes Recheck with your PCM in 3-5 days Schedule a follow-up with cardiology and call Dr. Louis's office on Sunday Return to the ED with any worsening symptoms and/or development of fever, headache, chest pain, palpitations, syncope, shortness of breath, trouble breathing, abdominal pain, n/v/d, blood in stool/urine, loss of control of bowel/bladder, urinary retention, muscle weakness/paralysis, numbness/tingling, or other worsening symptoms that are concerning to you. Referrals: TAYLOR SUTTON MD [Primary Care Provider] - Follow up as needed CARDIOLOGY [Provider Group] - Follow up in 3-5 days
--- NOTE | 2018-12-20 14:35 | PDOC CONSULTATION ---
Consultation Consult Date: 12/20/18 Attending physician:: DENNIS GARCIA Provider Consulted: KRUPA GARCIA JR Consult reason:: Patient with chest pain History of Present Illness Admission Date/PCP: 12/20/2018 TAYLOR SUTTON MD History of Present Illness: STEPHANIE MONTEMAYOR is a 58 year old male who comes in with a strong history of coronary disease. Last night at approximately 0030 hours patient had chest pain and took 1 nitroglycerin. 12 minutes later he took another one and then since he was still having chest pain he came to the emergency room.. Patient states that he is currently pain-free and in fact is been pain-free since coming to the emergency room morning. Patient is currently undergoing a work-up in [place] for hiatal hernia with some sort of reflux. Patient had a gastric bypass procedure done in 2000. She has been dealing with his hiatal hernia and reflux and chest pain secondary to reflux for about a year and a half now. Was supposed to find out this week from the segregator the results of the recent study. Unfortunately patient states he cannot discern or tell the difference between GERD and hiatal hernia pain versus cardiac or ischemic pain. The located in the epigastric and midsternal region. Both seem to go up into his neck and down into his left arm. I suppose this could be coming from esophageal spasm and/or cardiac ischemic di sease. She states last night about an hour before going to bed he had about a handful of Cheerios and some water, which is very similar to what precipitated a reflux, indigestion, symptom a couple weeks ago. I was called to see the patient for possible admission for chest pain. Patient did undergo a CABG October 25, 2017, with replacement of 3 stents at [facility] in [place], [place]. Past Medical History Cardiac Medical History: Reports: Coronary Artery Disease, Myocardial Infarction - x6, Hyperlipidema, Hypertension Denies: Congestive Heart Failure Pulmonary Medical History: Denies: Asthma, Bronchitis, Chronic Obstructive Pulmonary Disease (COPD), Pneumonia, Respiratory Failure, Tuberculosis Neurological Medical History: Denies: Seizures Endocrine Medical History: Reports: Diabetes Mellitus Type 2 Denies: Diabetes Mellitus Type 1, Hyperthyroidism, Hypothyroidism Renal/ Medical History: Denies: End Stage Renal Disease GI Medical History: Reports: Gastroesophageal Reflux Disease, Hiatal Hernia - Currently undergoing a "Lowry" study Denies: Cirrhosis, Hepatitis Musculoskeltal Medical History: Reports: Arthritis Denies: Gout Skin Medical History: Denies: Eczema, Psoriasis Psychiatric Medical History: Reports: Depression Denies: Bipolar Disorder Hematology: Reports: Anemia Denies: Bleeding Tendencies Past Surgical History Past Surgical History: Reports: Cardiac Catheterization, Cholecystectomy, Coronary Artery Bypass Graft, Coronary Stent - x9, Gastric Bypass Surgery Social History Smoking Status: Never Smoker Electronic Cigarette use?: No Frequency of Alcohol Use: Rare Hx Recreational Drug Use: No Drugs: None Hx Prescription Drug Abuse: No - Advance Directive Resuscitation Status: Full Code Family History Family History: CAD, DM, Hyperlipidemia, Hypertension Parental Family History Reviewed: No Children Family History Reviewed: No Sibling(s) Family History Reviewed.: No Medication/Allergy Home Medications: Amlodipine Besylate [Norvasc 5 mg Tablet] 5 mg PO DAILY 09/02/18 Aspirin [Ecotrin 81 mg EC Tablet] 81 mg PO DAILY 09/02/18 Clopidogrel Bisulfate [Plavix 75 mg Tablet] 75 mg PO DAILY 09/02/18 Cyclobenzaprine HCl [Flexeril 10 mg Tablet] 10 mg PO QHS 09/02/18 Tamsulosin HCl [Flomax 0.4 mg Cap.sr] 0.4 mg PO DAILY 09/02/18 Valsartan [Diovan 40 mg Tablet] 40 mg PO DAILY 09/02/18 Gabapentin [Neurontin 300 mg Capsule] 300 mg PO Q6 12/20/18 Isosorbide Mononitrate [Imdur 60 mg Tablet.er] 60 mg PO DAILY 12/20/18 Metoprolol Tartrate [Lopressor 25 mg Tablet] 12.5 mg PO DAILY 12/20/18 Nitroglycerin 0.4 mg SL Q5MP PRN 12/20/18 Vitamin E 1 tab PO DAILY 12/20/18 Allergies/Adverse Reactions: morphine [Morphine] Adverse Reaction (Verified 12/20/18 01:03) Migraine Review of Systems Constitutional: PRESENT: other - Pain-free. ABSENT: chills, fever(s), headache(s), weight gain, weight loss Cardiovascular: ABSENT: chest pain, dyspnea on exertion, edema, orthropnea, palpitations Respiratory: ABSENT: cough, hemoptysis Neurological: ABSENT: abnormal gait, abnormal speech, confusion, dizziness, focal weakness, syncope Psychiatric: PRESENT: other. ABSENT: anxiety, depression, homidical ideation, suicidal ideation Physical Exam Vital Signs: Temp Pulse Resp BP Pulse Ox 97.9 F 99 11 L 122/61 100 12/20/18 01:02 12/20/18 01:02 12/20/18 09:01 12/20/18 09:00 12/20/18 09:01 Intake & Output 12/19/18 12/20/18 12/21/18 06:59 06:59 06:59 Weight 102.3 kg General appearance: PRESENT: no acute distress, other - Patient is sitting up in bed laying on one elbow talking in no distress vital signs revealed his blood pressure 151/78 pulse 73 respirations 12 O2 sat 100% on room air Respiratory exam: PRESENT: clear to auscultation rashmi. ABSENT: rales, rhonchi, wheezes Cardiovascular exam: PRESENT: RRR. ABSENT: diastolic murmur, rubs, systolic murmur Neurological exam: PRESENT: alert, awake, oriented to person, oriented to place, oriented to time, oriented to situation, CN II-XII grossly intact. ABSENT: motor sensory deficit Psychiatric exam: PRESENT: appropriate affect, normal mood. ABSENT: homicidal ideation, suicidal ideation Results Laboratory Results: 12/20/18 01:32 12/20/18 01:32 12/20/18 12/20/18 01:32 01:32 WBC 7.2 RBC 4.86 Hgb 9.9 L Hct 32.6 L MCV 67 L MCH 20.5 L MCHC 30.5 L RDW 16.7 H Plt Count 384 Seg Neutrophils % 68.9 Sodium 134.3 L Potassium 4.4 Chloride 101 Carbon Dioxide 22 Anion Gap 11 BUN 17 Creatinine 1.19 Est GFR ( Amer) > 60 Glucose 492 H* Calcium 9.3 Total Bilirubin 0.4 AST 15 L Alkaline Phosphatase 119 Total Protein 7.2 Albumin 4.3 12/20/18 12/20/18 12/20/18 01:32 01:32 05:20 Creatine Kinase 87 CK-MB (CK-2) 0.92 Troponin I < 0.012 0.053 12/20/18 11:18 Creatine Kinase CK-MB (CK-2) Troponin I 0.096 Impressions: Chest X-Ray 12/20/18 00:00 IMPRESSION: Clear lungs. Assessment and Plan - Diagnosis (1) Atypical chest pain Is this a current diagnosis for this admission?: Yes (2) Chest pain Qualifiers: Chest pain type: unspecified Qualified Code(s): R07.9 - Chest pain, unspecified Is this a current diagnosis for this admission?: Yes (3) Coronary artery disease Qualifiers: Coronary Disease-Associated Artery/Lesion type: [place] artery [place] vs. transplanted heart: [place] heart Associated angina: angina presence unspecified Qualified Code(s): I25.10 - Atherosclerotic heart disease of [place] coronary artery without angina pectoris Is this a current diagnosis for this admission?: Yes (4) Elevated troponin Is this a current diagnosis for this admission?: Yes (5) Hiatal hernia Is this a current diagnosis for this admission?: Yes (6) History of gastric bypass Is this a current diagnosis for this admission?: Yes - Plan Summary Summary: Review of patient's labs revealed a normal CBC, coags are normal, glucose of 492. First troponin is 0.012 with a normal CK-MB index. Second troponin is elevated at 0.053. Third troponin is elevated at 0.096 X-ray shows no acute cardiopulmonary disease. EKG reveals a rate of 101 normal sinus rhythm I have reviewed patient's chart all the way back to March of this year and all of his troponins. She is troponins in the past have been as high as 0.538 Patient has had 3 normal stress test done this year.. I have called the patient's beef tagger, , in [facility]. Of course he was very familiar with the patient since he has been caring for him since 2005. He felt that it would be safe to discharge the patient home and for the patient to call his office today or Sunday and make an appointment for next week for follow-up. We discussed the patient's previously elevated troponins we discussed the patient having 3 previous stress test this year which were all normal, of course the fact that the patient is currently undergoing studies for hiatal hernia, with symptoms that are mimicking his cardiac pain. When I was speaking to the beef tagger I had them on speaker phone so that the patient could listen and interject as well. Patient is comfortable with this treatment plan and feels satisfied with his care today. I have discussed this plan with his provider here in the emergency room, Dennis NAVARRO, who will discharge the patient home following my dictation of this note. Should also add patient is currently on Plavix 75 mg daily. She was told to return to the emergency room for any further chest pain or worsening of chest pain that is unrelieved by 3 nitros. - Time Time Spent with patient: 35 or more minutes
--- NOTE | 2018-12-20 18:13 | EKG REPORT ---
SEVERITY:- BORDERLINE ECG - SINUS RHYTHM BORDERLINE T WAVE ABNORMALITIES : Confirmed by: Karson Kingsley MD 20-Dec-2018 18:12:46
== END 2018-12-20 16:02 | disposition home or self-care (01) ==
LOC: ER 00:48
DX: R07.89 Other chest pain (principal); I25.10 Atherosclerotic heart disease of native coronary artery without angina pectoris; I10 Essential (primary) hypertension; I25.2 Old myocardial infarction; E11.9 Type 2 diabetes mellitus without complications; Z95.1 Presence of aortocoronary bypass graft; Z79.02 Long term (current) use of antithrombotics/antiplatelets; Z95.5 Presence of coronary angioplasty implant and graft; Z79.899 Other long term (current) drug therapy; Z79.82 Long term (current) use of aspirin; Z98.84 Bariatric surgery status; Z82.49 Family history of ischemic heart disease and other diseases of the circulatory system
CPT/HCPCS: 36415; 71046; 80053; 82550; 82553; 82962; 84484; 85025; 85610; 93005; 93010; 99285

== ENCOUNTER 2019-04-25 21:28 | Emergency (ER) | payer MEDICARE ==
--- NOTE | 2019-04-25 22:05 | ER Document Report ---
ED Medical Screen (RME) - General Chief Complaint: Chest Pain Stated Complaint: CHEST PAIN Time Seen by Provider: 04/25/19 21:52 Primary Care Provider: TAYLOR SUTTON MD [Primary Care Provider] - Follow up as needed Mode of Arrival: Ambulatory Information source: Patient Notes: Patient is a 59-year-old male with significant cardiac history, history of triple bypass, history of multiple stent placements and multiple MIs presenting to the emergency department chief complaint of chest pain that began yesterday. Patient reports he took nitro tonight which somewhat relieved him symptoms. He reports the pain is nonradiating, he reports associated shortness of breath but no nausea. He states the pain sometimes feels like a sharp stabbing pain but this evening has progressed into more of a pressure feeling. His audio specialist is in [place]. Heart sounds S1-S2 present, normal rate, normal rhythm. EKG reviewed by me, no obvious ST segment elevations or depressions, unchanged from previous EKG on file. I have greeted and performed a rapid initial assessment of this patient. A comprehensive ED assessment and evaluation of the patient, analysis of test results and completion of the medical decision making process will be conducted by additional ED providers. I have specifically instructed the patient or family members with the patient to immediately return to any nursing staff should anything change in the patient's condition or with their chief complaint. TRAVEL OUTSIDE OF THE [place] IN LAST 30 DAYS: No - Related Data Allergies/Adverse Reactions: morphine [Morphine] Adverse Reaction (Verified 12/20/18 01:03) Migraine Home Medications: valsartan. metoprolol. amlodipine. flomax Past Medical History - Past Medical History Cardiac Medical History: Reports: Hx Coronary Artery Disease, Hx Heart Attack - x6, Hx Hypercholesterolemia, Hx Hypertension Denies: Hx Congestive Heart Failure Pulmonary Medical History: Denies: Hx Asthma, Hx Bronchitis, Hx COPD, Hx Pneumonia, Hx Respiratory Failure, Hx Tuberculosis Neurological Medical History: Reports: Hx Cerebrovascular Accident - x1. Denies: Hx Seizures, Hx Parkinson's Disease Endocrine Medical History: Reports: Hx Diabetes Mellitus Type 2. Denies: Hx Diabetes Mellitus Type 1, Hx Hyperthyroidism, Hx Hypothyroidism Renal/ Medical History: Reports: Hx Benign Prostatic Hyperplasia, Hx Kidney Stones. Denies: Hx End Stage Renal Disease, Hx Peritoneal Dialysis GI Medical History: Reports: Hx Gastroesophageal Reflux Disease, Hx Hiatal Hernia - Currently undergoing a "Lowry" study. Denies: Hx Cirrhosis, Hx Hepatitis, Hx Ulcer Musculoskeltal Medical History: Reports Hx Arthritis, Denies Hx Gout, Denies Hx Multiple Sclerosis Skin Medical History: Denies Hx Eczema, Denies Hx Psoriasis Psychiatric Medical History: Reports: Hx Depression Denies: Hx Bipolar Disorder, Hx Schizophrenia Infectious Medical History: Denies: Hx Hepatitis Past Surgical History: Reports: Hx Abdominal Surgery, Hx Cardiac Catheterization, Hx Cardiac Surgery - triple bipass, Hx Cholecystectomy, Hx Coronary Artery Bypass Graft, Hx Coronary Stent - x9, Hx Gastric Bypass Surgery - Immunizations Hx Diphtheria, Pertussis, Tetanus Vaccination: Yes Physical Exam - Vital signs Vitals: Temp Pulse Resp BP Pulse Ox 98.1 F 79 20 153/91 H 100 04/25/19 21:45 04/25/19 21:45 04/25/19 21:45 04/25/19 21:45 04/25/19 21:45 Course - Vital Signs Vital signs: Temp Pulse Resp BP Pulse Ox 98.1 F 79 20 153/91 H 100 04/25/19 21:45 04/25/19 21:45 04/25/19 21:45 04/25/19 21:45 04/25/19 21:45 Doctor's Discharge - Discharge Referrals: TAYLOR SUTTON MD [Primary Care Provider] - Follow up as needed
--- NOTE | 2019-04-25 22:18 | EKG REPORT ---
SEVERITY:- BORDERLINE ECG - SINUS RHYTHM BORDERLINE T ABNORMALITIES, ANT-LAT LEADS : Confirmed by: Karson Kingsley MD 25-Apr-2019 22:17:55
[2019-04-25 23:44] LABS: ABSOLUTE BASOPHILS # (AUTO) 0.1 10^3/uL (0.0-0.2); ABSOLUTE EOSINOPHILS # (AUTO) 0.2 10^3/uL (0.0-0.6); ABSOLUTE LYMPHOCYTES (AUTO) 1.9 10^3/uL (0.5-4.7); ABSOLUTE MONOCYTES (AUTO) 0.8 10^3/uL (0.1-1.4); ABSOLUTE NEUT (AUTO) 6.4 10^3/uL (1.7-8.2); BASOPHILS % (AUTO) 1.2 % (0-2); EOSINOPHILS % (AUTO) 1.6 % (0-6); HEMATOCRIT 37.6 % (37.9-51.0); HEMOGLOBIN 12.1 g/dL (13.5-17.0); LYMPHOCYTES % (AUTO) 20.7 % (13-45); MEAN CORPUSCULAR HEMOGLOBIN 22.8 pg (27.0-33.4); MEAN CORPUSCULAR HGB CONC 32.3 g/dL (32.0-36.0); MEAN CORPUSCULAR VOLUME 71 fl (80-97); PLATELET COUNT 308 10^3/uL (150-450); RED BLOOD COUNT 5.31 10^6/uL (4.35-5.55); RED CELL DISTRIBUTION WIDTH 24.1 % (11.5-14.0); SEGMENTED NEUTROPHILS % (AUTO) 68.5 % (42-78); TOTAL CELLS COUNTED % (AUTO) 100 %; WHITE BLOOD COUNT 9.4 10^3/uL (4.0-10.5)
[2019-04-26] LABS: ALBUMIN 4.3 g/dL (3.5-5.0); ALKALINE PHOSPHATASE 98 U/L (38-126); ANION GAP 11 (5-19); ASPARTATE AMINO TRANSFERASE 15 U/L (17-59); BILIRUBIN,DIRECT 0.3 mg/dL (0.0-0.4); BILIRUBIN,TOTAL 0.4 mg/dL (0.2-1.3); BLOOD UREA NITROGEN 16 mg/dL (7-20); CALCIUM 9.5 mg/dL (8.4-10.2); CARBON DIOXIDE 25 mmol/L (22-30); CHLORIDE 102 mmol/L (98-107); CREATINE KINASE 51 U/L (55-170); GLUCOSE 333 mg/dL (75-110); POTASSIUM 3.9 mmol/L (3.6-5.0); TOTAL PROTEIN 7.4 g/dL (6.3-8.2)
[2019-04-26 00:11] LABS: CREATINE KINASE MB 0.62 ng/mL (<4.55)
[2019-04-26 00:12] LABS: TROPONIN I < 0.012 ng/mL
[2019-04-26 00:15] LABS: ANISOCYTOSIS 3+; BURR CELLS SLIGHT; HELMET CELLS SLIGHT; PLATELET COMMENT ADEQUATE; POIKILOCYTOSIS SLIGHT
[2019-04-26] MEDS ORDERED: NITROGLYCERIN 0.4 MG/TAB 25 TAB/BOTTLE SL PRN (02:36)
--- NOTE | 2019-04-26 03:18 | ER Document Report ---
Entered by JASON MIRANDA SCRIBE 04/26/19 0159 Acting as scribe for:KINSEY WELSH IV, MD ED General - General Chief Complaint: Chest Pain > 30 Stated Complaint: CHEST PAIN Time Seen by Provider: 04/25/19 21:52 Primary Care Provider: TAYLOR SUTTON MD [Primary Care Provider] - Follow up as needed Mode of Arrival: Ambulatory Notes: This 59 year old male patient presents to the emergency department today with complaints of chest pain for the last few days. Patient reports that now it is "not a pain, just a mild pressure". Patient reports that he took two nitrogl ycerin prior to arrival and this seemed to ease the pain. Patient states that he is followed by [facility], adding that he had 3 stress tests in 2019 and all 3 were unremarkable. TRAVEL OUTSIDE OF THE [place] IN LAST 30 DAYS: No - Related Data Allergies/Adverse Reactions: morphine [Morphine] Adverse Reaction (Verified 12/20/18 01:03) Migraine Home Medications: valsartan. metoprolol. amlodipine. flomax Past Medical History - General Information source: Patient - Social History Smoking Status: Unknown if Ever Smoked Frequency of alcohol use: None Drug Abuse: None Lives with: Family Family History: CAD, DM, Hyperlipidemia, Hypertension Patient has suicidal ideation: No Patient has homicidal ideation: No - Past Medical History Cardiac Medical History: Reports: Hx Coronary Artery Disease, Hx Heart Attack - x6, Hx Hypercholesterolemia, Hx Hypertension Neurological Medical History: Reports: Hx Cerebrovascular Accident - x1 Endocrine Medical History: Reports: Hx Diabetes Mellitus Type 2 Renal/ Medical History: Reports: Hx Benign Prostatic Hyperplasia, Hx Kidney Stones GI Medical History: Reports: Hx Gastroesophageal Reflux Disease, Hx Hiatal Hernia - Currently undergoing a "Lowry" study Musculoskeletal Medical History: Reports Hx Arthritis Psychiatric Medical History: Reports: Hx Depression Past Surgical History: Reports: Hx Abdominal Surgery, Hx Cardiac Catheterization, Hx Cardiac Surgery - triple bypass, Hx Cholecystectomy, Hx Coronary Artery Bypass Graft, Hx Coronary Stent - x9, Hx Gastric Bypass Surgery - Immunizations Hx Diphtheria, Pertussis, Tetanus Vaccination: Yes Hx Pneumococcal Vaccination: 11/19/14 Review of Systems - Review of Systems Constitutional: No symptoms reported EENT: No symptoms reported Cardiovascular: See HPI, Chest pain Respiratory: denies: Short of breath Gastrointestinal: No symptoms reported Genitourinary: No symptoms reported Male Genitourinary: No symptoms reported Musculoskeletal: No symptoms reported Skin: No symptoms reported Hematologic/Lymphatic: No symptoms reported Neurological/Psychological: No symptoms reported -: Yes All other systems reviewed and negative Physical Exam - Vital signs Vitals: Temp Pulse Resp BP Pulse Ox 98.1 F 79 20 153/91 H 100 04/25/19 21:45 04/25/19 21:45 04/25/19 21:45 04/25/19 21:45 04/25/19 21:45 - Notes Notes: Physical Exam: General: Alert, appears well. HEENT: Normocephalic. Atraumatic. PERRL. Extraocular movements intact. Oropharynx clear. Neck: Supple. Non-tender. Respiratory: No respiratory distress. Clear and equal breath sounds bilaterally. Cardiovascular: Regular rate and rhythm. Abdominal: Normal Inspection. Non-tender. No distension. Normal Bowel Sounds. Back: No gross abnormalities. Extremities: Moves all four extremities. Upper extremities: Normal inspection. Normal ROM. Lower extremities: Normal inspection. No edema. Normal ROM. Neurological: Normal cognition. AAOx4. Normal speech. Psychological: Normal affect. Normal Mood. Skin: Warm. Dry. Normal color. Course - Vital Signs Vital signs: Temp Pulse Resp BP Pulse Ox 98.1 F 79 14 174/108 H 100 04/25/19 21:45 04/25/19 21:45 04/26/19 02:01 04/26/19 02:00 04/26/19 02:01 - Laboratory Result Diagrams: 04/25/19 23:30 04/25/19 23:30 Laboratory results interpreted by me: 04/25/19 04/25/19 23:30 23:30 Hgb 12.1 L Hct 37.6 L MCV 71 L MCH 22.8 L RDW 24.1 H Creatinine 1.33 H Est GFR (MDRD) Non-Af 55 L Glucose 333 H AST 15 L Creatine Kinase 51 L - EKG Interpretation by Me Additional EKG results interpreted by me: 04/26/19 03:58 Initial EKG obtained on 04/25/2019 at 2138 hrs. was interpreted by this MD. Findings: Normal sinus rhythm, rate 69, normal axis, P waves proceed QRS complexes, QRS complexes appear narrow, there are no obvious patterns of ST segment elevation or depressions to suggest acute myocardial ischemia or infarction. Impression normal sinus rhythm with nonspecific ST segments. Repeat EKG obtained on 04/26/2019 at 0352 hrs. was interpreted by this MD. Findings normal sinus rhythm, rate 65, normal axis, P waves proceed QRS complexes, QRS complexes appear narrow, there are no obvious ST segment patterns of elevation or depression to suggest acute myocardial ischemia or infarction. Impression normal sinus rhythm with nonspecific ST segments. Discharge - Discharge Clinical Impression: Chest pain Qualifiers: Chest pain type: unspecified Qualified Code(s): R07.9 - Chest pain, unspecified Condition: Good Disposition: HOME, SELF-CARE Instructions: Chest Pain of Unclear Cause ([facility]) Additional Instructions: Return to the Emergency Department without delay if any worse. HOME CARE INSTRUCTIONS & INFORMATION: Thank you for choosing us for your medical needs. We hope you're satisfied with the care you received. After you leave, you must properly care for your problem and, at the same time, observe its progress. Any condition can change. Some illnesses can change rapidly over hours or days. If your condition worsens, return to the Emergency Department or see your physician promptly. ABOUT YOUR X-RAYS AND EKG'S: If you had an EKG or X-rays taken, they have been read by the Emergency Physician. The X-rays and EKG's will also be read by a Radiologist or [facility] within 24 hours. If discrepancies are noted, you will be notified by telephone. Please be certain the ED has a correct telephone number & address where you can be reached. Also, realize that some fractures or abnormalities do not show up on initial X-rays. If your symptoms continue, see your physician. ABOUT YOUR LABORATORY TEST: If you had laboratory tests, the results have been reviewed by the Emergency Physician. Some test results (for example cultures) may not be available for several days. You will be contacted if any test result shows you need additional treatment. Please be certain the ED has a correct telephone number and address where you can be reached. ABOUT YOUR MEDICATIONS: You will receive instructions on how to take your medicine on the prescription label you receive. Additional information may be provided by the Pharmacy. If you have questions afterwards, call the ED for clarification or further instructions. Some prescribed medications may cause drowsiness. Do not perform tasks such as driving a car or operating machinery without consulting your Pharmacist. If you feel you need a refill of pain medication, your condition will need re-evaluation. Please do not call for a refill of any medication. ABOUT YOUR SIGNATURE: Signature of this document acknowledges to followin. Understanding that you received emergency treatment and that you may be released before al medical problems are known or treated. Please be certain the ED has a correct phone number & address where you can be reached. 2. Acknowledgement that you will arrange for follow-up care as recommended. 3. Authorization for the Emergency Physician to provide information to your f ollow-up Physician in order to maximize your care. AT ANY TIME, IF YOUR SYMPTOMS CHANGE SIGNIFICANTLY OR WORSEN OR YOU DEVELOP NEW SYMPTOMS, RETURN TO THE EMERGENCY DEPARTMENT IMMEDIATELY FOR RE-EVALUATION. OUR GOAL IS TO PROVIDE EXCELLENT MEDICAL CARE! WE HOPE THAT WE HAVE MET YOUR EXPECTATIONS DURING YOUR EMERGENCY DEPARTMENT VISIT AND THAT YOU FEEL YOU HAVE RECEIVED EXCELLENT CARE! Referrals: TAYLOR SUTTON MD [Primary Care Provider] - Follow up as needed I personally performed the services described in the documentation, reviewed and edited the documentation which was dictated to the scribe in my presence, and it accurately records my words and actions.
--- NOTE | 2019-04-26 03:23 | RADIOLOGY REPORT (SQ) ---
EXAM DESCRIPTION: XR CHEST 1 VIEW COMPLETED DATE/TME: 04/26/2019 02:36 CLINICAL HISTORY: 59 years, Male, chest pain COMPARISON: 12/20/2018 chest NUMBER OF VIEWS: 1 TECHNIQUE: Portable chest LIMITATIONS: None. FINDINGS: Heart size is normal. Post surgical change of the mediastinum. Lungs are clear. No pneumothorax IMPRESSION: No acute cardiopulmonary process copyright 2010 [employer]- All Rights Reserved
[2019-04-26 04:21] VITALS: BP 160/90
--- NOTE | 2019-04-26 08:41 | EKG REPORT ---
SEVERITY:- BORDERLINE ECG - SINUS RHYTHM BORDERLINE T WAVE ABNORMALITIES : Confirmed by: Karson Kingsley MD 26-Apr-2019 08:40:47
== END 2019-04-26 04:31 | disposition home or self-care (01) ==
LOC: ER 21:28
DX: R07.9 Chest pain, unspecified (principal); Z88.8 Allergy status to other drugs, medicaments and biological substances; Z79.899 Other long term (current) drug therapy; I25.10 Atherosclerotic heart disease of native coronary artery without angina pectoris; I25.2 Old myocardial infarction; I10 Essential (primary) hypertension; E11.9 Type 2 diabetes mellitus without complications
CPT/HCPCS: 36415; 71045; 80053; 82550; 82553; 84484; 85025; 93005; 93010; 99285

== ENCOUNTER 2019-05-02 19:04 | Emergency (ER) | payer MEDICARE ==
--- NOTE | 2019-05-02 19:25 | ER Document Report ---
ED Medical Screen (RME) - General Chief Complaint: Flu Symptoms Stated Complaint: FLU SYMPTOMS Time Seen by Provider: 05/02/19 19:23 Primary Care Provider: TAYLOR SUTTON MD [Primary Care Provider] - Follow up as needed Information source: Patient Notes: This is a 59-year-old male who presented to the emergency room today stating that he had cough cold congestion chest pressure ongoing for about 3 days with a fever and nausea. States as though he feels like he has more flulike symptoms than cardiac type pressure in his chest. TRAVEL OUTSIDE OF THE [place] IN LAST 30 DAYS: No - Related Data Allergies/Adverse Reactions: morphine [Morphine] Adverse Reaction (Verified 12/20/18 01:03) Migraine Past Medical History - Past Medical History Cardiac Medical History: Reports: Hx Coronary Artery Disease, Hx Heart Attack - x6, Hx Hypercholesterolemia, Hx Hypertension Denies: Hx Congestive Heart Failure Pulmonary Medical History: Denies: Hx Asthma, Hx Bronchitis, Hx COPD, Hx Pneumonia, Hx Respiratory Failure, Hx Tuberculosis Neurological Medical History: Reports: Hx Cerebrovascular Accident - x1. Denies: Hx Seizures, Hx Parkinson's Disease Endocrine Medical History: Reports: Hx Diabetes Mellitus Type 2. Denies: Hx Diabetes Mellitus Type 1, Hx Hyperthyroidism, Hx Hypothyroidism Renal/ Medical History: Reports: Hx Benign Prostatic Hyperplasia, Hx Kidney Stones. Denies: Hx End Stage Renal Disease, Hx Peritoneal Dialysis GI Medical History: Reports: Hx Gastroesophageal Reflux Disease, Hx Hiatal Hernia - Currently undergoing a "Lowry" study. Denies: Hx Cirrhosis, Hx Hepatitis, Hx Ulcer Musculoskeltal Medical History: Reports Hx Arthritis, Denies Hx Gout, Denies Hx Multiple Sclerosis Skin Medical History: Denies Hx Eczema, Denies Hx Psoriasis Psychiatric Medical History: Reports: Hx Depression Denies: Hx Bipolar Disorder, Hx Schizophrenia Infectious Medical History: Denies: Hx Hepatitis Past Surgical History: Reports: Hx Abdominal Surgery, Hx Cardiac Catheterization, Hx Cardiac Surgery - triple bypass, Hx Cholecystectomy, Hx Coronary Artery Bypass Graft, Hx Coronary Stent - x9, Hx Gastric Bypass Surgery - Immunizations Hx Diphtheria, Pertussis, Tetanus Vaccination: Yes Physical Exam - Respiratory Respiratory status: No respiratory distress Chest status: Nontender Breath sounds: Normal Chest palpation: Normal - Cardiovascular Rhythm: Regular Doctor's Discharge - Discharge Referrals: TAYLOR SUTTON MD [Primary Care Provider] - Follow up as needed
[2019-05-02 20:12] LABS: HEMATOCRIT 40.4 % (37.9-51.0); HEMOGLOBIN 12.9 g/dL (13.5-17.0); MEAN CORPUSCULAR HEMOGLOBIN 22.9 pg (27.0-33.4); MEAN CORPUSCULAR HGB CONC 31.9 g/dL (32.0-36.0); MEAN CORPUSCULAR VOLUME 72 fl (80-97); PLATELET COUNT 270 10^3/uL (150-450); RED BLOOD COUNT 5.61 10^6/uL (4.35-5.55); RED CELL DISTRIBUTION WIDTH 23.8 % (11.5-14.0); WHITE BLOOD COUNT 8.2 10^3/uL (4.0-10.5)
[2019-05-02 20:35] LABS: ABSOLUTE LYMPHOCYTES# (MANUAL) 0.4 10^3/uL (0.5-4.7); ABSOLUTE MONOCYTES # (MANUAL) 0.4 10^3/uL (0.1-1.4); BASOPHILS % (MANUAL) 0 % (0-2); EOSINOPHILS % (MANUAL) 0 % (0-6); LYMPHOCYTES % (MANUAL) 4 % (13-45); MONOCYTES % (MANUAL) 5 % (3-13); SEGMENTED NEUTROPHILS % (MAN) 90 % (42-78); TOTAL CELLS COUNTED 100
[2019-05-02 20:36] LABS: ANISOCYTOSIS 3+; PLATELET COMMENT ADEQUATE
[2019-05-02 20:38] LABS: A TYPE INFLUENZA AG NEGATIVE (NEGATIVE); ALBUMIN 3.8 g/dL (3.5-5.0); ALKALINE PHOSPHATASE 97 U/L (38-126); ANION GAP 12 (5-19); ASPARTATE AMINO TRANSFERASE 16 U/L (17-59); B INFLUENZA AG NEGATIVE (NEGATIVE); BILIRUBIN,DIRECT 0.2 mg/dL (0.0-0.4); BILIRUBIN,TOTAL 0.6 mg/dL (0.2-1.3); BLOOD UREA NITROGEN 20 mg/dL (7-20); CALCIUM 8.7 mg/dL (8.4-10.2); CARBON DIOXIDE 20 mmol/L (22-30); CHLORIDE 104 mmol/L (98-107); CREATINE KINASE 60 U/L (55-170); GLUCOSE 255 mg/dL (75-110); POTASSIUM 4.4 mmol/L (3.6-5.0); TOTAL PROTEIN 6.9 g/dL (6.3-8.2)
[2019-05-02 20:47] LABS: CREATINE KINASE MB 0.83 ng/mL (<4.55); TROPONIN I 0.013 ng/mL
--- NOTE | 2019-05-02 20:47 | ER Document Report ---
ED General - General TRAVEL OUTSIDE OF THE [place] IN LAST 30 DAYS: No - Related Data Home Medications: flexeril,gabapentin, plavix, valsartan, metoprolol, amilodipine, isordil, baby asa, ntg prn <MATHEUS BECKER - Last Filed: 05/03/19 00:56> <MELOMKAR R - Last Filed: 05/03/19 01:36> - General Chief Complaint: Flu Symptoms Stated Complaint: FLU SYMPTOMS Time Seen by Provider: 05/02/19 19:23 Primary Care Provider: TAYLOR SUTTON MD [NO LOCAL MD] - Follow up as needed Notes: Patient is a 59-year-old white male with a past medical history of CAD with prior stenting of 9 stents, 6 that are patent with a history of triple bypass who presents to the emergency department with a chief complaint of flulike symptoms for the past 3 days. He states a coworker was recently sick with pneumonia, he had close contact with her, gave her a ride to work and feels he may have caught something from her. He denies any known exposures to patients under investigation for coronavirus or any recent travel. He admits to a cough, low-grade fevers, nausea, chest congestion and chest pressure. States this feels different from prior cardiac events. Denies any specific shortness of breath. No vomiting diarrhea or abdominal pain. (MATHEUS BECKER) - Related Data Allergies/Adverse Reactions: morphine [Morphine] Adverse Reaction (Verified 12/20/18 01:03) Migraine Past Medical History - General Information source: Patient - Social History Smoking Status: Never Smoker Family History: CAD, DM, Hyperlipidemia, Hypertension Patient has suicidal ideation: No Patient has homicidal ideation: No - Past Medical History Cardiac Medical History: Reports: Hx Coronary Artery Disease, Hx Heart Attack - x6, Hx Hypercholesterolemia, Hx Hypertension Denies: Hx Congestive Heart Failure Pulmonary Medical History: Denies: Hx Asthma, Hx Bronchitis, Hx COPD, Hx Pneumonia, Hx Respiratory Failure, Hx Tuberculosis Neurological Medical History: Reports: Hx Cerebrovascular Accident - x1. Denies: Hx Seizures, Hx Parkinson's Disease Endocrine Medical History: Reports: Hx Diabetes Mellitus Type 2. Denies: Hx Diabetes Mellitus Type 1, Hx Hyperthyroidism, Hx Hypothyroidism Renal/ Medical History: Reports: Hx Benign Prostatic Hyperplasia, Hx Kidney Stones. Denies: Hx End Stage Renal Disease, Hx Peritoneal Dialysis GI Medical History: Reports: Hx Gastroesophageal Reflux Disease, Hx Hiatal Hernia - Currently undergoing a "Lowry" study. Denies: Hx Cirrhosis, Hx Hepatitis, Hx Ulcer Musculoskeletal Medical History: Reports Hx Arthritis, Denies Hx Gout, Denies Hx Multiple Sclerosis Skin Medical History: Denies Hx Eczema, Denies Hx Psoriasis Psychiatric Medical History: Reports: Hx Depression Denies: Hx Bipolar Disorder, Hx Schizophrenia Infectious Medical History: Denies: Hx Hepatitis Past Surgical History: Reports: Hx Abdominal Surgery, Hx Cardiac Catheterization, Hx Cardiac Surgery - triple bypass, Hx Cholecystectomy, Hx Coronary Artery Bypass Graft, Hx Coronary Stent - x9, Hx Gastric Bypass Surgery - Immunizations Hx Diphtheria, Pertussis, Tetanus Vaccination: Yes Hx Pneumococcal Vaccination: 11/19/14 <MATHEUS BECKER - Last Filed: 05/03/19 00:56> Review of Systems - Review of Systems Constitutional: Fever Cardiovascular: Chest pain Respiratory: Cough Gastrointestinal: Nausea <MATHEUS BECKER - Last Filed: 05/03/19 00:56> Physical Exam - General General appearance: Appears well, Alert In distress: None - HEENT Head: Normocephalic, Atraumatic Eyes: Normal Conjunctiva: Normal Extraocular movements intact: Yes Eyelashes: Normal Pupils: PERRL Ears: Normal External canal: Normal Tympanic membrane: Normal Sinus: Normal Nasal: Normal Mouth/Lips: Normal Mucous membranes: Normal Pharynx: Normal Neck: Normal - Respiratory Respiratory status: No respiratory distress Chest status: Nontender Breath sounds: Normal Chest palpation: Normal - Cardiovascular Rhythm: Regular Heart sounds: Normal auscultation - Neurological Neuro grossly intact: Yes Cognition: Normal Orientation: AAOx4 [place] Coma Scale Eye Opening: Spontaneous [place] Coma Scale Verbal: Oriented [place] Coma Scale Motor: Obeys Commands [place] Coma Scale Total: 15 Speech: Normal - Psychological Associated symptoms: Normal affect, Normal mood - Skin Skin Temperature: Warm Skin Moisture: Dry Skin Color: Normal <MATHEUS BECKER - Last Filed: 05/03/19 00:56> - Vital signs Vitals: Temp Pulse Resp BP Pulse Ox 99.3 F 107 H 16 119/95 H 100 05/02/19 19:22 05/02/19 19:22 05/02/19 19:22 05/02/19 19:22 05/02/19 19:22 Course - Laboratory Result Diagrams: 05/02/19 19:46 05/02/19 19:46 <MATHEUS BECKER - Last Filed: 05/03/19 00:56> - Laboratory Result Diagrams: 05/02/19 19:46 05/02/19 19:46 <[address] - Last Filed: 05/03/19 01:36> - Re-evaluation Re-evalutation: 05/02/19 20:49 EKG interpreted by attending physician as no STEMI at 2004, sinus tach at a rate of 100 with normal intervals. Largely unchanged from prior EKG dated April 26, 2019. 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 At this point he is established as a patient under investigati on. During his stay here in the emergency department he has had a mask and was initially placed in a room with the door as negative pressure is not available. The appropriate CDC forms were completed. The nurse will obtain the specimen as the order was placed by lab and specimen collection kit sent down to the department. Patient given the appropriate paperwork regarding patient under investigation for coronavirus and instructions specific to such. Also given a list to complete for contacts during his isolation. Given his mixed presentation he is pending a second troponin. Initial EKG showing no STEMI. He is resting comfortably in the room. 05/03/19 00:56 Pending swab for novel coronavirus and repeat troponin/EKG. Patient will be signed over to [address] PA-C. If second troponin is normal and EKG unchanged patient will be discharged home to self isolation status as a patient under investigation for coronavirus pending his results. He was already given all the necessary paperwork in regards to this status as well as instructions and he understands and agrees. He is stable at time of case transfer. (MATHEUS BECKER) 05/03/19 01:32 Sign out was received. Pt's 2 sets of troponin is negative. Pt's EKG did not show a STEMI and it is unchanged from previous. Pt was given discharge instructions concerning self isolation status as pt under investigatio n for coronavirus. Pt to be discharged with return precautions. All questions/concerns addressed prior to discharge. (OMKAR WAY) - Vital Signs Vital signs: Temp Pulse Resp BP Pulse Ox 99.3 F 107 H 16 119/95 H 100 05/02/19 19:22 05/02/19 19:22 05/02/19 19:22 05/02/19 19:22 05/02/19 19:22 - Laboratory Laboratory results interpreted by me: 05/02/19 05/02/19 19:46 19:46 RBC 5.61 H Hgb 12.9 L MCV 72 L MCH 22.9 L MCHC 31.9 L RDW 23.8 H Seg Neuts % (Manual) 90 H Lymphocytes % (Manual) 4 L Abs Lymphs (Manual) 0.4 L Sodium 135.5 L Carbon Dioxide 20 L Glucose 255 H AST 16 L Discharge <MATHEUS BECKER A - Last Filed: 05/03/19 00:56> <OMKAR WAY - Last Filed: 05/03/19 01:36> - Discharge Clinical Impression: PUI for coronavirus, Chest pressure Condition: Stable Disposition: HOME, SELF-CARE Additional Instructions: 2 sets of cardiac enzymes are negative. Please follow self-isolation guidelines as given. 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 Return immediately to ER for any worsening symptoms, including fever, coughing up blood, chest pain, shortness of breath, neck stiffness, abdominal pain, nausea/vomiting, diarrhea, or any other symptoms that are concerning to you. Prescriptions: Benzonatate [Tessalon Perles 100 mg Capsule] 100 mg PO Q8HP PRN #40 capsule PRN Reason: Ondansetron [Zofran Odt 4 mg Tablet] 1 - 2 tab PO Q4H PRN #15 tab.rapdis PRN Reason: For Nausea/Vomiting Referrals: TAYLOR SUTTON MD [NO LOCAL MD] - Follow up in 3-5 days
--- NOTE | 2019-05-02 20:54 | RADIOLOGY REPORT (SQ) ---
EXAM DESCRIPTION: XR CHEST 2 VIEWS COMPLETED DATE/TME: 05/02/2019 20:18 CLINICAL HISTORY: 59 years, Male, cough COMPARISON: April 26, 2019 NUMBER OF VIEWS: 2 TECHNIQUE: LIMITATIONS: None. FINDINGS: Cardiomediastinal silhouette is stable with postsurgical change. Coronary stents are seen. No consolidation or edema. No effusion or pneumothorax. IMPRESSION: No active intrathoracic disease copyright 2010 [employer]- All Rights Reserved
--- NOTE | 2019-05-02 22:30 | EKG REPORT ---
SEVERITY:- BORDERLINE ECG - SINUS TACHYCARDIA BORDERLINE T WAVE ABNORMALITIES : Confirmed by: Khushboo Peres 02-May-2019 22:29:19
[2019-05-03 02:00] VITALS: BP 128/86
== END 2019-05-03 02:00 | disposition home or self-care (01) ==
LOC: ER 19:04
DX: R07.9 Chest pain, unspecified (principal); R05 Cough; R50.9 Fever, unspecified; R11.0 Nausea; R09.89 Other specified symptoms and signs involving the circulatory and respiratory systems; Z88.8 Allergy status to other drugs, medicaments and biological substances; I25.10 Atherosclerotic heart disease of native coronary artery without angina pectoris; I10 Essential (primary) hypertension; E11.9 Type 2 diabetes mellitus without complications; Z20.828 Contact with and (suspected) exposure to other viral communicable diseases
CPT/HCPCS: 36415; 71046; 80053; 82550; 82553; 84484; 85025; 87635; 87804; 93005; 93010; 99284

== ENCOUNTER → 2019-08-05 | Outpatient (CLI) | payer MEDICARE ==
[2019-08-05 10:59] VITALS: BP 182/100
[2019-08-05 11:17] LABS: ABSOLUTE BASOPHILS # (AUTO) 0.1 10^3/uL (0.0-0.2); ABSOLUTE EOSINOPHILS # (AUTO) 0.2 10^3/uL (0.0-0.6); ABSOLUTE LYMPHOCYTES (AUTO) 1.5 10^3/uL (0.5-4.7); ABSOLUTE MONOCYTES (AUTO) 0.7 10^3/uL (0.1-1.4); ABSOLUTE NEUT (AUTO) 5.8 10^3/uL (1.7-8.2); BASOPHILS % (AUTO) 1.1 % (0-2); EOSINOPHILS % (AUTO) 1.9 % (0-6); HEMATOCRIT 41.9 % (37.9-51.0); HEMOGLOBIN 13.6 g/dL (13.5-17.0); LYMPHOCYTES % (AUTO) 18.1 % (13-45); MEAN CORPUSCULAR HEMOGLOBIN 24.1 pg (27.0-33.4); MEAN CORPUSCULAR HGB CONC 32.5 g/dL (32.0-36.0); MEAN CORPUSCULAR VOLUME 74 fl (80-97); MONOCYTES % (AUTO) 8.9 % (3-13); PLATELET COUNT 363 10^3/uL (150-450); RED BLOOD COUNT 5.66 10^6/uL (4.35-5.55); RED CELL DISTRIBUTION WIDTH 14.8 % (11.5-14.0); TOTAL CELLS COUNTED % (AUTO) 100 %; WHITE BLOOD COUNT 8.2 10^3/uL (4.0-10.5)
[2019-08-05 11:33] LABS: ANION GAP 8 (5-19); BLOOD UREA NITROGEN 18 mg/dL (7-20); CALCIUM 10.2 mg/dL (8.4-10.2); CARBON DIOXIDE 26 mmol/L (22-30); CHLORIDE 102 mmol/L (98-107); GLUCOSE 303 mg/dL (75-110); POTASSIUM 5.5 mmol/L (3.6-5.0)
--- NOTE | 2019-08-05 12:53 | EKG REPORT ---
SEVERITY:- ABNORMAL ECG - SINUS RHYTHM NONSPECIFIC T ABNORMALITIES, LATERAL LEADS : Confirmed by: Karson Kingsley MD 05-Aug-2019 12:52:41
== END ==
LOC: OD 10:27 → EDSTATUS 08-08 10:00
PROVIDERS: ATTEND Internal Medicine Gastroenterology
DX: Z01.810 Encounter for preprocedural cardiovascular examination (principal); Z01.812 Encounter for preprocedural laboratory examination; Z03.818 Encounter for observation for suspected exposure to other biological agents ruled out; D50.9 Iron deficiency anemia, unspecified
CPT/HCPCS: 93005; 36415; 85025; 80048; 93010; U0003; C9803; 87635

== ENCOUNTER 2020-02-12 02:15 | Observation (INO) | payer MEDICARE ==
[2020-02-12 03:04] LABS: INTERNATIONAL RATION (INR) 0.87
[2020-02-12 03:06] LABS: ABSOLUTE BASOPHILS # (AUTO) 0.1 10^3/uL (0.0-0.2); ABSOLUTE EOSINOPHILS # (AUTO) 0.3 10^3/uL (0.0-0.6); ABSOLUTE LYMPHOCYTES (AUTO) 1.6 10^3/uL (0.5-4.7); ABSOLUTE MONOCYTES (AUTO) 0.7 10^3/uL (0.1-1.4); ABSOLUTE NEUT (AUTO) 5.1 10^3/uL (1.7-8.2); BASOPHILS % (AUTO) 1.1 % (0-2); EOSINOPHILS % (AUTO) 3.8 % (0-6); HEMOGLOBIN 13.4 g/dL (13.5-17.0); MEAN CORPUSCULAR HEMOGLOBIN 25.1 pg (27.0-33.4); MEAN CORPUSCULAR HGB CONC 32.6 g/dL (32.0-36.0); MEAN CORPUSCULAR VOLUME 77 fl (80-97); MONOCYTES % (AUTO) 9.5 % (3-13); PLATELET COUNT 353 10^3/uL (150-450); RED BLOOD COUNT 5.34 10^6/uL (4.35-5.55); RED CELL DISTRIBUTION WIDTH 16.6 % (11.5-14.0); SEGMENTED NEUTROPHILS % (AUTO) 65.6 % (42-78); TOTAL CELLS COUNTED % (AUTO) 100 %; WHITE BLOOD COUNT 7.8 10^3/uL (4.0-10.5)
[2020-02-12 03:18] LABS: ALBUMIN 3.8 g/dL (3.5-5.0); ALKALINE PHOSPHATASE 89 U/L (38-126); ANION GAP 10 (5-19); ASPARTATE AMINO TRANSFERASE 24 U/L (17-59); BILIRUBIN,DIRECT 0.2 mg/dL (0.0-0.4); BILIRUBIN,TOTAL 0.4 mg/dL (0.2-1.3); BLOOD UREA NITROGEN 11 mg/dL (7-20); CALCIUM 9.1 mg/dL (8.4-10.2); CARBON DIOXIDE 23 mmol/L (22-30); CHLORIDE 105 mmol/L (98-107); CREATINE KINASE 43 U/L (55-170); GLUCOSE 323 mg/dL (75-110); POTASSIUM 4.8 mmol/L (3.6-5.0); TOTAL PROTEIN 6.7 g/dL (6.3-8.2)
[2020-02-12 03:32] LABS: CREATINE KINASE MB 0.43 ng/mL (<4.55)
[2020-02-12 03:35] LABS: TROPONIN I < 0.012 ng/mL
--- NOTE | 2020-02-12 03:51 | RADIOLOGY REPORT (SQ) ---
EXAM DESCRIPTION: X-ray two view chest. CLINICAL HISTORY: 59 years Male, CHEST PAIN COMPARISON: 05/02/2019 TECHNIQUE: PA and Lateral views of the chest performed on 02/12/2020 at 3:07 AM FINDINGS: The lungs are well expanded and are clear. The costophrenic sulci are clear. There is no evidence of a pneumothorax. The cardiac silhouette is normal in size. There are remote postsurgical changes of the mediastinum. The mediastinal contours are normal. No acute osseous abnormalities are identified. No focal soft tissue abnormalities are identified. IMPRESSION: No evidence of acute intrathoracic disease. Remote median sternotomy.
[2020-02-12] MEDS ORDERED: ASPIRIN 81 MG TABLET, CHEWABLE PO ONE (05:09)
--- NOTE | 2020-02-12 05:16 | ER Document Report ---
ED General - General Chief Complaint: Chest Pain Stated Complaint: SHORTNESS OF BREATH/CHEST PAIN Primary Care Provider: CEM ANNA FNP-C [Primary Care Provider] - Follow up as needed Notes: 59-year-old male with diabetes, hypertension, multiple prior MIs, CABG in 2018, 9 stents most recently approximately 3 and half years ago presents with approximately 1 hour of pressure-like retrosternal chest pain that "feels like an elephant sitting on my chest" that woke him up from sleep and felt like pain he experienced with his prior MIs. Pain resolved after 2 doses of nitroglycerin sublingual. Patient has had few similar episodes of chest pain this year but did not seek medical care because the pain was not as severe as this episode. Patient had shortness of breath while pain was severe that has now resolved. Patient currently is pain-free. Patient denies any recent cardiology eval, recent stress or cath, cough, fever, heart failure, lower extremity edema, smoking history, chronic chest pain. TRAVEL OUTSIDE OF THE [place] IN LAST 30 DAYS: No - Related Data Allergies/Adverse Reactions: morphine [Morphine] Adverse Reaction (Verified 02/12/20 02:26) Migraine Past Medical History - General Information source: Patient - Social History Smoking Status: Never Smoker Chew tobacco use (# tins/day): Yes Frequency of alcohol use: None Family History: CAD, DM, Hyperlipidemia, Hypertension - Past Medical History Cardiac Medical History: Reports: Hx Coronary Artery Disease - CARDIAC STENTS, Hx Heart Attack - x6, Hx Hypercholesterolemia, Hx Hypertension Denies: Hx Congestive Heart Failure Pulmonary Medical History: Denies: Hx Asthma, Hx Bronchitis, Hx COPD, Hx Pneumonia, Hx Respiratory Failure, Hx Tuberculosis Neurological Medical History: Denies: Hx Cerebrovascular Accident, Hx Seizures, Hx Parkinson's Disease Endocrine Medical History: Reports: Hx Diabetes Mellitus Type 2. Denies: Hx Diabetes Mellitus Type 1, Hx Hyperthyroidism, Hx Hypothyroidism Renal/ Medical History: Reports: Hx Benign Prostatic Hyperplasia, Hx Kidney Stones. Denies: Hx End Stage Renal Disease, Hx Peritoneal Dialysis GI Medical History: Reports: Hx Gastroesophageal Reflux Disease, Hx Hiatal Hernia - Currently undergoing a "Lowry" study. Denies: Hx Cirrhosis, Hx Hepatitis, Hx Ulcer Musculoskeletal Medical History: Reports Hx Arthritis, Denies Hx Gout, Denies Hx Multiple Sclerosis Skin Medical History: Denies Hx Eczema, Denies Hx Psoriasis Psychiatric Medical History: Reports: Hx Depression Denies: Hx Bipolar Disorder, Hx Schizophrenia Infectious Medical History: Denies: Hx Hepatitis Past Surgical History: Reports: Hx Abdominal Surgery, Hx Cardiac Catheterization, Hx Cardiac Surgery - triple bypass, Hx Cholecystectomy, Hx Coronary Artery Bypass Graft, Hx Coronary Stent - x9, Hx Gastric Bypass Surgery - Immunizations Hx Diphtheria, Pertussis, Tetanus Vaccination: Yes Hx Pneumococcal Vaccination: 11/19/14 Review of Systems - Review of Systems Notes: REVIEW OF SYSTEMS: CONSTITUTIONAL : Denies fever, chills, or sweats. EENT: Denies recent cold/sinus symptoms, denies throat pain CARDIOVASCULAR: +chest pain, -MAI RESPIRATORY: Denies cough, +shortness of breath. GASTROINTESTINAL: Denies abdominal pain, nausea/vomiting. GENITOURINARY: Denies difficulty urinating, painful urination. MUSCULOSKELETAL: Denies neck pain, back pain. SKIN: Denies rash or skin lesions. HEMATOLOGIC : Denies easy bruising or bleeding. LYMPHATIC: Denies swollen, enlarged glands. NEUROLOGICAL: Denies headache, denies change in gait. PSYCHIATRIC: Denies anxiety or stress or depression. Physical Exam - Vital signs Vitals: Temp Pulse Resp BP Pulse Ox 97.7 F 105 H 16 138/100 H 99 02/12/20 02:22 02/12/20 02:22 02/12/20 02:22 02/12/20 02:22 02/12/20 02:22 - Notes Notes: PHYSICAL EXAMINATION: GENERAL: Well-appearing, well-nourished and in no acute distress. HEAD: Atraumatic, normocephalic. EYES: Pupils equal round and appropriate constriction, sclera anicteric, conjunctiva are normal. ENT: nares patent, moist mucous membranes. NECK: Normal range of motion, supple without lymphadenopathy LUNGS: Breath sounds clear to auscultation bilaterally and equal. No wheezes rales or rhonchi. HEART/CHEST: Regular rate and rhythm without murmurs, no chest tenderness ABDOMEN: Soft, nontender, no guarding, no masses, no CVAT EXTREMITIES: Normal range of motion, no pitting or edema. No cyanosis. NEUROLOGICAL: Awake, alert, conversing appropriately, moves all extremities spontaneously. PSYCH: Normal mood, normal affect. SKIN: Warm, Dry, normal turgor, no rashes or lesions noted. Course - Re-evaluation Re-evalutation: 02/12/20 05:15 Well-appearing patient with symptoms currently resolved with story highly concerning for ACS. Not consistent with PE or aortic dissection. No signs of acute ischemia on EKG, initial troponin negative. Given patient's significant risk factors and concerning story patient appropriate for observation for cardiology eval and stress test. No transfer indicated at this time given negative troponin and chest pain has resolved currently. Aspirin given, patient on monitor, discussed case with Dr. Spence who has accepted patient. - Vital Signs Vital signs: Temp Pulse Resp BP Pulse Ox 97.7 F 105 H 28 H 129/94 H 100 02/12/20 02:22 02/12/20 02:22 02/12/20 04:00 02/12/20 04:00 02/12/20 04:06 - Laboratory Results Result Diagrams: 02/12/20 02:45 02/12/20 02:45 Laboratory Results Interpreted: 02/12/20 02/12/20 02:45 02:45 Hgb 13.4 L MCV 77 L MCH 25.1 L RDW 16.6 H Creatinine 1.26 H Est GFR (MDRD) Non-Af 59 L Glucose 323 H Creatine Kinase 43 L Critical Laboratory Results Reviewed: No Critical Results - Radiology Results Critical Radiology Results Reviewed: No Critical Results - EKG Interpretation by Me Additional EKG results interpreted by me: 02/12/20 05:17 Sinus rhythm, no significant ST elevations or depressions, nonspecific T wave abnormalities Discharge - Discharge Clinical Impression: Diabetes mellitus type 2 in obese Chest pain Qualifiers: Chest pain type: unspecified Qualified Code(s): R07.9 - Chest pain, unspecified Hyperlipidemia Qualifiers: Hyperlipidemia type: unspecified Qualified Code(s): E78.5 - Hyperlipidemia, unspecified Hypertension Qualifiers: Hypertension type: essential hypertension Qualified Code(s): I10 - Essential (primary) hypertension Coronary artery disease Qualifiers: Coronary Disease-Associated Artery/Lesion type: unspecified vessel or lesion type [place] vs. transplanted heart: [place] heart Associated angina: with unstable angina Qualified Code(s): I25.110 - Atherosclerotic heart disease of [place] coronary artery with unstable angina pectoris Disposition: ADMITTED OBSERVATION Admitting Provider: Jordy (Hospitalist) Unit Admitted: Telemetry Referrals: CEM ANNA FNP-C [Primary Care Provider] - Follow up as needed
--- NOTE | 2020-02-12 06:13 | PDOC H&P ---
History of Present Illness Admission Date/PCP: 02/12/20 05:32 CEM ANNA, JANKI-Camilo History of Present Illness: STEPHANIE MONTEMAYOR is a 59 year old male past medical history of CAD, status post CABG hyperlipidemia, hypertension, BPH, GERD, arthritis, depression, presenting to ED complaining of chest pain. Patient is stating that last night he was sleeping at home around 1:00 AM he was woken up by chest pain that he explains as pressure-like and felt like an elephant sitting on his chest, was associated with shortness of breath and diaphoresis, was nonradiating, patient took 1 dose of sublingual nitroglycerin with no significant relief, patient took 2 more doses of sublingual nit roglycerin which resolved his chest pain. Patient is stating that his chest pain lasted about 1 hour, and it was similar to chest pain that he had prior to his previous MIs. Patient is stating that he is very active and very compliant with his medical care he is followed by Dr. Singh at [facility] and had 3 stress tests last year which were all reported as negative. On my encounter patient is resting in bed in no apparent distress stating that his chest pain is currently resolved, denies any shortness of breath, fever, chills, nausea, orthopnea, paroxysmal nocturnal dyspnea, weight changes, lower extremity swelling, fever, chills, nausea, vomiting. In ED initial troponin undetectable and EKG did not show any acute changes. Given history of extensive CAD hospital was consulted for observation. Past Medical History Cardiac Medical History: Reports: Coronary Artery Disease - CARDIAC STENTS, Myocardial Infarction - x6, Hyperlipidema, Hypertension Denies: Congestive Heart Failure Pulmonary Medical History: Denies: Asthma, Bronchitis, Chronic Obstructive Pulmonary Disease (COPD), Pneumonia, Respiratory Failure, Tuberculosis Neurological Medical History: Denies: Seizures Endocrine Medical History: Reports: Diabetes Mellitus Type 2 Denies: Diabetes Mellitus Type 1, Hyperthyroidism, Hypothyroidism Renal/ Medical History: Denies: End Stage Renal Disease GI Medical History: Reports: Gastroesophageal Reflux Disease, Hiatal Hernia - Currently undergoing a "Lowry" study Denies: Cirrhosis, Hepatitis Musculoskeltal Medical History: Reports: Arthritis Denies: Gout Skin Medical History: Denies: Eczema, Psoriasis Psychiatric Medical History: Reports: Depression Denies: Bipolar Disorder Hematology: Reports: Anemia Denies: Bleeding Tendencies Past Surgical History Past Surgical History: Reports: Cardiac Catheterization, Cholecystectomy, Coronary Artery Bypass Graft, Coronary Stent - x9, Gastric Bypass Surgery Social History Smoking Status: Never Smoker Frequency of Alcohol Use: Rare Hx Recreational Drug Use: No Drugs: None Hx Prescription Drug Abuse: No Family History Family History: CAD, DM, Hyperlipidemia, Hypertension Parental Family History Reviewed: Yes Children Family History Reviewed: Yes Sibling(s) Family History Reviewed.: Yes Medication/Allergy Home Medications: Amlodipine Besylate [Norvasc 5 mg Tablet] 5 mg PO DAILY 09/02/18 Aspirin [Ecotrin 81 mg EC Tablet] 81 mg PO DAILY 09/02/18 Clopidogrel Bisulfate [Plavix 75 mg Tablet] 75 mg PO DAILY 09/02/18 Cyclobenzaprine HCl [Flexeril 10 mg Tablet] 10 mg PO QHS 09/02/18 Tamsulosin HCl [Flomax 0.4 mg Cap.sr] 0.4 mg PO DAILY 09/02/18 Valsartan [Diovan 40 mg Tablet] 40 mg PO DAILY 09/02/18 Gabapentin [Neurontin 300 mg Capsule] 300 mg PO Q6 12/20/18 Isosorbide Mononitrate [Imdur 60 mg Tablet.er] 60 mg PO DAILY 12/20/18 Metoprolol Tartrate [Lopressor 25 mg Tablet] 12.5 mg PO DAILY 12/20/18 Nitroglycerin 0.4 mg SL Q5MP PRN 12/20/18 Vitamin E 1 tab PO DAILY 12/20/18 Allergies/Adverse Reactions: morphine [Morphine] Adverse Reaction (Verified 02/12/20 02:26) Migraine Review of Systems Review of Systems: as per hpi Physical Exam Vital Signs: Temp Pulse Resp BP Pulse Ox 97.7 F 105 H 17 133/78 H 100 02/12/20 02:22 02/12/20 02:22 02/12/20 05:01 02/12/20 05:01 02/12/20 05:01 Intake & Output 02/10/20 02/11/20 02/12/20 06:59 06:59 06:59 Weight 100 kg General appearance: PRESENT: no acute distress, well-developed, well-nourished Head exam: PRESENT: atraumatic, normocephalic Respiratory exam: PRESENT: clear to auscultation rashmi. ABSENT: rales, rhonchi, wheezes Cardiovascular exam: PRESENT: RRR. ABSENT: diastolic murmur, rubs, systolic murmur GI/Abdominal exam: PRESENT: normal bowel sounds, soft. ABSENT: distended, guarding, mass, organolmegaly, rebound, tenderness Extremities exam: PRESENT: full ROM. ABSENT: calf tenderness, clubbing, pedal edema Neurological exam: PRESENT: alert, awake, oriented to person, oriented to place, oriented to time, oriented to situation, CN II-XII grossly intact. ABSENT: motor sensory deficit Psychiatric exam: ABSENT: homicidal ideation, suicidal ideation Results Laboratory Results: 02/12/20 02:45 02/12/20 02:45 02/12/20 02/12/20 02:45 02:45 WBC 7.8 RBC 5.34 Hgb 13.4 L Hct 41.0 MCV 77 L MCH 25.1 L MCHC 32.6 RDW 16.6 H Plt Count 353 Seg Neutrophils % 65.6 Sodium 137.5 Potassium 4.8 Chloride 105 Carbon Dioxide 23 Anion Gap 10 BUN 11 Creatinine 1.26 H Est GFR ( Amer) > 60 Glucose 323 H Calcium 9.1 Total Bilirubin 0.4 AST 24 Alkaline Phosphatase 89 Total Protein 6.7 Albumin 3.8 02/12/20 02/12/20 02:45 02:45 Creatine Kinase 43 L CK-MB (CK-2) 0.43 Troponin I < 0.012 Impressions: Chest X-Ray 02/12/20 00:00 IMPRESSION: No evidence of acute intrathoracic disease. Remote median sternotomy. Assessment and Plan - Diagnosis (1) Chest pain Qualifiers: Chest pain type: unspecified Qualified Code(s): R07.9 - Chest pain, unspecified Is this a current diagnosis for this admission?: Yes Plan: Typical chest pain relieved with nitroglycerin. Troponins negative x1. EKG no acute changes. Given history of extensive CAD will admit to telemetry for observation and co nsult cardiology. Admit to telemetry, trend troponins, sublingual nitroglycerin, antiplatelets, TORI, beta-blockers, statins. Cardiology consulted. Follow-up recommendations. (2) Coronary artery disease Qualifiers: Coronary Disease-Associated Artery/Lesion type: unspecified vessel or lesion type [place] vs. transplanted heart: [place] heart Associated angina: with unstable angina Qualified Code(s): I25.110 - Atherosclerotic heart disease of [place] coronary artery with unstable angina pectoris Is this a current diagnosis for this admission?: Yes Plan: She of CAD status post CABG. Resume home meds. Adjust meds as needed. Outpatient PCP and cardiology follow- up. (3) Diabetes mellitus type 2 in obese Is this a current diagnosis for this admission?: Yes Plan: As per patient since having gastric bypass his diabetes is diet controlled. Diabetic diet hypoglycemia protocol sliding scale insulin. (4) Hyperlipidemia Qualifiers: Hyperlipidemia type: unspecified Qualified Code(s): E78.5 - Hyperlipidemia, unspecified Is this a current diagnosis for this admission?: Yes Plan: Resume home meds. (5) Hypertension Qualifiers: Hypertension type: essential hypertension Qualified Code(s): I10 - Essential (primary) hypertension Is this a current diagnosis for this admission?: Yes Plan: Euvolemic. Normotensive. Resume home meds. Adjust meds as needed. - Time Time Spent with patient: 35 or more minutes Anticipated Discharge Disposition: Home, Self Care Anticipated Discharge Timeframe: within 36 hours
[2020-02-12] MEDS ORDERED: NORMAL SALINE 1000 ML 1,000 ML IV PRN (06:14)
[2020-02-12] MEDS ORDERED: IPRATROPIUM/ALBUTEROL 0.5-2.5 MG/3 ML AMPUL NEB PRN (06:14)
[2020-02-12] MEDS ORDERED: ONDANSETRON HCL INJ/PF 4 MG/2 ML SDV IV PRN (06:14)
[2020-02-12] MEDS ORDERED: PROMETHAZINE HCL INJ 25 MG/1 ML VIAL IV PRN (06:14)
[2020-02-12] MEDS ORDERED: TEMAZEPAM 7.5 MG CAPSULE PO PRN (06:14)
[2020-02-12] MEDS ORDERED: ACETAMINOPHEN 325 MG TABLET PO PRN (06:14)
[2020-02-12] MEDS ORDERED: NITROGLYCERIN 0.4 MG/TAB 25 TAB/BOTTLE SL PRN (06:21)
--- NOTE | 2020-02-12 08:07 | EKG REPORT ---
SEVERITY:- BORDERLINE ECG - SINUS TACHYCARDIA BORDERLINE T WAVE ABNORMALITIES : Confirmed by: Karson Kingsley MD 12-Feb-2020 08:06:58
[2020-02-12] MEDS ORDERED: DOCUSATE SODIUM 100 MG CAPSULE PO SCH (10:00)
[2020-02-12] MEDS ORDERED: ISOSORBIDE MONONITRATE 60 MG TAB.ER.24H PO SCH (10:00)
[2020-02-12] MEDS ORDERED: CLOPIDOGREL BISULFATE 75 MG TABLET PO SCH (10:00)
[2020-02-12] MEDS ORDERED: ASPIRIN 81 MG TABLET, CHEWABLE PO SCH (10:00)
[2020-02-12] MEDS ORDERED: VALSARTAN 40 MG TABLET PO SCH ×2 (10:00→14:00)
[2020-02-12] MEDS ORDERED: FAMOTIDINE 20 MG TABLET PO SCH (10:00)
[2020-02-12] MEDS ORDERED: METOPROLOL TARTRATE 25 MG TABLET PO SCH (10:00)
[2020-02-12] MEDS ORDERED: OXYCODONE HCL IR 5 MG TABLET PO ONE (12:45)
[2020-02-12] MEDS ORDERED: HEPARIN SOD (PORCINE) 5,000 UNIT/ML 1 ML VIAL SUBCUT SCH (14:00)
[2020-02-12 16:42] VITALS: BP 123/78
--- NOTE | 2020-02-12 17:46 | PDOC DISCHARGE SUMMARY ---
Impression - Admit/DC Date/PCP Admission Date/Primary Care Provider: 02/12/20 05:32 CAL CHILDRESS Discharge Date: 02/12/20 - Discharge Diagnosis (1) Chest pain Is this a current diagnosis for this admission?: Yes (2) Coronary artery disease Is this a current diagnosis for this admission?: Yes (3) Diabetes mellitus type 2 in obese Is this a current diagnosis for this admission?: Yes (4) Hyperlipidemia Is this a current diagnosis for this admission?: Yes (5) Hypertension Is this a current diagnosis for this admission?: Yes - Additional Information Discharge Diet: Cardiac, Diabetic Discharge Activity: Activity As Tolerated Referrals: HAWK HENDRICKSON MD [ACTIVE STAFF] - 02/16/20 12:30 pm Prescriptions: RX: Nitroglycerin 0.4 mg SL Q5M #30 tab.subl Home Medications: RX: Amlodipine Besylate [Norvasc 5 mg Tablet] 5 mg PO DAILY 09/02/18 RX: Aspirin [Ecotrin 81 mg EC Tablet] 81 mg PO DAILY 09/02/18 RX: Clopidogrel Bisulfate [Plavix 75 mg Tablet] 75 mg PO DAILY 09/02/18 RX: Cyclobenzaprine HCl [Flexeril 10 mg Tablet] 10 mg PO Q12 09/02/18 RX: Tamsulosin HCl [Flomax 0.4 mg Cap.sr] 0.4 mg PO DAILY 09/02/18 RX: Valsartan [Diovan 40 mg Tablet] 40 mg PO DAILY 09/02/18 RX: Gabapentin [Neurontin 300 mg Capsule] 300 mg PO Q6 12/20/18 RX: Isosorbide Mononitrate [Imdur 60 mg Tablet.er] 60 mg PO DAILY 12/20/18 RX: Cholecalciferol (Vitamin D3) [Vitamin D3 1000 Unit Tablet] 4,000 unit PO DAILY 02/12/20 RX: Ferrous Sulfate [Ferosul] 325 mg PO DAILY 02/12/20 RX: Finasteride [Proscar 5 mg Tablet] 5 mg PO DAILY 02/12/20 RX: Metoprolol Succinate [Toprol Xl 25 mg Tab.sr] 12.5 mg PO DAILY 02/12/20 RX: Nitroglycerin 0.4 mg SL Q5M #30 tab.subl 02/12/20 RX: Oxycodone HCl [Oxy-Ir 5 mg Tablet] 10 mg PO QHS 02/12/20 RX: Vitamin B Complex/Folic Acid [B Complex Number 1 Tablet] 0.4 mg PO DAILY 02/12/20 RX: Zolpidem Tartrate [Ambien] 10 mg PO QHS 02/12/20 History of Present Illiness History of Present Illness: As per admitting provider: "STEPHANIE MONTEMAYOR is a 59 year old male past medical history of CAD, status post CABG hyperlipidemia, hypertension, BPH, GERD, arthritis, depression, presenting to ED complaining of chest pain. Patient is stating that last night he was sleeping at home around 1:00 AM he was woken up by chest pain that he explains as pressure-like and felt like an elephant sitting on his chest, was associated with shortness of breath and diaphoresis, was nonradiating, patient took 1 dose of sublingual nitroglycerin with no significant relief, patient took 2 more doses of sublingual nitroglycerin which resolved his chest pain. Patient is stating that his chest pain lasted about 1 hour, and it was similar to chest pain that he had prior to his previous MIs. Patient is stating that he is very active and very compliant with his medical care he is followed by Dr. Singh at [facility] and had 3 stress tests last year which were all reported as negative. On my encounter patient is resting in bed in no apparent distress stating that his chest pain is currently resolved, denies any shortness of breath, fever, chills, nausea, orthopnea, paroxysmal nocturnal dyspnea, weight changes, lower extremity swelling, fever, chills, nausea, vomiting. In ED initial troponin undetectable and EKG did not show any acute changes. Given history of extensive CAD hospital was consulted for observation." Hospital Course Hospital Course: Chest pain Typical chest pain relieved with nitroglycerin. Troponins negative x3 EKG no acute changes. Admitted for observation given extensive CAD. Telemetry showed normal sinus rhythm rate in 70s. Cardiology consulted. Pt requesting to go home, patient personally spoke with Dr. Samuel, cardiology on the phone. Home with Rx for sublingual nitroglycerin Cnt home medications of antiplatelets, TORI, beta-blockers, statins. May follow-up with Dr. Samuel in his office on 02/16/2020 at 12:30. Patient is followed by food safety officer Dr. Singh at [facility]. He was seen by him most recently in May and everything checked out. Of note he has had 3 stress test in the past year all of which were within normal limits. His last echo was at [facility], denies known history of congestive heart failure. Cardiac history significant for [place] October 2017. He plans to contact his cardiology office and get a follow-up appointment with them as soon as possible if he is unable to he will follow-up with Dr. Samuel at appointment as discussed above. Coronary artery disease History CAD status post CABG June 2017. Resume home meds. Adjust meds as needed. Outpatient PCP and cardiology follow- up. As above. Diabetes mellitus type 2 in obese As per patient since having gastric bypass his diabetes is diet controlled. Diabetic diet hypoglycemia protocol sliding scale insulin. Physical Exam Vital Signs: Temp Pulse Resp BP Pulse Ox 98.2 F 75 17 123/78 100 02/12/20 17:25 02/12/20 17:25 02/12/20 17:25 02/12/20 17:25 02/12/20 17:25 Intake & Output 02/11/20 02/12/20 02/13/20 06:59 06:59 06:59 Intake Total 374 Balance 374 Weight 100 kg 98.8 kg General appearance: PRESENT: no acute distress, cooperative, well-developed, well-nourished Head exam: PRESENT: atraumatic, normocephalic Eye exam: PRESENT: EOMI. ABSENT: scleral icterus Mouth exam: PRESENT: moist, neck supple Neck exam: PRESENT: full ROM. ABSENT: JVD, lymphadenopathy, tenderness Respiratory exam: PRESENT: clear to auscultation rashmi, crackles, symmetrical, unlabored. ABSENT: decreased breath sounds, rales, rhonchi, tachypnea, wheezes Cardiovascular exam: PRESENT: RRR. ABSENT: diastolic murmur, +S1, +S2, systolic murmur Pulses: PRESENT: normal radial pulses GI/Abdominal exam: PRESENT: soft. ABSENT: distended, firm, guarding, tenderness Extremities exam: PRESENT: full ROM. ABSENT: clubbing, pedal edema, tenderness Musculoskeletal exam: PRESENT: ambulatory, full ROM. ABSENT: deformity, dislocation Neurological exam: PRESENT: alert, awake, oriented to person, oriented to place, oriented to time, oriented to situation, CN II-XII grossly intact. ABSENT: altered Psychiatric exam: PRESENT: appropriate affect, normal mood Skin exam: PRESENT: dry, intact, warm Results Laboratory Results: WBC 7.8 10^3/uL (4.0-10.5) 02/12/20 02:45 RBC 5.34 10^6/uL (4.35-5.55) 02/12/20 02:45 Hgb 13.4 g/dL (13.5-17.0) L 02/12/20 02:45 Hct 41.0 % (37.9-51.0) 02/12/20 02:45 MCV 77 fl (80-97) L 02/12/20 02:45 MCH 25.1 pg (27.0-33.4) L 02/12/20 02:45 MCHC 32.6 g/dL (32.0-36.0) 02/12/20 02:45 RDW 16.6 % (11.5-14.0) H 02/12/20 02:45 Plt Count 353 10^3/uL (150-450) 02/12/20 02:45 Lymph % (Auto) 20.0 % (13-45) 02/12/20 02:45 [place] % (Auto) 9.5 % (3-13) 02/12/20 02:45 Eos % (Auto) 3.8 % (0-6) 02/12/20 02:45 Baso % (Auto) 1.1 % (0-2) 02/12/20 02:45 Absolute Neuts (auto) 5.1 10^3/uL (1.7-8.2) 02/12/20 02:45 Absolute Lymphs (auto) 1.6 10^3/uL (0.5-4.7) 02/12/20 02:45 Absolute Monos (auto) 0.7 10^3/uL (0.1-1.4) 02/12/20 02:45 Absolute Eos (auto) 0.3 10^3/uL (0.0-0.6) 02/12/20 02:45 Absolute Basos (auto) 0.1 10^3/uL (0.0-0.2) 02/12/20 02:45 Seg Neutrophils % 65.6 % (42-78) 02/12/20 02:45 PT 12.0 SEC (11.4-15.4) 02/12/20 02:45 INR 0.87 02/12/20 02:45 Sodium 137.5 mmol/L (137-145) 02/12/20 02:45 Potassium 4.8 mmol/L (3.6-5.0) 02/12/20 02:45 Chloride 105 mmol/L (98-107) 02/12/20 02:45 Carbon Dioxide 23 mmol/L (22-30) 02/12/20 02:45 Anion Gap 10 (5-19) 02/12/20 02:45 BUN 11 mg/dL (7-20) 02/12/20 02:45 Creatinine 1.26 mg/dL (0.52-1.25) H 02/12/20 02:45 Est GFR ( Amer) > 60 (>60) 02/12/20 02:45 Est GFR (MDRD) Non-Af 59 (>60) L 02/12/20 02:45 Glucose 323 mg/dL (75-110) H 02/12/20 02:45 Calcium 9.1 mg/dL (8.4-10.2) 02/12/20 02:45 Total Bilirubin 0.4 mg/dL (0.2-1.3) 02/12/20 02:45 Direct Bilirubin 0.2 mg/dL (0.0-0.4) 02/12/20 02:45 Neonat Total Bilirubin Not Reportable 02/12/20 02:45 Neonat Direct Bilirubin Not Reportable 02/12/20 02:45 Neonat Indirect Bili Not Reportable 02/12/20 02:45 AST 24 U/L (17-59) 02/12/20 02:45 ALT 21 U/L (<50) 02/12/20 02:45 Alkaline Phosphatase 89 U/L (38-126) 02/12/20 02:45 Creatine Kinase 43 U/L (55-170) L 02/12/20 02:45 CK-MB (CK-2) 0.43 ng/mL (<4.55) 02/12/20 02:45 Troponin I < 0.012 ng/mL 02/12/20 11:55 Total Protein 6.7 g/dL (6.3-8.2) 02/12/20 02:45 Albumin 3.8 g/dL (3.5-5.0) 02/12/20 02:45 02/12/20 02/12/20 02/12/20 02:45 06:25 11:55 CK-MB (CK-2) 0.43 Troponin I < 0.012 < 0.012 < 0.012 Impressions: Chest X-Ray 02/12/20 00:00 IMPRESSION: No evidence of acute intrathoracic disease. Remote median sternotomy. Plan Plan of Treatment: Nitro sublingual Rx sent to pharmacy as per requested by patient. No changes made to cardiac medications continue current home dose. Scheduled for follow-up appoint with Dr. Samuel 02/16/2020 at 12:30 PM. Attempt to follow-up with food safety officer within 1 week of discharge if unable to appointment is available with Dr. Samuel. Follow-up with primary care within 1 week from discharge. Time Spent: Greater than 30 Minutes Stroke Is this a Stroke Patient?: No Acute Heart Failure Is this a Heart Failure Patient?: No
[2020-02-12] MEDS ORDERED: TAMSULOSIN HCL 0.4 MG CAP.SR.24H PO SCH (18:00)
[2020-02-12] MEDS ORDERED: INFLUENZA QUAD (6MOS+) 2020-21 VAC 0.5 ML SYR IM ONE (18:00)
[2020-02-12] MEDS ORDERED: OXYCODONE HCL IR 5 MG TABLET PO SCH (22:00)
[2020-02-13] MEDS ORDERED: INFLUENZA QUAD (6MOS+) 2020-21 VAC 0.5 ML SYR IM ONE (08:00)
== END 2020-02-12 17:53 | disposition home or self-care (01) ==
LOC: ER 02:15 → EH 05:32 → 4S 08:01
PROVIDERS: ADMIT Internal Medicine; ATTEND Physician Assistant
DX: R07.9 Chest pain, unspecified (principal); I25.110 Atherosclerotic heart disease of native coronary artery with unstable angina pectoris; E11.9 Type 2 diabetes mellitus without complications; E78.5 Hyperlipidemia, unspecified; I10 Essential (primary) hypertension; E66.9 Obesity, unspecified; F32.9 Major depressive disorder, single episode, unspecified; R06.02 Shortness of breath; R61 Generalized hyperhidrosis; Z98.84 Bariatric surgery status; Z79.899 Other long term (current) drug therapy; Z79.82 Long term (current) use of aspirin; Z23 Encounter for immunization
CPT/HCPCS: 93005; 99285; 36415; 82553; 82550; 85025; 85610; 80053; 84484; 71046; 90686; 93010; G0378 ×2; G0008; A9270 ×8; J1644; J7030; 90471